=== PATIENT | female | born 1930 | race Caucasian/White ===

== ENCOUNTER 2018-10-20 10:30 | Inpatient (IN) | payer MEDICARE, BC ==
[~2018-10-20] VITALS: Ht 157.5 cm; Wt 57.5 kg
[2018-10-20 10:30] VITALS: BP 177/71
--- NOTE | 2018-10-20 10:30 | NUR ---
CHRISTIANO FOSS admitted to room 225-1, with an admitting diagnosis of POST CVA , on 10/20/18 from [facility] via EMS TRANSPORT, accompanied by STAFF.CHRISTIANO FOSS introduced to surroundings, call light, bed controls, phone, TV, temperature control, lights, meal times, smoking policy, visitor policy, side rail policy, bathrooms and showers. Patient Rights given to patient in the handbook.CHRISTIANO FOSS verbalizes understanding that [facility] is not responsible for the loss or damage to any personal effects or valuables that are kept in the patients posession during their hospitalization. The following Patient Care Plans were discussed with the PATIENT: Discharge Planning, CVA, RISK FOR INJURY, TELEMETRY. CHRISTIANO FOSS verbalizes understanding of Interdisciplinary Patient Education. Patient received Patient Rights Booklet, which includes Privacy Act Statement and Data Collection Information Summary.
--- NOTE | 2018-10-20 11:08 | History & Physical ---
History of Present Illness History of Present Illness Reason for visit/HPI CC: Seth stroke HPI: This is an 87-year-old white female clinic patient of Dr. 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 Apparently she had originally presented to the ER the day before admission for weakness and daughter was concerned about her speech. CT scan showed an area of old infarct with cerebral atrophy but no acute process. She was complaining of cough so she was placed on antibiotics and discharged back to the assisted living facility. Patient continued to have speech problems and then began to have difficulty with ambulating with a walker and brought her back to the emergency room. MRI was obtained revealing a Seth infarct subacute as likely cause of her issues. She had previously stopped her Plavix for unknown reason so she has been placed back on Plavix and started on Zocor. Her carotid ultrasound was done in July 2018 and that study was normal. Hyperlipidemia noted it total cholesterol 262 so she was placed empirically on Zocor. Patient was found to meet criteria for aggressive inpatient rehabilitation prior to returning back to assisted living. She does have a history of an old stroke and history of left hip fracture with left leg nerve injury since that time. These issues will place additional stressors in order to participate in therapies to fully benefit from aggressive inpatient rehabilitation. Date of Admission Oct 20, 2018 at 10:30 Date Seen by a Provider: Oct 20, 2018 Time Seen by a Provider: 11:30 I consulted on this patient on 10/20/18 11:08 Attending Physician Mera Joseph DO Admitting Physician Consult Allergies and Home Medications Allergies Coded Allergies: morphine (Unverified Allergy, Unknown, 10/20/18) sulfamethoxazole (Unverified Allergy, Unknown, 10/20/18) trimethoprim (Unverified Allergy, Unknown, 10/20/18) Home Medications Acetaminophen 325 Mg Tablet, 650 MG PO QID PRN for PAIN-MILD OR TEMPATURE, ( Reported) Ascorbic Acid 500 Mg Tablet, 500 MG PO DAILY, (Reported) Aspirin 81 Mg Tablet.dr, 81 MG PO HS, (Reported) Cholecalciferol (Vitamin D3) 1,000 Unit Capsule, 1,000 UNIT PO HS, (Reported) Citalopram Hydrobromide 20 Mg Tablet, 20 MG PO DAILY, (Reported) Lamotrigine 25 Mg Tablet, 25 MG PO HS, (Reported) Levothyroxine Sodium 25 Mcg Tablet, 25 MCG PO HS, (Reported) Melatonin 3 Mg Tablet, 3 MG PO HS, (Reported) Menthol 118 Ml Gel..ml., TP DAILY PRN for MUSCLE PAIN, (Reported) Multivits,Ca,Minerals/Iron/FA 1 Each Tablet, 1 TAB PO DAILY, (Reported) Oxybutynin Chloride 5 Mg Tablet, 5 MG PO DAILY, (Reported) Pantoprazole Sodium 40 Mg Tablet.dr, 40 MG PO DAILY, (Reported) Polyethylene Glycol 3350 17 Gm Powd.pack, 17 GM PO Q48H, (Reported) Pramoxine HCl/Menthol 28 Gm Cream..g., TP DAILY PRN for ITCHING, (Reported) Sodium Chloride 126 Ml Mist, 2 SPRAYS NS TID, (Reported) Patient Home Medication List Home Medication List Reviewed: Yes Past [id number] Hx Past Med/Social Hx: Reviewed Nursing Past Med/Soc Hx, Reviewed and Corrections made Patient Social History Marrital Status: single 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[employer]) Alcohol Use: Denies Use Smoking Status: Never a Smoker Seasonal Allergies Seasonal Allergies: No Past Medical History Surgeries: Abdominal (partial bowel resection), Bladder Surgery, Cardiac, Orthopedic (left hip fracture) Cardiac: Atrial Fibrillation, Coronary Artery Disease, High Cholesterol, Hypertension Neurological: Dementia, Neuropathy, Seizure Disorder, Stroke Genitourinary: Bladder Infection Gastrointestinal: Gastroesophageal Reflux, Chronic Constipation Musculoskeletal: Arthritis, Spasms Endocrine: Hypothyroidsim Hearing Impairment: Hard of Hearing Review of Systems Constitutional: see HPI, dizziness, malaise, weakness EENTM: no symptoms reported Respiratory: no symptoms reported Cardiovascular: no symptoms reported Gastrointestinal: no symptoms reported Genitourinary: no symptoms reported Musculoskeletal: back pain, joint pain Skin: no symptoms reported Psychiatric/Neurological: Anxiety, Depressed, Paresthesia, Pre-Existing Deficit , Weakness All Other Systems Reviewed Negative Unless Noted: Yes Physical Exam Vital Signs Capillary Refill : Height, Weight, BMI Height: '" Weight: lbs. oz. kg; BMI Method: General Appearance: No Apparent Distress, WD/WN, Chronically ill, Thin Eyes: Bilateral Eye Normal Inspection, Bilateral Eye PERRL, Bilateral Eye EOMI HEENT: PERRL/EOMI, Normal ENT Inspection, Pharynx Normal Neck: Full Range of Motion, Normal Inspection, Non Tender, Supple, Carotid Bruit Respiratory: Chest Non Tender, Lungs Clear, Normal Breath Sounds, No Accessory Muscle Use, No Respiratory Distress Cardiovascular: Regular Rate, Rhythm, No Edema, No Gallop, No JVD, No Murmur, Normal Peripheral Pulses Gastrointestinal: Normal Bowel Sounds, No Organomegaly, No Pulsatile Mass, Non Tender, Soft Back: Normal Inspection, No CVA Tenderness, No Vertebral Tenderness Extremity: Normal Capillary Refill, Normal Inspection, Normal Range of Motion, Non Tender, No Calf Tenderness, No Pedal Edema Neurologic/Psychiatric: Alert, Oriented x3, No Motor/Sensory Deficits, Normal Mood/Affect, Abnormal Gait (left leg weakness), Aphasia, Disoriented (subtle poor recall), Facial Droop (right), Motor Weakness (generalized) Skin: Normal Color, Warm/Dry Lymphatic: No Adenopathy Assessment/Plan Assessment and Plan Assessment: Seth infarct History of CVA with subsequent seizure disorder CAD previous stent placement Hypothyroidism Hypertension 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 Also will monitor for urinary and bowel function due to history of both organ systems ' dysfunction. Monitor blood pressure closely due to history of stroke subacute along with 2 prior strokes Close monitoring for recurrent seizure since history of seizure after her last stroke Cardiology consultation to decide if additional anticoagulation is needed to prevent subsequent strokes Admission Diagnosis Admission Status: Inpatient Order (span 2 midnights) Reason for Inpatient Admission: CVA inpt rehab will require 10 days of therapy Diagnosis/Problems Diagnosis/Problems (1) CVA (cerebral vascular accident) Status: Acute (2) History of CVA (cerebrovascular accident) Status: Chronic (3) Seizure disorder Status: Chronic (4) CAD (coronary artery disease) Status: Chronic (5) Hypothyroidism Status: Chronic (6) Paroxysmal atrial fibrillation Status: Chronic (7) History of coronary artery stent placement Status: Chronic (8) Hypertension Status: Chronic (9) Hyperlipidemia Status: Chronic (10) Urge incontinence Status: Chronic (11) History of hip fracture Status: Chronic (12) Depression Status: Chronic Problem Qualifiers (1) CVA (cerebral vascular accident): CVA mechanism: unspecified Qualified Codes: I63.9 - Cerebral infarction, unspecified (2) CAD (coronary artery disease): Coronary Disease-Associated Artery/Lesion type: [place] artery [place] vs. transplanted heart: [place] heart Associated angina: without angina Qualified Codes: I25.10 - Atherosclerotic heart disease of [place] coronary artery without angina pectoris (3) Hypothyroidism: Hypothyroidism type: acquired Qualified Codes: E03.9 - Hypothyroidism, unspecified (4) Hypertension: Hypertension type: essential hypertension Qualified Codes: I10 - Essential ( primary) hypertension (5) Hyperlipidemia: Hyperlipidemia type: mixed hyperlipidemia Qualified Codes: E78.2 - Mixed hyperlipidemia (6) Depression: Depression Type: unspecified Qualified Codes: F32.9 - Major depressive disorder, single episode, unspecified MERA JOSEPH DO Oct 20, 2018 11:08
[2018-10-20] MEDS ORDERED: LIDOCAINE 4% (SALONPAS) PATCH TOP PRN (11:30)
[2018-10-20] MEDS ORDERED: NON-FORMULARY MEDICATION 1 EA EA TOP PRN ×2 (11:30)
--- NOTE | 2018-10-20 12:44 | Occupational Therapy Eval ---
OT Evaluation-General/PLF Medical Diagnosis Admission Date Oct 20, 2018 at 10:30 Medical Diagnosis: CVA Onset Date: Oct 20, 2018 Therapy Diagnosis Therapy Diagnosis: decreased self care skills Medical History Pertinent Medical History: CVA, HTN, Hypothroidism Current History Pt admitted with CVA. Social History Home: Assisted Living ADL-Prior Level of Function Therapy Code Descriptions/Definitions Functional [place] Measure: 0=Not Assessed/NA 4=Minimal Assistance 1=Total Assistance 5=Supervision or Setup 2=Maximal Assistance 6=Modified [place] 3=Moderate Assistance 7=Complete [place] Therapy Quality Codes: 6 Independent with activity with or without an assistive device 5 Patient requires set up or clean up by helper. Patient completes activity by themselves 4 Supervision or touching assist (CGA). [place] provide cues , steadying assist 3 The helper provides less than half the effort to complete the activity 2 The helper provides more than half the effort to complete the activity 1 Dependent. The helper does all the effort to complete an activity 7 Patient refused to complete or attempt activity 9 The patient did not perform the activity before the current illness or injury 88 Not attempted due to Medical conditions or safety concerns Functional Abilities and Goals: Independent: Patient completed the activities by him/herself, with or without an assistive device, with no assistance from a helper. Needed Some Help: Patient needed partial assistance from another person to complete activities. Dependent: A helper completed the activities for the patient. Unknown: Not Applicable: ADL PLOF Comments Pt states she is normally independent with basic self care tasks. She lives at an Assisted Living Facility. They provide all meals. Pt uses FWW or w/c for mobility. DME/Equipment: Bath Chair, Shower Drive Self: No OT Current Status Subjective Pt in bed, agrees to treatment. Pt has no c/o pain. Mental Status/Objective Patient Orientation: Person, Place Current Glasses/Contacts: Yes Hearing Aids: No Dentures/Partials: Yes (pt states she has a partial, but does not have it here) Upper Extremity ROM Grossly WFL Upper Extremity Coordination Intact Upper Extremity Sensation Intact per pt report ADL-Treatment ADL-Current Pt admitted from outside hospital via ambulance transfer this date. Pt would like a shower this morning. Supine to sit with SBA and increased time. Sit to stand with min assist. Gait to restroom with FWW, very slow pace. Transfer to toilet with minimal assistance and cues for safety. Pt able to pull pants down with CGA for balance. Did not void at this time. Pt doffed clothing while seated on toilet. Able to doff shirt, but required assist with bra hook. Pt able to doff Depends and pants, but requires min assist for socks. Transfer to walk in shower with minimal assistance for safety. Uses grab bars for balance. Seated bathing completed using hand held shower. Upper body bathing completed with SBA. Pt able to wash bilateral upper legs and jerome area. Requires assist for feet and to stand and wash buttocks. Pt moves very slowly and requires increased time for bathing and dressing tasks. Pt required minimal assistance to don bra. Able to don pullover shirt with SBA. Pt required minimal assistance to start Depends and pants over feet, then able to pull up to knees. Stood with CGA for balance, required assist to pull pants up in back. Pt able to don socks with increased time. Able to don shoes, but requires assist to tie them. Pt slowly transferred to EOB. Sitting with needs met and speech therapist present after session. Bathing (FIM): 3 Shower/Bathe Self (QC): 3 Upper Body Dressing (FIM): 4 Upper Body Dressing (QC): 3 Lower Body Dressing (FIM): 3 Lower Body Dressing (QC): 3 On/Off Footwear (QC): 3 Toilet/Commode Transfer (FIM): 4 Toilet Transfer (QC): 3 Shower Transfer (FIM): 4 Education OT Patient Education: Rehab process Teaching Recipient: Patient Teaching Methods: Discussion Response to Teaching: Verbalize Understanding OT Short Term Goals Short Term Goals Time Frame: Oct 27, 2018 Bathing(FIM): 4 Upper Body Dressing(FIM): 5 Lower Body Dressing(FIM): 5 Toileting(FIM): 5 Toilet/Commode Transfer(FIM): 5 1=Demonstrate adherence to instructed precautions during ADL tasks. 2=Patient will verbalize/demonstrate understanding of assistive devices/ modifications for ADL. 3=Patient will improve strength/tolerance for activity to enable patient to perform ADL's. OT Assisted Goals Assisted Goals Time Frame: Nov 10, 2018 Eating (FIM): 6 Eating (QC): 6 Groomin Oral Hygiene (QC): 6 Bathing(FIM): 5 Shower/Bathe Self (QC): 5 Upper Body Dressing(FIM): 6 Upper Body Dressing (QC): 6 Lower Body Dressing(FIM): 6 Lower Body Dressing (QC): 6 On/Off Footwear (QC): 6 Toileting(FIM): 6 Toileting Hygiene (QC): 6 Toilet/Commode Transfer(FIM): 6 Toilet/Commode Transfer (QC): 6 Shower Transfer(FIM): 5 Additional Goals: 1-Demonstrate ADL Tasks, 2-Verbalize Understanding, 3- ImproveStrength/Ramila 1=Demonstrate adherence to instructed precautions during ADL tasks. 2=Patient will verbalize/demonstrate understanding of assistive devices/ modifications for ADL. 3=Patient will improve strength/tolerance for activity to enable patient to perform ADL's. OT Education/Plan Problem List/Assessment Assessment: Decreased Activ Tolerance, Decreased UE Strength, Dependent Transfers, Impaired Funct Balance, Impaired Self-Care Skills Pt demonstrates decreased ADL functioning, strength, transfers, and activity tolerance. Pt to benefit from skilled OT intervention for ADL training, transfers, strengthening, and safety education to increase functional independence and allow safe discharge plan. Discharge Recommendations Plan/Recommendations: Continue POC Treatment Plan/Plan of Care Treatment,Training & Education: Yes Patient would benefit from OT for education, treatment and training to promote independence in ADL's, mobility, safety and/or upper extremity function for ADL' s. Plan of Care: ADL Retraining, Functional Mobility, Group Exercise/Act as Ind, UE Funct Exercise/Act Treatment Duration: Nov 10, 2018 Frequency: At least 5 of 7 days/Wk (IRF) Estimated Hrs Per Day: 1.5 hours per day Agreement: Yes Rehab Potential: Fair Time/GCodes Start Time: 10:45 Stop Time: 11:50 Total Time Billed (hr/min): 65 Billed Treatment Time 1 visit, EVL(15minutes), ADLx3(50minutes) EDGARD DAVILA OT Oct 20, 2018 12:44
[2018-10-20] MEDS: SALINE NASAL SPRAY (OCEAN) 45 ML BTL SCH ×2 (13:00→21:11)
--- NOTE | 2018-10-20 14:06 | Occupational Ther Daily Note ---
OT Current Status-Daily Note Subjective Pt alert, sitting on EOB. No c/o pain. Agrees to therapy. Mental Status/Objective Patient Orientation: Person, Place, Time, Situation Therapy Code Descriptions/Definitions Functional [place] Measure: 0=Not Assessed/NA 4=Minimal Assistance 1=Total Assistance 5=Supervision or Setup 2=Maximal Assistance 6=Modified [place] 3=Moderate Assistance 7=Complete [place] ADL-Treatment Therapy Code Descriptions/Definitions Functional [place] Measure: 0=Not Assessed/NA 4=Minimal Assistance 1=Total Assistance 5=Supervision or Setup 2=Maximal Assistance 6=Modified [place] 3=Moderate Assistance 7=Complete [place] Therapy Quality Codes: 6 Independent with activity with or without an assistive device 5 Patient requires set up or clean up by helper. Patient completes activity by themselves 4 Supervision or touching assist (CGA). [place] provide cues , steadying assist 3 The helper provides less than half the effort to complete the activity 2 The helper provides more than half the effort to complete the activity 1 Dependent. The helper does all the effort to complete an activity 7 Patient refused to complete or attempt activity 9 The patient did not perform the activity before the current illness or injury 88 Not attempted due to Medical conditions or safety concerns Eating (FIM): 5 (Opens most containers and packages assist with tight lids and milk carton then uses regular utensils to eat.) Eating (QC): 5 Grooming (FIM): 6 (Sitting at sink, pt able to complete by self.) Oral Hygiene (QC): 6 Toileting (FIM): 3 (Min A for stability in standing to hike pants over hips. Assist to hike over buttocks. Pt able to cleanse after urination.) Toileting Hygiene (QC): 3 Toilet/Commode Transfer (FIM): 4 (Min A for sit<-->stand. Verbal cues for FWW and foot placement for transfer when close to toilet.) Pt ambulated to bed and required verbal cues for FWW and foot placement when close to bed. Pt able to go from EOB to supine by self using bed rail. Assist to scoot up in bed. After therapy, pt lying in bed with call light/phone in reach. All needs met in room. OT Short Term Goals Short Term Goals Time Frame: Oct 27, 2018 Bathing(FIM): 4 Upper Body Dressing(FIM): 5 Lower Body Dressing(FIM): 5 Toileting(FIM): 5 Toilet/Commode Transfer(FIM): 5 1=Demonstrate adherence to instructed precautions during ADL tasks. 2=Patient will verbalize/demonstrate understanding of assistive devices/ modifications for ADL. 3=Patient will improve strength/tolerance for activity to enable patient to perform ADL's. OT Color Consultant Goals Group Home Goals Time Frame: Nov 10, 2018 Eating (FIM): 6 Eating (QC): 6 Groomin Oral Hygiene (QC): 6 Bathing(FIM): 5 Shower/Bathe Self (QC): 5 Upper Body Dressing(FIM): 6 Upper Body Dressing (QC): 6 Lower Body Dressing(FIM): 6 Lower Body Dressing (QC): 6 On/Off Footwear (QC): 6 Toileting(FIM): 6 Toileting Hygiene (QC): 6 Toilet/Commode Transfer(FIM): 6 Toilet/Commode Transfer (QC): 6 Shower Transfer(FIM): 5 Additional Goals: 1-Demonstrate ADL Tasks, 2-Verbalize Understanding, 3- ImproveStrength/Ramila 1=Demonstrate adherence to instructed precautions during ADL tasks. 2=Patient will verbalize/demonstrate understanding of assistive devices/ modifications for ADL. 3=Patient will improve strength/tolerance for activity to enable patient to perform ADL's. OT Education/Plan Problem List/Assessment Pt demonstrates decreased ADL functioning, strength, transfers, and activity tolerance. Pt to benefit from skilled OT intervention for ADL training, transfers, strengthening, and safety education to increase functional independence and allow safe discharge plan. Discharge Recommendations Plan/Recommendations: Continue POC Treatment Plan/Plan of Care Patient would benefit from OT for education, treatment and training to promote independence in ADL's, mobility, safety and/or upper extremity function for ADL' s. Plan of Care: ADL Retraining, Functional Mobility, Group Exercise/Act as Ind, UE Funct Exercise/Act Treatment Duration: Nov 10, 2018 Frequency: At least 5 of 7 days/Wk (IRF) Estimated Hrs Per Day: 1.5 hours per day Agreement: Yes Rehab Potential: Fair Time/GCodes Start Time: 13:10 Stop Time: 13:56 Total Time Billed (hr/min): 46 Billed Treatment Time 1 visit-ADL 3 (46 min) MATILDA ABRAHAM Oct 20, 2018 14:06
[2018-10-20] MEDS ORDERED: MELA3TAB PO (14:27)
[2018-10-20] MEDS ORDERED: LAMO25TA PO (14:27)
[2018-10-20] MEDS ORDERED: ACET325T38 PO (14:27)
[2018-10-20] MEDS ORDERED: [UNRECOGNIZED DRUG - CODE] TP (14:27)
[2018-10-20] MEDS ORDERED: LEVO25TA5 PO (14:27)
[2018-10-20] MEDS ORDERED: OXYB5TAB9 PO (14:27)
[2018-10-20] MEDS ORDERED: POLY17PO6 PO (14:27)
[2018-10-20] MEDS ORDERED: MENT118G TP (14:27)
[2018-10-20] MEDS ORDERED: SODI126M NS (14:27)
[2018-10-20] MEDS ORDERED: ASPI-983 PO (14:27)
[2018-10-20] MEDS ORDERED: MULT-1009 PO (14:27)
[2018-10-20] MEDS ORDERED: PANT40TA2 PO (14:27)
[2018-10-20] MEDS ORDERED: ASCO500T6 PO (14:27)
[2018-10-20] MEDS ORDERED: CITA20TA9 PO (14:27)
[2018-10-20] MEDS ORDERED: CHOL10007 PO (14:27)
--- NOTE | 2018-10-20 14:49 | Physical Therapy Evaluation ---
PT Evaluation-General Medical Diagnosis Admission Date Oct 20, 2018 at 10:30 Medical Diagnosis: CVA Onset Date: Oct 20, 2018 Therapy Diagnosis Therapy Diagnosis: impaired mobility, strength, endurnace Weight Bear Status Right Lower Extremity: Right Full Weight Bearing Left Lower Extremity: Left Full Weight Bearing Referral Physician: Mera Joseph DO Reason for Referral: Evaluation/Treatment Medical History Pertinent Medical History: CVA, HTN, Hypothroidism Reviewed History: Yes Social History Home: Assisted Living Patient lives in assisted living but she states she has 3-4 steps to enter her home and has a railing. Prior/Core FIM Prior Level of Function Therapy Code Descriptions/Definitions Functional Weber Measure: 0=Not Assessed/NA 4=Minimal Assistance 1=Total Assistance 5=Supervision or Setup 2=Maximal Assistance 6=Modified Weber 3=Moderate Assistance 7=Complete Weber Therapy Quality Codes: 6 Independent with activity with or without an assistive device 5 Patient requires set up or clean up by helper. Patient completes activity by themselves 4 Supervision or touching assist (CGA). Crocheron provide cues , steadying assist 3 The helper provides less than half the effort to complete the activity 2 The helper provides more than half the effort to complete the activity 1 Dependent. The helper does all the effort to complete an activity 7 Patient refused to complete or attempt activity 9 The patient did not perform the activity before the current illness or injury 88 Not attempted due to Medical conditions or safety concerns Functional Abilities and Goals: Independent: Patient completed the activities by him/herself, with or without an assistive device, with no assistance from a helper. Needed Some Help: Patient needed partial assistance from another person to complete activities. Dependent: A helper completed the activities for the patient. Unknown: Not Applicable: Bed Mobility: 6 Transfers (B,C,W/C) (FIM): 6 Gait: 6 Stairs: 6 Indoor Mobility (Ambulation): Independent Stairs: Independent Patient was using a rolling walker previously. PT Evaluation-Current Subjective Patient in bed pre tx, agrees to PT, has no complaints of pain. Patient states her left leg is a little shorter than her right, she has a gel insert in her left shoe. Patient came by ambulance to this facility today. Pt/Family Goals to be independent at home Objective Patient Orientation: Person, Place, Situation ROM/Strength ROM Lower Extremities WNL Strenght Lower Extremities right lower extremity (hip flexion 3-/5, knee extension 4+/5, knee flexion 4+/5 , dorsiflexion 5/5), left lower extremity (hip flexion 3/5, knee extension 4/5, knee flexion 4/5, dorsiflexion 1/5) Patient states she has foot drop on the left side from a previous injury. Neuromuscular (Tone, Coordination, Reflexes) Patient seems to have intact peripheral vision that may be a little diminished on the left side. Patient had unreliable testing of track because she would look away and back again. No complaints of changes in hearing. Sensory Hearing: Functional Sensation Right Lower Extremit: Intact Sensation Left Lower Extremity: Impaired Sensation Lower Extremities Patient states she has some numbness in the toes left side. Transfers Therapy Code Descriptions/Definitions Functional Weber Measure: 0=Not Assessed/NA 4=Minimal Assistance 1=Total Assistance 5=Supervision or Setup 2=Maximal Assistance 6=Modified Weber 3=Moderate Assistance 7=Complete Weber Therapy Quality Codes: 6 Independent with activity with or without an assistive device 5 Patient requires set up or clean up by helper. Patient completes activity by themselves 4 Supervision or touching assist (CGA). Crocheron provide cues , steadying assist 3 The helper provides less than half the effort to complete the activity 2 The helper provides more than half the effort to complete the activity 1 Dependent. The helper does all the effort to complete an activity 7 Patient refused to complete or attempt activity 9 The patient did not perform the activity before the current illness or injury 88 Not attempted due to Medical conditions or safety concerns Transfers (B, C, W/C) (FIM): 4 Scootin Rollin Roll Left to Right (QC): 4 Supine to/from Sit: 4 Sit to/from Stand: 4 Sit to Lying (QC): 3 Lying to Sitting/Side of Bed(Q: 4 Sit to Stand (QC): 3 Chair/Vuv-xi-Oxuvf Xfer(QC): 3 Car Transfer (QC): 3 Patient performs bed mobility with SBA, supine to sit with SBA, sit to supine with min assist, sit to stand with min assist, transfers with min assist (needs help guiding walker), car transfer min assist. Patient needs cues for hand placement and safety. Moves very slowly. Gait Does the Patient Walk?: Yes Mode of Locomotion: Walk Anticipated Mode of Locomotion: Walk Gait (FIM): 2 Walk 10 feet (QC): 3 Walk 50 ft with 2 Turns(QC): 3 Walking 10ft/uneven surface-QC: 3 Distance: 100'x2 Gait Level of Assist: 3 Gait Persons Needed: 1 Gait Assistive Device: FWW Comments/Gait Description Patient can ambulate 100' with a rolling walker with min assist (including 50' with at least 2 turns of 90 degrees and 10' over an uneven surface). Patient ambulates extremely slowly and needs occasional assist to help guide walker. Patient has uneven and uncoordinated steps and often walks on her toes on the left side. Wheelchair Training Does the Pt Use a Wheelchair?: No Stairs Stairs (FIM): 1 #of Steps: 1 Level of Assist: 4 1 Step (curb) (QC): 3 Assistive Device: Walker Patient can go up and down 1 step using a rolling walker with min assist. Needs cues for foot placement and assist with balance. Balance Sitting Static: Normal Sitting Dynamic: Good Standing Static: Fair Assessment/Needs Patient has impairments in mobility, strength, endurance, balance. She has foot drop on the left side and says she already has her own AFO. Rehab Potential: Fair PT Short Term Goals Short Term Goals Time Frame: Oct 27, 2018 Transfers (B,C,W/C) (FIM): 4 Gait (FIM): 2 Gait Distance Comment: 120' Gait Level of Assist: 4 Gait Assistive Device: FWW PT Jail Goals Exhaust Emissions Automotive Technician Goals PT Exhaust Emissions Automotive Technician Goals Time Frame: Nov 10, 2018 Transfers (B,C,W/C) (FIM): 5 Sit to Lying (QC): 4 Lying-Sitting on Side/Bed(QC): 4 Sit to Stand (QC): 4 Rollin Roll Left to Right (QC): 4 Chair/Ekk-ka-Qpdba Xfer(QC): 4 Car Transfer (QC): 4 Gait (FIM): 5 Distance: 150' Walk 10 feet (QC): 4 Walk 10ft-Uneven Surface(QC): 4 Walk 50ft with 2 Turns (QC): 4 Walk 150 ft (QC): 4 Gait Level of Assist: 5 Gait Assistive Device: FWW Stairs (FIM): 2 # of Steps: 4 1 Step (curb) (QC): 4 4 Steps (QC): 4 Stairs Level Of Assist: 4 PT Plan Problem List Problem List: Activity Tolerance, Functional Strength, Safety, Balance, Gait, Transfer, Bed Mobility, ROM Treatment/Plan Treatment Plan: Continue Plan of Care Treatment Plan: Bed Mobility, Education, Functional Activity Ramila, Functional Strength, Group Therapy, Gait, Safety, Therapeutic Exercise, Transfers Treatment Duration: Nov 10, 2018 Frequency: At least 5 of 7 days/Wk (IRF) Estimated Hrs Per Day: 1.5 hours per day Patient and/or Family Agrees t: Yes Safety Risks/Education Patient Education: Gait Training, Transfer Techniques, Steps, Correct Positioning, Safety Issues Teaching Recipient: Patient Teaching Methods: Demonstration, Discussion Response to Teaching: Reinforcement Needed Discharge Recommendations Plan Patient will perform bed mobility and transfer training, balance and endurance training, functional strengthening, stair training, gait training, and education , to improve functional mobility and independence at home. Therapy D/C Recommendations: Assisted Living, Home w/ Family Support, Longterm (TCU/NH) Time/GCodes Time In: 1400 Time Out: 1435 Total Billed Treatment Time: 35 Total Billed Treatment 1 visit [place] 20' GT 15' NITO CAMACHO PT Oct 20, 2018 14:49
--- NOTE | 2018-10-20 15:22 | ST Cognitive Linguistic Eval ---
Speech Evaluation-General Medical Diagnosis CVA Onset Date: Oct 20, 2018 Therapy Diagnosis Therapy Diagnosis: Cognitive-communication Medical History Pertinent Medical History: CVA, HTN, Hypothroidism Reviewed History: Yes Speech PLF-Current Status Prior Level of Function Patient lived in assisted living where she was independent for most of her daily needs. Subjective Patient was very pleasant and attentive during the evaluation process. Language Eval: Auditory Comprehends Simple Yes/No Ques: Functional Indent/Objects Multiple Manley: Functional Ident/Pics in Multiple Manley: Functional Follows 1-Step Commands: Functional Follows Complex Directions: Functional Follows General Conversations: Functional Language Eval: Verbal Language Completes Spontaneous Greeting: Functional Produces Auto, Serial Info: Functional Imitates Simple Words/Phrases: Functional Word Finding: Functional Requests Basic Needs: Functional States Basic Personal Info: Functional Expresses Complex Ideas: Functional Objective Cognitive Domain Attention: WNL Memory: Mild Problem Solving: Functional Executive Functions: WNL Objective Formal/Standardized Tests [facility] Cognitive/Communication Results Memory:Immediate 3/3, Delayed 3/3 with cue x1, Orientation: 5/5, Problem Solving : Simple 5/5, Complex 4/5, Auditory Processin/5 Oral Motor/Speech Production Within Functional Limits Impression Patient is a pleasant 87 year old woman who was admitted to the ARU from [place] secondary to a CVA. Patient is a good historian and was able to give accurate details of her medical history. Patient completed the cognitive/communication evaluation with very minimal difficulty. Patient is not considered an appropriate candidate for skilled ST at this time. Communication/Social Cognition Comprehension: 7 Expression: 7 Social Interaction: 7 Problem Solvin Memory: 6 Speech Patient Assess Expression of Ideas/Wants: Expression (4) Understanding Verbal Content: Understands (4) Brief Interview-Mental Status: Yes Repetition of Three Words: Three (3) Temporal Orientation: Year: Correct (3) Temporal Orientation: Month: Accurate within 5 days(2) Temporal Orientation: Day: Correct (1) Recall : Color: Yes, after cueing (1) Recall : Bed: Yes, no cue required (2) Memory/Recall Ability: Current season, That he or she is in a hsp/hsp unit Speech Short Term Goals Short Term Goals Short Term Goals Patient will follow through with directions at 90% or greater. Patient will be able to express her wants/needs with 90% or greater. Speech Account Manager Relief Goals Senior Care Goals Patient will be able to communicate effectively while a patient on the ARU. Speech-Plan Patient/Family Goals Patient/Family Goals: Patient plans to return to the assisted living facility post rehab. Treatment Plan Speech Therapy Treatment Plan: Discontinue ST, Goals Met Patient is not recommended for skilled ST at this time. Treatment Duration: Oct 20, 2018 Frequency: 1 time per week Estimated Hrs Per Day: .25 hour per day Rehab Potential: Fair Barriers to Learning: Patient has had CVA's before which may have resulted in some residual affects. Safety Risks/Education Teaching Recipient: Patient Teaching Methods: Discussion Response to Teaching: Verbalize Understanding Education Topics Provided: Safety within her room Time Speech Therapy Time In: 11:50 Speech Therapy Time Out: 12:05 Total Billed Time: 15 Billed Treatment Time 1, ÁLVARO Quezada Oct 20, 2018 15:22
--- NOTE | 2018-10-20 15:25 | Consultation-Cardiology ---
HPI-Cardiology Cardiology Consultation: Date of Consultation 10/20/18 Time Seen by a Provider: 15:15 Date of Admission 10-20-18 Attending Physician Mera Joseph DO Admitting Physician Brenton Marroquin MD Consulting Physician Yogi Phipps MD HPI: Chief Complaint: CVA H/O PAF Primary Ward Assistant: Dr. Cresencio Mendes at [place], [place] Ms. Oliver is an 87 year old female admitted to IRF [facility] from [facility] for rehb tx following recent CVA. She is not a good historian and her daughter is not here at this time. She reports prior to her most recent stroke she had generally not been feeling well. She states her daughter brought her to see her PCP. She reports she was then admitted to [facility] from the ED with a stroke. Review of records from [facility] document she was initially brought to the [facility] ED by the [facility] facility at which she resides d/t her daughter being concerned that the patients speech had become "abnormal". CT is reported to have been carried out at that time which showed no evidence of acute CVA. (Report not available to us ) She was then released and brought to her PCP for f/u the next day by her daughter concern that the pts speech was still not at usual baseline and a somewhat right sided facial droop along with the inability to ambulate with her walker which she had previously been able to do. She was admitted and further work up was carried out. We do not have the MRI which was reported to have been done at the time of admission. She currently is not reporting any c/o CP, dyspnea, palpitations, syncope or near syncope. She is not reporting any LE edema. Review of Systems-Cardiology Review of Systems Constitutional: No chills, No fever; malaise; No weight loss, No weight gain Eyes: vision change Ears/Nose/Throat: No epistaxis, No recent hearing loss Respiratory: As described under HPI Cardiovascular: As described under HPI Gastrointestinal: No constipation, No diarrhea, No nausea, No vomiting Genitourinary: No dysuria, No hematuria Musculoskeletal: no symptoms reported Skin: No rash Psychiatric/Neurological: As described under HPI Hematologic: No bleeding abnormalities All Other Systems Reviewed Negative Unless Noted: Yes DKX-Aibaem-Ktodsl Hx Patient Social History Marrital Status: single 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 Family Medical History Family Medical History: She reports she has 2 sisters who have had CVA's and atrial fibrillation. She reports her father passed from an [place] at age 65. She reports her mother passed from an [place] at age 69 Allergies and Home Medications Allergies Coded Allergies: morphine (Unverified Allergy, Unknown, 10/20/18) sulfamethoxazole (Unverified Allergy, Unknown, 10/20/18) trimethoprim (Unverified Allergy, Unknown, 10/20/18) Home Medications Acetaminophen 325 Mg Tablet, 650 MG PO QID PRN for PAIN-MILD OR TEMPATURE, ( Reported) Ascorbic Acid 500 Mg Tablet, 500 MG PO DAILY, (Reported) Aspirin 81 Mg Tablet.dr, 81 MG PO HS, (Reported) Cefuroxime Axetil 250 Mg Tablet, 250 MG PO BID, (Reported) FILLED #14 TABLETS 10-17-18 Cholecalciferol (Vitamin D3) 1,000 Unit Capsule, 1,000 UNIT PO HS, (Reported) Citalopram Hydrobromide 20 Mg Tablet, 20 MG PO DAILY, (Reported) Lamotrigine 25 Mg Tablet, 25 MG PO HS, (Reported) Levothyroxine Sodium 25 Mcg Tablet, 25 MCG PO HS, (Reported) Melatonin 5 Mg Capsule, 10 MG PO HS, (Reported) Menthol 118 Ml Gel..ml., TP DAILY PRN for MUSCLE PAIN, (Reported) Multivits,Ca,Minerals/Iron/FA 1 Each Tablet, 1 TAB PO DAILY, (Reported) Oxybutynin Chloride 5 Mg Tablet, 5 MG PO DAILY, (Reported) Pantoprazole Sodium 40 Mg Tablet.dr, 40 MG PO DAILY, (Reported) Polyethylene Glycol 3350 17 Gm Powd.pack, 17 GM PO Q48H, (Reported) Pramoxine HCl/Menthol 28 Gm Cream..g., TP DAILY PRN for ITCHING, (Reported) Sodium Chloride 126 Ml Mist, 2 SPRAYS NS TID, (Reported) Patient Home Medication List Home Medication List Reviewed: Yes Physical Exam-Cardiology Physical Exam Vital Signs/I&O 10/23/18 10/23/18 10/23/18 01:00 06:25 07:00 Temp 97.0 Pulse 57 57 53 Resp 16 B/P (MAP) 163/78 (106) Pulse Ox 94 O2 Delivery Room Air 10/23/18 00:00 Intake Total 800 ml Balance 800 ml Capillary Refill : Constitutional: AAO x 3, well-developed, well-nourished HEENT: hard of hearing, oral hygience is good Neck: carotid bruit (right, faint) Respiratory: No accessory muscle use, No respiratory distress; chest expansion is symmetric, chest is bilaterally symmetric, lungs clear to auscultation Cardiovascular: regular rate-rhythm; No JVD; S1 and S2 Gastrointestinal: No tender; soft, round Rectal: deferred Extremities: no lower extremity edema bilateral Neurologic/Psychiatric: grossly intact Skin: No rash, No ulcerations A/P-Cardiology Assessment/Admission Diagnosis Recent CVA ( 10-17-18) with h/o previous CVA x 2 (2013 and 2016) - CT from [facility] 10-17-18 is reported to have shown an area o an old infarct and severe cerebral atrophy, but no acute process per dictated note by Dr. Montemayor on 10-18-18 Echocardiogram of 10-19-18 shows mod concentric LVH; LVEF approx 60%; trivial to mild MR and TR. PASP approx 25 mmHg; mod enlargement of the LA Seizure disorder following a previous CVA Pt reports h/o brain bleed following a fall in 2012 - exact details unknown Documented and pt reported h/o PAF - details unknown Reported h/o CAD with stent placement in the past at [facility] in [place], [place] - details unknown HLD - statin tx Hypothyroidism - replacement tx H/O colon resection H/O skin cancer Family h/o CAD - mother [place] age 69, father [place] age 66 Discussion and Recomendations Her primary lathe operator contact lens is Dr. Mendes with [facility] in [place], [place] - we will request records H/O CVA with recent CVA - advise carotid u/s Documented h/o PAF - place on tele Currently she is on ASA and Plavix - she reports a h/o "brain bleed" - details unknown Management of CVA as per medical services Request records from [facility] Continue current medication regimen including Plavix and ASA Further recs will be based on her hospital course We would like to thank medical services for this consult SATHISH ROCHE Oct 20, 2018 15:25
[2018-10-20] MEDS ORDERED: CEFU250T80 PO (15:26)
[2018-10-20] MEDS ORDERED: MELA5CAP PO (15:31)
--- NOTE | 2018-10-20 15:51 | NUR ---
UPDATED MED REC WITH THE LIST OF HOME MEDS REPORTED BY [facility]. I ALSO HAD A LIST FAXED OVER FROM [facility] TO VERIFY THE PRESCRIPTION MEDICATION. NOTE THE FOLLOWING CHANGES WERE MADE WHEN THE PATIENT DISCHARGED TO [facility] THAT ARE NOT CURRENTLY REFLECTED ON THE HOME MED RED: START TAKING SIMVASTATIN 10MG DAILY PLAVIX 75MG HS [facility] FILLED: 07-12-18 LEVOTHYROXINE 25MCG DAILY #90 09-11-18 SALINE NASAL SPRAY 1 SPRAY IN NOSTRILS NEEDED 09-27-18 OXYBUTYNIN 5MG DAILY #30 09-27-18 LAMOTRIGINE 25MG HS #30 10-02-18 VITAMIN C 500MG DAILY #30 10-12-18 PROTONIX 40MG DAILY #42 10-17-18 CEFUROXIME 250MG BID #14 10-18-18 CITALOPRAM 20MG DAILY #30
[2018-10-20 16:24] VITALS: BP 162/66
--- NOTE | 2018-10-20 17:51 | Consultation-Cardiology ---
HPI-Cardiology Cardiology Consultation: Date of Consultation 10/20/18 Time Seen by a Provider: 16:50 Date of Admission Attending Physician Mera Joseph DO Admitting Physician Brenton Marroquin MD Consulting Physician FITZ WINTER MD, MA, FACP, FAC, [facility], [facility] Physician requesting consult: Dr Joseph HPI: Chief Complaint: CVA H/O PAF Primary General Merchandise Salesperson: Dr. Cresencio Mendes at [facility] Ms. Oliver is an 87 year old female admitted to IRF 225 from [facility] for rehb tx following recent CVA. She is not a good historian and her daughter is not here at this time. She reports prior to her most recent stroke she had generally not been feeling well. She states her daughter brought her to see her PCP. She reports she was then admitted to [facility] from the ED with a stroke. Review of records from [facility] document she was initially brought to the [facility] ED by the [facility] facility at which she resides d/t her daughter being concerned that the patients speech had become "abnormal". CT is reported to have been carried out at that time which showed no evidence of acute CVA. (Report not available to us ) She was then released and brought to her PCP for f/u the next day by her daughter concern that the pts speech was still not at usual baseline and a somewhat right sided facial droop along with the inability to ambulate with her walker which she had previously been able to do. She was admitted and further work up was carried out. We do not have the MRI which was reported to have been done at the time of admission. She currently is not reporting any c/o CP, dyspnea, palpitations, syncope or near syncope. She is not reporting any LE edema. Review of Systems-Cardiology Review of Systems Constitutional: No chills, No fever; malaise; No weight loss, No weight gain Eyes: vision change Ears/Nose/Throat: No epistaxis, No recent hearing loss Respiratory: As described under HPI Cardiovascular: As described under HPI Gastrointestinal: No constipation, No diarrhea, No nausea, No vomiting Genitourinary: No dysuria, No hematuria Musculoskeletal: no symptoms reported Skin: No rash Psychiatric/Neurological: As described under HPI Hematologic: No bleeding abnormalities All Other Systems Reviewed Negative Unless Noted: Yes [id number]-[id number]-[id number] Hx Patient Social History Marrital Status: single Employed/Student: retired ([employer]) Alcohol Use: Denies Use Recreational Drug Use: No Smoking Status: Never a Smoker Hospitalization with Isolation: Denies Physical Abuse Screen: No Sexual Abuse: No Past Medical History PMH As described under Assessment. Family Medical History Family Medical History: She reports she has 2 sisters who have had CVA's and atrial fibrillation. She reports her father passed from an [place] at age 65. She reports her mother passed from an [place] at age 69 Family History: FH: CVA (cerebrovascular accident) G8 SISTER FH: pancreatic cancer G8 SISTER Myocardial infarction 19 FATHER 19 MOTHER G8 BROTHER G8 SISTER Allergies and Home Medications Allergies Coded Allergies: morphine (Unverified Allergy, Unknown, 10/20/18) sulfamethoxazole (Unverified Allergy, Unknown, 10/20/18) trimethoprim (Unverified Allergy, Unknown, 10/20/18) Home Medications Acetaminophen 325 Mg Tablet, 650 MG PO QID PRN for PAIN-MILD OR TEMPATURE, ( Reported) Ascorbic Acid 500 Mg Tablet, 500 MG PO DAILY, (Reported) Aspirin 81 Mg Tablet.dr, 81 MG PO HS, (Reported) Cefuroxime Axetil 250 Mg Tablet, 250 MG PO BID, (Reported) FILLED #14 TABLETS 10-17-18 Cholecalciferol (Vitamin D3) 1,000 Unit Capsule, 1,000 UNIT PO HS, (Reported) Citalopram Hydrobromide 20 Mg Tablet, 20 MG PO DAILY, (Reported) Lamotrigine 25 Mg Tablet, 25 MG PO HS, (Reported) Levothyroxine Sodium 25 Mcg Tablet, 25 MCG PO HS, (Reported) Melatonin 5 Mg Capsule, 10 MG PO HS, (Reported) Menthol 118 Ml Gel..ml., TP DAILY PRN for MUSCLE PAIN, (Reported) Multivits,Ca,Minerals/Iron/FA 1 Each Tablet, 1 TAB PO DAILY, (Reported) Oxybutynin Chloride 5 Mg Tablet, 5 MG PO DAILY, (Reported) Pantoprazole Sodium 40 Mg Tablet.dr, 40 MG PO DAILY, (Reported) Polyethylene Glycol 3350 17 Gm Powd.pack, 17 GM PO Q48H, (Reported) Pramoxine HCl/Menthol 28 Gm Cream..g., TP DAILY PRN for ITCHING, (Reported) Sodium Chloride 126 Ml Mist, 2 SPRAYS NS TID, (Reported) Patient Home Medication List Home Medication List Reviewed: Yes Physical Exam-Cardiology Physical Exam Vital Signs/I&O 10/20/18 10/20/18 10/20/18 10/20/18 10:30 10:45 16:24 17:20 Temp 98.6 98.7 Pulse 55 55 58 Resp 16 14 B/P (MAP) 177/71 (106) 162/66 (98) Pulse Ox 96 96 94 O2 Delivery Room Air Room Air Room Air Capillary Refill : Constitutional: AAO x 3, well-developed, well-nourished HEENT: hard of hearing, oral hygience is good Neck: carotid bruit (right, faint) Respiratory: No accessory muscle use, No respiratory distress; chest expansion is symmetric, chest is bilaterally symmetric, lungs clear to auscultation Cardiovascular: regular rate-rhythm; No JVD; S1 and S2 Gastrointestinal: No tender; soft, round Rectal: deferred Extremities: no lower extremity edema bilateral Neurologic/Psychiatric: grossly intact Skin: No rash, No ulcerations A/P-Cardiology Assessment/Admission Diagnosis Recent CVA ( 10-17-18) with h/o previous CVA x 2 (2013 and 2016) - CT from [facility] 10-17-18 is reported to have shown an area of an old infarct and severe cerebral atrophy, but no acute process per dictated note by Dr. Montemayor on 10-18-18 Echocardiogram of 10-19-18 shows mod concentric LVH; LVEF approx 60%; trivial to mild MR and TR. PASP approx 25 mmHg; mod enlargement of the LA Seizure disorder following a previous CVA Pt reports h/o intracranial bleed bleed following a fall in 2012 - exact details unknown Pt reports h/o PAF, but was not deemed suitable for OAC, due to a h/o ic bleed - details unknown Reported h/o CAD with stent placement in the past at [facility] in [place], [place] - details unknown HLD - statin tx Hypothyroidism - replacement tx H/O colon resection H/O skin cancer Family h/o CAD - mother [place] age 69, father [place] age 66 Discussion and Recomendations Her primary data entry supervisor is Dr. Mendes with [facility] in [place], [place] - we will request records H/O CVA with recent CVA - advise carotid u/s Documented h/o PAF - place on tele Currently she is on ASA and Plavix - she reports a h/o "brain bleed" and reports that she has been considered intolerant to OAC Management of CVA as per medical services Request records from [facility] Continue current medication regimen including Plavix and ASA Further recs will be based on her hospital course We would like to thank the [facility] for this consult I spoke with Ms Oliver and answered her questions FITZ WINTER MD FACP FACC CCDS Oct 20, 2018 17:51
[2018-10-20] MEDS: lamoTRIgine 25 MG (LaMICtal) TAB PO SCH (21:09)
[2018-10-20] MEDS: LEVOTHYROXINE 25 MCG (LEVOTHROID) TAB PO SCH (21:09)
[2018-10-20] MEDS: CLOPIDOGREL 75 MG (PLAVIX) TABLET PO SCH (21:09)
[2018-10-20] MEDS: ASPIRIN E.C. 81 MG (ECOTRIN) TAB PO SCH (21:09)
[2018-10-20] MEDS: VITAMIN D3 1,000 UNITS (CHOLECALCIFEROL) TABLET PO SCH (21:09)
[2018-10-20] MEDS: SIMvastatin 10 MG (ZOCOR) TAB PO SCH (21:09)
[2018-10-20] MEDS: MELATONIN 3 MG TABLET PO SCH (21:09)
[2018-10-21 05:03] LABS: ALANINE AMINOTRANSFERASE 9 U/L (0-55); ALBUMIN 3.9 GM/DL (3.2-4.5); ALKALINE PHOSPHATASE 60 U/L (40-136); BILIRUBIN,TOTAL 0.3 MG/DL (0.1-1.0); BUN/CREATININE RATIO 18; CARBON DIOXIDE 23 MMOL/L (21-32); CHLORIDE 106 MMOL/L (98-107); CHOLESTEROL 282 MG/DL (< 200); CREATININE SERUM 0.83 MG/DL (0.60-1.30); GFR ESTIMATED > 60; GLUCOSE 85 MG/DL (70-105); HDL CHOLESTEROL 47 MG/DL (40-60); MAGNESIUM 1.9 MG/DL (1.8-2.4); POTASSIUM 3.7 MMOL/L (3.6-5.0); SODIUM 141 MMOL/L (135-145); TOTAL PROTEIN 7.1 GM/DL (6.4-8.2); TRIGLYCERIDES 256 MG/DL (<150); VLDL CHOLESTEROL 51 MG/DL (5-40)
[2018-10-21 05:15] VITALS: BP 176/76
[2018-10-21] MEDS: MULTIVIT W/MINERALS TAB (THERAGRAN M) PO SCH (06:03)
[2018-10-21] MEDS: POLYETHYLENE GLYCOL 17 GM (MIRALAX) PACK PO SCH (08:43)
[2018-10-21] MEDS: ASCORBIC ACID (VIT C) 500 MG TABLET PO SCH (08:44)
[2018-10-21] MEDS: PANTOPRAZOLE 40 MG (PROTONIX) TAB PO SCH (08:44)
[2018-10-21] MEDS: SALINE NASAL SPRAY (OCEAN) 45 ML BTL SCH ×3 (08:45→20:59)
[2018-10-21] MEDS: OXYBUTYNIN (DITROPAN) 5 MG TAB PO SCH (08:45)
--- NOTE | 2018-10-21 10:43 | Physical Therapy Daily Note ---
PT Daily Note-Current Subjective Pt is up and alert. She is agreeable to therapy. Mental Status Patient Orientation: Person, Place, Time, Situation Transfers Therapy Code Descriptions/Definitions Functional [place] Measure: 0=Not Assessed/NA 4=Minimal Assistance 1=Total Assistance 5=Supervision or Setup 2=Maximal Assistance 6=Modified [place] 3=Moderate Assistance 7=Complete [place] Therapy Quality Codes: 6 Independent with activity with or without an assistive device 5 Patient requires set up or clean up by helper. Patient completes activity by themselves 4 Supervision or touching assist (CGA). Tower provide cues , steadying assist 3 The helper provides less than half the effort to complete the activity 2 The helper provides more than half the effort to complete the activity 1 Dependent. The helper does all the effort to complete an activity 7 Patient refused to complete or attempt activity 9 The patient did not perform the activity before the current illness or injury 88 Not attempted due to Medical conditions or safety concerns Transfers (B, C, W/C) (FIM): 4 Supine to/from Sit: 4 Sit to/from Stand: 5 Sit to Lying (QC): 4 Sit to Stand (QC): 5 Weight Bearing Right Lower Extremity: Right Full Weight Bearing Left Lower Extremity: Left Full Weight Bearing Gait Training Does the Patient Walk?: Yes Gait (FIM): 2 Distance (FIM): 1=127-04 ft Distance: 100ft Gait Level of Assist: 2 Gait Persons Needed: 1 Gait Assistive Device: FWW Could not get (L) foot in shoe with AFO due to gastroc tone. Pt able to ambulate the first 80ft with good posture, but the last 20ft he posture and strength began to fade. Exercises Supine Ex: LE Protocol Supine Reps: 20 Assessment Current Status: Fair Progress Pt initially showed good stability and posture, but after 80ft of ambulation, began to slump and struggle. Able to get back to bed safely. Pt ambulates with (L) heel elevated. PT Short Term Goals Short Term Goals Time Frame: Oct 27, 2018 Transfers (B,C,W/C) (FIM): 4 Gait (FIM): 2 Gait Distance Comment: 120' Gait Level of Assist: 4 Gait Assistive Device: FWW PT Long-Term Goals Filenet Admin Goals PT Filenet Admin Goals Time Frame: Nov 10, 2018 Transfers (B,C,W/C) (FIM): 5 Sit to Lying (QC): 4 Lying-Sitting on Side/Bed(QC): 4 Sit to Stand (QC): 4 Rollin Roll Left to Right (QC): 4 Chair/Qmv-wu-Uahfz Xfer(QC): 4 Car Transfer (QC): 4 Gait (FIM): 5 Distance: 150' Walk 10 feet (QC): 4 Walk 10ft-Uneven Surface(QC): 4 Walk 50ft with 2 Turns (QC): 4 Walk 150 ft (QC): 4 Gait Level of Assist: 5 Gait Assistive Device: FWW Stairs (FIM): 2 # of Steps: 4 1 Step (curb) (QC): 4 4 Steps (QC): 4 Stairs Level Of Assist: 4 PT Plan Treatment/Plan Treatment Plan: Continue Plan of Care Treatment Plan: Bed Mobility, Education, Functional Activity Ramila, Functional Strength, Group Therapy, Gait, Safety, Therapeutic Exercise, Transfers Treatment Duration: Nov 10, 2018 Frequency: At least 5 of 7 days/Wk (IRF) Estimated Hrs Per Day: 1.5 hours per day Patient and/or Family Agrees t: Yes Time/GCodes Time In: 1002 Time Out: 1020 Total Billed Treatment Time: 18 Total Billed Treatment 1, gt 18 ESA TEE PT Oct 21, 2018 10:43
--- NOTE | 2018-10-21 11:43 | NUR ---
back from EGD/COLONOSCOPY awake & alert, at bedside
--- NOTE | 2018-10-21 11:55 | NUR ---
bedside report received from CHIN MILNER, assume care of pt Addendum: 10/21/18 at 1559 by MARCIN ANGELES RN wrong pt
--- NOTE | 2018-10-21 12:15 | NUR ---
V/S 96.4-51-18-94%-133/73 pt has active gag reflux, able to follow simple commands, fsbs 117 Addendum: 10/21/18 at 1559 by MARCIN ANGELES RN wrong pt
--- NOTE | 2018-10-21 12:15 | NUR ---
bedside report received from CHIN MILNER, assume care of pt
--- NOTE | 2018-10-21 12:22 | PM&R Post Admission Assessment ---
Post Admission Physician Asses Admisison Dx: (1) CVA (cerebral vascular accident) Status: Acute (2) History of CVA (cerebrovascular accident) Status: Chronic (3) Seizure disorder Status: Chronic (4) CAD (coronary artery disease) Status: Chronic (5) Hypothyroidism Status: Chronic (6) Paroxysmal atrial fibrillation Status: Chronic (7) History of coronary artery stent placement Status: Chronic (8) Hypertension Status: Chronic (9) Hyperlipidemia Status: Chronic (10) Urge incontinence Status: Chronic (11) History of hip fracture Status: Chronic (12) Depression Status: Chronic The preadmission screen agrees with the post admission assessment that the patient is a good candidate for inpatient rehabilitation. The patient will have a comprehensive program of inpatient rehabilitation with a goal of maximizing level of functional independence prior to discharge home with [family]. The patient will have PT/OT ninety minutes per day, each discipline, five days a week for gait, strengthening, conditioning, balance, ADLs, any patient/family/caregiver training as necessary. Speech therapy to do cognitive assessment and treat as indicated. Rehabilitation nursing to assist with bowel, bladder, skin, wound care, medication administration, pain management. [employer] to assist with discharge planning, community reentry. SCD's for DVT prophylaxis. She appears to be well motivated to participate in three hours of therapy a day. She should be able to tolerate three hours of therapy a day from a medical standpoint. She should benefit from the three hours of therapy a day. She has a reasonable discharge plan, reasonable discharge rehabilitation goals and a supportive family. She has various comorbidities that need to be closely monitored with medications and treatments adjusted on a daily basis as needed. These include: see list above Barriers to discharge for this patient who had been independent prior to this are for her to be modified independent to supervision for ADLs and mobility skills prior to discharge home to [place], so as to lessen the burden of the caregivers. Risks for this patient include: 1. Fall 2. Fracture 3. DVT 4. Pulmonary embolism 5. Wound infection 6. Skin breakdown 7. Contractures 8. Poorly controlled pain 9. Urinary retention 10. UTI 11. Respiratory infection 12. Aspiration [] Estimated Length of Stay: [10]days Prognosis: Rehab prognosis appears good for goal of discharge home at [place] modified independent to supervision for ADLs and mobility skills. General: Alert, Oriented X3, Cooperative, Other (subtle poor recall) HEENT: Atraumatic, PERRLA, EOMI Neck: Supple, No JVD, No Thyromegaly, +2 Carotid Pulse No Bruit Lungs: Clear to Auscultation, Normal Air Movement Heart: Regular Rate, Normal S1, Normal S2 Abdomen: Normal Bowel Sounds, Soft Extremities: No Clubbing, No Cyanosis Skin: No Rashes, No Breakdown Neuro: Normal Tone, Sensation Intact, Cranial Nerves 3-12 NL, Reflexes 2+, Other (global weakness, gait disturbance noted) Psych/Mental Status: Mental Status NL, Mood NL, Other (subtle confusion at times) ERIC PORTILLO DO Oct 21, 2018 12:22
--- NOTE | 2018-10-21 12:22 | NUR ---
called to check if pt was free to order & eat lunch, orders received for previous diet 60 cho heart healthy diet
--- NOTE | 2018-10-21 12:28 | Diagnostic Imaging Report ---
PROCEDURE: US carotid duplex, bilateral. TECHNIQUE: Multiple real-time grayscale images were obtained over the carotid arteries in various projections, bilaterally. Additional spectral analysis and color Doppler duplex images were also obtained. INDICATION: Parameters based on the consensus panel Arana-Scale and Doppler ultrasound criteria published August 2003, Radiology, Volume 229. DOPPLER (peak systolic velocity M/S Right Left CCA .84 .71 ICA Proximal .56 .59 ICA Mid .65 .64 ICA Distal .72 .73 RATIO .85 1.04 ECA .79 .65 VERT .34 .47 INDICATION CVA, carotid bruit EXAMINATION: Carotid sonogram bilateral 10/21/2018 FINDINGS: Antegrade flow seen in bilateral vertebral arteries. No significantly elevated velocities seen on either side. There is no significant atherosclerotic disease. IMPRESSION: 1. No hemodynamically significant stenosis. Dictated by: Dictated on workstation # [id number]
--- NOTE | 2018-10-21 12:38 | NUR ---
called regarding meds aspirin & Xarelto was to be given ORDERS received to hold aspirin & Xarelto x 24hrs
--- NOTE | 2018-10-21 12:48 | NUR ---
to bathroom with 2 people & walker, very unsteady on feet
--- NOTE | 2018-10-21 12:55 | PM&R Progress Note ---
Subjective HPI/CC On Admission Date Seen by Provider: Oct 21, 2018 Time Seen by Provider: 10:30 Subjective/Events-last exam Patient doing well No concerns per nursing MiraLAX given today since she usually has a bowel movement every third day NIH score has had no change Overall ambulating slow with walker and assistance Still a fall risk Cognition appears to be baseline deficient but able to follow therapy requirements Denies any pain Overall feels good she reports Review of Systems General: Fatigue Neurological: Change in speech, Confusion Objective Exam Vital Signs Vital Signs Date Time Temp Pulse Resp B/P (MAP) Pulse Ox O2 Delivery O2 Flow Rate FiO2 10/21/18 13:06 64 10/21/18 09:22 Room Air 10/21/18 05:15 99.0 16 176/76 (109) 97 Capillary Refill : General Appearance: No Apparent Distress, WD/WN, Chronically ill Respiratory: Chest Non Tender, Lungs Clear, Normal Breath Sounds, No Accessory Muscle Use, No Respiratory Distress Cardiovascular: Regular Rate, Rhythm, No Edema, No Gallop, No JVD, No Murmur, Normal Peripheral Pulses Neurologic/Psychiatric: Alert, No Motor/Sensory Deficits, Normal Mood/Affect, Disoriented, Other (aphasia noted) Results/Procedures Lab Laboratory Tests 10/21/18 04:00 Patient resulted labs reviewed. 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 Also will monitor for urinary and bowel function due to history of both organ systems ' dysfunction. Monitor blood pressure closely due to history of stroke subacute along with 2 prior strokes Close monitoring for recurrent seizure since history of seizure after her last stroke Cardiology consultation to decide if additional anticoagulation is needed to prevent subsequent strokes Diagnosis/Problems Diagnosis/Problems (1) CVA (cerebral vascular accident) Status: Acute Qualifiers: CVA mechanism: unspecified Qualified Codes: I63.9 - Cerebral infarction, unspecified (2) History of CVA (cerebrovascular accident) Status: Chronic (3) Seizure disorder Status: Chronic (4) CAD (coronary artery disease) Status: Chronic Qualifiers: Coronary Disease-Associated Artery/Lesion type: [place] artery [place] vs. transplanted heart: [place] heart Associated angina: without angina Qualified Codes: I25.10 - Atherosclerotic heart disease of [place] coronary artery without angina pectoris (5) Hypothyroidism Status: Chronic Qualifiers: Hypothyroidism type: acquired Qualified Codes: E03.9 - Hypothyroidism, unspecified (6) Paroxysmal atrial fibrillation Status: Chronic (7) History of coronary artery stent placement Status: Chronic (8) Hypertension Status: Chronic Qualifiers: Hypertension type: essential hypertension Qualified Codes: I10 - Essential (primary) hypertension (9) Hyperlipidemia Status: Chronic Qualifiers: Hyperlipidemia type: mixed hyperlipidemia Qualified Codes: E78.2 - Mixed hyperlipidemia (10) Urge incontinence Status: Chronic (11) History of hip fracture Status: Chronic (12) Depression Status: Chronic Qualifiers: Depression Type: unspecified Qualified Codes: F32.9 - Major depressive disorder, single episode, unspecified (13) Vascular dementia Status: Chronic Qualifiers: Dementia behavioral disturbance: without behavioral disturbance Qualified Codes: F01.50 - Vascular dementia without behavioral disturbance Clinical Quality Measures Admission Status Admission Dx Assessment: Seth infarct History of CVA with subsequent seizure disorder CAD previous stent placement Hypothyroidism Hypertension 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 Also will monitor for urinary and bowel function due to history of both organ systems ' dysfunction. Monitor blood pressure closely due to history of stroke subacute along with 2 prior strokes Close monitoring for recurrent seizure since history of seizure after her last stroke Cardiology consultation to decide if additional anticoagulation is needed to prevent subsequent strokes DVT/VTE Risk/Contraindication: Risk Factor Score Per Nursin RFS Level Per Nursing on Admit: 2=Moderate ERIC PORTILLO DO Oct 21, 2018 12:55
--- NOTE | 2018-10-21 13:00 | NUR ---
ate 50% of lunch tray
[2018-10-21 16:00] VITALS: BP 177/78
--- NOTE | 2018-10-21 16:38 | NUR ---
called expressed family wish for speech eval for swallowing eval, pt takes meds & eats & drinks without difficulty, orders received for speech therapy swallow eval for Tuesday
[2018-10-21 17:48] VITALS: BP 177/78
--- NOTE | 2018-10-21 19:19 | NUR ---
bedside report given to THANG MILNER
--- NOTE | 2018-10-21 20:11 | Progress Note-Cardiology ---
Cardiology SOAP Progress Note Subjective: No cp or palp or syncope or shortness of breath Objective: I&O/Vital Signs 10/21/18 10/21/18 10/21/18 10/21/18 09:22 13:06 17:48 19:00 Temp 97.6 Pulse 64 60 66 Resp 20 B/P (MAP) 177/78 (111) Pulse Ox 96 O2 Delivery Room Air Room Air Weight (Pounds): 125 Weight (Ounces): 4.0 Weight (Calculated Kilograms): 56.493543 Constitutional: AAO x 3, well-developed, well-nourished Respiratory: No accessory muscle use, No respiratory distress; chest expansion is symmetric, chest is bilaterally symmetric, lungs clear to auscultation Cardiovascular: regular rate-rhythm; No JVD; S1 and S2 Gastrointestional: No tender; soft, round Extremities: no lower extremity edema bilateral Neurologic/Psychiatric: grossly intact Skin: No rash, No ulcerations Results/Procedures: Labs Laboratory Tests 10/21/18 04:00: Sodium Level 141, Potassium Level 3.7, Chloride Level 106, Carbon Dioxide Level 23, Anion Gap 12, Blood Urea Nitrogen 15, Creatinine 0.83, Estimat Glomerular Filtration Rate > 60, BUN/Creatinine Ratio 18, Glucose Level 85, Calcium Level 9.0, Corrected Calcium 9.1, Magnesium Level 1.9, Total Bilirubin 0.3, Aspartate Amino Transf (AST/SGOT) 20, Alanine Aminotransferase (ALT/SGPT) 9, Alkaline Phosphatase 60, Total Protein 7.1, Albumin 3.9, Triglycerides Level 256H, Cholesterol Level 282H, LDL Cholesterol Direct 176H, VLDL Cholesterol 51H, HDL Cholesterol 47, Thyroid Stimulating Hormone (TSH) 3.00 Laboratory Tests 10/21/18 04:00 A/P: Assessment: Recent CVA ( 10-17-18) with h/o previous CVA x 2 (2013 and 2016) - CT from [facility] 10-17-18 is reported to have shown an area of an old infarct and severe cerebral atrophy, but no acute process per dictated note by Dr. Montemayor on 10-18-18 Echocardiogram of 10-19-18 shows mod concentric LVH; LVEF approx 60%; trivial to mild MR and TR. PASP approx 25 mmHg; mod enlargement of the LA Seizure disorder following a previous CVA Pt reports h/o intracranial bleed bleed following a fall in 2012 - exact details unknown Pt reports h/o PAF, but was not deemed suitable for OAC, due to a h/o ic bleed - details unknown Reported h/o CAD with stent placement in the past at [facility] in [place], [place] - details unknown HLD - statin tx Hypothyroidism - replacement tx H/O colon resection H/O skin cancer Family h/o CAD - mother [place] age 69, father [place] age 66 Plan: Continue current regimen Given h/o ic bleed, we have not put her on OAC, but antiplatelet therapy is being continued She is on tele. If PAF found on tele, then consider taking off to antiplatelet therapy and placing on OAC (if OK from the standpoint of her other medical issues, as determined by the Med Svce) FITZ WINTER MD FACP FACC CCDS Oct 21, 2018 20:10
[2018-10-21] MEDS: CLOPIDOGREL 75 MG (PLAVIX) TABLET PO SCH (20:58)
[2018-10-21] MEDS: ASPIRIN E.C. 81 MG (ECOTRIN) TAB PO SCH (20:58)
[2018-10-21] MEDS: SIMvastatin 10 MG (ZOCOR) TAB PO SCH (20:58)
[2018-10-21] MEDS: lamoTRIgine 25 MG (LaMICtal) TAB PO SCH (20:58)
[2018-10-21] MEDS: LEVOTHYROXINE 25 MCG (LEVOTHROID) TAB PO SCH (20:59)
[2018-10-21] MEDS: VITAMIN D3 1,000 UNITS (CHOLECALCIFEROL) TABLET PO SCH (20:59)
[2018-10-21] MEDS: MELATONIN 3 MG TABLET PO SCH (20:59)
[2018-10-22 05:11] VITALS: BP 170/69
[2018-10-22] MEDS: MULTIVIT W/MINERALS TAB (THERAGRAN M) PO SCH (06:11)
--- NOTE | 2018-10-22 06:12 | PM&R Progress Note ---
Subjective HPI/CC On Admission Date Seen by Provider: Oct 22, 2018 Time Seen by Provider: 06:00 Subjective/Events-last exam Speech therapy will be consulted because daughter who is a nurse wants to optimize that deficit Slow recovery with slow ambulation with walker and assistance Still a fall risk Bowels are moving Denies any pain No shortness of breath Review of Systems General: Fatigue Musculoskeletal: leg pain Objective Exam Vital Signs Vital Signs Date Time Temp Pulse Resp B/P (MAP) Pulse Ox O2 Delivery O2 Flow Rate FiO2 10/22/18 13:08 73 10/22/18 09:00 Room Air 10/22/18 05:11 97.4 16 170/69 (102) 97 Capillary Refill : General Appearance: No Apparent Distress, WD/WN, Chronically ill Respiratory: Chest Non Tender, Lungs Clear, Normal Breath Sounds, No Accessory Muscle Use, No Respiratory Distress Cardiovascular: No Edema, No Gallop, No JVD, No Murmur, Normal Peripheral Pulses, Irregularly Irregular Neurologic/Psychiatric: Alert, Oriented x3, No Motor/Sensory Deficits, Normal Mood/Affect, Disoriented Results/Procedures Lab Patient resulted labs reviewed. 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 Also will monitor for urinary and bowel function due to history of both organ systems ' dysfunction. Monitor blood pressure closely due to history of stroke subacute along with 2 prior strokes Close monitoring for recurrent seizure since history of seizure after her last stroke Cardiology consultation to decide if additional anticoagulation is needed to prevent subsequent strokes Diagnosis/Problems Diagnosis/Problems (1) CVA (cerebral vascular accident) Status: Acute Qualifiers: CVA mechanism: unspecified Qualified Codes: I63.9 - Cerebral infarction, unspecified (2) History of CVA (cerebrovascular accident) Status: Chronic (3) Seizure disorder Status: Chronic (4) CAD (coronary artery disease) Status: Chronic Qualifiers: Coronary Disease-Associated Artery/Lesion type: [place] artery [place] vs. transplanted heart: [place] heart Associated angina: without angina Qualified Codes: I25.10 - Atherosclerotic heart disease of [place] coronary artery without angina pectoris (5) Hypothyroidism Status: Chronic Qualifiers: Hypothyroidism type: acquired Qualified Codes: E03.9 - Hypothyroidism, unspecified (6) Paroxysmal atrial fibrillation Status: Chronic (7) History of coronary artery stent placement Status: Chronic (8) Hypertension Status: Chronic Qualifiers: Hypertension type: essential hypertension Qualified Codes: I10 - Essential (primary) hypertension (9) Hyperlipidemia Status: Chronic Qualifiers: Hyperlipidemia type: mixed hyperlipidemia Qualified Codes: E78.2 - Mixed hyperlipidemia (10) Urge incontinence Status: Chronic (11) History of hip fracture Status: Chronic (12) Depression Status: Chronic Qualifiers: Depression Type: unspecified Qualified Codes: F32.9 - Major depressive disorder, single episode, unspecified (13) Vascular dementia Status: Chronic Qualifiers: Dementia behavioral disturbance: without behavioral disturbance Qualified Codes: F01.50 - Vascular dementia without behavioral disturbance Clinical Quality Measures Admission Status Admission Dx Assessment: Seth infarct History of CVA with subsequent seizure disorder CAD previous stent placement Hypothyroidism Hypertension 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 Also will monitor for urinary and bowel function due to history of both organ systems ' dysfunction. Monitor blood pressure closely due to history of stroke subacute along with 2 prior strokes Close monitoring for recurrent seizure since history of seizure after her last stroke Cardiology consultation to decide if additional anticoagulation is needed to prevent subsequent strokes DVT/VTE Risk/Contraindication: Risk Factor Score Per Nursin RFS Level Per Nursing on Admit: 2=Moderate ERIC PORTILLO DO Oct 22, 2018 06:12
[2018-10-22] MEDS: OXYBUTYNIN (DITROPAN) 5 MG TAB PO SCH (08:04)
[2018-10-22] MEDS: PANTOPRAZOLE 40 MG (PROTONIX) TAB PO SCH (08:04)
[2018-10-22] MEDS: ASCORBIC ACID (VIT C) 500 MG TABLET PO SCH (08:04)
[2018-10-22] MEDS: SALINE NASAL SPRAY (OCEAN) 45 ML BTL SCH ×3 (08:18→20:21)
--- NOTE | 2018-10-22 14:00 | NUR ---
DR. WINTER HERE TO SEE PATIENT. INFORMED OF PATIENT'S CONCERN THAT SHE IS NOT ON HER BP MED. APPARENTLY BYSTOLIC HAD BEEN PUT ON HOLD PRIOR TO ADMISSION HERE, BUT IS HYPERTENSIVE. STARTING ON NORVASC AND TOPROL. DR. WINTER STATES DOES NOT NEED RECORDS FROM [facility] AND ORDER DC'D.
[2018-10-22] MEDS ORDERED: meTOproloL SUCCINATE 50 MG (TOPROL XL) TAB PO SCH (14:30)
[2018-10-22] MEDS ORDERED: amLODIPine 5 MG (NORVASC) TAB PO ONE (14:30)
--- NOTE | 2018-10-22 14:32 | Progress Note-Cardiology ---
Cardiology SOAP Progress Note Subjective: No cp or palp or syncope or shortness of breath Is concerned about bp being elevated Objective: I&O/Vital Signs 10/22/18 10/22/18 10/22/18 10/22/18 05:11 07:08 09:00 13:08 Temp 97.4 Pulse 60 51 73 Resp 16 B/P (MAP) 170/69 (102) Pulse Ox 97 O2 Delivery Room Air Room Air 10/22/18 00:00 Intake Total 450 ml Balance 450 ml Weight (Pounds): 125 Weight (Ounces): 4.0 Weight (Calculated Kilograms): 56.994769 Constitutional: AAO x 3, well-developed, well-nourished Respiratory: No accessory muscle use, No respiratory distress; chest expansion is symmetric, chest is bilaterally symmetric, lungs clear to auscultation Cardiovascular: regular rate-rhythm; No JVD; S1 and S2 Gastrointestional: No tender; soft, round Extremities: no lower extremity edema bilateral Neurologic/Psychiatric: grossly intact Skin: No rash, No ulcerations Results/Procedures: Labs Laboratory Tests 10/21/18 04:00 A/P: Assessment: Recent CVA ( 10-17-18) with h/o previous CVA x 2 (2013 and 2016) - CT from [facility] [place] 10-17-18 is reported to have shown an area of an old infarct and severe cerebral atrophy, but no acute process per dictated note by Dr. Montemayor on 10-18-18 Hypertension Echocardiogram of 10-19-18 shows mod concentric LVH; LVEF approx 60%; trivial to mild MR and TR. PASP approx 25 mmHg; mod enlargement of the LA Seizure disorder following a previous CVA Pt reports h/o intracranial bleed bleed following a fall in 2012 - exact details unknown Pt reports h/o PAF, but was not deemed suitable for OAC, due to a h/o ic bleed - details unknown Reported h/o CAD with stent placement in the past at [facility] in [place], [place] - details unknown HLD - statin tx Hypothyroidism - replacement tx H/O colon resection Family h/o CAD - mother [place] age 69, father [place] age 66 Plan: Add Toprol XL and Norvasc for bp control Given h/o ic bleed, we have not put her on OAC, but antiplatelet therapy is being continued She is on tele. If PAF found on tele, then consider taking off to antiplatelet therapy and placing on OAC (if OK from the standpoint of her other medical issues, as determined by the Med Svce) FITZ WINTER MD FACP FACC CCDS Oct 22, 2018 14:32
--- NOTE | 2018-10-22 16:02 | Individualized Plan of Care ---
Individualized Plan of Care Rehab Nursing IPOC Order Admission Date Oct 20, 2018 at 10:30 Current Orders Orders Pt Evaluate/Treat Request (10/20/18 10:44) Request Ot Evaluate & Treat (10/20/18 10:44) Request For Cognitive Services (10/20/18 10:44) Admission Order(Inpt,Obs,Sdc) (10/20/18 10:50) Admission Arrival Bed Request (10/20/18 10:51) Heart Healthy (10/20/18 Lunch) Acetaminophen Tablet/Caplet (Tylenol T (10/20/18 11:00) Ascorbic Acid Tablet (Vitamin C Tablet) (10/21/18 09:00) Aspirin Enteric Coated Tablet (Ecotrin T (10/20/18 21:00) Citalopram Tablet (Celexa Tablet) (10/21/18 09:00) Lamotrigine Tablet (Lamictal Tablet) (10/20/18 21:00) Levothyroxine Tablet (Synthroid Tablet) (10/20/18 21:00) Melatonin Tablet (Melatonin Tablet) (10/20/18 21:00) Therapeutic Multivitamin Tab (Vitamins, (10/21/18 07:00) Oxybutynin Tablet (Ditropan Tablet) (10/21/18 09:00) Pantoprazole Tablet (Protonix Tablet) (10/21/18 09:00) Polyethylene Glycol Powder Pkt (Miralax (10/21/18 09:00) Saline Nasal [place] ([place] Nasal [place]) (10/20/18 13:00) Cholecalciferol Capsule/Tablet (Vitamin (10/20/18 21:00) Simvastatin Tablet (Zocor Tablet) (10/20/18 21:00) Clopidogrel Tablet (Plavix Tablet) (10/20/18 21:00) Code/Resuscitation (10/20/18 11:17) Weekly Weight (Lbs) WEEK (10/27/18 06:00) Weight Bearing Status (10/20/18 11:17) Non-Formulary Medication (Non-Formulary (10/20/18 11:30) Non-Formulary Medication (Non-Formulary (10/20/18 11:30) Lidocaine 4% Patch (Salonpas 4% Patch) (10/20/18 11:30) Patient Visit (10/20/18 ) Speech Sound Lang Comp (10/20/18 ) Consult Physician (10/20/18 14:23) Patient Visit (10/20/18 ) Pt Eval Moderate Complexity (10/20/18 ) Gait Training, Ea 15 Min (10/20/18 ) Telemetry (10/20/18 15:52) Telemetry Nursing Assessment ( (10/20/18 15:52) Telemetry (10/20/18 16:15) Us Carotid Mook Complete [id number] (10/21/18 08:00) Comprehensive Metabolic Panel (10/21/18 05:00) Lipid Panel (10/21/18 05:00) Magnesium (10/21/18 05:00) Thyroid Stimulating Hormone (10/21/18 05:00) Patient Visit (10/21/18 ) Gait Training, Ea 15 Min (10/21/18 ) Request For Dysphagia Services (10/23/18 09:00) Metoprolol Succinate (Xl) Tab (Toprol Xl (10/22/18 14:30) Metoprolol Succinate (Xl) Tab (Toprol Xl (10/23/18 09:00) Amlodipine Tablet (Norvasc Tablet) (10/22/18 14:30) Amlodipine Tablet (Norvasc Tablet) (10/23/18 09:00) Rehab Nursing Orders: Ongoing Assess. of Cognitive Status, Ongoing Assess. of Function Status, Disease Management & Educaiton, Fall Prevention, Fluid/ Electrolyte/Nutrition Mgmt, Nutrition Management, Patient/Family Support Intensity of Therapy to be met Patient to be seen: Min.3h per day/5 of 7d PT IPOC Problem List: Activity Tolerance, Functional Strength, Safety, Balance, Gait, Transfer, Bed Mobility, ROM Treatment Plan: Continue Plan of Care Bed Mobility, Education, Functional Activity Ramila, Functional Strength, Group Therapy, Gait, Safety, Therapeutic Exercise, Transfers Treatment Duration: Nov 10, 2018 Frequency: At least 5 of 7 days/Wk (IRF) Estimated Hrs Per Day: 1.5 hours per day OT IPOC Problems: Decreased Activ Tolerance, Decreased UE Strength, Dependent Transfers , Impaired Funct Balance, Impaired Self-Care Skills OT Treatment, Training and Edu: Yes OT Problems Pt demonstrates decreased ADL functioning, strength, transfers, and activity tolerance. Pt to benefit from skilled OT intervention for ADL training, transfers, strengthening, and safety education to increase functional independence and allow safe discharge plan. Plan of Care: ADL Retraining, Functional Mobility, Group Exercise/Act as Ind, UE Funct Exercise/Act Treatment Duration: Nov 10, 2018 Frequency: At least 5 of 7 days/Wk (IRF) Estimated Hrs Per Day: 1.5 hours per day [facility] Speech Therapy Treatment Plan: Modify Plan, See Comments (Cognition deficit and speech in need of imrpovement per RN daughter) Treatment Duration: Oct 20, 2018 Frequency: 1 time per week Estimated Hrs Per Day: .25 hour per day Dietitian/Wood Heel Fitter Machine Dietitian/Wood Heel Fitter Machine to monitor nutritional status and make changes and/or recommendations as needed and work with speech pathology on dietary upgrades as the occur. Physician [facility] Medical Issues being managed closely and that require the 24 hour availability of a physician: Monitor of AF and toleration of statin therapy Restarted Plavix and monitor for bleeding complications Medical Issues: Falls Precautions, Fluid/Electrolyte/Nutrition Balance, Voice Protection Brief Synthesis of Preadmission Screen, Post-Admission Evaluation, and Therapy Evaluations: PT working with left leg with AFO to improve mobility since pre-existing deficit OT improving ADL performance Speech therapy will be asked to improve deficits prior to return to [place] [facility] Prognosis: good Anticipated Length of Stay: 7 days ERIC PORTILLO DO Oct 22, 2018 16:02
[2018-10-22 17:46] VITALS: BP 150/75
[2018-10-22] MEDS: CLOPIDOGREL 75 MG (PLAVIX) TABLET PO SCH (20:21)
[2018-10-22] MEDS: MELATONIN 3 MG TABLET PO SCH (20:21)
[2018-10-22] MEDS: ASPIRIN E.C. 81 MG (ECOTRIN) TAB PO SCH (20:21)
[2018-10-22] MEDS: LEVOTHYROXINE 25 MCG (LEVOTHROID) TAB PO SCH (20:21)
[2018-10-22] MEDS: VITAMIN D3 1,000 UNITS (CHOLECALCIFEROL) TABLET PO SCH (20:22)
[2018-10-22] MEDS: lamoTRIgine 25 MG (LaMICtal) TAB PO SCH (20:22)
[2018-10-22] MEDS: SIMvastatin 10 MG (ZOCOR) TAB PO SCH (20:22)
[2018-10-23 06:25] VITALS: BP 163/78
[2018-10-23] MEDS: MULTIVIT W/MINERALS TAB (THERAGRAN M) PO SCH (06:26)
--- NOTE | 2018-10-23 08:31 | PM&R Progress Note ---
Subjective This was a face to face visit with the patient. Date Seen by Provider: Oct 23, 2018 Time Seen by Provider: 08:00 Subjective/Events-last exam Patient was seen in her room when she was in bed She reports stiffness since stroke Patient slow recovery Toprol 50mg change by Dr Phipps is appreciated Incontinence / Monitoring HR and BP closely given recent CVA Review of Systems General: Fatigue Musculoskeletal: other (muscle stiffness) Objective Physician Exam Last Set of Vital Signs Vital Signs Date Time Temp Pulse Resp B/P (MAP) Pulse Ox O2 Delivery O2 Flow Rate FiO2 10/23/18 06:25 97.0 57 16 163/78 (106) 94 Room Air Capillary Refill : I&O Intake and Output 10/22/18 23:59 Intake Total 1280 ml Balance 1280 ml Intake Oral 1280 ml # Voids 6 # Bowel Movements 1 General: Alert, Oriented X3, Cooperative, Other (subtle poor recall) HEENT: Atraumatic, PERRLA, EOMI Neck: Supple, No JVD, No Thyromegaly, +2 Carotid Pulse No Bruit Lungs: Clear to Auscultation, Normal Air Movement Heart: Regular Rate, Normal S1, Normal S2 Abdomen: Normal Bowel Sounds, Soft Extremities: No Clubbing, No Cyanosis Skin: No Rashes, No Breakdown Neuro: Normal Tone, Sensation Intact, Cranial Nerves 3-12 NL, Reflexes 2+, Other (global weakness, gait disturbance noted) Psych/Mental Status: Mental Status NL, Mood NL, Other (subtle confusion at times) Results Lab Data Laboratory Tests 10/21/18 04:00: Sodium Level 141, Potassium Level 3.7, Chloride Level 106, Carbon Dioxide Level 23, Anion Gap 12, Blood Urea Nitrogen 15, Creatinine 0.83, Estimat Glomerular Filtration Rate > 60, BUN/Creatinine Ratio 18, Glucose Level 85, Calcium Level 9.0, Corrected Calcium 9.1, Magnesium Level 1.9, Total Bilirubin 0.3, Aspartate Amino Transf (AST/SGOT) 20, Alanine Aminotransferase (ALT/SGPT) 9, Alkaline Phosphatase 60, Total Protein 7.1, Albumin 3.9, Triglycerides Level 256H, Cholesterol Level 282H, LDL Cholesterol Direct 176H, VLDL Cholesterol 51H, HDL Cholesterol 47, Thyroid Stimulating Hormone (TSH) 3.00 Current Funtional Status Monitor muscle stiffness which has been present since CVA Toprol per Dr Phipps Monitor for pain Fall risk. Checked meds and labs Assessment/Plan Assessment and Plan (1) CVA (cerebral vascular accident) Qualifiers: Qualified Codes: I63.9 - Cerebral infarction, unspecified Status: Acute (2) History of CVA (cerebrovascular accident) Status: Chronic (3) Seizure disorder Status: Chronic (4) CAD (coronary artery disease) Qualifiers: Qualified Codes: I25.10 - Atherosclerotic heart disease of [place] coronary artery without angina pectoris Status: Chronic (5) Hypothyroidism Qualifiers: Qualified Codes: E03.9 - Hypothyroidism, unspecified Status: Chronic (6) Paroxysmal atrial fibrillation Status: Chronic (7) History of coronary artery stent placement Status: Chronic (8) Hypertension Qualifiers: Qualified Codes: I10 - Essential (primary) hypertension Status: Chronic (9) Hyperlipidemia Qualifiers: Qualified Codes: E78.2 - Mixed hyperlipidemia Status: Chronic (10) Urge incontinence Status: Chronic (11) History of hip fracture Status: Chronic (12) Depression Qualifiers: Qualified Codes: F32.9 - Major depressive disorder, single episode, unspecified Status: Chronic (13) Vascular dementia Qualifiers: Qualified Codes: F01.50 - Vascular dementia without behavioral disturbance Status: Chronic (14) Incontinence Qualifiers: Qualified Codes: R32 - Unspecified urinary incontinence Status: Chronic Co-Morbidities that are continuing to impact the rehab process: (include details ) ERIC PORTILLO DO Oct 23, 2018 08:31
[2018-10-23] MEDS: PANTOPRAZOLE 40 MG (PROTONIX) TAB PO SCH (08:53)
[2018-10-23] MEDS: OXYBUTYNIN (DITROPAN) 5 MG TAB PO SCH (08:53)
[2018-10-23] MEDS: ASCORBIC ACID (VIT C) 500 MG TABLET PO SCH (08:53)
[2018-10-23] MEDS: amLODIPine 5 MG (NORVASC) TAB PO SCH (08:54)
[2018-10-23] MEDS: SALINE NASAL SPRAY (OCEAN) 45 ML BTL SCH ×3 (08:54→21:34)
[2018-10-23] MEDS: POLYETHYLENE GLYCOL 17 GM (MIRALAX) PACK PO SCH (08:59)
[2018-10-23 09:00] VITALS: BP 143/75
[2018-10-23] MEDS ORDERED: meTOproloL SUCCINATE 50 MG (TOPROL XL) TAB PO SCH (09:00)
--- NOTE | 2018-10-23 09:30 | Physical Therapy Daily Note ---
PT Daily Note-Current Subjective Pt. states she has never had the AFO on before. "my foot is too swollen I think " Discussed left leg being shorter than right and asks that this REGISTERED CLIENT ASSOCIATE look for her heel lift Pain Numeric Pain Scale: 0-No Pain Mental Status Patient Orientation: Normal For Age Attachments: Other-See Comments (attempted to use AFO left shoe, will not fit, heel lift utilized in shoe) Transfers Therapy Code Descriptions/Definitions Functional [place] Measure: 0=Not Assessed/NA 4=Minimal Assistance 1=Total Assistance 5=Supervision or Setup 2=Maximal Assistance 6=Modified [place] 3=Moderate Assistance 7=Complete [place] Therapy Quality Codes: 6 Independent with activity with or without an assistive device 5 Patient requires set up or clean up by helper. Patient completes activity by themselves 4 Supervision or touching assist (CGA). [place] provide cues , steadying assist 3 The helper provides less than half the effort to complete the activity 2 The helper provides more than half the effort to complete the activity 1 Dependent. The helper does all the effort to complete an activity 7 Patient refused to complete or attempt activity 9 The patient did not perform the activity before the current illness or injury 88 Not attempted due to Medical conditions or safety concerns Transfers (B, C, W/C) (FIM): 4 Scootin Rollin Sit to/from Stand: 4 Bed to/from Chair: 4 much work on sit to stand with weight shift forward etc Weight Bearing Right Lower Extremity: Right Full Weight Bearing Left Lower Extremity: Left Full Weight Bearing Gait Training Does the Patient Walk?: Yes Gait (FIM): 2 Distance (FIM): 6=396-59 ft (70x4) Gait Level of Assist: 3 Gait Persons Needed: 1 Gait Assistive Device: FWW pt. very slow with head down posture, positioned too far back from FWW, needs instruction for sequence as well as proximity to walker and alignment Exercises Seated Therapy Exercises: Ankle pumps, Sit to stand, Long arc quads, Hip flexion, Hip abd/add Seated Reps: 15 Standing: Weight shifts Standing Reps: 10 Assessment Current Status: Good Progress awkward, coordination issues, gives full effort PT Short Term Goals Short Term Goals Time Frame: Oct 27, 2018 Transfers (B,C,W/C) (FIM): 4 Gait (FIM): 2 Gait Distance Comment: 120' Gait Level of Assist: 4 Gait Assistive Device: FWW PT Wind Field Service Manager Goals Wind Field Service Manager Goals PT Detention Goals Time Frame: Nov 10, 2018 Transfers (B,C,W/C) (FIM): 5 Sit to Lying (QC): 4 Lying-Sitting on Side/Bed(QC): 4 Sit to Stand (QC): 4 Rollin Roll Left to Right (QC): 4 Chair/Qet-pd-Ifjuk Xfer(QC): 4 Car Transfer (QC): 4 Gait (FIM): 5 Distance: 150' Walk 10 feet (QC): 4 Walk 10ft-Uneven Surface(QC): 4 Walk 50ft with 2 Turns (QC): 4 Walk 150 ft (QC): 4 Gait Level of Assist: 5 Gait Assistive Device: FWW Stairs (FIM): 2 # of Steps: 4 1 Step (curb) (QC): 4 4 Steps (QC): 4 Stairs Level Of Assist: 4 PT Plan Treatment/Plan Treatment Plan: Continue Plan of Care Treatment Plan: Bed Mobility, Education, Functional Activity Ramila, Functional Strength, Group Therapy, Gait, Safety, Therapeutic Exercise, Transfers Treatment Duration: Nov 10, 2018 Frequency: At least 5 of 7 days/Wk (IRF) Estimated Hrs Per Day: 1.5 hours per day Patient and/or Family Agrees t: Yes Safety Risks/Education Patient Education: Gait Training, Transfer Techniques, Correct Positioning, Disease Process, Safety Issues Teaching Recipient: Patient Teaching Methods: Demonstration, Discussion Response to Teaching: Verbalize Understanding, Return Demonstration, Reinforcement Needed Time/GCodes Time In: 845 Time Out: 930 Total Billed Treatment Time: 45 Total Billed Treatment 1,FA15m,EX10m,GT20m G Codes Necessary: JODIE Givens REGISTERED CLIENT ASSOCIATE Oct 23, 2018 09:30
--- NOTE | 2018-10-23 10:00 | NUR ---
Zhang ROCHE INFORMED OF BRADYCARDIA WITH TOPROL. DOSAGE CHANGES MADE.
--- NOTE | 2018-10-23 10:45 | Progress Note-Cardiology ---
Cardiology SOAP Progress Note Subjective: In bed. Denies any c/o CP, dyspnea, palpitations, syncope or near syncope. Objective: I&O/Vital Signs 10/23/18 10/23/18 10/23/18 10/23/18 06:25 07:00 09:00 09:00 Temp 97.0 Pulse 57 53 54 Resp 16 B/P (MAP) 163/78 (106) 143/75 (97) Pulse Ox 94 O2 Delivery Room Air Room Air 10/23/18 10/23/18 13:14 16:58 Temp 97.9 Pulse 56 56 Resp 16 B/P (MAP) 138/63 (88) Pulse Ox 94 O2 Delivery Room Air 10/23/18 00:00 Intake Total 800 ml Balance 800 ml Weight (Pounds): 125 Weight (Ounces): 4.0 Weight (Calculated Kilograms): 56.791677 Constitutional: AAO x 3, well-developed, well-nourished Respiratory: No accessory muscle use, No respiratory distress; chest expansion is symmetric, chest is bilaterally symmetric, lungs clear to auscultation Cardiovascular: regular rate-rhythm; No JVD; S1 and S2 Gastrointestional: No tender; soft, round Extremities: no lower extremity edema bilateral Neurologic/Psychiatric: grossly intact Skin: No rash, No ulcerations A/P: Assessment: Recent CVA ( 10-17-18) with h/o previous CVA x 2 (2013 and 2016) - CT from [facility] 10-17-18 is reported to have shown an area of an old infarct and severe cerebral atrophy, but no acute process per dictated note by Dr. Montemayor on 10-18-18 Hypertension - improved Echocardiogram of 10-19-18 shows mod concentric LVH; LVEF approx 60%; trivial to mild MR and TR. PASP approx 25 mmHg; mod enlargement of the LA Seizure disorder following a previous CVA Pt reports h/o intracranial bleed bleed following a fall in 2012 - exact details unknown Pt reports h/o PAF, but was not deemed suitable for OAC, due to a h/o ic bleed - details unknown Reported h/o CAD with stent placement in the past at [facility] in [place], [place] - details unknown No evidence of carotid stenosis per u/s of 10-21-18 HLD - statin tx Hypothyroidism - replacement tx H/O colon resection Family h/o CAD - mother [place] age 69, father [place] age 66 H/O intolerance of Bystolic in the past d/t bradycardia Plan: BP improved following addition of Norvasc and BB Mild sinus bradycardia with addition of BB - albeit asymptomatic - will reduce dose Given h/o ic bleed, we have not put her on OAC, but antiplatelet therapy is being continued She is on tele. If PAF found on tele, then consider taking off to antiplatelet therapy and placing on OAC (if OK from the standpoint of her other medical issues, as determined by the Med Svce) Physician Assessment Physician Assessment Cough somewhat better. No cp or palp or syncope. No shortness of breath at rest Lungs: fair air entry, diminished at the bases Cor: reg Ext: no c/c/e A&R * As documented in our note above that I updated (italics) and as noted below * Decrease bb because of bradycardia (albeit asymptomatic) * Continue current regimen * Monitor labs from time to time SATHISH ROCHE Oct 23, 2018 10:45 FITZ WINTER MD FACP FAC CCDS Oct 23, 2018 17:34
--- NOTE | 2018-10-23 11:00 | NUR ---
Zhang ROCHE HERE TO SEE PATIENT AND INFORMED OF HR 54. TOPROL CHANGED TO 25 MG DAILY.
--- NOTE | 2018-10-23 11:12 | Occupational Ther Daily Note ---
OT Current Status-Daily Note Subjective Pt alert, sitting in recliner. Pt agrees to therapy. No c/o pain a this time. Mental Status/Objective Patient Orientation: Person, Place, Time Therapy Code Descriptions/Definitions Functional Dixie Measure: 0=Not Assessed/NA 4=Minimal Assistance 1=Total Assistance 5=Supervision or Setup 2=Maximal Assistance 6=Modified [place] 3=Moderate Assistance 7=Complete [place]ie ADL-Treatment Pt ambulated to bathroom, required verbal and physical cues to keep FWW close. Pt takes increased time to complete all tasks due to decreased mobility. After therapy, pt sitting in front of sink with call light to alert when finished, nrsg notified. All needs met in room. Therapy Code Descriptions/Definitions Functional Dixie Measure: 0=Not Assessed/NA 4=Minimal Assistance 1=Total Assistance 5=Supervision or Setup 2=Maximal Assistance 6=Modified [place] 3=Moderate Assistance 7=Complete Dixie Therapy Quality Codes: 6 Independent with activity with or without an assistive device 5 Patient requires set up or clean up by helper. Patient completes activity by themselves 4 Supervision or touching assist (CGA). [place] provide cues , steadying assist 3 The helper provides less than half the effort to complete the activity 2 The helper provides more than half the effort to complete the activity 1 Dependent. The helper does all the effort to complete an activity 7 Patient refused to complete or attempt activity 9 The patient did not perform the activity before the current illness or injury 88 Not attempted due to Medical conditions or safety concerns Grooming (FIM): 5 (Sitting at sink, pt able to complete with some assist to set up.) Oral Hygiene (QC): 5 Bathing (FIM): 4 (Using shower bench, hand held shower and grabbar pt able to complete with min A in standing to cleanse buttocks.) Bathing Location: L Arm, R Arm, L Upper Leg, R Upper Leg, L Lower Leg ( including foot), R Lower Leg (including foot), Chest, Abdomen, Perineal Area Shower/Bathe Self (QC): 3 Upper Body (FIM): 3 (After set up, pt able to thread arms and head then assist to pull shirt down. Pt required assist to doff by pulling over head and down arms.) Upper Body Dressing (QC): 3 Lower Body Dressing (FIM): 2 (Pt able to pull up/down legs, assist to don/doff over feet and hike over hips.) Lower Body Dressing (QC): 2 On/Off Footwear (QC): 2 Shower Transfer(FIM): 3 (Verbal/physical cues and assist to position FWW correctly for transfer using FWW, grabbars and shower bench.) OT Short Term Goals Short Term Goals Time Frame: Oct 27, 2018 Bathing(FIM): 4 Upper Body Dressing(FIM): 5 Lower Body Dressing(FIM): 5 Toileting(FIM): 5 Transfers (B,C,W/C) (FIM): 4 Toilet/Commode Transfer(FIM): 5 1=Demonstrate adherence to instructed precautions during ADL tasks. 2=Patient will verbalize/demonstrate understanding of assistive devices/ modifications for ADL. 3=Patient will improve strength/tolerance for activity to enable patient to perform ADL's. OT Humanities Coordinator Goals Chcf Goals Time Frame: Nov 10, 2018 Eating (FIM): 6 Eating (QC): 6 Groomin Oral Hygiene (QC): 6 Bathing(FIM): 5 Shower/Bathe Self (QC): 5 Upper Body Dressing(FIM): 6 Upper Body Dressing (QC): 6 Lower Body Dressing(FIM): 6 Lower Body Dressing (QC): 6 On/Off Footwear (QC): 6 Toileting(FIM): 6 Toileting Hygiene (QC): 6 Toilet/Commode Transfer(FIM): 6 Toilet/Commode Transfer (QC): 6 Shower Transfer(FIM): 5 Additional Goals: 1-Demonstrate ADL Tasks, 2-Verbalize Understanding, 3- ImproveStrength/Ramila 1=Demonstrate adherence to instructed precautions during ADL tasks. 2=Patient will verbalize/demonstrate understanding of assistive devices/ modifications for ADL. 3=Patient will improve strength/tolerance for activity to enable patient to perform ADL's. OT Education/Plan Problem List/Assessment Pt demonstrates decreased ADL functioning, strength, transfers, and activity tolerance. Pt to benefit from skilled OT intervention for ADL training, transfers, strengthening, and safety education to increase functional independence and allow safe discharge plan. Discharge Recommendations Plan/Recommendations: Continue POC Treatment Plan/Plan of Care Patient would benefit from OT for education, treatment and training to promote independence in ADL's, mobility, safety and/or upper extremity function for ADL' s. Plan of Care: ADL Retraining, Functional Mobility, Group Exercise/Act as Ind, UE Funct Exercise/Act Treatment Duration: Nov 10, 2018 Frequency: At least 5 of 7 days/Wk (IRF) Estimated Hrs Per Day: 1.5 hours per day Agreement: Yes Rehab Potential: Fair Time/GCodes Start Time: 10:00 Stop Time: 11:00 Total Time Billed (hr/min): 60 Billed Treatment Time 1 visit-ADL 4 (60 min) MATILDA ABRAHAM Oct 23, 2018 11:12
--- NOTE | 2018-10-23 14:07 | ST Dysphagia Evaluation ---
Speech Evaluation-General Medical Diagnosis CVA Onset Date: Oct 20, 2018 Therapy Diagnosis Therapy Diagnosis: Oropharyngeal Dysphagia Precautions Precautions: Aspiration Precautions/Isolations: Fall Prevention, Standard Precautions Referral Reason for Referral: Evaluation/Treatment Patient has reported that she sometimes chokes on liquids. Medical History Pertinent Medical History: CVA, HTN, Hypothroidism Reviewed History: Yes Speech PLF/Current-Dysphagia Prior Level of Function Patient states she drank anything she wants, however she reports she occasionally chokes on liquids. Subjective Patient was pleasant and compliant with bedside dysphagia evaluation. Oral Motor Skills Dentition: Natural Current Food Consistancy: Regular, Thin Liquids Ability to Follow Directions: Excellent Patient was evaluated during the noontime meal. She did not exhibit any difficulty or s/s of aspiration this date. Oral Expression Ability: No Impairment Voice Voice Phonatory-Based Quality: Normal Voice Pitch: Normal Voice Loudness: Normal Face Facial Symmetry: Symmetrical Oral-Facial Assessment Oral-Facial Dentition: Normal Labial Seal Description: Normal Smile: Normal Lingual Protrusion: Normal Lingual ROM: Normal Lingual Strength: Normal Pharynx Velopharyngeal Move.: Normal Volitional Dry Swallow: Yes Can Clear Throat Volitionally: Yes Productive Cough: No Dysphagia Evaluation Consistencies Presented: Regular, Thin Liquid, Mechanical Soft No difficulty noted with any presented consistencies. Funct. Velo/Pharyngeal Symptom: Clears Throat Dietary Recommendations: Regular Liquid Recommendations: Thin Swallowing Precautions: Alternate Liquids/Solids, Chin Tuck, Liquids from Straw , Small Bites and Sips, Sitting Upright 90 Degrees, Sitting 90 Degrees 30 Post Intake Dysphagia Evaluation Summary Patient is a pleasant 87 year old female who was referred for a Bedside Dysphagia Evaluation. Patient has stated she sometimes chokes on liquids. Patient was evaluated during the noon meal. No difficulty was noted with any consistency. Patient was educated in utilization of compensatory strategies for safe oral intake. Patient voiced understanding. Barriers to Learning Patient is a recent CVA and has some residual weakness. Speech Short Term Goals Short Term Goals Short Term Goals 1) Patient will utilize compensatory strategies as trained. 2) Patient will tolerate least restrictive diet level with 90% or greater. Speech [place] Goals Usp Goals Patient will be able to maintain adequate nutrition/hydration via safe effective swallow function. Speech-Plan Patient/Family Goals Patient/Family Goals: Patient plans to return to her assisted living facility post rehab. Treatment Plan Speech Therapy Treatment Plan: Discontinue ST, Goals Met Patient is not recommended for skilled ST at this time. Treatment Duration: Oct 23, 2018 Frequency: 1 time per week Estimated Hrs Per Day: .25 hour per day Rehab Potential: Fair Barriers to Learning: Patient is a recent CVA onset with residual effects. Pt/Family Agrees to Plan: Yes Safety Risks/Education Teaching Recipient: Patient Teaching Methods: Discussion Response to Teaching: Verbalize Understanding Education Topics Provided: Compensatory strategies for safe oral intake. Time Speech Therapy Time In: 12:30 Speech Therapy Time Out: 12:45 Total Billed Time: 15 Billed Treatment Time LucilleAV BETHANIA ST Oct 23, 2018 14:07
--- NOTE | 2018-10-23 14:15 | NUR ---
FAST FOOD DELIVERY DRIVER met with patient to complete initial assessment. Patient appeared alert and oriented and agreeable to assessment;however exhibited occasional memory deficits. Patient admitted to ARU with debility following CVA. Prior to hospitalization patient resided at [facility] living in [place]. Patient admitted to [facility] in May 2018 following a second stroke. Following first stroke approximately 4 years ago patient stayed with daughter, Carline for a year and a half. Prior to current hospitalization patient reports independence with ambulation with front-wheeled walker and wheelchair for long distances;however has had multiple falls recently. Patient identifies daughter, Carline of [place], [place] as primary contact at [phone]. Carline is retired and visits often. Patient recently switched to local [place] PCP; however unable to recall her name at this time. Patient also recently began utilizing Dr. Jj for neurology services.Insurance verified as Medicare and [employer] [facility] with prescription coverage. FAST FOOD DELIVERY DRIVER reviewed weekly team conference process as well as ARU typical length of stay. and expresses no concern with this. FAST FOOD DELIVERY DRIVER will discuss patient's progress in team conference on Tuesday to determine recommendations.
--- NOTE | 2018-10-23 15:16 | Therapy Group Daily Note ---
Therapy Daily Group Note Patient Education Topic Exercises, Other List Below (understanding ARU description/expectations and understanding the benefits of sleep) Exercises LE Seated Exercise, UE Exercise Other/Notes Pt participated in group therapy with 4:1 ratio. Goals of therapy are understanding ARU description/expectations and understanding the benefits of sleep. Pt amb to group with FWW and CGA. Group consisted of introductions (name , place living, why are you here), socialization, UE/LE seated exercises, education for ARU description/expectations and understanding the benefits of sleep. Pt was able to introduce self appropriately and accurately state reason for being at ARU. Pt actively listened to peers throughout session. Pt was able to acknowledge understanding of goals by giving verbal example and raise hand for acknowledgement. Pt tolerated UE/LE seated exercises and completed without difficulty. Pt will benefit from topics discussed by increasing time slept and being able to fully engage in therapies. Pt amb back to room with FWW and CGA. Pt assisted back to bed. Call light/phone in reach. Safety measures in place. Start Time: 13:00 Stop Time: 14:30 Total Billed Treatment Time: 90 Total Billed Treatment 1-GRP JOSE G ESPINOZA PTA Oct 23, 2018 15:16
[2018-10-23 16:58] VITALS: BP 138/63
--- NOTE | 2018-10-23 19:00 | NUR ---
A BETTER DAY. WALKING BETTER. ONLY INCONTINENT IN BRIEF ONE TIME TODAY. NO COMPLAINTS.
--- NOTE | 2018-10-23 19:22 | NUR ---
bedside report received from MAGED MILNER, assume care of pt
--- NOTE | 2018-10-23 21:00 | NUR ---
assessments & intervention completed, see assessments & interventions, scored 2 on NIH STROKE SCALE
[2018-10-23] MEDS: SIMvastatin 10 MG (ZOCOR) TAB PO SCH (21:33)
[2018-10-23] MEDS: VITAMIN D3 1,000 UNITS (CHOLECALCIFEROL) TABLET PO SCH (21:33)
[2018-10-23] MEDS: CLOPIDOGREL 75 MG (PLAVIX) TABLET PO SCH (21:33)
[2018-10-23] MEDS: LEVOTHYROXINE 25 MCG (LEVOTHROID) TAB PO SCH (21:33)
[2018-10-23] MEDS: MELATONIN 3 MG TABLET PO SCH (21:33)
[2018-10-23] MEDS: lamoTRIgine 25 MG (LaMICtal) TAB PO SCH (21:34)
[2018-10-23] MEDS: ASPIRIN E.C. 81 MG (ECOTRIN) TAB PO SCH (21:34)
[2018-10-24] MEDS: ACETAMINOPHEN 325 MG TABLET PO PRN ×2 (04:49→13:56)
--- NOTE | 2018-10-24 04:49 | NUR ---
c/o generalized pain level 6/10 on numeric scale, tylenol 650mg po given
--- NOTE | 2018-10-24 05:25 | NUR ---
resting quietly in bed, pain level 0/10 on flacc scale
[2018-10-24 06:14] VITALS: BP 167/80
[2018-10-24] MEDS: MULTIVIT W/MINERALS TAB (THERAGRAN M) PO SCH (06:44)
--- NOTE | 2018-10-24 07:25 | NUR ---
bedside report given to KENDRA MILNER
[2018-10-24 08:44] VITALS: BP 164/79
[2018-10-24] MEDS: SALINE NASAL SPRAY (OCEAN) 45 ML BTL SCH ×3 (08:46→21:26)
[2018-10-24] MEDS: amLODIPine 5 MG (NORVASC) TAB PO SCH (08:46)
[2018-10-24] MEDS: ASCORBIC ACID (VIT C) 500 MG TABLET PO SCH (08:47)
[2018-10-24] MEDS: OXYBUTYNIN (DITROPAN) 5 MG TAB PO SCH (08:47)
[2018-10-24] MEDS: PANTOPRAZOLE 40 MG (PROTONIX) TAB PO SCH (08:54)
--- NOTE | 2018-10-24 09:01 | PM&R Progress Note ---
Subjective HPI/CC On Admission Date Seen by Provider: Oct 24, 2018 Time Seen by Provider: 08:15 Subjective/Events-last exam Patient doing well today Still complains of muscle stiffness and unsure if a statin is causing rhabdomyolysis with myositis so we will check CPK and hold statin for now Patient participating in therapies with slow recovery Evaluate in team meeting tomorrow regarding discharge planning Review of Systems General: Fatigue Neurological: Change in speech Objective Exam Vital Signs Vital Signs Date Time Temp Pulse Resp B/P (MAP) Pulse Ox O2 Delivery O2 Flow Rate FiO2 10/24/18 19:00 60 10/24/18 16:03 97.0 14 156/69 (98) 95 Room Air Capillary Refill : General Appearance: No Apparent Distress, WD/WN, Chronically ill Respiratory: Chest Non Tender, Lungs Clear, Normal Breath Sounds, No Accessory Muscle Use, No Respiratory Distress Cardiovascular: Regular Rate, Rhythm, No Edema, No Gallop, No JVD, No Murmur, Normal Peripheral Pulses Neurologic/Psychiatric: Alert, Oriented x3, Normal Mood/Affect, Disoriented, Motor Weakness Results/Procedures Lab Laboratory Tests 10/24/18 14:10 Patient resulted labs reviewed. 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 Paroxysmal atrial fibrillation Dementia Depression History of small bowel resection partial History of left hip fracture repair with subsequent nerve damage making ambulation difficult GERD Urge incontinence Muscle pain reported will check CPK and hold statin Plan: Continue current meds Start statin therapy Maintain on Plavix Appreciate cardiology due to history of paroxysmal atrial fibrillation but possible bleeding side effect from anticoagulation Continue therapies per protocol Hold statin for muscle pain Patient requires close monitoring in inpatient rehab setting due to cognitive deficits from the stroke with difficulty communicating and a fall risk. Also will monitor for urinary and bowel function due to history of both organ systems ' dysfunction. Monitor blood pressure closely due to history of stroke subacute along with 2 prior strokes Close monitoring for recurrent seizure since history of seizure after her last stroke Cardiology consultation to decide if additional anticoagulation is needed to prevent subsequent strokes Diagnosis/Problems Diagnosis/Problems (1) CVA (cerebral vascular accident) Status: Acute Qualifiers: CVA mechanism: unspecified Qualified Codes: I63.9 - Cerebral infarction, unspecified (2) History of CVA (cerebrovascular accident) Status: Chronic (3) Seizure disorder Status: Chronic (4) CAD (coronary artery disease) Status: Chronic Qualifiers: Coronary Disease-Associated Artery/Lesion type: [place] artery [place] vs. transplanted heart: [place] heart Associated angina: without angina Qualified Codes: I25.10 - Atherosclerotic heart disease of [place] coronary artery without angina pectoris (5) Hypothyroidism Status: Chronic Qualifiers: Hypothyroidism type: acquired Qualified Codes: E03.9 - Hypothyroidism, unspecified (6) Paroxysmal atrial fibrillation Status: Chronic (7) History of coronary artery stent placement Status: Chronic (8) Hypertension Status: Chronic Qualifiers: Hypertension type: essential hypertension Qualified Codes: I10 - Essential (primary) hypertension (9) Hyperlipidemia Status: Chronic Qualifiers: Hyperlipidemia type: mixed hyperlipidemia Qualified Codes: E78.2 - Mixed hyperlipidemia (10) Urge incontinence Status: Chronic (11) History of hip fracture Status: Chronic (12) Depression Status: Chronic Qualifiers: Depression Type: unspecified Qualified Codes: F32.9 - Major depressive disorder, single episode, unspecified (13) Vascular dementia Status: Chronic Qualifiers: Dementia behavioral disturbance: without behavioral disturbance Qualified Codes: F01.50 - Vascular dementia without behavioral disturbance (14) Incontinence Status: Chronic Qualifiers: Incontinence type: urinary Urinary Incontinence type: unspecified incontinence Qualified Codes: R32 - Unspecified urinary incontinence (15) Myositis Status: Acute Qualifiers: Myositis type: unspecified type Myositis location: unspecified site Qualified Codes: M60.9 - Myositis, unspecified Clinical Quality Measures Admission Status Admission Dx Assessment: Seth infarct History of CVA with subsequent seizure disorder CAD previous stent placement Hypothyroidism Hypertension 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 Also will monitor for urinary and bowel function due to history of both organ systems ' dysfunction. Monitor blood pressure closely due to history of stroke subacute along with 2 prior strokes Close monitoring for recurrent seizure since history of seizure after her last stroke Cardiology consultation to decide if additional anticoagulation is needed to prevent subsequent strokes DVT/VTE Risk/Contraindication: Risk Factor Score Per Nursin RFS Level Per Nursing on Admit: 2=Moderate ERIC PORTILLO DO Oct 24, 2018 09:01
--- NOTE | 2018-10-24 09:20 | Occupational Ther Daily Note ---
OT Current Status-Daily Note Subjective Pt alert, sitting up in bed. Just received breakfast. Pt agrees to therapy. No c/o pain. C/o being tired, not being able to wake up. Mental Status/Objective Patient Orientation: Person Therapy Code Descriptions/Definitions Functional [place] Measure: 0=Not Assessed/NA 4=Minimal Assistance 1=Total Assistance 5=Supervision or Setup 2=Maximal Assistance 6=Modified [place] 3=Moderate Assistance 7=Complete [place] ADL-Treatment Pt just received breakfast, declined getting out of bed into chair to eat. Pt unable to open first package of syrup then was able to open 2nd by self. Pt takes increased time to complete all tasks due to decreased mobility and slow movement. Unable to doff shirt without cues. Pt given shirt, unable to manipulate to initiate donning, verbal cues needed. Assist to don/doff lower body clothing. Verbal cues for hand placement and sequence of standing for sit to stand, mod A. After therapy, PT took over care. All needs met in room. Therapy Code Descriptions/Definitions Functional [place] Measure: 0=Not Assessed/NA 4=Minimal Assistance 1=Total Assistance 5=Supervision or Setup 2=Maximal Assistance 6=Modified [place] 3=Moderate Assistance 7=Complete [place] Therapy Quality Codes: 6 Independent with activity with or without an assistive device 5 Patient requires set up or clean up by helper. Patient completes activity by themselves 4 Supervision or touching assist (CGA). [place] provide cues , steadying assist 3 The helper provides less than half the effort to complete the activity 2 The helper provides more than half the effort to complete the activity 1 Dependent. The helper does all the effort to complete an activity 7 Patient refused to complete or attempt activity 9 The patient did not perform the activity before the current illness or injury 88 Not attempted due to Medical conditions or safety concerns Eating (FIM): 5 (Assist to open packages. Using regular utensils to eat.) Eating (QC): 5 Upper Body (FIM): 2 Upper Body Dressing (QC): 2 Lower Body Dressing (FIM): 2 Lower Body Dressing (QC): 2 On/Off Footwear (QC): 2 Transfers (B, C, W/C) (FIM): 3 OT Short Term Goals Short Term Goals Time Frame: Oct 27, 2018 Bathing(FIM): 4 Upper Body Dressing(FIM): 5 Lower Body Dressing(FIM): 5 Toileting(FIM): 5 Transfers (B,C,W/C) (FIM): 4 Toilet/Commode Transfer(FIM): 5 1=Demonstrate adherence to instructed precautions during ADL tasks. 2=Patient will verbalize/demonstrate understanding of assistive devices/ modifications for ADL. 3=Patient will improve strength/tolerance for activity to enable patient to perform ADL's. OT Group Home Goals Kennel Keeper Goals Time Frame: Nov 10, 2018 Eating (FIM): 6 Eating (QC): 6 Groomin Oral Hygiene (QC): 6 Bathing(FIM): 5 Shower/Bathe Self (QC): 5 Upper Body Dressing(FIM): 6 Upper Body Dressing (QC): 6 Lower Body Dressing(FIM): 6 Lower Body Dressing (QC): 6 On/Off Footwear (QC): 6 Toileting(FIM): 6 Toileting Hygiene (QC): 6 Toilet/Commode Transfer(FIM): 6 Toilet/Commode Transfer (QC): 6 Shower Transfer(FIM): 5 Additional Goals: 1-Demonstrate ADL Tasks, 2-Verbalize Understanding, 3- ImproveStrength/Ramila 1=Demonstrate adherence to instructed precautions during ADL tasks. 2=Patient will verbalize/demonstrate understanding of assistive devices/ modifications for ADL. 3=Patient will improve strength/tolerance for activity to enable patient to perform ADL's. OT Education/Plan Problem List/Assessment Pt demonstrates decreased ADL functioning, strength, transfers, and activity tolerance. Pt to benefit from skilled OT intervention for ADL training, transfers, strengthening, and safety education to increase functional independence and allow safe discharge plan. Discharge Recommendations Plan/Recommendations: Continue POC Treatment Plan/Plan of Care Patient would benefit from OT for education, treatment and training to promote independence in ADL's, mobility, safety and/or upper extremity function for ADL' s. Plan of Care: ADL Retraining, Functional Mobility, Group Exercise/Act as Ind, UE Funct Exercise/Act Treatment Duration: Nov 10, 2018 Frequency: At least 5 of 7 days/Wk (IRF) Estimated Hrs Per Day: 1.5 hours per day Agreement: Yes Rehab Potential: Fair Time/GCodes Start Time: 09:00 Stop Time: 10:00 Total Time Billed (hr/min): 60 Billed Treatment Time 1 visit-ADL 4 (60 min) MATILDA ABRAHMA Oct 24, 2018 09:20
--- NOTE | 2018-10-24 09:41 | NUR ---
Pt is Shinto and open to sacraments and spiritual support. Currently eating breakfast but hollow handle knife assembler will provide Communion.
--- NOTE | 2018-10-24 11:02 | Physical Therapy Daily Note ---
PT Daily Note-Current Subjective Pt. still with OT upon entering the room. OT monitoring BP as pt. is having more problems with mobility and speech. This MAPPING SPECIALIST relieves DAVID. Pt. states she realizes that she is having more difficulty (speech slurred more than 1-14. Pain Location: No Pain Reported Mental Status Patient Orientation: Person, Place, Situation, Mumbles Attachments: Other-See Comments (AFO does not fit foot with shoe, left foot edema possible) Transfers Therapy Code Descriptions/Definitions Functional [place] Measure: 0=Not Assessed/NA 4=Minimal Assistance 1=Total Assistance 5=Supervision or Setup 2=Maximal Assistance 6=Modified [place] 3=Moderate Assistance 7=Complete [place] Therapy Quality Codes: 6 Independent with activity with or without an assistive device 5 Patient requires set up or clean up by helper. Patient completes activity by themselves 4 Supervision or touching assist (CGA). [place] provide cues , steadying assist 3 The helper provides less than half the effort to complete the activity 2 The helper provides more than half the effort to complete the activity 1 Dependent. The helper does all the effort to complete an activity 7 Patient refused to complete or attempt activity 9 The patient did not perform the activity before the current illness or injury 88 Not attempted due to Medical conditions or safety concerns Transfers (B, C, W/C) (FIM): 3 Scootin Rollin Supine to/from Sit: 4 Sit to/from Stand: 3 Bed to/from Chair: 3 pt. rigid, difficulty with all movement, holds extraordinarily tight to all objects, flexed at trunk, very difficult TRFs mod to max assist SPTs Weight Bearing Right Lower Extremity: Right Full Weight Bearing Left Lower Extremity: Left Full Weight Bearing Gait Training Does the Patient Walk?: Yes Gait (FIM): 1 Distance (FIM): 1=up to 49 ft (20ftx4) Gait Level of Assist: 3 Gait Persons Needed: 1 Gait Assistive Device: FWW much difficulty coordinating gait , very slow, rigid, flexed at trunk, festinates at times, great difficulty lifting feet to coordinate steps Exercises Seated Therapy Exercises: Ankle pumps, Sit to stand, Long arc quads, Hip flexion, Hip abd/add Seated Reps: 15 NuStep Minutes: 10 NuStep Workload: 2 Treatments toileted with mod to max assist to turn to maneuver at toilet, max assist to manage clothing and clean, rigid and difficult to guide and cue pt. Assessment Current Status: Poor Progress pts movement and function as well as speech declined from yesterday. PT Short Term Goals Short Term Goals Time Frame: Oct 27, 2018 Transfers (B,C,W/C) (FIM): 4 Gait (FIM): 2 Gait Distance Comment: 120' Gait Level of Assist: 4 Gait Assistive Device: FWW PT Director Of Catering Sales Goals Nursing Home Goals PT Director Of Catering Sales Goals Time Frame: Nov 10, 2018 Transfers (B,C,W/C) (FIM): 5 Sit to Lying (QC): 4 Lying-Sitting on Side/Bed(QC): 4 Sit to Stand (QC): 4 Rollin Roll Left to Right (QC): 4 Chair/Njy-mn-Bgssw Xfer(QC): 4 Car Transfer (QC): 4 Gait (FIM): 5 Distance: 150' Walk 10 feet (QC): 4 Walk 10ft-Uneven Surface(QC): 4 Walk 50ft with 2 Turns (QC): 4 Walk 150 ft (QC): 4 Gait Level of Assist: 5 Gait Assistive Device: FWW Stairs (FIM): 2 # of Steps: 4 1 Step (curb) (QC): 4 4 Steps (QC): 4 Stairs Level Of Assist: 4 PT Plan Treatment/Plan Treatment Plan: Continue Plan of Care Treatment Plan: Bed Mobility, Education, Functional Activity Ramila, Functional Strength, Group Therapy, Gait, Safety, Therapeutic Exercise, Transfers Treatment Duration: Nov 10, 2018 Frequency: At least 5 of 7 days/Wk (IRF) Estimated Hrs Per Day: 1.5 hours per day Patient and/or Family Agrees t: Yes Safety Risks/Education Patient Education: Gait Training, Transfer Techniques, Correct Positioning, Disease Process, Safety Issues Teaching Recipient: Patient Teaching Methods: Demonstration, Discussion Response to Teaching: Verbalize Understanding, Return Demonstration, Reinforcement Needed Time/GCodes Time In: 1000 Time Out: 1100 Total Billed Treatment Time: 60 Total Billed Treatment 1,EX15m,FA25m,GT20m G Codes Necessary: JODIE Givens MAPPING SPECIALIST Oct 24, 2018 11:02
--- NOTE | 2018-10-24 11:31 | Occupational Ther Daily Note ---
OT Current Status-Daily Note Subjective Pt sleeping in recliner. Woke to name. Pt stated that she just feels groggy today. Mental Status/Objective Patient Orientation: Person, Place, Time Therapy Code Descriptions/Definitions Functional [place] Measure: 0=Not Assessed/NA 4=Minimal Assistance 1=Total Assistance 5=Supervision or Setup 2=Maximal Assistance 6=Modified [place] 3=Moderate Assistance 7=Complete [place] ADL-Treatment Therapy Code Descriptions/Definitions Functional [place] Measure: 0=Not Assessed/NA 4=Minimal Assistance 1=Total Assistance 5=Supervision or Setup 2=Maximal Assistance 6=Modified [place] 3=Moderate Assistance 7=Complete [place] Therapy Quality Codes: 6 Independent with activity with or without an assistive device 5 Patient requires set up or clean up by helper. Patient completes activity by themselves 4 Supervision or touching assist (CGA). [place] provide cues , steadying assist 3 The helper provides less than half the effort to complete the activity 2 The helper provides more than half the effort to complete the activity 1 Dependent. The helper does all the effort to complete an activity 7 Patient refused to complete or attempt activity 9 The patient did not perform the activity before the current illness or injury 88 Not attempted due to Medical conditions or safety concerns Grooming (FIM): 6 (Pt propelled w/c using LE's to sit in front of sink. Completes grooming by self.) Transfers (B, C, W/C) (FIM): 3 (Assist and verbal cues for safe transfers.) OT Short Term Goals Short Term Goals Time Frame: Oct 27, 2018 Bathing(FIM): 4 Upper Body Dressing(FIM): 5 Lower Body Dressing(FIM): 5 Toileting(FIM): 5 Transfers (B,C,W/C) (FIM): 4 Toilet/Commode Transfer(FIM): 5 1=Demonstrate adherence to instructed precautions during ADL tasks. 2=Patient will verbalize/demonstrate understanding of assistive devices/ modifications for ADL. 3=Patient will improve strength/tolerance for activity to enable patient to perform ADL's. OT Alf Goals Alf Goals Time Frame: Nov 10, 2018 Eating (FIM): 6 Eating (QC): 6 Groomin Oral Hygiene (QC): 6 Bathing(FIM): 5 Shower/Bathe Self (QC): 5 Upper Body Dressing(FIM): 6 Upper Body Dressing (QC): 6 Lower Body Dressing(FIM): 6 Lower Body Dressing (QC): 6 On/Off Footwear (QC): 6 Toileting(FIM): 6 Toileting Hygiene (QC): 6 Toilet/Commode Transfer(FIM): 6 Toilet/Commode Transfer (QC): 6 Shower Transfer(FIM): 5 Additional Goals: 1-Demonstrate ADL Tasks, 2-Verbalize Understanding, 3- ImproveStrength/Ramila 1=Demonstrate adherence to instructed precautions during ADL tasks. 2=Patient will verbalize/demonstrate understanding of assistive devices/ modifications for ADL. 3=Patient will improve strength/tolerance for activity to enable patient to perform ADL's. OT Education/Plan Problem List/Assessment Pt demonstrates decreased ADL functioning, strength, transfers, and activity tolerance. Pt to benefit from skilled OT intervention for ADL training, transfers, strengthening, and safety education to increase functional independence and allow safe discharge plan. Discharge Recommendations Plan/Recommendations: Continue POC Treatment Plan/Plan of Care Patient would benefit from OT for education, treatment and training to promote independence in ADL's, mobility, safety and/or upper extremity function for ADL' s. Plan of Care: ADL Retraining, Functional Mobility, Group Exercise/Act as Ind, UE Funct Exercise/Act Treatment Duration: Nov 10, 2018 Frequency: At least 5 of 7 days/Wk (IRF) Estimated Hrs Per Day: 1.5 hours per day Agreement: Yes Rehab Potential: Fair Time/GCodes Start Time: 11:20 Stop Time: 11:50 Total Time Billed (hr/min): 30 Billed Treatment Time 1 visit-ADL 2 (30 min) MATILDA ABRAHAM Oct 24, 2018 11:31
--- NOTE | 2018-10-24 12:21 | Progress Note-Cardiology ---
Cardiology SOAP Progress Note Subjective: Up in w/c with therapy. No c/o CP, palpitations, syncope or near syncope. No c /o LE swelling. Objective: I&O/Vital Signs 10/24/18 10/24/18 10/24/18 10/24/18 06:14 07:16 08:44 09:00 Temp 98.7 Pulse 57 57 53 Resp 16 B/P (MAP) 167/80 (109) 164/79 (107) Pulse Ox 96 O2 Delivery Room Air Room Air 10/24/18 10/24/18 13:25 16:03 Temp 97.0 Pulse 64 55 Resp 14 B/P (MAP) 156/69 (98) Pulse Ox 95 O2 Delivery Room Air 10/23/18 23:59 Intake Total 800 ml Balance 800 ml Weight (Pounds): 125 Weight (Ounces): 4.0 Weight (Calculated Kilograms): [id number] Constitutional: AAO x 3, well-developed, well-nourished Respiratory: No accessory muscle use, No respiratory distress; chest expansion is symmetric, chest is bilaterally symmetric, lungs clear to auscultation Cardiovascular: regular rate-rhythm; No JVD; S1 and S2 Gastrointestional: No tender; soft, round Extremities: no lower extremity edema bilateral Neurologic/Psychiatric: grossly intact Skin: No rash, No ulcerations Results/Procedures: Labs Laboratory Tests 10/24/18 14:10: White Blood Count 6.3, Red Blood Count 4.10L, Hemoglobin 12.2, Hematocrit 38, Mean Corpuscular Volume 92, Mean Corpuscular Hemoglobin 30, Mean Corpuscular Hemoglobin Concent 32, Red Cell Distribution Width 13.0, Platelet Count 207, Mean Platelet Volume 11.0H, Neutrophils (%) (Auto) 43, Lymphocytes (%) (Auto) 43 , Monocytes (%) (Auto) 13H, Eosinophils (%) (Auto) 0, Basophils (%) (Auto) 1, Neutrophils # (Auto) 2.7, Lymphocytes # (Auto) 2.7, Monocytes # (Auto) 0.8, Eosinophils # (Auto) 0.0, Basophils # (Auto) 0.0, Sodium Level 137, Potassium Level 4.4, Chloride Level 103, Carbon Dioxide Level 23, Anion Gap 11, Blood Urea Nitrogen 25H, Creatinine 1.25, Estimat Glomerular Filtration Rate 41, BUN/ Creatinine Ratio 20, Glucose Level 146H, Calcium Level 9.3, Corrected Calcium 9.2, Total Bilirubin 0.4, Aspartate Amino Transf (AST/SGOT) 20, Alanine Aminotransferase (ALT/SGPT) 10, Alkaline Phosphatase 63, Total Creatine Kinase 63, Total Protein 7.7, Albumin 4.1 A/P: Assessment: Recent CVA ( 10-17-18) with h/o previous CVA x 2 (2013 and 2016) - CT from [facility] [place] [facility] 10-17-18 is reported to have shown an area of an old infarct and severe cerebral atrophy, but no acute process per dictated note by Dr. Montemayor on 10-18-18 Hypertension - improved Echocardiogram of 10-19-18 shows mod concentric LVH; LVEF approx 60%; trivial to mild MR and TR. PASP approx 25 mmHg; mod enlargement of the LA Seizure disorder following a previous CVA Pt reports h/o intracranial bleed bleed following a fall in 2012 - exact details unknown Pt reports h/o PAF, but was not deemed suitable for OAC, due to a h/o ic bleed - details unknown Reported h/o CAD with stent placement in the past at [facility] in [place], [place] - details unknown No evidence of carotid stenosis per u/s of 10-21-18 HLD - statin tx Hypothyroidism - replacement tx H/O colon resection Family h/o CAD - mother MS age 69, father MS age 66 H/O intolerance of Bystolic in the past d/t bradycardia Plan: Continue current regimen Monitor BP, adjust anti-hypertensives as indicated Given h/o ic bleed, we have not put her on OAC, but antiplatelet therapy is being continued She is on tele. If PAF found on tele, then consider taking off to antiplatelet therapy and placing on OAC (if OK from the standpoint of her other medical issues, as determined by the Med Svce) Physician Assessment Physician Assessment No cp or palp or syncope or shortness of breath Lungs: good bilat air entry Cor: reg Ext: no c/c/e A&R * As documented in our note above that I updated (italics) and as noted below * I discussed his CV issues with her and her fam and answered questions * Monitor labs from time to time SATHISH ROCHE Oct 24, 2018 12:21 FITZ WINTER MD FACP FAC CCDS Oct 24, 2018 18:09
[2018-10-24 14:19] LABS: BASOPHILS % (AUTO) 1 % (0-10); EOSINOPHILS % (AUTO) 0 % (0-10); HEMATOCRIT 38 % (35-52); HEMOGLOBIN 12.2 G/DL (11.5-16.0); LYMPHOCYTES # (AUTO) 2.7 X 10^3 (1.0-4.0); LYMPHOCYTES % (AUTO) 43 % (12-44); MEAN CORPUSCULAR HEMOGLOBIN 30 PG (25-34); MEAN CORPUSCULAR HGB CONC 32 G/DL (32-36); MEAN CORPUSCULAR VOLUME 92 FL (80-99); MONOCYTES # (AUTO) 0.8 X 10^3 (0.0-1.0); MONOCYTES % (AUTO) 13 % (0-12); NEUTROPHILS # (AUTO) 2.7 X 10^3 (1.8-7.8); NEUTROPHILS % (AUTO) 43 % (42-75); PLATELET COUNT 207 10^3/uL (130-400); WHITE BLOOD COUNT 6.3 10^3/uL (4.3-11.0)
--- NOTE | 2018-10-24 14:43 | Physical Therapy Daily Note ---
PT Daily Note-Current Subjective Pt reports she is tired and is requesting to lay down in bed for a nap after PT session. States she is feeling a little better this afternoon than she was this morning Pain Numeric Pain Scale: 6 Location: Right Location Body Site: Knee Comment: pain 4/10 at rest, increases to 6-7/10 with WB Appearance Pt sitting up in recliner finishing lunch pre PT. Awake and alert, noted speech easier to understand this afternoon. Post treatment, assisted pt to bathroom per pt request, then to bedx. pt supine in bed with HOB elevated, call light, phone and bedside table within reach. All needs met at this time Mental Status Patient Orientation: Person, Time, Eyes Open, Situation speech easier to understand this afternoon Transfers Therapy Code Descriptions/Definitions Functional [place] Measure: 0=Not Assessed/NA 4=Minimal Assistance 1=Total Assistance 5=Supervision or Setup 2=Maximal Assistance 6=Modified [place] 3=Moderate Assistance 7=Complete [place] Therapy Quality Codes: 6 Independent with activity with or without an assistive device 5 Patient requires set up or clean up by helper. Patient completes activity by themselves 4 Supervision or touching assist (CGA). [place] provide cues , steadying assist 3 The helper provides less than half the effort to complete the activity 2 The helper provides more than half the effort to complete the activity 1 Dependent. The helper does all the effort to complete an activity 7 Patient refused to complete or attempt activity 9 The patient did not perform the activity before the current illness or injury 88 Not attempted due to Medical conditions or safety concerns Transfers (B, C, W/C) (FIM): 4 Rollin Roll Left to Right (QC): 5 Supine to/from Sit: 5 Sit to/from Stand: 4 Sit to Lying (QC): 5 Sit to Stand (QC): 4 slow movements with transitions, became fatigued by end of session requiring min assist with sit to manager business intelligence bathroom and again at bedside. All other sit to stand transfers throughout tx session were with CGA although pt giving mod to max effort to perform Weight Bearing Right Lower Extremity: Right Full Weight Bearing Left Lower Extremity: Left Full Weight Bearing Gait Training Does the Patient Walk?: Yes Gait (FIM): 2 Distance (FIM): 0=561-66 ft Distance: 50 x2 Gait Level of Assist: 4 Gait Persons Needed: 1 Gait Assistive Device: FWW difficulty advancing LE's fwd, joshua RLE, slow ataxic antalgic shuffling gait, increased PEDRITO, mod to max effort lifting RLE and placing wt on RLE 2^ c/o knee pain, unsteady, difficulty maneuvering walker at times Wheelchair Training Pt extremely fatigued by end of walking distances but was able to maneuver w/c back to room using LE's slowly x100' Treatments safety gait and transfer training Assessment Current Status: Fair Progress PT Short Term Goals Short Term Goals Time Frame: Oct 27, 2018 Transfers (B,C,W/C) (FIM): 4 Gait (FIM): 2 Gait Distance Comment: 120' Gait Level of Assist: 4 Gait Assistive Device: FWW PT Cnc Machine Setter Goals Intermediate Goals PT Cnc Machine Setter Goals Time Frame: Nov 10, 2018 Transfers (B,C,W/C) (FIM): 5 Sit to Lying (QC): 4 Lying-Sitting on Side/Bed(QC): 4 Sit to Stand (QC): 4 Rollin Roll Left to Right (QC): 4 Chair/Uxl-kg-Lrdrg Xfer(QC): 4 Car Transfer (QC): 4 Gait (FIM): 5 Distance: 150' Walk 10 feet (QC): 4 Walk 10ft-Uneven Surface(QC): 4 Walk 50ft with 2 Turns (QC): 4 Walk 150 ft (QC): 4 Gait Level of Assist: 5 Gait Assistive Device: FWW Stairs (FIM): 2 # of Steps: 4 1 Step (curb) (QC): 4 4 Steps (QC): 4 Stairs Level Of Assist: 4 PT Plan Problem List Problem List: Activity Tolerance, Functional Strength, Safety, Balance, Gait, Transfer, Bed Mobility Treatment/Plan Treatment Plan: Continue Plan of Care Treatment Plan: Bed Mobility, Education, Functional Activity Ramila, Functional Strength, Group Therapy, Gait, Safety, Therapeutic Exercise, Transfers Treatment Duration: Nov 10, 2018 Frequency: At least 5 of 7 days/Wk (IRF) Estimated Hrs Per Day: 1.5 hours per day Patient and/or Family Agrees t: Yes Safety Risks/Education Patient Education: Gait Training, Transfer Techniques, Safety Issues Teaching Recipient: Patient Teaching Methods: Demonstration, Discussion Response to Teaching: Verbalize Understanding, Return Demonstration, Reinforcement Needed Time/GCodes Time In: 1340 Time Out: 1426 Total Billed Treatment Time: 46 Total Billed Treatment 1 visit GT x20 FA x26 JOSE G ESPINOZA COMMUNITY DIRECTOR Oct 24, 2018 14:43
[2018-10-24 14:50] LABS: ALBUMIN 4.1 GM/DL (3.2-4.5); BILIRUBIN,TOTAL 0.4 MG/DL (0.1-1.0); CALCIUM 9.3 MG/DL (8.5-10.1); CREATININE SERUM 1.25 MG/DL (0.60-1.30); POTASSIUM 4.4 MMOL/L (3.6-5.0); TOTAL PROTEIN 7.7 GM/DL (6.4-8.2)
[2018-10-24 16:03] VITALS: BP 156/69
--- NOTE | 2018-10-24 19:22 | NUR ---
bedside report received from KENDRA MILNER, assume care of pt
--- NOTE | 2018-10-24 21:00 | NUR ---
assessments & interventions completed, see assessments & interventions, up to bathroom with 1 person assist, gait belt & walker, requested 6mg melatonin this pm
[2018-10-24] MEDS: LEVOTHYROXINE 25 MCG (LEVOTHROID) TAB PO SCH (21:27)
[2018-10-24] MEDS: VITAMIN D3 1,000 UNITS (CHOLECALCIFEROL) TABLET PO SCH (21:27)
[2018-10-24] MEDS: lamoTRIgine 25 MG (LaMICtal) TAB PO SCH (21:27)
[2018-10-24] MEDS: ASPIRIN E.C. 81 MG (ECOTRIN) TAB PO SCH (21:27)
[2018-10-24] MEDS: CLOPIDOGREL 75 MG (PLAVIX) TABLET PO SCH (21:27)
[2018-10-24] MEDS: SIMvastatin 10 MG (ZOCOR) TAB PO SCH (21:27)
[2018-10-24] MEDS: MELATONIN 3 MG TABLET PO SCH (21:27)
[2018-10-25] MEDS: ACETAMINOPHEN 325 MG TABLET PO PRN (05:53)
--- NOTE | 2018-10-25 05:53 | NUR ---
c/o pain all over, level 9/10 on numeric scale, tylenol 650mg given
[2018-10-25 06:00] VITALS: BP 163/77
--- NOTE | 2018-10-25 06:30 | NUR ---
resting quietly in bed, pain level 0/10 on flacc scale
[2018-10-25] MEDS: MULTIVIT W/MINERALS TAB (THERAGRAN M) PO SCH (06:42)
--- NOTE | 2018-10-25 07:30 | NUR ---
bedside report given to KENDRA MILNER
--- NOTE | 2018-10-25 08:42 | PM&R Progress Note ---
Subjective This was a face to face visit with the patient. Date Seen by Provider: Oct 25, 2018 Time Seen by Provider: 08:30 Subjective/Events-last exam Patient was seen in her room in the shower Patient reports stiffness so stopped statin and CPK was normal so will try to evaluate the response of DC No other issues Has improved a lot since admit Review of Systems Musculoskeletal: leg pain Objective Physician Exam Last Set of Vital Signs Vital Signs Date Time Temp Pulse Resp B/P (MAP) Pulse Ox O2 Delivery O2 Flow Rate FiO2 10/25/18 06:00 96.9 57 18 163/77 (105) 94 Room Air Capillary Refill : I&O Intake and Output 10/25/18 00:00 Intake Total 1050 ml Balance 1050 ml Intake Oral 1050 ml # Voids 5 # Urine Diapers 1 General: Alert, Oriented X3, Cooperative, Other (subtle poor recall) HEENT: Atraumatic, PERRLA, EOMI Neck: Supple, No JVD, No Thyromegaly, +2 Carotid Pulse No Bruit Lungs: Clear to Auscultation, Normal Air Movement Heart: Regular Rate, Normal S1, Normal S2 Abdomen: Normal Bowel Sounds, Soft Extremities: No Clubbing, No Cyanosis Skin: No Rashes, No Breakdown Neuro: Normal Tone, Sensation Intact, Cranial Nerves 3-12 NL, Reflexes 2+, Other (global weakness, gait disturbance noted) Psych/Mental Status: Mental Status NL, Mood NL, Other (subtle confusion at times) Results Lab Data Laboratory Tests 10/24/18 14:10: White Blood Count 6.3, Red Blood Count 4.10L, Hemoglobin 12.2, Hematocrit 38, Mean Corpuscular Volume 92, Mean Corpuscular Hemoglobin 30, Mean Corpuscular Hemoglobin Concent 32, Red Cell Distribution Width 13.0, Platelet Count 207, Mean Platelet Volume 11.0H, Neutrophils (%) (Auto) 43, Lymphocytes (%) (Auto) 43 , Monocytes (%) (Auto) 13H, Eosinophils (%) (Auto) 0, Basophils (%) (Auto) 1, Neutrophils # (Auto) 2.7, Lymphocytes # (Auto) 2.7, Monocytes # (Auto) 0.8, Eosinophils # (Auto) 0.0, Basophils # (Auto) 0.0, Sodium Level 137, Potassium Level 4.4, Chloride Level 103, Carbon Dioxide Level 23, Anion Gap 11, Blood Urea Nitrogen 25H, Creatinine 1.25, Estimat Glomerular Filtration Rate 41, BUN/ Creatinine Ratio 20, Glucose Level 146H, Calcium Level 9.3, Corrected Calcium 9.2, Total Bilirubin 0.4, Aspartate Amino Transf (AST/SGOT) 20, Alanine Aminotransferase (ALT/SGPT) 10, Alkaline Phosphatase 63, Total Creatine Kinase 63, Total Protein 7.7, Albumin 4.1 Assessment/Plan Assessment and Plan (1) CVA (cerebral vascular accident) Qualifiers: Qualified Codes: I63.9 - Cerebral infarction, unspecified Status: Acute (2) History of CVA (cerebrovascular accident) Status: Chronic (3) Seizure disorder Status: Chronic (4) CAD (coronary artery disease) Qualifiers: Qualified Codes: I25.10 - Atherosclerotic heart disease of [place] coronary artery without angina pectoris Status: Chronic (5) Hypothyroidism Qualifiers: Qualified Codes: E03.9 - Hypothyroidism, unspecified Status: Chronic (6) Paroxysmal atrial fibrillation Status: Chronic (7) History of coronary artery stent placement Status: Chronic (8) Hypertension Qualifiers: Qualified Codes: I10 - Essential (primary) hypertension Status: Chronic (9) Hyperlipidemia Qualifiers: Qualified Codes: E78.2 - Mixed hyperlipidemia Status: Chronic (10) Urge incontinence Status: Chronic (11) History of hip fracture Status: Chronic (12) Depression Qualifiers: Qualified Codes: F32.9 - Major depressive disorder, single episode, unspecified Status: Chronic (13) Vascular dementia Qualifiers: Qualified Codes: F01.50 - Vascular dementia without behavioral disturbance Status: Chronic (14) Incontinence Qualifiers: Qualified Codes: R32 - Unspecified urinary incontinence Status: Chronic (15) Myositis Qualifiers: Qualified Codes: M60.9 - Myositis, unspecified Status: Acute Co-Morbidities that are continuing to impact the rehab process: (include details ) ERIC PORTILLO DO Oct 25, 2018 08:42
--- NOTE | 2018-10-25 08:57 | Occupational Ther Daily Note ---
OT Current Status-Daily Note Subjective Pt alert, lying in bed. Pt more awake than yesterday. Agrees to therapy. Pt stated that she had Tylenol this morning and it helped with the pain. Mental Status/Objective Patient Orientation: Person, Place, Time, Situation Therapy Code Descriptions/Definitions Functional [place] Measure: 0=Not Assessed/NA 4=Minimal Assistance 1=Total Assistance 5=Supervision or Setup 2=Maximal Assistance 6=Modified [place] 3=Moderate Assistance 7=Complete [place] Attachments: Telemetry ADL-Treatment Therapy Code Descriptions/Definitions Functional [place] Measure: 0=Not Assessed/NA 4=Minimal Assistance 1=Total Assistance 5=Supervision or Setup 2=Maximal Assistance 6=Modified [place] 3=Moderate Assistance 7=Complete [place] Therapy Quality Codes: 6 Independent with activity with or without an assistive device 5 Patient requires set up or clean up by helper. Patient completes activity by themselves 4 Supervision or touching assist (CGA). [place] provide cues , steadying assist 3 The helper provides less than half the effort to complete the activity 2 The helper provides more than half the effort to complete the activity 1 Dependent. The helper does all the effort to complete an activity 7 Patient refused to complete or attempt activity 9 The patient did not perform the activity before the current illness or injury 88 Not attempted due to Medical conditions or safety concerns Grooming (FIM): 6 (Propelling w/c with LE's, pt able to sit at sink and complete own grooming.) Oral Hygiene (QC): 6 Bathing (FIM): 4 (Using grabbar, hand held shower and shower bench pt able to complete bathing. Assist to turn on/off water, CGA in standing to cleanse buttocks.) Bathing Location: L Arm, R Arm, L Upper Leg, R Upper Leg, L Lower Leg ( including foot), R Lower Leg (including foot), Chest, Abdomen, Buttocks, Perineal Area Shower/Bathe Self (QC): 4 (CGA) Upper Body (FIM): 4 (Donned/doffed shirt with assist only to pull down in back. Assist with hooking bra in front and twisting back to front.) Upper Body Dressing (QC): 3 Lower Body Dressing (FIM): 3 (After set up, pt able to doff pants/socks by self. Pt thread pants/briefs on feet and up LE's. Pt hike briefs over hips with CGA for stability. Pt fatigued and assist to hike pants over hips. Due to fatigue assist to don socks/shoes.) Lower Body Dressing (QC): 3 On/Off Footwear (QC): 2 Transfers (B, C, W/C) (FIM): 4 (Using FWW, pt completes transfer. Pt able to problem solve and sequence transfer.) Shower Transfer(FIM): 4 (Using FWW, grabbars and shower bench pt able to complete with min A.) Pt does take increased time to complete tasks though has progressed and is able to complete with better times. Pt demonstrated increased progress today. After therapy, pt sitting in w/c with nrsg present in room. Call light/phone in reach. All needs met in room. OT Short Term Goals Short Term Goals Time Frame: Oct 27, 2018 Bathing(FIM): 4 Upper Body Dressing(FIM): 5 Lower Body Dressing(FIM): 5 Toileting(FIM): 5 Transfers (B,C,W/C) (FIM): 4 Toilet/Commode Transfer(FIM): 5 1=Demonstrate adherence to instructed precautions during ADL tasks. 2=Patient will verbalize/demonstrate understanding of assistive devices/ modifications for ADL. 3=Patient will improve strength/tolerance for activity to enable patient to perform ADL's. OT Outcomes Specialist Goals Outcomes Specialist Goals Time Frame: Nov 10, 2018 Eating (FIM): 6 Eating (QC): 6 Groomin Oral Hygiene (QC): 6 Bathing(FIM): 5 Shower/Bathe Self (QC): 5 Upper Body Dressing(FIM): 6 Upper Body Dressing (QC): 6 Lower Body Dressing(FIM): 6 Lower Body Dressing (QC): 6 On/Off Footwear (QC): 6 Toileting(FIM): 6 Toileting Hygiene (QC): 6 Toilet/Commode Transfer(FIM): 6 Toilet/Commode Transfer (QC): 6 Shower Transfer(FIM): 5 Additional Goals: 1-Demonstrate ADL Tasks, 2-Verbalize Understanding, 3- ImproveStrength/Ramila 1=Demonstrate adherence to instructed precautions during ADL tasks. 2=Patient will verbalize/demonstrate understanding of assistive devices/ modifications for ADL. 3=Patient will improve strength/tolerance for activity to enable patient to perform ADL's. OT Education/Plan Problem List/Assessment Pt demonstrates decreased ADL functioning, strength, transfers, and activity tolerance. Pt to benefit from skilled OT intervention for ADL training, transfers, strengthening, and safety education to increase functional independence and allow safe discharge plan. Discharge Recommendations Plan/Recommendations: Continue POC Treatment Plan/Plan of Care Patient would benefit from OT for education, treatment and training to promote independence in ADL's, mobility, safety and/or upper extremity function for ADL' s. Plan of Care: ADL Retraining, Functional Mobility, Group Exercise/Act as Ind, UE Funct Exercise/Act Treatment Duration: Nov 10, 2018 Frequency: At least 5 of 7 days/Wk (IRF) Estimated Hrs Per Day: 1.5 hours per day Agreement: Yes Rehab Potential: Fair Time/GCodes Start Time: 08:00 Stop Time: 09:00 Total Time Billed (hr/min): 60 Billed Treatment Time 1 visit-ADL 4 (60 min) MATILDA ABRAHAM Oct 25, 2018 08:57
[2018-10-25 09:03] VITALS: BP 125/57
[2018-10-25] MEDS: ASCORBIC ACID (VIT C) 500 MG TABLET PO SCH (09:04)
[2018-10-25] MEDS: POLYETHYLENE GLYCOL 17 GM (MIRALAX) PACK PO SCH (09:04)
[2018-10-25] MEDS: OXYBUTYNIN (DITROPAN) 5 MG TAB PO SCH (09:04)
[2018-10-25] MEDS: amLODIPine 5 MG (NORVASC) TAB PO SCH (09:05)
[2018-10-25] MEDS: PANTOPRAZOLE 40 MG (PROTONIX) TAB PO SCH (09:05)
[2018-10-25] MEDS: SALINE NASAL SPRAY (OCEAN) 45 ML BTL SCH ×3 (09:05→21:24)
--- NOTE | 2018-10-25 10:07 | Physical Therapy Daily Note ---
PT Daily Note-Current Subjective Pt. in bathroom at mirror in w/c donning face cream. States she feels a little better. Pain Location: No Pain Reported Mental Status Patient Orientation: Person, Place, Time, Situation Transfers Therapy Code Descriptions/Definitions Functional [place] Measure: 0=Not Assessed/NA 4=Minimal Assistance 1=Total Assistance 5=Supervision or Setup 2=Maximal Assistance 6=Modified [place] 3=Moderate Assistance 7=Complete [place] Therapy Quality Codes: 6 Independent with activity with or without an assistive device 5 Patient requires set up or clean up by helper. Patient completes activity by themselves 4 Supervision or touching assist (CGA). [place] provide cues , steadying assist 3 The helper provides less than half the effort to complete the activity 2 The helper provides more than half the effort to complete the activity 1 Dependent. The helper does all the effort to complete an activity 7 Patient refused to complete or attempt activity 9 The patient did not perform the activity before the current illness or injury 88 Not attempted due to Medical conditions or safety concerns Transfers (B, C, W/C) (FIM): 4 Scootin Rollin Supine to/from Sit: 5 Sit to/from Stand: 4 Bed to/from Chair: 4 Weight Bearing Right Lower Extremity: Right Full Weight Bearing Left Lower Extremity: Left Full Weight Bearing Gait Training Does the Patient Walk?: Yes Gait (FIM): 2 Distance (FIM): 0=192-14 ft (75x2,25) Gait Level of Assist: 4 Gait Persons Needed: 1 Gait Assistive Device: FWW needs many cues for foot clearance on floor and for broader PEDRITO as well as alignment and focus Wheelchair Training Does the Pt Use a Wheelchair?: Yes Wheelchair (FIM): 5 Wheelchair Distance: 3=150 ft Wheelchair Level of Assist: 5 Type of Wheelchair: Manual needs directed and cued for destination Exercises Supine Ex: Bridging, Ankle pumps, Quad Set, Rolling, Glut sets, Heel Slides, Scooting, Straight leg raise, Hip abd/add Supine Reps: 12 NuStep Minutes: 10 NuStep Workload: 3 Assessment Current Status: Good Progress greater ease of mobility, clearer speech, following commands better today PT Short Term Goals Short Term Goals Time Frame: Oct 27, 2018 Transfers (B,C,W/C) (FIM): 4 Gait (FIM): 2 Gait Distance Comment: 120' Gait Level of Assist: 4 Gait Assistive Device: FWW PT Jail Goals Advance Agent Goals PT Jail Goals Time Frame: Nov 10, 2018 Transfers (B,C,W/C) (FIM): 5 Sit to Lying (QC): 4 Lying-Sitting on Side/Bed(QC): 4 Sit to Stand (QC): 4 Rollin Roll Left to Right (QC): 4 Chair/Stp-nx-Vtuua Xfer(QC): 4 Car Transfer (QC): 4 Gait (FIM): 5 Distance: 150' Walk 10 feet (QC): 4 Walk 10ft-Uneven Surface(QC): 4 Walk 50ft with 2 Turns (QC): 4 Walk 150 ft (QC): 4 Gait Level of Assist: 5 Gait Assistive Device: FWW Stairs (FIM): 2 # of Steps: 4 1 Step (curb) (QC): 4 4 Steps (QC): 4 Stairs Level Of Assist: 4 PT Plan Treatment/Plan Treatment Plan: Continue Plan of Care Treatment Plan: Bed Mobility, Education, Functional Activity Ramila, Functional Strength, Group Therapy, Gait, Safety, Therapeutic Exercise, Transfers Treatment Duration: Nov 10, 2018 Frequency: At least 5 of 7 days/Wk (IRF) Estimated Hrs Per Day: 1.5 hours per day Patient and/or Family Agrees t: Yes Safety Risks/Education Patient Education: Gait Training, Transfer Techniques, Correct Positioning, W/ C Management, Disease Process, Safety Issues Teaching Recipient: Patient Teaching Methods: Demonstration, Discussion Response to Teaching: Verbalize Understanding, Return Demonstration, Reinforcement Needed Time/GCodes Time In: 900 Time Out: 1000 Total Billed Treatment Time: 60 Total Billed Treatment 1,FA20m,EX15m,GT25m G Codes Necessary: JODIE Givens POLITICAL SCIENCE PROFESSOR Oct 25, 2018 10:07
--- NOTE | 2018-10-25 11:40 | Progress Note-Cardiology ---
Cardiology SOAP Progress Note Subjective: Sitting up in a chair at the bedside. States she feels better and has more energy today. No c/o CP, palpitations, syncope, near syncope or dyspnea. Objective: I&O/Vital Signs 10/25/18 10/25/18 10/25/18 10/25/18 01:00 06:00 07:00 09:03 Temp 96.9 Pulse 59 57 55 59 Resp 18 B/P (MAP) 163/77 (105) 125/57 (79) Pulse Ox 94 O2 Delivery Room Air 10/25/18 00:00 Intake Total 730 ml Balance 730 ml Weight (Pounds): 125 Weight (Ounces): 4.0 Weight (Calculated Kilograms): 56.395893 Constitutional: AAO x 3, well-developed, well-nourished Respiratory: No accessory muscle use, No respiratory distress; chest expansion is symmetric, chest is bilaterally symmetric, lungs clear to auscultation Cardiovascular: regular rate-rhythm; No JVD; S1 and S2 Gastrointestional: No tender; soft, round Extremities: no lower extremity edema bilateral Neurologic/Psychiatric: grossly intact Skin: No rash, No ulcerations Results/Procedures: Labs Laboratory Tests 10/24/18 14:10: White Blood Count 6.3, Red Blood Count 4.10L, Hemoglobin 12.2, Hematocrit 38, Mean Corpuscular Volume 92, Mean Corpuscular Hemoglobin 30, Mean Corpuscular Hemoglobin Concent 32, Red Cell Distribution Width 13.0, Platelet Count 207, Mean Platelet Volume 11.0H, Neutrophils (%) (Auto) 43, Lymphocytes (%) (Auto) 43 , Monocytes (%) (Auto) 13H, Eosinophils (%) (Auto) 0, Basophils (%) (Auto) 1, Neutrophils # (Auto) 2.7, Lymphocytes # (Auto) 2.7, Monocytes # (Auto) 0.8, Eosinophils # (Auto) 0.0, Basophils # (Auto) 0.0, Sodium Level 137, Potassium Level 4.4, Chloride Level 103, Carbon Dioxide Level 23, Anion Gap 11, Blood Urea Nitrogen 25H, Creatinine 1.25, Estimat Glomerular Filtration Rate 41, BUN/ Creatinine Ratio 20, Glucose Level 146H, Calcium Level 9.3, Corrected Calcium 9.2, Total Bilirubin 0.4, Aspartate Amino Transf (AST/SGOT) 20, Alanine Aminotransferase (ALT/SGPT) 10, Alkaline Phosphatase 63, Total Creatine Kinase 63, Total Protein 7.7, Albumin 4.1 A/P: Assessment: Recent CVA ( 10-17-18) with h/o previous CVA x 2 (2013 and 2016) - CT from [facility] 10-17-18 is reported to have shown an area of an old infarct and severe cerebral atrophy, but no acute process per dictated note by Dr. Montemayor on 10-18-18 Hypertension - improved Echocardiogram of 10-19-18 shows mod concentric LVH; LVEF approx 60%; trivial to mild MR and TR. PASP approx 25 mmHg; mod enlargement of the LA Seizure disorder following a previous CVA Pt reports h/o intracranial bleed bleed following a fall in 2012 - exact details unknown Pt reports h/o PAF, but was not deemed suitable for OAC, due to a h/o ic bleed - details unknown Reported h/o CAD with stent placement in the past at [facility] in [place], [place] - details unknown No evidence of carotid stenosis per u/s of 10-21-18 HLD - statin tx Hypothyroidism - replacement tx H/O colon resection Family h/o CAD - mother MT age 69, father [place] age 66 H/O intolerance of Bystolic in the past d/t bradycardia Plan: Continue current regimen Monitor BP, adjust anti-hypertensives as indicated Given h/o ic bleed, we have not put her on OAC, but antiplatelet therapy is being continued She is on tele. If PAF found on tele, then consider taking off to antiplatelet therapy and placing on OAC (if OK from the standpoint of her other medical issues, as determined by the Med Svce) SATHISH ROCHE Oct 25, 2018 11:40
--- NOTE | 2018-10-25 14:33 | NUR ---
provided prayer and Communion.
--- NOTE | 2018-10-25 15:45 | Therapy Group Daily Note ---
Therapy Daily Group Note Patient Education Topic Home Safety Exercises LE Seated Exercise, UE Exercise Other/Notes Pt participated in group therapy with 3 to 1 ratio. Goals of session are understanding home safety and leading UE/LE seated exercises. Pt ambulated from room to commons area with FWW. Group consisted of introductions (name, place born, favorite food). Pt introduced self appropriately and actively listened to peers. Pt was able to read and lead exercise written on card. Pt tolerated and was able to complete. Dice were rolled for UE AROM/strengthening for amount of reps to complete for exercises. Pt then attended to handout given for home safety education. Verbalized understanding of education. Memory activity initiated for next group-armando, umesh, sade, jasbir, haven. Pt met goals of session by participation and acknowledgement of topics. Pt is able to benefit from group by using exercises throughout therapy stay and at discharge and by using education to make effective decisions for home safety when discharged. After therapy, pt in bed with needs met. Start Time: 13:00 Stop Time: 14:15 Total Billed Treatment Time: 75 Total Billed Treatment 1 visit, GRP(75minutes) EDGARD DAVILA OT Oct 25, 2018 15:45
--- NOTE | 2018-10-25 16:25 | NUR ---
Weekly team conference Discussed weekly team conference with patient. Patient is agreeable for re-check next week to discuss progress. Continue current plan of care.
[2018-10-25 19:00] VITALS: BP 152/66
[2018-10-25] MEDS: lamoTRIgine 25 MG (LaMICtal) TAB PO SCH (20:03)
[2018-10-25] MEDS: CLOPIDOGREL 75 MG (PLAVIX) TABLET PO SCH (20:03)
[2018-10-25] MEDS: LEVOTHYROXINE 25 MCG (LEVOTHROID) TAB PO SCH (20:03)
[2018-10-25] MEDS: VITAMIN D3 1,000 UNITS (CHOLECALCIFEROL) TABLET PO SCH (20:03)
[2018-10-25] MEDS: ASPIRIN E.C. 81 MG (ECOTRIN) TAB PO SCH (20:03)
[2018-10-25] MEDS: MELATONIN 3 MG TABLET PO SCH (20:12)
[2018-10-26 05:34] VITALS: BP 162/77
[2018-10-26] MEDS: ACETAMINOPHEN 325 MG TABLET PO PRN (06:10)
[2018-10-26] MEDS: MULTIVIT W/MINERALS TAB (THERAGRAN M) PO SCH (06:10)
--- NOTE | 2018-10-26 07:03 | Occupational Ther Daily Note ---
OT Current Status-Daily Note Subjective Pt sleeping in bed, opened eyes to name, slow to wake up. Pt agrees to therapy. C/o body being stiff and sore. Mental Status/Objective Patient Orientation: Person, Situation Therapy Code Descriptions/Definitions Functional [place] Measure: 0=Not Assessed/NA 4=Minimal Assistance 1=Total Assistance 5=Supervision or Setup 2=Maximal Assistance 6=Modified [place] 3=Moderate Assistance 7=Complete [place] ADL-Treatment Min A using slightly elevated HOB, grabbars and CGA for supine to sitting. Pt propelled w/c with LE's to retrieve clothes from closet and drawers. Propelled w/c to bathroom to complete grooming, mod I. Pt declined shower today, wanted sponge bath at sink. Pt was able to complete bathing. Assist in standing due to decreased standing balance, leaning toward R side and R LE fatigues quickly. After therapy, pt sitting in w/c with breakfast on bedside table. Call light/ phone in reach. All needs met in room. Therapy Code Descriptions/Definitions Functional [place] Measure: 0=Not Assessed/NA 4=Minimal Assistance 1=Total Assistance 5=Supervision or Setup 2=Maximal Assistance 6=Modified [place] 3=Moderate Assistance 7=Complete [place] Therapy Quality Codes: 6 Independent with activity with or without an assistive device 5 Patient requires set up or clean up by helper. Patient completes activity by themselves 4 Supervision or touching assist (CGA). [place] provide cues , steadying assist 3 The helper provides less than half the effort to complete the activity 2 The helper provides more than half the effort to complete the activity 1 Dependent. The helper does all the effort to complete an activity 7 Patient refused to complete or attempt activity 9 The patient did not perform the activity before the current illness or injury 88 Not attempted due to Medical conditions or safety concerns Eating (FIM): 6 (Pt able to open packages/containers then use regular utensils. Pt does have trouble pouring contents of package in designated area.) Eating (QC): 6 Grooming (FIM): 6 (Propelled w/c to sink, pt able to complete by self.) Oral Hygiene (QC): 6 Bathing (FIM): 4 Bathing Location: L Arm, R Arm, L Upper Leg, R Upper Leg, L Lower Leg ( including foot), R Lower Leg (including foot), Chest, Abdomen, Buttocks, Perineal Area Shower/Bathe Self (QC): 4 Upper Body (FIM): 4 (Assist to hook bra and pull shirt down in back. Pt able to complete all other parts of upper body dressing.) Upper Body Dressing (QC): 3 Lower Body Dressing (FIM): 4 (Pt able to don/doff clothing over feet and pull up legs. Assist in standing, as pt fatigued assist needed to hike pants over hips.) Lower Body Dressing (QC): 3 On/Off Footwear (QC): 4 (Superivison.) OT Short Term Goals Short Term Goals Time Frame: Oct 27, 2018 Bathing(FIM): 4 Upper Body Dressing(FIM): 5 Lower Body Dressing(FIM): 5 Toileting(FIM): 5 Transfers (B,C,W/C) (FIM): 4 Toilet/Commode Transfer(FIM): 5 1=Demonstrate adherence to instructed precautions during ADL tasks. 2=Patient will verbalize/demonstrate understanding of assistive devices/ modifications for ADL. 3=Patient will improve strength/tolerance for activity to enable patient to perform ADL's. OT Contracts Representative Goals Contracts Representative Goals Time Frame: Nov 10, 2018 Eating (FIM): 6 Eating (QC): 6 Groomin Oral Hygiene (QC): 6 Bathing(FIM): 5 Shower/Bathe Self (QC): 5 Upper Body Dressing(FIM): 6 Upper Body Dressing (QC): 6 Lower Body Dressing(FIM): 6 Lower Body Dressing (QC): 6 On/Off Footwear (QC): 6 Toileting(FIM): 6 Toileting Hygiene (QC): 6 Toilet/Commode Transfer(FIM): 6 Toilet/Commode Transfer (QC): 6 Shower Transfer(FIM): 5 Additional Goals: 1-Demonstrate ADL Tasks, 2-Verbalize Understanding, 3- ImproveStrength/Ramila 1=Demonstrate adherence to instructed precautions during ADL tasks. 2=Patient will verbalize/demonstrate understanding of assistive devices/ modifications for ADL. 3=Patient will improve strength/tolerance for activity to enable patient to perform ADL's. OT Education/Plan Problem List/Assessment Pt demonstrates decreased ADL functioning, strength, transfers, and activity tolerance. Pt to benefit from skilled OT intervention for ADL training, transfers, strengthening, and safety education to increase functional independence and allow safe discharge plan. Discharge Recommendations Plan/Recommendations: Continue POC Treatment Plan/Plan of Care Patient would benefit from OT for education, treatment and training to promote independence in ADL's, mobility, safety and/or upper extremity function for ADL' s. Plan of Care: ADL Retraining, Functional Mobility, Group Exercise/Act as Ind, UE Funct Exercise/Act Treatment Duration: Nov 10, 2018 Frequency: At least 5 of 7 days/Wk (IRF) Estimated Hrs Per Day: 1.5 hours per day Agreement: Yes Rehab Potential: Fair Time/GCodes Start Time: 07:00 Stop Time: 08:30 Total Time Billed (hr/min): 90 Billed Treatment Time 1 visit-ADL 6 (90 min) MATILDA ABRAHAM Oct 26, 2018 07:03
--- NOTE | 2018-10-26 09:02 | PM&R Progress Note ---
Subjective HPI/CC On Admission Date Seen by Provider: Oct 26, 2018 Time Seen by Provider: 08:00 Subjective/Events-last exam Patient doing well Stiffness improved since holding statin DC Telemetry No incontinence Cardiology is managing BP Checked meds and labs Review of Systems General: Fatigue Neurological: Change in speech Objective Exam Vital Signs Vital Signs Date Time Temp Pulse Resp B/P (MAP) Pulse Ox O2 Delivery O2 Flow Rate FiO2 10/26/18 07:00 57 10/26/18 05:34 97.8 18 162/77 (105) 93 Room Air Capillary Refill : General Appearance: No Apparent Distress, WD/WN, Chronically ill, Other ( improved) Respiratory: Chest Non Tender, Lungs Clear, Normal Breath Sounds, No Accessory Muscle Use, No Respiratory Distress Cardiovascular: Regular Rate, Rhythm, No Edema, No Gallop, No JVD, No Murmur, Normal Peripheral Pulses Neurologic/Psychiatric: Alert, Oriented x3, No Motor/Sensory Deficits, Normal Mood/Affect Results/Procedures Lab Patient resulted labs reviewed. 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 Paroxysmal atrial fibrillation Dementia Depression History of small bowel resection partial History of left hip fracture repair with subsequent nerve damage making ambulation difficult GERD Urge incontinence Muscle pain reported will check CPK and hold statin Plan: Continue current meds Start statin therapy Maintain on Plavix Appreciate cardiology due to history of paroxysmal atrial fibrillation but possible bleeding side effect from anticoagulation Continue therapies per protocol Hold statin for muscle pain DC Tely Patient requires close monitoring in inpatient rehab setting due to cognitive deficits from the stroke with difficulty communicating and a fall risk. Also will monitor for urinary and bowel function due to history of both organ systems ' dysfunction. Monitor blood pressure closely due to history of stroke subacute along with 2 prior strokes Close monitoring for recurrent seizure since history of seizure after her last stroke Cardiology consultation to decide if additional anticoagulation is needed to prevent subsequent strokes Diagnosis/Problems Diagnosis/Problems (1) CVA (cerebral vascular accident) Status: Acute Qualifiers: CVA mechanism: unspecified Qualified Codes: I63.9 - Cerebral infarction, unspecified (2) History of CVA (cerebrovascular accident) Status: Chronic (3) Seizure disorder Status: Chronic (4) CAD (coronary artery disease) Status: Chronic Qualifiers: Coronary Disease-Associated Artery/Lesion type: [place] artery [place] vs. transplanted heart: [place] heart Associated angina: without angina Qualified Codes: I25.10 - Atherosclerotic heart disease of [place] coronary artery without angina pectoris (5) Hypothyroidism Status: Chronic Qualifiers: Hypothyroidism type: acquired Qualified Codes: E03.9 - Hypothyroidism, unspecified (6) Paroxysmal atrial fibrillation Status: Chronic (7) History of coronary artery stent placement Status: Chronic (8) Hypertension Status: Chronic Qualifiers: Hypertension type: essential hypertension Qualified Codes: I10 - Essential (primary) hypertension (9) Hyperlipidemia Status: Chronic Qualifiers: Hyperlipidemia type: mixed hyperlipidemia Qualified Codes: E78.2 - Mixed hyperlipidemia (10) Urge incontinence Status: Chronic (11) History of hip fracture Status: Chronic (12) Depression Status: Chronic Qualifiers: Depression Type: unspecified Qualified Codes: F32.9 - Major depressive disorder, single episode, unspecified (13) Vascular dementia Status: Chronic Qualifiers: Dementia behavioral disturbance: without behavioral disturbance Qualified Codes: F01.50 - Vascular dementia without behavioral disturbance (14) Incontinence Status: Chronic Qualifiers: Incontinence type: urinary Urinary Incontinence type: unspecified incontinence Qualified Codes: R32 - Unspecified urinary incontinence (15) Myositis Status: Acute Qualifiers: Myositis type: unspecified type Myositis location: unspecified site Qualified Codes: M60.9 - Myositis, unspecified Clinical Quality Measures Admission Status Admission Dx Assessment: Seth infarct History of CVA with subsequent seizure disorder CAD previous stent placement Hypothyroidism Hypertension 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 Also will monitor for urinary and bowel function due to history of both organ systems ' dysfunction. Monitor blood pressure closely due to history of stroke subacute along with 2 prior strokes Close monitoring for recurrent seizure since history of seizure after her last stroke Cardiology consultation to decide if additional anticoagulation is needed to prevent subsequent strokes DVT/VTE Risk/Contraindication: Risk Factor Score Per Nursin RFS Level Per Nursing on Admit: 2=Moderate ERIC PORTILLO DO Oct 26, 2018 09:02
[2018-10-26] MEDS: OXYBUTYNIN (DITROPAN) 5 MG TAB PO SCH (09:08)
[2018-10-26] MEDS: PANTOPRAZOLE 40 MG (PROTONIX) TAB PO SCH (09:08)
[2018-10-26] MEDS: ASCORBIC ACID (VIT C) 500 MG TABLET PO SCH (09:08)
[2018-10-26] MEDS: SALINE NASAL SPRAY (OCEAN) 45 ML BTL SCH ×3 (09:10→21:07)
--- NOTE | 2018-10-26 09:58 | Physical Therapy Daily Note ---
PT Daily Note-Current Subjective Patient in bathroom with nursing pre tx, ambulates with PT back to her chair to take her medicine. Patient agrees to PT, has unrated pain in her left leg. Appearance Patient in recliner post tx with nurse call,phone, tray, all needs met. Mental Status Patient Orientation: Person, Place, Situation Transfers Therapy Code Descriptions/Definitions Functional [place] Measure: 0=Not Assessed/NA 4=Minimal Assistance 1=Total Assistance 5=Supervision or Setup 2=Maximal Assistance 6=Modified [place] 3=Moderate Assistance 7=Complete [place] Therapy Quality Codes: 6 Independent with activity with or without an assistive device 5 Patient requires set up or clean up by helper. Patient completes activity by themselves 4 Supervision or touching assist (CGA). [place] provide cues , steadying assist 3 The helper provides less than half the effort to complete the activity 2 The helper provides more than half the effort to complete the activity 1 Dependent. The helper does all the effort to complete an activity 7 Patient refused to complete or attempt activity 9 The patient did not perform the activity before the current illness or injury 88 Not attempted due to Medical conditions or safety concerns Transfers (B, C, W/C) (FIM): 4 Sit to/from Stand: 4 Bed to/from Chair: 4 Min assist for sit to stand and transfers, sometimes needs help guiding the walker during transfers, cues for safety and hand placement. Weight Bearing Right Lower Extremity: Right Full Weight Bearing Left Lower Extremity: Left Full Weight Bearing Gait Training Gait (FIM): 4 Distance: 150'x2 Gait Level of Assist: 4 Gait Persons Needed: 1 Gait Assistive Device: FWW CGA, very slow ambulation, cues for continuous steps, patient tends to lean heavily on walker, poor foot clearance on left side Exercises NuStep Minutes: 15 NuStep Workload: 4 Treatments transfers, ambulation, functional strengthening Assessment Current Status: Fair Progress Improving gait distance. Patient performs all mobility very slowly, needs frequent rest breaks and extra time for all activities. PT Short Term Goals Short Term Goals Time Frame: Oct 27, 2018 Transfers (B,C,W/C) (FIM): 4 Gait (FIM): 2 Gait Distance Comment: 120' Gait Level of Assist: 4 Gait Assistive Device: FWW PT Snf Goals Ruby On Rails Consultant Goals PT Snf Goals Time Frame: Nov 10, 2018 Transfers (B,C,W/C) (FIM): 5 Sit to Lying (QC): 4 Lying-Sitting on Side/Bed(QC): 4 Sit to Stand (QC): 4 Rollin Roll Left to Right (QC): 4 Chair/Rbm-ye-Smqjb Xfer(QC): 4 Car Transfer (QC): 4 Gait (FIM): 5 Distance: 150' Walk 10 feet (QC): 4 Walk 10ft-Uneven Surface(QC): 4 Walk 50ft with 2 Turns (QC): 4 Walk 150 ft (QC): 4 Gait Level of Assist: 5 Gait Assistive Device: FWW Stairs (FIM): 2 # of Steps: 4 1 Step (curb) (QC): 4 4 Steps (QC): 4 Stairs Level Of Assist: 4 PT Plan Problem List Problem List: Activity Tolerance, Functional Strength, Safety, Balance, Gait, Transfer, Bed Mobility, ROM Treatment/Plan Treatment Plan: Continue Plan of Care Treatment Plan: Bed Mobility, Education, Functional Activity Ramila, Functional Strength, Group Therapy, Gait, Safety, Therapeutic Exercise, Transfers Treatment Duration: Nov 10, 2018 Frequency: At least 5 of 7 days/Wk (IRF) Estimated Hrs Per Day: 1.5 hours per day Patient and/or Family Agrees t: Yes Safety Risks/Education Patient Education: Gait Training, Transfer Techniques, Correct Positioning, Safety Issues Teaching Recipient: Patient Teaching Methods: Demonstration, Discussion Response to Teaching: Reinforcement Needed Time/GCodes Time In: 0900 Time Out: 1000 Total Billed Treatment Time: 60 Total Billed Treatment 1 visit EX 15' FA 15' GT 30' NITO CAMACHO PT Oct 26, 2018 09:58
--- NOTE | 2018-10-26 10:00 | NUR ---
STILL HYPERTENSIVE. NORVASC INCREASED TO 10 MG.
--- NOTE | 2018-10-26 10:00 | NUR ---
Zhang RODRIGEZ. TELEMETRY ROSA.
--- NOTE | 2018-10-26 10:16 | Progress Note-Cardiology ---
Cardiology SOAP Progress Note Subjective: Sitting up in a chair at the bedside. States she feels well today. No c/o CP, palpitations, syncope, dyspnea or near syncope. No c/o LE swelling. Objective: I&O/Vital Signs 10/26/18 10/26/18 10/26/18 10/26/18 05:34 07:00 09:00 15:44 Temp 97.8 97.3 Pulse 60 57 62 Resp 18 16 B/P (MAP) 162/77 (105) 132/65 (87) Pulse Ox 93 95 O2 Delivery Room Air Room Air Room Air 10/26/18 00:00 Intake Total 700 ml Output Total 1 ml Balance 699 ml Weight (Pounds): 125 Weight (Ounces): 4.0 Weight (Calculated Kilograms): 56.733352 Constitutional: AAO x 3, well-developed, well-nourished Respiratory: No accessory muscle use, No respiratory distress; chest expansion is symmetric, chest is bilaterally symmetric, lungs clear to auscultation Cardiovascular: regular rate-rhythm; No JVD; S1 and S2 Gastrointestional: No tender; soft, round Extremities: no lower extremity edema bilateral Neurologic/Psychiatric: grossly intact Skin: No rash, No ulcerations A/P: Assessment: Recent CVA ( 10-17-18) with h/o previous CVA x 2 (2013 and 2016) - CT from [facility] [place] 10[place]17-18 is reported to have shown an area of an old infarct and severe cerebral atrophy, but no acute process per dictated note by Dr. Montemayor on 10-18-18 Hypertension - improved Echocardiogram of 10-19-18 shows mod concentric LVH; LVEF approx 60%; trivial to mild MR and TR. PASP approx 25 mmHg; mod enlargement of the LA Seizure disorder following a previous CVA Pt reports h/o intracranial bleed bleed following a fall in 2012 - exact details unknown Pt reports h/o PAF, but was not deemed suitable for OAC, due to a h/o ic bleed - details unknown Reported h/o CAD with stent placement in the past at [facility] in [place], [place] - details unknown No evidence of carotid stenosis per u/s of 10-21-18 HLD - statin tx Hypothyroidism - replacement tx H/O colon resection Family h/o CAD - mother [place] age 69, father [place] age 66 H/O intolerance of Bystolic in the past d/t bradycardia Plan: Continue current regimen BP not well controlled following reduction in BB (d/t asymptomatic bradycardia) - increase Norvasc to 10mg daily Given h/o ic bleed, we have not put her on OAC, but antiplatelet therapy is being continued Physician Assessment Physician Assessment No cp or palp or syncope or shortness of breath Lungs: good bilat air entry Cor: reg Ext: no c/c/e A&R * As documented in our note above that I updated (italics) and as noted below * Continue current regimen * Monitor labs from time to time SATHISH ROCHE Oct 26, 2018 10:16 FITZ WINTER MD FACP FACC CCDS Oct 26, 2018 17:09
[2018-10-26] MEDS: amLODIPine 10 MG (NORVASC) TAB PO SCH (10:55)
--- NOTE | 2018-10-26 12:03 | Physical Therapy Daily Note ---
PT Daily Note-Current Subjective Patient in recliner pre tx, agrees to PT, no complaints of pain at rest. Appearance Patient in recliner post tx with nurse call, phone, tray, daughter in room. Mental Status Patient Orientation: Person, Place, Situation Transfers Therapy Code Descriptions/Definitions Functional [place] Measure: 0=Not Assessed/NA 4=Minimal Assistance 1=Total Assistance 5=Supervision or Setup 2=Maximal Assistance 6=Modified [place] 3=Moderate Assistance 7=Complete [place] Therapy Quality Codes: 6 Independent with activity with or without an assistive device 5 Patient requires set up or clean up by helper. Patient completes activity by themselves 4 Supervision or touching assist (CGA). [place] provide cues , steadying assist 3 The helper provides less than half the effort to complete the activity 2 The helper provides more than half the effort to complete the activity 1 Dependent. The helper does all the effort to complete an activity 7 Patient refused to complete or attempt activity 9 The patient did not perform the activity before the current illness or injury 88 Not attempted due to Medical conditions or safety concerns Transfers (B, C, W/C) (FIM): 4 Supine to/from Sit: 4 Bed to/from Chair: 4 CGA for sit to stand but needs min assist for transfers because she needs assist guiding the walker Weight Bearing Right Lower Extremity: Right Full Weight Bearing Left Lower Extremity: Left Full Weight Bearing Gait Training Gait (FIM): 4 Distance: 150'x2 Gait Level of Assist: 4 Gait Persons Needed: 1 Gait Assistive Device: FWW Patient ambulates extremely slowly, leans heavily on the walker. Patient ambulates a little more smoothly if therapist gently assists her in pushing the walker forward. Treatments transfers, ambulation Assessment Current Status: Fair Progress improving ambulation and endurance PT Short Term Goals Short Term Goals Time Frame: Oct 27, 2018 Transfers (B,C,W/C) (FIM): 4 Gait (FIM): 2 Gait Distance Comment: 120' Gait Level of Assist: 4 Gait Assistive Device: FWW PT Senior Living Goals Senior Living Goals PT Factory Laborer Goals Time Frame: Nov 10, 2018 Transfers (B,C,W/C) (FIM): 5 Sit to Lying (QC): 4 Lying-Sitting on Side/Bed(QC): 4 Sit to Stand (QC): 4 Rollin Roll Left to Right (QC): 4 Chair/Zoi-sx-Fbwli Xfer(QC): 4 Car Transfer (QC): 4 Gait (FIM): 5 Distance: 150' Walk 10 feet (QC): 4 Walk 10ft-Uneven Surface(QC): 4 Walk 50ft with 2 Turns (QC): 4 Walk 150 ft (QC): 4 Gait Level of Assist: 5 Gait Assistive Device: FWW Stairs (FIM): 2 # of Steps: 4 1 Step (curb) (QC): 4 4 Steps (QC): 4 Stairs Level Of Assist: 4 PT Plan Problem List Problem List: Activity Tolerance, Functional Strength, Safety, Balance, Gait, Transfer, Bed Mobility, ROM Treatment/Plan Treatment Plan: Continue Plan of Care Treatment Plan: Bed Mobility, Education, Functional Activity Ramila, Functional Strength, Group Therapy, Gait, Safety, Therapeutic Exercise, Transfers Treatment Duration: Nov 10, 2018 Frequency: At least 5 of 7 days/Wk (IRF) Estimated Hrs Per Day: 1.5 hours per day Patient and/or Family Agrees t: Yes Safety Risks/Education Patient Education: Gait Training, Transfer Techniques, Correct Positioning, Safety Issues Teaching Recipient: Patient Teaching Methods: Demonstration, Discussion Response to Teaching: Reinforcement Needed Time/GCodes Time In: 1130 Time Out: 1200 Total Billed Treatment Time: 30 Total Billed Treatment 1 visit GT 30' NITO CAMACHO PT Oct 26, 2018 12:03
[2018-10-26 15:44] VITALS: BP 132/65
[2018-10-26] MEDS: LEVOTHYROXINE 25 MCG (LEVOTHROID) TAB PO SCH (21:06)
[2018-10-26] MEDS: lamoTRIgine 25 MG (LaMICtal) TAB PO SCH (21:06)
[2018-10-26] MEDS: MELATONIN 3 MG TABLET PO SCH (21:06)
[2018-10-26] MEDS: CLOPIDOGREL 75 MG (PLAVIX) TABLET PO SCH (21:06)
[2018-10-26] MEDS: ASPIRIN E.C. 81 MG (ECOTRIN) TAB PO SCH (21:07)
[2018-10-26] MEDS: VITAMIN D3 1,000 UNITS (CHOLECALCIFEROL) TABLET PO SCH (21:07)
[2018-10-27] MEDS: MULTIVIT W/MINERALS TAB (THERAGRAN M) PO SCH (06:05)
[2018-10-27 06:36] VITALS: BP 150/72
[2018-10-27] MEDS: ASCORBIC ACID (VIT C) 500 MG TABLET PO SCH (09:41)
[2018-10-27] MEDS: PANTOPRAZOLE 40 MG (PROTONIX) TAB PO SCH (09:41)
[2018-10-27] MEDS: amLODIPine 10 MG (NORVASC) TAB PO SCH (09:42)
[2018-10-27] MEDS: OXYBUTYNIN (DITROPAN) 5 MG TAB PO SCH (09:42)
[2018-10-27] MEDS: SALINE NASAL SPRAY (OCEAN) 45 ML BTL SCH ×3 (09:42→20:08)
--- NOTE | 2018-10-27 09:43 | Physical Therapy Daily Note ---
PT Daily Note-Current Subjective Patient in wheelchair at bedside pre tx, agrees to PT, has no complaints of pain. Appearance Patient in recliner post tx with nurse call, phone, tray, all needs met. Mental Status Patient Orientation: Person, Place, Situation Transfers Therapy Code Descriptions/Definitions Functional [place] Measure: 0=Not Assessed/NA 4=Minimal Assistance 1=Total Assistance 5=Supervision or Setup 2=Maximal Assistance 6=Modified [place] 3=Moderate Assistance 7=Complete [place] Therapy Quality Codes: 6 Independent with activity with or without an assistive device 5 Patient requires set up or clean up by helper. Patient completes activity by themselves 4 Supervision or touching assist (CGA). [place] provide cues , steadying assist 3 The helper provides less than half the effort to complete the activity 2 The helper provides more than half the effort to complete the activity 1 Dependent. The helper does all the effort to complete an activity 7 Patient refused to complete or attempt activity 9 The patient did not perform the activity before the current illness or injury 88 Not attempted due to Medical conditions or safety concerns Transfers (B, C, W/C) (FIM): 4 Sit to/from Stand: 4 Bed to/from Chair: 4 cues for hand placement and positioning Weight Bearing Right Lower Extremity: Right Full Weight Bearing Left Lower Extremity: Left Full Weight Bearing Gait Training Gait (FIM): 4 Distance: 150'x2 Gait Level of Assist: 4 Gait Persons Needed: 1 Gait Assistive Device: FWW CGA, left AFO, better toe clearance with using AFO, very slow ambulation Exercises NuStep Minutes: 15 NuStep Workload: 5 Treatments transfers, ambulation, functional strengthening Assessment Current Status: Fair Progress improved ambulation PT Short Term Goals Short Term Goals Time Frame: Oct 27, 2018 Transfers (B,C,W/C) (FIM): 4 Gait (FIM): 2 Gait Distance Comment: 120' Gait Level of Assist: 4 Gait Assistive Device: FWW PT Custodial Goals Roller Coaster Operator Goals PT Roller Coaster Operator Goals Time Frame: Nov 10, 2018 Transfers (B,C,W/C) (FIM): 5 Sit to Lying (QC): 4 Lying-Sitting on Side/Bed(QC): 4 Sit to Stand (QC): 4 Rollin Roll Left to Right (QC): 4 Chair/Hlb-gj-Wmpuy Xfer(QC): 4 Car Transfer (QC): 4 Gait (FIM): 5 Distance: 150' Walk 10 feet (QC): 4 Walk 10ft-Uneven Surface(QC): 4 Walk 50ft with 2 Turns (QC): 4 Walk 150 ft (QC): 4 Gait Level of Assist: 5 Gait Assistive Device: FWW Stairs (FIM): 2 # of Steps: 4 1 Step (curb) (QC): 4 4 Steps (QC): 4 Stairs Level Of Assist: 4 PT Plan Problem List Problem List: Activity Tolerance, Functional Strength, Safety, Balance, Gait, Transfer, Bed Mobility, ROM Treatment/Plan Treatment Plan: Continue Plan of Care Treatment Plan: Bed Mobility, Education, Functional Activity Ramila, Functional Strength, Group Therapy, Gait, Safety, Therapeutic Exercise, Transfers Treatment Duration: Nov 10, 2018 Frequency: At least 5 of 7 days/Wk (IRF) Estimated Hrs Per Day: 1.5 hours per day Patient and/or Family Agrees t: Yes Safety Risks/Education Patient Education: Gait Training, Transfer Techniques, Correct Positioning, Safety Issues Teaching Recipient: Patient Teaching Methods: Demonstration, Discussion Response to Teaching: Reinforcement Needed Time/GCodes Time In: 0900 Time Out: 944 Total Billed Treatment Time: 45 Total Billed Treatment 1 visit GT 30' EX 15' NITO CAMACHO PT Oct 27, 2018 09:43
--- NOTE | 2018-10-27 11:00 | PM&R Progress Note ---
Subjective This was a face to face visit with the patient. Date Seen by Provider: Oct 27, 2018 Time Seen by Provider: 09:00 Subjective/Events-last exam Patient was seen in her room while she was sitting in chair Overall she is doing well Less muscle stiffness since off statin and I updated PCP on this when I spoke to her at [facility] [place] this morning Overall feels good and has had dramatic improvement in her stroke deficits Review of Systems Neurological: Weakness, Incoordination, Confusion Objective Physician Exam Last Set of Vital Signs Vital Signs Date Time Temp Pulse Resp B/P (MAP) Pulse Ox O2 Delivery O2 Flow Rate FiO2 10/27/18 06:36 97.5 69 18 150/72 (98) 96 Room Air Capillary Refill : I&O Intake and Output 10/27/18 00:00 Intake Total 1100 ml Output Total 1 ml Balance 1099 ml Intake Oral 1100 ml Output Stool Total 1 ml # Voids 6 General: Alert, Oriented X3, Cooperative, Other (subtle poor recall) HEENT: Atraumatic, PERRLA, EOMI Neck: Supple, No JVD, No Thyromegaly, +2 Carotid Pulse No Bruit Lungs: Clear to Auscultation, Normal Air Movement Heart: Regular Rate, Normal S1, Normal S2 Abdomen: Normal Bowel Sounds, Soft Extremities: No Clubbing, No Cyanosis Skin: No Rashes, No Breakdown Neuro: Normal Tone, Sensation Intact, Cranial Nerves 3-12 NL, Reflexes 2+, Other (global weakness, gait disturbance noted) Psych/Mental Status: Mental Status NL, Mood NL, Other (subtle confusion at times) Results Lab Data Laboratory Tests 10/24/18 14:10: White Blood Count 6.3, Red Blood Count 4.10L, Hemoglobin 12.2, Hematocrit 38, Mean Corpuscular Volume 92, Mean Corpuscular Hemoglobin 30, Mean Corpuscular Hemoglobin Concent 32, Red Cell Distribution Width 13.0, Platelet Count 207, Mean Platelet Volume 11.0H, Neutrophils (%) (Auto) 43, Lymphocytes (%) (Auto) 43 , Monocytes (%) (Auto) 13H, Eosinophils (%) (Auto) 0, Basophils (%) (Auto) 1, Neutrophils # (Auto) 2.7, Lymphocytes # (Auto) 2.7, Monocytes # (Auto) 0.8, Eosinophils # (Auto) 0.0, Basophils # (Auto) 0.0, Sodium Level 137, Potassium Level 4.4, Chloride Level 103, Carbon Dioxide Level 23, Anion Gap 11, Blood Urea Nitrogen 25H, Creatinine 1.25, Estimat Glomerular Filtration Rate 41, BUN/ Creatinine Ratio 20, Glucose Level 146H, Calcium Level 9.3, Corrected Calcium 9.2, Total Bilirubin 0.4, Aspartate Amino Transf (AST/SGOT) 20, Alanine Aminotransferase (ALT/SGPT) 10, Alkaline Phosphatase 63, Total Creatine Kinase 63, Total Protein 7.7, Albumin 4.1 Current Funtional Status Hold statin for myositis from statin Therapies Dramatic improvement overall AL at DC Decreasing melatonin per patient home dose Biofreeze is requested so will have family bring that from home Assessment/Plan Assessment and Plan (1) CVA (cerebral vascular accident) Qualifiers: Qualified Codes: I63.9 - Cerebral infarction, unspecified Status: Acute (2) History of CVA (cerebrovascular accident) Status: Chronic (3) Seizure disorder Status: Chronic (4) CAD (coronary artery disease) Qualifiers: Qualified Codes: I25.10 - Atherosclerotic heart disease of [place] coronary artery without angina pectoris Status: Chronic (5) Hypothyroidism Qualifiers: Qualified Codes: E03.9 - Hypothyroidism, unspecified Status: Chronic (6) Paroxysmal atrial fibrillation Status: Chronic (7) History of coronary artery stent placement Status: Chronic (8) Hypertension Qualifiers: Qualified Codes: I10 - Essential (primary) hypertension Status: Chronic (9) Hyperlipidemia Qualifiers: Qualified Codes: E78.2 - Mixed hyperlipidemia Status: Chronic (10) Urge incontinence Status: Chronic (11) History of hip fracture Status: Chronic (12) Depression Qualifiers: Qualified Codes: F32.9 - Major depressive disorder, single episode, unspecified Status: Chronic (13) Vascular dementia Qualifiers: Qualified Codes: F01.50 - Vascular dementia without behavioral disturbance Status: Chronic (14) Incontinence Qualifiers: Qualified Codes: R32 - Unspecified urinary incontinence Status: Chronic (15) Myositis Qualifiers: Qualified Codes: M60.9 - Myositis, unspecified Status: Acute (16) Left knee pain Qualifiers: Qualified Codes: M25.562 - Pain in left knee Co-Morbidities that are continuing to impact the rehab process: (include details ) ERIC PORTILLO DO Oct 27, 2018 11:00
--- NOTE | 2018-10-27 12:43 | Occupational Ther Daily Note ---
OT Current Status-Daily Note Subjective Pt sleeping in bed, woke to name though difficult time to wake thoroughly. Pt agrees to therapy. C/o of R knee pain, reported to physician. Mental Status/Objective Patient Orientation: Person, Place, Time, Situation Therapy Code Descriptions/Definitions Functional [place] Measure: 0=Not Assessed/NA 4=Minimal Assistance 1=Total Assistance 5=Supervision or Setup 2=Maximal Assistance 6=Modified [place] 3=Moderate Assistance 7=Complete [place] ADL-Treatment Pt ambulated into bathroom using FWW. Transferred into shower using FWW, shower bench and grabbars, min A. Completed bathing in sitting by self, CGA in standing for cleansing buttocks/jerome area. Pt dried self. Assist to hook bra, pt able to complete donning/doffing shirt by self. Pt taking increased time to wake and complete tasks, assist to don lower body clothing required. Sitting at sink, pt able to complete own grooming in w/c. After therapy, pt sitting in w/c, left in care of PT. All needs met in room. Therapy Code Descriptions/Definitions Functional [place] Measure: 0=Not Assessed/NA 4=Minimal Assistance 1=Total Assistance 5=Supervision or Setup 2=Maximal Assistance 6=Modified [place] 3=Moderate Assistance 7=Complete [place] Therapy Quality Codes: 6 Independent with activity with or without an assistive device 5 Patient requires set up or clean up by helper. Patient completes activity by themselves 4 Supervision or touching assist (CGA). Asher provide cues , steadying assist 3 The helper provides less than half the effort to complete the activity 2 The helper provides more than half the effort to complete the activity 1 Dependent. The helper does all the effort to complete an activity 7 Patient refused to complete or attempt activity 9 The patient did not perform the activity before the current illness or injury 88 Not attempted due to Medical conditions or safety concerns Grooming (FIM): 6 Oral Hygiene (QC): 6 Bathing (FIM): 4 Bathing Location: L Arm, R Arm, L Upper Leg, R Upper Leg, L Lower Leg ( including foot), R Lower Leg (including foot), Chest, Abdomen, Buttocks, Perineal Area Shower/Bathe Self (QC): 4 Upper Body (FIM): 4 Upper Body Dressing (QC): 3 Shower Transfer(FIM): 4 OT Short Term Goals Short Term Goals Time Frame: Oct 27, 2018 Bathing(FIM): 4 Upper Body Dressing(FIM): 5 Lower Body Dressing(FIM): 5 Toileting(FIM): 5 Transfers (B,C,W/C) (FIM): 4 Toilet/Commode Transfer(FIM): 5 1=Demonstrate adherence to instructed precautions during ADL tasks. 2=Patient will verbalize/demonstrate understanding of assistive devices/ modifications for ADL. 3=Patient will improve strength/tolerance for activity to enable patient to perform ADL's. OT Fowl Blood Tester Goals Fowl Blood Tester Goals Time Frame: Nov 10, 2018 Eating (FIM): 6 Eating (QC): 6 Groomin Oral Hygiene (QC): 6 Bathing(FIM): 5 Shower/Bathe Self (QC): 5 Upper Body Dressing(FIM): 6 Upper Body Dressing (QC): 6 Lower Body Dressing(FIM): 6 Lower Body Dressing (QC): 6 On/Off Footwear (QC): 6 Toileting(FIM): 6 Toileting Hygiene (QC): 6 Toilet/Commode Transfer(FIM): 6 Toilet/Commode Transfer (QC): 6 Shower Transfer(FIM): 5 Additional Goals: 1-Demonstrate ADL Tasks, 2-Verbalize Understanding, 3- ImproveStrength/Ramila 1=Demonstrate adherence to instructed precautions during ADL tasks. 2=Patient will verbalize/demonstrate understanding of assistive devices/ modifications for ADL. 3=Patient will improve strength/tolerance for activity to enable patient to perform ADL's. OT Education/Plan Problem List/Assessment Pt demonstrates decreased ADL functioning, strength, transfers, and activity tolerance. Pt to benefit from skilled OT intervention for ADL training, transfers, strengthening, and safety education to increase functional independence and allow safe discharge plan. Discharge Recommendations Plan/Recommendations: Continue POC Treatment Plan/Plan of Care Patient would benefit from OT for education, treatment and training to promote independence in ADL's, mobility, safety and/or upper extremity function for ADL' s. Plan of Care: ADL Retraining, Functional Mobility, Group Exercise/Act as Ind, UE Funct Exercise/Act Treatment Duration: Nov 10, 2018 Frequency: At least 5 of 7 days/Wk (IRF) Estimated Hrs Per Day: 1.5 hours per day Agreement: Yes Rehab Potential: Fair Time/GCodes Start Time: 07:55 Stop Time: 09:00 Total Time Billed (hr/min): 65 Billed Treatment Time 1 visit-ADL 4 (65 min) MATILDA ABRAHAM Oct 27, 2018 12:43
[2018-10-27] MEDS: ACETAMINOPHEN 325 MG TABLET PO PRN (13:13)
--- NOTE | 2018-10-27 13:15 | Cardiology Progress Note ---
Cardiology SOAP Progress Note Subjective: No Cardiac symptoms. Objective: I&O/Vital Signs 10/28/18 10/28/18 10/28/18 06:12 09:00 09:29 Temp 98.0 Pulse 61 61 Resp 18 B/P (MAP) 143/54 (83) 132/70 (90) Pulse Ox 96 O2 Delivery Room Air Room Air 10/28/18 00:00 Intake Total 600 ml Balance 600 ml Weight (Pounds): 126 Weight (Ounces): 11.2 Weight (Calculated Kilograms): 57.795664 Constitutional: AAO x 3, well-developed, well-nourished Respiratory: No accessory muscle use, No respiratory distress, No chest tender ; chest expansion is symmetric, chest is bilaterally symmetric; No lungs clear to percussion; lungs clear to auscultation; No crackles, No rhonchi, No rales, No stridor, No wheezing, No pleural rub, No other Cardiovascular: regular rate-rhythm; No JVD; S1 and S2 Gastrointestional: No tender; soft, round; No distended, No pulsatile mass, No organomegaly, No guarding, No rebound, No tenderness, No hernia, No mass, No audible bowel sounds, No abnormal bowel sounds, No abdominal bruits, No spleenomegaly, No other Extremities: No normal range of motion, No non-tender, No normal inspection, No pedal edema, No calf tenderness, No normal capillary refill, No pelvis stable , No calf tenderness, No inflammation, No pedal edema, No slow capillary refill , No swelling, No other, No abrasion, No clubbing, No cyanosis, No ecchymosis, No laceration; no lower extremity edema bilateral; No significant edema, No tenderness, No wound Neurologic/Psychiatric: no motor/sensory deficits, alert, normal mood/affect, oriented x 3, grossly intact Skin: No normal color, No warm/dry, No cyanosis, No cool, No diaphoresis, No damp, No ecchymosis, No jaundice, No mottled, No pallor, No rash, No tattoos/ piercings, No ulcerations, No rash on exposed areas, No ulcerations on exposed areas, No other A/P: Assessment/Dx: Assessment: Recent CVA ( 10-17-18) with h/o previous CVA x 2 (2013 and 2016) - CT from [facility] [place] 10-17-18 is reported to have shown an area of an old infarct and severe cerebral atrophy, but no acute process per dictated note by Dr. Montemayor on 10-18-18 Hypertension - improved Echocardiogram of 10-19-18 shows mod concentric LVH; LVEF approx 60%; trivial to mild MR and TR. PASP approx 25 mmHg; mod enlargement of the LA Seizure disorder following a previous CVA Pt reports h/o intracranial bleed bleed following a fall in 2012 - exact details unknown Pt reports h/o PAF, but was not deemed suitable for OAC, due to a h/o ic bleed - details unknown Reported h/o CAD with stent placement in the past at [facility] in [place], [place] - details unknown No evidence of carotid stenosis per u/s of 10-21-18 HLD - statin tx Hypothyroidism - replacement tx H/O colon resection Family h/o CAD - mother [place] age 69, father [place] age 66 H/O intolerance of Bystolic in the past d/t bradycardia Plan: Plan: Continue current regimen BP not well controlled following reduction in BB (d/t asymptomatic bradycardia) - Norvasc to 10mg daily Given h/o ic bleed, we have not put her on OAC, but antiplatelet therapy is being continued Thank you for your consultation. Please call me if you have any questions. Magdalene De Souza MD, FACP, FACC, FSCAI, FHRS, CCDS Interventional Cardiology Cardiac Electrophysiology Vascular Medicine and Endovascular Interventions Yusuf DE SOUZA MD Oct 27, 2018 1:15 pm
--- NOTE | 2018-10-27 14:52 | Therapy Group Daily Note ---
Therapy Daily Group Note Patient Education Topic Other List Below (memory) Exercises LE Seated Exercise, UE Exercise Other/Notes Pt participated in group therapy with 4 to 1 ratio. Goals of session: Pt will verbalize understanding of memory strategies (met). Lead one UE or LE seated exercise during group therapy (met). Pt transported via w/c to [facility] for OT/PT group. Group consisted on introductions (name, place living, what would you name a cheetah), socialization , pt led UE/LE seated exercises, memory education/strategies and memory activity. Pt introduced self appropriately and actively listened to peers. Pt acknowledged understanding of memory strategies/education by verbalizing personal strategies. Pt was able to lead one exercise without difficulty then complete rest of exercises. During memory activity pt was able to match pictures on turn. Pt will benefit from group by increasing short term memory and use strategies during daily functional tasks. Pt will be able to complete UE/LE seated exercises after discharge. After group, pt transported via w/c to room and laid in bed. Call light/phone in reach. All needs met in room. Start Time: 13:00 Stop Time: 14:15 Total Billed Treatment Time: 75 Total Billed Treatment 1-GRP MATILDA ABRAHAM Oct 27, 2018 14:52
[2018-10-27 18:33] VITALS: BP 144/66
[2018-10-27] MEDS: MELATONIN 3 MG TABLET PO SCH (20:08)
[2018-10-27] MEDS: VITAMIN D3 1,000 UNITS (CHOLECALCIFEROL) TABLET PO SCH (20:08)
[2018-10-27] MEDS: ASPIRIN E.C. 81 MG (ECOTRIN) TAB PO SCH (20:08)
[2018-10-27] MEDS: lamoTRIgine 25 MG (LaMICtal) TAB PO SCH (20:08)
[2018-10-27] MEDS: LEVOTHYROXINE 25 MCG (LEVOTHROID) TAB PO SCH (20:08)
[2018-10-27] MEDS: CLOPIDOGREL 75 MG (PLAVIX) TABLET PO SCH (20:08)
[2018-10-28] MEDS: MULTIVIT W/MINERALS TAB (THERAGRAN M) PO SCH (06:07)
[2018-10-28 06:12] VITALS: BP 143/54
[2018-10-28] MEDS: ASCORBIC ACID (VIT C) 500 MG TABLET PO SCH (09:00)
[2018-10-28] MEDS: amLODIPine 10 MG (NORVASC) TAB PO SCH (09:00)
[2018-10-28] MEDS: OXYBUTYNIN (DITROPAN) 5 MG TAB PO SCH (09:00)
[2018-10-28] MEDS: PANTOPRAZOLE 40 MG (PROTONIX) TAB PO SCH (09:00)
[2018-10-28 09:29] VITALS: BP 132/70
[2018-10-28] MEDS: SALINE NASAL SPRAY (OCEAN) 45 ML BTL SCH ×3 (09:42→20:29)
--- NOTE | 2018-10-28 10:20 | Physical Therapy Daily Note ---
PT Daily Note-Current Subjective Pt states she was able to begin wearing her AFO again yesterday and feels that it helps with her mobility Pain Numeric Pain Scale: 0-No Pain Appearance Pt in bed upon arrival, easily aroused and agreeable to PT Pt requesting to and was assisted to restroom during therapy visit At end of session, pt sitting up in recliner with call light, phone and bedside table within reach. Mental Status Patient Orientation: Person, Place, Time, Eyes Open, Situation Left foot AFO Transfers Therapy Code Descriptions/Definitions Functional [place] Measure: 0=Not Assessed/NA 4=Minimal Assistance 1=Total Assistance 5=Supervision or Setup 2=Maximal Assistance 6=Modified [place] 3=Moderate Assistance 7=Complete [place] Therapy Quality Codes: 6 Independent with activity with or without an assistive device 5 Patient requires set up or clean up by helper. Patient completes activity by themselves 4 Supervision or touching assist (CGA). [place] provide cues , steadying assist 3 The helper provides less than half the effort to complete the activity 2 The helper provides more than half the effort to complete the activity 1 Dependent. The helper does all the effort to complete an activity 7 Patient refused to complete or attempt activity 9 The patient did not perform the activity before the current illness or injury 88 Not attempted due to Medical conditions or safety concerns Transfers (B, C, W/C) (FIM): 4 Rollin Supine to/from Sit: 5 (supine to sit slightly taxing and requiring effort but pt able to perform without physical assist with bedrail and HOB elevated) Sit to/from Stand: 4 (CGA for safety as pt demo some unsteadiness but without LOB) Pt requiring verb inst for safety and hand placement during transitions Weight Bearing Right Lower Extremity: Right Full Weight Bearing Left Lower Extremity: Left Full Weight Bearing Gait Training Does the Patient Walk?: Yes Gait (FIM): 4 Distance (FIM): 3=150 ft Distance: 200 Gait Level of Assist: 4 (CGA, unsteadiness noted at times when correcting gait with instruction but without LOB) Gait Persons Needed: 1 Gait Assistive Device: FWW Pt able to correct gait at times with verb inst to increase step length and height and to improve posture but demonstrating some unsteadiness when 1st attempting then becoming more steady but does not always continue follow through and requires re instruction Treatments bed mobility, bed chair toilet transfers, safety and gait training PT Short Term Goals Short Term Goals Time Frame: Oct 27, 2018 Transfers (B,C,W/C) (FIM): 4 Gait (FIM): 2 Gait Distance Comment: 120' Gait Level of Assist: 4 Gait Assistive Device: FWW PT Finisher Denture Goals Long-Term Goals PT Finisher Denture Goals Time Frame: Nov 10, 2018 Transfers (B,C,W/C) (FIM): 5 Sit to Lying (QC): 4 Lying-Sitting on Side/Bed(QC): 4 Sit to Stand (QC): 4 Rollin Roll Left to Right (QC): 4 Chair/Doc-oj-Lyick Xfer(QC): 4 Car Transfer (QC): 4 Gait (FIM): 5 Distance: 150' Walk 10 feet (QC): 4 Walk 10ft-Uneven Surface(QC): 4 Walk 50ft with 2 Turns (QC): 4 Walk 150 ft (QC): 4 Gait Level of Assist: 5 Gait Assistive Device: FWW Stairs (FIM): 2 # of Steps: 4 1 Step (curb) (QC): 4 4 Steps (QC): 4 Stairs Level Of Assist: 4 PT Plan Problem List Problem List: Activity Tolerance, Functional Strength, Safety, Balance, Gait, Transfer, Bed Mobility Treatment/Plan Treatment Plan: Continue Plan of Care Treatment Plan: Bed Mobility, Education, Functional Activity Ramila, Functional Strength, Group Therapy, Gait, Safety, Therapeutic Exercise, Transfers Treatment Duration: Nov 10, 2018 Frequency: At least 5 of 7 days/Wk (IRF) Estimated Hrs Per Day: 1.5 hours per day Patient and/or Family Agrees t: Yes Safety Risks/Education Patient Education: Gait Training, Transfer Techniques, Safety Issues Teaching Recipient: Patient Teaching Methods: Demonstration, Discussion Response to Teaching: Verbalize Understanding, Return Demonstration, Reinforcement Needed Time/GCodes Time In: 845 Time Out: 910 Total Billed Treatment Time: 25 Total Billed Treatment 1 visit GT x15 FA x10 JOSE G ESPINOZA PTA Oct 28, 2018 10:20
--- NOTE | 2018-10-28 13:58 | Cardiology Progress Note ---
Cardiology SOAP Progress Note Subjective: No cardiac symptoms. Objective: I&O/Vital Signs 10/28/18 10/28/18 10/28/18 06:12 09:00 09:29 Temp 98.0 Pulse 61 61 Resp 18 B/P (MAP) 143/54 (83) 132/70 (90) Pulse Ox 96 O2 Delivery Room Air Room Air 10/28/18 00:00 Intake Total 600 ml Balance 600 ml Weight (Pounds): 126 Weight (Ounces): 11.2 Weight (Calculated Kilograms): 57.470272 Constitutional: AAO x 3, well-developed, well-nourished Respiratory: No accessory muscle use, No respiratory distress, No chest tender ; chest expansion is symmetric, chest is bilaterally symmetric; No lungs clear to percussion; lungs clear to auscultation; No crackles, No rhonchi, No rales, No stridor, No wheezing, No pleural rub, No other Cardiovascular: regular rate-rhythm; No JVD; S1 and S2 Gastrointestional: No tender; soft, round; No distended, No pulsatile mass, No organomegaly, No guarding, No rebound, No tenderness, No hernia, No mass, No audible bowel sounds, No abnormal bowel sounds, No abdominal bruits, No spleenomegaly, No other Extremities: No normal range of motion, No non-tender, No normal inspection, No pedal edema, No calf tenderness, No normal capillary refill, No pelvis stable , No calf tenderness, No inflammation, No pedal edema, No slow capillary refill , No swelling, No other, No abrasion, No clubbing, No cyanosis, No ecchymosis, No laceration; no lower extremity edema bilateral; No significant edema, No tenderness, No wound Neurologic/Psychiatric: no motor/sensory deficits, alert, normal mood/affect, oriented x 3, grossly intact Skin: No normal color, No warm/dry, No cyanosis, No cool, No diaphoresis, No damp, No ecchymosis, No jaundice, No mottled, No pallor, No rash, No tattoos/ piercings, No ulcerations, No rash on exposed areas, No ulcerations on exposed areas, No other A/P: Assessment/Dx: Assessment: Recent CVA ( 10-17-18) with h/o previous CVA x 2 (2013 and 2016) - [place] from [facility] 10[place]18 is reported to have shown an area of an old infarct and severe cerebral atrophy, but no acute process per dictated note by Dr. Montemayor on 10-18-18 Hypertension - improved Echocardiogram of 10-19-18 shows mod concentric LVH; LVEF approx 60%; trivial to mild MR and TR. PASP approx 25 mmHg; mod enlargement of the LA Seizure disorder following a previous CVA Pt reports h/o intracranial bleed bleed following a fall in 2012 - exact details unknown Pt reports h/o PAF, but was not deemed suitable for OAC, due to a h/o ic bleed - details unknown Reported h/o CAD with stent placement in the past at [facility] in [place], [place] - details unknown No evidence of carotid stenosis per u/s of 10-21-18 HLD - statin tx Hypothyroidism - replacement tx H/O colon resection Family h/o CAD - mother CT age 69, father CT age 66 H/O intolerance of Bystolic in the past d/t bradycardia Plan: Plan: Continue current regimen BP not well controlled following reduction in BB (d/t asymptomatic bradycardia) - Norvasc to 10mg daily Given h/o ic bleed, we have not put her on OAC, but antiplatelet therapy is being continued Thank you for your consultation. Please call me if you have any questions. Magdalene De Souza MD, FACP, FACC, FSCAI, FHRS, CCDS Interventional Cardiology Cardiac Electrophysiology Vascular Medicine and Endovascular Interventions Yusuf DE SOUZA MD Oct 28, 2018 1:58 pm
--- NOTE | 2018-10-28 14:00 | PM&R Progress Note ---
Subjective HPI/CC On Admission Date Seen by Provider: Oct 28, 2018 Time Seen by Provider: 12:10 Subjective/Events-last exam Patient doing well Nurse reports balance issues more than yesterday Patient feels fatigued Has noted a cough and I did note crackles in the left lower lobe so will initiate incentive spirometer and albuterol neb treatment twice a day No pain is reported Stiffness much improved since stopped statin since I'm suspecting myositis from the statin treatment Review of Systems General: Fatigue Pulmonary: Cough Neurological: Incoordination Objective Exam Vital Signs Vital Signs Date Time Temp Pulse Resp B/P (MAP) Pulse Ox O2 Delivery O2 Flow Rate FiO2 10/28/18 09:29 61 132/70 (90) 10/28/18 09:00 Room Air 10/28/18 06:12 98.0 18 96 Capillary Refill : General Appearance: No Apparent Distress, WD/WN Respiratory: Chest Non Tender, No Accessory Muscle Use, No Respiratory Distress , Crackles (LLL) Cardiovascular: Regular Rate, Rhythm, No Edema, No Gallop, No JVD, No Murmur, Normal Peripheral Pulses Neurologic/Psychiatric: Alert, Oriented x3, No Motor/Sensory Deficits, Normal Mood/Affect Results/Procedures Lab Patient resulted labs reviewed. 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 Paroxysmal atrial fibrillation Dementia Depression History of small bowel resection partial History of left hip fracture repair with subsequent nerve damage making ambulation difficult GERD Urge incontinence Muscle pain reported will check CPK and hold statin now improved since stopping Crackles in left lower lobe with subtle cough will initiate albuterol neb treatment twice a day and incentive spirometer Plan: Continue current meds Start statin therapy Maintain on Plavix Appreciate cardiology due to history of paroxysmal atrial fibrillation but possible bleeding side effect from anticoagulation Continue therapies per protocol Hold statin for muscle pain Albuterol neb treatment twice a day Incentive spirometer for crackles in the left lower lobe today Patient requires close monitoring in inpatient rehab setting due to cognitive deficits from the stroke with difficulty communicating and a fall risk. Also will monitor for urinary and bowel function due to history of both organ systems ' dysfunction. Monitor blood pressure closely due to history of stroke subacute along with 2 prior strokes Close monitoring for recurrent seizure since history of seizure after her last stroke Cardiology consultation to decide if additional anticoagulation is needed to prevent subsequent strokes Diagnosis/Problems Diagnosis/Problems (1) CVA (cerebral vascular accident) Status: Acute Qualifiers: CVA mechanism: unspecified Qualified Codes: I63.9 - Cerebral infarction, unspecified (2) History of CVA (cerebrovascular accident) Status: Chronic (3) Seizure disorder Status: Chronic (4) CAD (coronary artery disease) Status: Chronic Qualifiers: Coronary Disease-Associated Artery/Lesion type: redding artery [place] vs. transplanted heart: redding heart Associated angina: without angina Qualified Codes: I25.10 - Atherosclerotic heart disease of redding coronary artery without angina pectoris (5) Hypothyroidism Status: Chronic Qualifiers: Hypothyroidism type: acquired Qualified Codes: E03.9 - Hypothyroidism, unspecified (6) Paroxysmal atrial fibrillation Status: Chronic (7) History of coronary artery stent placement Status: Chronic (8) Hypertension Status: Chronic Qualifiers: Hypertension type: essential hypertension Qualified Codes: I10 - Essential (primary) hypertension (9) Hyperlipidemia Status: Chronic Qualifiers: Hyperlipidemia type: mixed hyperlipidemia Qualified Codes: E78.2 - Mixed hyperlipidemia (10) Urge incontinence Status: Chronic (11) History of hip fracture Status: Chronic (12) Depression Status: Chronic Qualifiers: Depression Type: unspecified Qualified Codes: F32.9 - Major depressive disorder, single episode, unspecified (13) Vascular dementia Status: Chronic Qualifiers: Dementia behavioral disturbance: without behavioral disturbance Qualified Codes: F01.50 - Vascular dementia without behavioral disturbance (14) Incontinence Status: Chronic Qualifiers: Incontinence type: urinary Urinary Incontinence type: unspecified incontinence Qualified Codes: R32 - Unspecified urinary incontinence (15) Myositis Status: Acute Qualifiers: Myositis type: unspecified type Myositis location: unspecified site Qualified Codes: M60.9 - Myositis, unspecified (16) Left knee pain Qualifiers: Chronicity: acute Qualified Codes: M25.562 - Pain in left knee (17) Cough Status: Acute (18) Lung crackles Status: Acute Assessment & Plan: LLL Clinical Quality Measures Admission Status Admission Dx Assessment: Seth infarct History of CVA with subsequent seizure disorder CAD previous stent placement Hypothyroidism Hypertension 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 Also will monitor for urinary and bowel function due to history of both organ systems ' dysfunction. Monitor blood pressure closely due to history of stroke subacute along with 2 prior strokes Close monitoring for recurrent seizure since history of seizure after her last stroke Cardiology consultation to decide if additional anticoagulation is needed to prevent subsequent strokes DVT/VTE Risk/Contraindication: Risk Factor Score Per Nursin RFS Level Per Nursing on Admit: 2=Moderate ERIC PORTILLO DO Oct 28, 2018 14:00
[2018-10-28 16:04] VITALS: BP 138/56
[2018-10-28] MEDS: RT-ALBUTEROL SULF 2.5 MG/3 ML PRE-MIX VIAL INH SCH (19:57)
[2018-10-28] MEDS: MELATONIN 3 MG TABLET PO SCH (20:29)
[2018-10-28] MEDS: POLYETHYLENE GLYCOL 17 GM (MIRALAX) PACK PO PRN (20:29)
[2018-10-28] MEDS: lamoTRIgine 25 MG (LaMICtal) TAB PO SCH (20:29)
[2018-10-28] MEDS: LEVOTHYROXINE 25 MCG (LEVOTHROID) TAB PO SCH (20:29)
[2018-10-28] MEDS: VITAMIN D3 1,000 UNITS (CHOLECALCIFEROL) TABLET PO SCH (20:29)
[2018-10-28] MEDS: CLOPIDOGREL 75 MG (PLAVIX) TABLET PO SCH (20:29)
[2018-10-28] MEDS: ASPIRIN E.C. 81 MG (ECOTRIN) TAB PO SCH (20:29)
[2018-10-29] MEDS: ACETAMINOPHEN 325 MG TABLET PO PRN ×2 (00:49→23:18)
[2018-10-29] MEDS: MULTIVIT W/MINERALS TAB (THERAGRAN M) PO SCH (06:09)
[2018-10-29 06:17] VITALS: BP 153/76
[2018-10-29] MEDS: RT-ALBUTEROL SULF 2.5 MG/3 ML PRE-MIX VIAL INH SCH ×2 (08:34→20:24)
[2018-10-29] MEDS: ASCORBIC ACID (VIT C) 500 MG TABLET PO SCH (09:14)
[2018-10-29] MEDS: PANTOPRAZOLE 40 MG (PROTONIX) TAB PO SCH (09:14)
[2018-10-29] MEDS: OXYBUTYNIN (DITROPAN) 5 MG TAB PO SCH (09:14)
[2018-10-29] MEDS: amLODIPine 10 MG (NORVASC) TAB PO SCH (09:14)
[2018-10-29] MEDS: SALINE NASAL SPRAY (OCEAN) 45 ML BTL SCH ×3 (09:15→20:44)
--- NOTE | 2018-10-29 12:55 | PM&R Progress Note ---
Subjective HPI/CC On Admission Date Seen by Provider: Oct 29, 2018 Time Seen by Provider: 11:05 Subjective/Events-last exam Patient doing better Still very weak Neb treatments tolerated Left lower lobe crackles are now gone Using incentive spirometer Review of Systems Pulmonary: Cough Neurological: Incoordination, Change in speech, Confusion Objective Exam Vital Signs Vital Signs Date Time Temp Pulse Resp B/P (MAP) Pulse Ox O2 Delivery O2 Flow Rate FiO2 10/29/18 09:00 Room Air 10/29/18 08:35 96 10/29/18 06:17 98.4 70 18 153/76 (101) Capillary Refill : General Appearance: No Apparent Distress, WD/WN Respiratory: Chest Non Tender, Lungs Clear, Normal Breath Sounds, No Accessory Muscle Use, No Respiratory Distress Cardiovascular: Regular Rate, Rhythm, No Edema, No Gallop, No JVD, No Murmur, Normal Peripheral Pulses Neurologic/Psychiatric: Alert, Oriented x3, Normal Mood/Affect, Other ( generalized weakness) Results/Procedures Lab Patient resulted labs reviewed. 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 Paroxysmal atrial fibrillation Dementia Depression History of small bowel resection partial History of left hip fracture repair with subsequent nerve damage making ambulation difficult GERD Urge incontinence Muscle pain reported will check CPK and hold statin now improved since stopping Crackles in left lower lobe with subtle cough will initiate albuterol neb treatment twice a day and incentive spirometer now resolved Plan: Continue current meds Start statin therapy Maintain on Plavix Appreciate cardiology due to history of paroxysmal atrial fibrillation but possible bleeding side effect from anticoagulation Continue therapies per protocol Hold statin for muscle pain Albuterol neb treatment twice a day Incentive spirometer for crackles in the left lower lobe yesterday but resolved today Patient requires close monitoring in inpatient rehab setting due to cognitive deficits from the stroke with difficulty communicating and a fall risk. Also will monitor for urinary and bowel function due to history of both organ systems ' dysfunction. Monitor blood pressure closely due to history of stroke subacute along with 2 prior strokes Close monitoring for recurrent seizure since history of seizure after her last stroke Cardiology consultation to decide if additional anticoagulation is needed to prevent subsequent strokes Diagnosis/Problems Diagnosis/Problems (1) CVA (cerebral vascular accident) Status: Acute Qualifiers: CVA mechanism: unspecified Qualified Codes: I63.9 - Cerebral infarction, unspecified (2) History of CVA (cerebrovascular accident) Status: Chronic (3) Seizure disorder Status: Chronic (4) CAD (coronary artery disease) Status: Chronic Qualifiers: Coronary Disease-Associated Artery/Lesion type: [place] artery [place] vs. transplanted heart: [place] heart Associated angina: without angina Qualified Codes: I25.10 - Atherosclerotic heart disease of [place] coronary artery without angina pectoris (5) Hypothyroidism Status: Chronic Qualifiers: Hypothyroidism type: acquired Qualified Codes: E03.9 - Hypothyroidism, unspecified (6) Paroxysmal atrial fibrillation Status: Chronic (7) History of coronary artery stent placement Status: Chronic (8) Hypertension Status: Chronic Qualifiers: Hypertension type: essential hypertension Qualified Codes: I10 - Essential (primary) hypertension (9) Hyperlipidemia Status: Chronic Qualifiers: Hyperlipidemia type: mixed hyperlipidemia Qualified Codes: E78.2 - Mixed hyperlipidemia (10) Urge incontinence Status: Chronic (11) History of hip fracture Status: Chronic (12) Depression Status: Chronic Qualifiers: Depression Type: unspecified Qualified Codes: F32.9 - Major depressive disorder, single episode, unspecified (13) Vascular dementia Status: Chronic Qualifiers: Dementia behavioral disturbance: without behavioral disturbance Qualified Codes: F01.50 - Vascular dementia without behavioral disturbance (14) Incontinence Status: Chronic Qualifiers: Incontinence type: urinary Urinary Incontinence type: unspecified incontinence Qualified Codes: R32 - Unspecified urinary incontinence (15) Myositis Status: Acute Qualifiers: Myositis type: unspecified type Myositis location: unspecified site Qualified Codes: M60.9 - Myositis, unspecified (16) Left knee pain Qualifiers: Chronicity: acute Qualified Codes: M25.562 - Pain in left knee (17) Cough Status: Acute (18) Lung crackles Status: Acute Assessment & Plan: LLL Clinical Quality Measures Admission Status Admission Dx Assessment: Seth infarct History of CVA with subsequent seizure disorder CAD previous stent placement Hypothyroidism Hypertension 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 Also will monitor for urinary and bowel function due to history of both organ systems ' dysfunction. Monitor blood pressure closely due to history of stroke subacute along with 2 prior strokes Close monitoring for recurrent seizure since history of seizure after her last stroke Cardiology consultation to decide if additional anticoagulation is needed to prevent subsequent strokes DVT/VTE Risk/Contraindication: Risk Factor Score Per Nursin RFS Level Per Nursing on Admit: 2=Moderate ERIC PORTILLO DO Oct 29, 2018 12:55
--- NOTE | 2018-10-29 15:06 | Cardiology Progress Note ---
Cardiology SOAP Progress Note Subjective: No cardiac complaints. Objective: I&O/Vital Signs 10/29/18 10/29/18 10/29/18 06:17 08:35 09:00 Temp 98.4 Pulse 70 Resp 18 B/P (MAP) 153/76 (101) Pulse Ox 98 96 O2 Delivery Room Air Room Air Room Air 10/29/18 00:00 Intake Total 490 ml Balance 490 ml Weight (Pounds): 126 Weight (Ounces): 11.2 Weight (Calculated Kilograms): 57.430247 Constitutional: AAO x 3, well-developed, well-nourished Respiratory: No accessory muscle use, No respiratory distress, No chest tender ; chest expansion is symmetric, chest is bilaterally symmetric; No lungs clear to percussion; lungs clear to auscultation; No crackles, No rhonchi, No rales, No stridor, No wheezing, No pleural rub, No other Cardiovascular: regular rate-rhythm; No JVD; S1 and S2 Gastrointestional: No tender; soft, round; No distended, No pulsatile mass, No organomegaly, No guarding, No rebound, No tenderness, No hernia, No mass, No audible bowel sounds, No abnormal bowel sounds, No abdominal bruits, No spleenomegaly, No other Extremities: No normal range of motion, No non-tender, No normal inspection, No pedal edema, No calf tenderness, No normal capillary refill, No pelvis stable , No calf tenderness, No inflammation, No pedal edema, No slow capillary refill , No swelling, No other, No abrasion, No clubbing, No cyanosis, No ecchymosis, No laceration; no lower extremity edema bilateral; No significant edema, No tenderness, No wound Neurologic/Psychiatric: no motor/sensory deficits, alert, normal mood/affect, oriented x 3, grossly intact Skin: No normal color, No warm/dry, No cyanosis, No cool, No diaphoresis, No damp, No ecchymosis, No jaundice, No mottled, No pallor, No rash, No tattoos/ piercings, No ulcerations, No rash on exposed areas, No ulcerations on exposed areas, No other A/P: Assessment/Dx: Assessment: Recent CVA ( 10-17-18) with h/o previous CVA x 2 (2013 and 2016) - CT from [facility] [place] 10-17-18 is reported to have shown an area of an old infarct and severe cerebral atrophy, but no acute process per dictated note by Dr. Montemayor on 10-18-18 Hypertension - improved Echocardiogram of 10-19-18 shows mod concentric LVH; LVEF approx 60%; trivial to mild MR and TR. PASP approx 25 mmHg; mod enlargement of the LA Seizure disorder following a previous CVA Pt reports h/o intracranial bleed bleed following a fall in 2012 - exact details unknown Pt reports h/o PAF, but was not deemed suitable for OAC, due to a h/o ic bleed - details unknown Reported h/o CAD with stent placement in the past at [facility] in [place], [place] - details unknown No evidence of carotid stenosis per u/s of 10-21-18 HLD - statin tx Hypothyroidism - replacement tx H/O colon resection Family h/o CAD - mother [place] age 69, father [place] age 66 H/O intolerance of Bystolic in the past d/t bradycardia Plan: Plan: Continue current regimen BP not well controlled following reduction in BB (d/t asymptomatic bradycardia) - Norvasc 10mg daily Given h/o ic bleed, we have not put her on OAC, but antiplatelet therapy is being continued Thank you for your consultation. Please call me if you have any questions. Magdalene De Souza MD, FACP, FACC, FSCAI, FHRS, CCDS Interventional Cardiology Cardiac Electrophysiology Vascular Medicine and Endovascular Interventions Yusuf DE SOUZA MD Oct 29, 2018 3:06 pm
[2018-10-29 18:29] VITALS: BP 145/68
[2018-10-29] MEDS: lamoTRIgine 25 MG (LaMICtal) TAB PO SCH (20:45)
[2018-10-29] MEDS: VITAMIN D3 1,000 UNITS (CHOLECALCIFEROL) TABLET PO SCH (20:45)
[2018-10-29] MEDS: ASPIRIN E.C. 81 MG (ECOTRIN) TAB PO SCH (20:46)
[2018-10-29] MEDS: MELATONIN 3 MG TABLET PO SCH (20:46)
[2018-10-29] MEDS: LEVOTHYROXINE 25 MCG (LEVOTHROID) TAB PO SCH (20:46)
[2018-10-29] MEDS: CLOPIDOGREL 75 MG (PLAVIX) TABLET PO SCH (20:46)
[2018-10-30] MEDS: MULTIVIT W/MINERALS TAB (THERAGRAN M) PO SCH (05:58)
[2018-10-30 06:04] VITALS: BP 138/55
[2018-10-30] MEDS: OXYBUTYNIN (DITROPAN) 5 MG TAB PO SCH (08:42)
[2018-10-30] MEDS: PANTOPRAZOLE 40 MG (PROTONIX) TAB PO SCH (08:42)
[2018-10-30] MEDS: ASCORBIC ACID (VIT C) 500 MG TABLET PO SCH (08:43)
[2018-10-30] MEDS: ACETAMINOPHEN 325 MG TABLET PO PRN ×2 (08:44→22:43)
[2018-10-30] MEDS: amLODIPine 10 MG (NORVASC) TAB PO SCH (08:44)
[2018-10-30] MEDS: SALINE NASAL SPRAY (OCEAN) 45 ML BTL SCH ×3 (08:45→21:11)
--- NOTE | 2018-10-30 08:48 | PM&R Progress Note ---
Subjective This was a face to face visit with the patient. Date Seen by Provider: Oct 30, 2018 Time Seen by Provider: 08:15 Subjective/Events-last exam Patient was seen in her room while she was seated in chair Biofreeze will be brought by family Crackles in the left lower lobe have appeared again that she just woke up Using incentive spirometer No cough or fever Has a headache and requesting Tylenol Date Identified: Oct 30, 2018 Time Identified: 08:00 Medication Intervention: Headache requesting Tylenol Review of Systems Musculoskeletal: neck pain Objective Physician Exam Last Set of Vital Signs Vital Signs Date Time Temp Pulse Resp B/P (MAP) Pulse Ox O2 Delivery O2 Flow Rate FiO2 10/30/18 06:04 96.8 65 18 138/55 (82) 96 Room Air Capillary Refill : I&O Intake and Output 10/30/18 00:00 Intake Total 800 ml Balance 800 ml Intake Oral 800 ml # Voids 5 General: Alert, Oriented X3, Cooperative, Other (subtle poor recall) HEENT: Atraumatic, PERRLA, EOMI Neck: Supple, No JVD, No Thyromegaly, +2 Carotid Pulse No Bruit Lungs: Clear to Auscultation, Normal Air Movement Heart: Regular Rate, Normal S1, Normal S2 Abdomen: Normal Bowel Sounds, Soft Extremities: No Clubbing, No Cyanosis Skin: No Rashes, No Breakdown Neuro: Normal Tone, Sensation Intact, Cranial Nerves 3-12 NL, Reflexes 2+, Other (global weakness, gait disturbance noted) Psych/Mental Status: Mental Status NL, Mood NL, Other (subtle confusion at times) Current Funtional Status Continue aggressive therapies Tylenol for headache Biofreeze for arthritis pain Monitor closely Assessment/Plan Assessment and Plan (1) CVA (cerebral vascular accident) Qualifiers: Qualified Codes: I63.9 - Cerebral infarction, unspecified Status: Acute (2) History of CVA (cerebrovascular accident) Status: Chronic (3) Seizure disorder Status: Chronic (4) CAD (coronary artery disease) Qualifiers: Qualified Codes: I25.10 - Atherosclerotic heart disease of [place] coronary artery without angina pectoris Status: Chronic (5) Hypothyroidism Qualifiers: Qualified Codes: E03.9 - Hypothyroidism, unspecified Status: Chronic (6) Paroxysmal atrial fibrillation Status: Chronic (7) History of coronary artery stent placement Status: Chronic (8) Hypertension Qualifiers: Qualified Codes: I10 - Essential (primary) hypertension Status: Chronic (9) Hyperlipidemia Qualifiers: Qualified Codes: E78.2 - Mixed hyperlipidemia Status: Chronic (10) Urge incontinence Status: Chronic (11) History of hip fracture Status: Chronic (12) Depression Qualifiers: Qualified Codes: F32.9 - Major depressive disorder, single episode, unspecified Status: Chronic (13) Vascular dementia Qualifiers: Qualified Codes: F01.50 - Vascular dementia without behavioral disturbance Status: Chronic (14) Incontinence Qualifiers: Qualified Codes: R32 - Unspecified urinary incontinence Status: Chronic (15) Myositis Qualifiers: Qualified Codes: M60.9 - Myositis, unspecified Status: Acute (16) Left knee pain Qualifiers: Qualified Codes: M25.562 - Pain in left knee (17) Cough Status: Acute (18) Lung crackles Status: Acute Co-Morbidities that are continuing to impact the rehab process: (include details ) ERIC PORTILLO DO Oct 30, 2018 08:47
--- NOTE | 2018-10-30 09:30 | Physical Therapy Daily Note ---
PT Daily Note-Current Subjective Pt. agrees to Rx. States she feels like she is making some progress. Has a headache at 4/10. Requested Tylenol of nurse Pain Numeric Pain Scale: 4 Location: Medial Location Body Site: Head Pain Description: Throbbing Mental Status Patient Orientation: Normal For Age Transfers Therapy Code Descriptions/Definitions Functional [place] Measure: 0=Not Assessed/NA 4=Minimal Assistance 1=Total Assistance 5=Supervision or Setup 2=Maximal Assistance 6=Modified [place] 3=Moderate Assistance 7=Complete [place] Therapy Quality Codes: 6 Independent with activity with or without an assistive device 5 Patient requires set up or clean up by helper. Patient completes activity by themselves 4 Supervision or touching assist (CGA). [place] provide cues , steadying assist 3 The helper provides less than half the effort to complete the activity 2 The helper provides more than half the effort to complete the activity 1 Dependent. The helper does all the effort to complete an activity 7 Patient refused to complete or attempt activity 9 The patient did not perform the activity before the current illness or injury 88 Not attempted due to Medical conditions or safety concerns Transfers (B, C, W/C) (FIM): 5 Scootin Rollin Supine to/from Sit: 5 Sit to/from Stand: 5 Bed to/from Chair: 5 Car Transfer (QC): 4 Weight Bearing Right Lower Extremity: Right Full Weight Bearing Left Lower Extremity: Left Full Weight Bearing Gait Training Does the Patient Walk?: Yes Gait (FIM): 4 Distance (FIM): 3=150 ft (170x2) Gait Level of Assist: 4 Gait Persons Needed: 1 Gait Assistive Device: FWW needs much instruction regarding step clearance and step length as well as broader PEDRITO Stair Training Stair Training: Handrails/: uses walker Stairs (FIM): 2 #of Steps: 4 Stairs: Pattern: Step to Level of Assist: 4 step by step instruction regarding sequence and weight shift Exercises Seated Therapy Exercises: Ankle pumps, Sit to stand, Long arc quads, Hip flexion Seated Reps: 12 NuStep Minutes: 10 NuStep Workload: 3 Treatments leg presses on Nustep x 10 Assessment Current Status: Good Progress dependent for safety for gait and mobility PT Short Term Goals Short Term Goals Time Frame: Oct 27, 2018 Transfers (B,C,W/C) (FIM): 4 Gait (FIM): 2 Gait Distance Comment: 120' Gait Level of Assist: 4 Gait Assistive Device: FWW PT Detention Goals Detention Goals PT Detention Goals Time Frame: Nov 10, 2018 Transfers (B,C,W/C) (FIM): 5 Sit to Lying (QC): 4 Lying-Sitting on Side/Bed(QC): 4 Sit to Stand (QC): 4 Rollin Roll Left to Right (QC): 4 Chair/Ubl-ft-Ravew Xfer(QC): 4 Car Transfer (QC): 4 Gait (FIM): 5 Distance: 150' Walk 10 feet (QC): 4 Walk 10ft-Uneven Surface(QC): 4 Walk 50ft with 2 Turns (QC): 4 Walk 150 ft (QC): 4 Gait Level of Assist: 5 Gait Assistive Device: FWW Stairs (FIM): 2 # of Steps: 4 1 Step (curb) (QC): 4 4 Steps (QC): 4 Stairs Level Of Assist: 4 PT Plan Treatment/Plan Treatment Plan: Continue Plan of Care Treatment Plan: Bed Mobility, Education, Functional Activity Ramila, Functional Strength, Group Therapy, Gait, Safety, Therapeutic Exercise, Transfers Treatment Duration: Nov 10, 2018 Frequency: At least 5 of 7 days/Wk (IRF) Estimated Hrs Per Day: 1.5 hours per day Patient and/or Family Agrees t: Yes Safety Risks/Education Patient Education: Gait Training, Transfer Techniques, Steps, Correct Positioning, Disease Process, Safety Issues Teaching Recipient: Patient Teaching Methods: Demonstration, Discussion Response to Teaching: Verbalize Understanding, Return Demonstration, Reinforcement Needed Time/GCodes Time In: 845 Time Out: 930 Total Billed Treatment Time: 45 Total Billed Treatment 1,GT20m,EX15m,FA10m G Codes Necessary: JODIE Givens RENTAL REPRESENTATIVE Oct 30, 2018 09:30
[2018-10-30] MEDS: POLYETHYLENE GLYCOL 17 GM (MIRALAX) PACK PO PRN (09:35)
[2018-10-30] MEDS: RT-ALBUTEROL SULF 2.5 MG/3 ML PRE-MIX VIAL INH SCH ×2 (10:38→19:39)
--- NOTE | 2018-10-30 10:54 | Occupational Ther Daily Note ---
OT Current Status-Daily Note Subjective Pt alert, sitting in recliner. Pt agrees to therapy. Pt states that she has had a headache today but it is better. Mental Status/Objective Patient Orientation: Person, Place, Time, Situation Therapy Code Descriptions/Definitions Functional [place] Measure: 0=Not Assessed/NA 4=Minimal Assistance 1=Total Assistance 5=Supervision or Setup 2=Maximal Assistance 6=Modified [place] 3=Moderate Assistance 7=Complete [place] ADL-Treatment Pt leaning toward R side has increased today and assist to keep balance has increased. Pt is requiring more time to initiate safe sequencing for sit to stands, transfers and ADLs. Pt maneuvered w/c with LE's to retrieve clothing and to go into bathroom. Toilet transfer with min A using w/c, BSC and grabbars. Pt doffed lower body clothing with min A. Ambulated with min A using FWW from toilet to shower transfer, min A for shower transfer using FWW, grabbars and shower bench. CGA in standing for bathing when cleansing buttocks/ jerome area, sitting to complete all other areas by self. Retrieved clothing using w/c. Min A for upper body dressing to hook bra, completed rest by self. Verbal cues to initiate lower body dressing using R foot, mod A. Pt unable to hike pants over hips due to decreased balance. Mod I for grooming sitting in sink. Pt took increased time to complete ADLs. After therapy, pt lying in bed with call light/phone in reach. All needs met in room. Therapy Code Descriptions/Definitions Functional [place] Measure: 0=Not Assessed/NA 4=Minimal Assistance 1=Total Assistance 5=Supervision or Setup 2=Maximal Assistance 6=Modified [place] 3=Moderate Assistance 7=Complete [place] Therapy Quality Codes: 6 Independent with activity with or without an assistive device 5 Patient requires set up or clean up by helper. Patient completes activity by themselves 4 Supervision or touching assist (CGA). [place] provide cues , steadying assist 3 The helper provides less than half the effort to complete the activity 2 The helper provides more than half the effort to complete the activity 1 Dependent. The helper does all the effort to complete an activity 7 Patient refused to complete or attempt activity 9 The patient did not perform the activity before the current illness or injury 88 Not attempted due to Medical conditions or safety concerns Eating (FIM): 6 Eating (QC): 6 Grooming (FIM): 6 Oral Hygiene (QC): 6 Bathing (FIM): 4 Bathing Location: L Arm, R Arm, L Upper Leg, R Upper Leg, L Lower Leg ( including foot), R Lower Leg (including foot), Chest, Abdomen, Buttocks, Perineal Area Shower/Bathe Self (QC): 3 Upper Body (FIM): 4 Upper Body Dressing (QC): 3 Lower Body Dressing (FIM): 3 Lower Body Dressing (QC): 2 On/Off Footwear (QC): 2 Toileting (FIM): 4 Toileting Hygiene (QC): 3 Transfers (B, C, W/C) (FIM): 4 Toilet/Commode Transfer (FIM): 4 Toilet Transfer (QC): 3 Shower Transfer(FIM): 4 OT Short Term Goals Short Term Goals Time Frame: Oct 27, 2018 Bathing(FIM): 4 Upper Body Dressing(FIM): 5 Lower Body Dressing(FIM): 5 Toileting(FIM): 5 Transfers (B,C,W/C) (FIM): 4 Toilet/Commode Transfer(FIM): 5 1=Demonstrate adherence to instructed precautions during ADL tasks. 2=Patient will verbalize/demonstrate understanding of assistive devices/ modifications for ADL. 3=Patient will improve strength/tolerance for activity to enable patient to perform ADL's. OT Custodial Goals Scrap Charger Goals Time Frame: Nov 10, 2018 Eating (FIM): 6 Eating (QC): 6 Groomin Oral Hygiene (QC): 6 Bathing(FIM): 5 Shower/Bathe Self (QC): 5 Upper Body Dressing(FIM): 6 Upper Body Dressing (QC): 6 Lower Body Dressing(FIM): 6 Lower Body Dressing (QC): 6 On/Off Footwear (QC): 6 Toileting(FIM): 6 Toileting Hygiene (QC): 6 Toilet/Commode Transfer(FIM): 6 Toilet/Commode Transfer (QC): 6 Shower Transfer(FIM): 5 Additional Goals: 1-Demonstrate ADL Tasks, 2-Verbalize Understanding, 3- ImproveStrength/Ramila 1=Demonstrate adherence to instructed precautions during ADL tasks. 2=Patient will verbalize/demonstrate understanding of assistive devices/ modifications for ADL. 3=Patient will improve strength/tolerance for activity to enable patient to perform ADL's. OT Education/Plan Problem List/Assessment Pt demonstrates decreased ADL functioning, strength, transfers, and activity tolerance. Pt to benefit from skilled OT intervention for ADL training, transfers, strengthening, and safety education to increase functional independence and allow safe discharge plan. Discharge Recommendations Plan/Recommendations: Continue POC Treatment Plan/Plan of Care Patient would benefit from OT for education, treatment and training to promote independence in ADL's, mobility, safety and/or upper extremity function for ADL' s. Plan of Care: ADL Retraining, Functional Mobility, Group Exercise/Act as Ind, UE Funct Exercise/Act Treatment Duration: Nov 10, 2018 Frequency: At least 5 of 7 days/Wk (IRF) Estimated Hrs Per Day: 1.5 hours per day Agreement: Yes Rehab Potential: Fair Time/GCodes Start Time: 10:00 Stop Time: 11:10 Total Time Billed (hr/min): 70 Billed Treatment Time 1 visit-ADL 5 (70 min) MATILDA ABRAHAM Oct 30, 2018 10:53
--- NOTE | 2018-10-30 11:00 | NUR ---
DAUGHTER WILL BRING IN PATIENT'S BIOFREEZE TOMORROW.
--- NOTE | 2018-10-30 15:53 | Therapy Group Daily Note ---
Therapy Daily Group Note Patient Education Topic Home Safety, Fall Prevention, Home Safety, ADL, Other List Below Exercises LE Seated Exercise, UE Exercise Other/Notes Pt participated in group therapy with 3 to 1 ratio. Goals of session: Understanding of safe transfers (car, bed, chair, tub/shower) .(met) Remember one seated exercise UE or LE to lead group.(met) Complete UE/ LE seated exercises.(met) Pt transported via w/c to [facility] for OT/PT group. Group consisted of introductions (name, place, favorite place to visit*fishing*), socialization, seated UE/LE exercises, education on safe transfers and 5 memory words (eduardo, VW , 1, dog, cinnamon candy). Pt introduced self appropriately and actively listened to peers. Pt able to complete UE/LE seated exercise without difficulty. Pt lead one UE ex x10 reps. Pt acknowledged understanding of transfers by nodding head in acknowledgement and verbalizing own story about transfers and home. After group, pt lying in bed with call light/phone in reach. All needs met in room. Start Time: 13:00 Stop Time: 14:15 Total Billed Treatment Time: 75 Total Billed Treatment 1 visit 1-JOSE G AVILA DINING SERVICE SUPERVISOR Oct 30, 2018 15:53
--- NOTE | 2018-10-30 16:54 | NUR ---
PT EATING WELL, 95% MEALS, AND WEIGHT IS SLIGHTLY UP. INTAKE MEETING NEEDS AT THIS TIME. CONT SAME.
[2018-10-30 17:22] VITALS: BP 132/52
--- NOTE | 2018-10-30 19:14 | NUR ---
bedside report received from MAGED MILNER, assume care of pt
--- NOTE | 2018-10-30 21:00 | NUR ---
assessments & interventions completed, see assessments & interventions, scored 2 on NIH STROKE SCALE
[2018-10-30] MEDS: MELATONIN 3 MG TABLET PO SCH (21:11)
[2018-10-30] MEDS: VITAMIN D3 1,000 UNITS (CHOLECALCIFEROL) TABLET PO SCH (21:11)
[2018-10-30] MEDS: lamoTRIgine 25 MG (LaMICtal) TAB PO SCH (21:11)
[2018-10-30] MEDS: CLOPIDOGREL 75 MG (PLAVIX) TABLET PO SCH (21:11)
[2018-10-30] MEDS: LEVOTHYROXINE 25 MCG (LEVOTHROID) TAB PO SCH (21:11)
[2018-10-30] MEDS: ASPIRIN E.C. 81 MG (ECOTRIN) TAB PO SCH (21:12)
--- NOTE | 2018-10-30 22:43 | NUR ---
c/o headache level 4/10 on numeric scale, Tylenol 650mg po given
--- NOTE | 2018-10-30 23:15 | NUR ---
resting quietly in bed pain level 0/10 on flacc scale
[2018-10-31 05:41] VITALS: BP 136/64
[2018-10-31] MEDS: MULTIVIT W/MINERALS TAB (THERAGRAN M) PO SCH (06:35)
[2018-10-31] MEDS: RT-ALBUTEROL SULF 2.5 MG/3 ML PRE-MIX VIAL INH SCH ×2 (07:18→19:22)
--- NOTE | 2018-10-31 07:18 | NUR ---
bedside report given to ESTHER MILNER
[2018-10-31 08:00] VITALS: BP 143/62
[2018-10-31] MEDS: ASCORBIC ACID (VIT C) 500 MG TABLET PO SCH (08:01)
[2018-10-31] MEDS: OXYBUTYNIN (DITROPAN) 5 MG TAB PO SCH (08:01)
[2018-10-31] MEDS: amLODIPine 10 MG (NORVASC) TAB PO SCH (08:01)
[2018-10-31] MEDS: PANTOPRAZOLE 40 MG (PROTONIX) TAB PO SCH (08:01)
[2018-10-31] MEDS: SALINE NASAL SPRAY (OCEAN) 45 ML BTL SCH ×3 (08:05→20:31)
--- NOTE | 2018-10-31 08:41 | PM&R Progress Note ---
Subjective HPI/CC On Admission Date Seen by Provider: Oct 31, 2018 Time Seen by Provider: 08:15 Subjective/Events-last exam Patient doing well today No significant concerns from the nurse Stiff muscles every morning Has periodic headache at night but blood pressure is stable Patient was in shower and we talked she had no significant issues Review of Systems Musculoskeletal: other (Muscle pain) Neurological: Change in speech, Confusion Objective Exam Vital Signs Vital Signs Date Time Temp Pulse Resp B/P (MAP) Pulse Ox O2 Delivery O2 Flow Rate FiO2 10/31/18 09:59 Room Air 10/31/18 08:00 76 143/62 (89) 10/31/18 07:19 95 10/31/18 05:41 97.8 18 Capillary Refill : General Appearance: No Apparent Distress, WD/WN, Chronically ill, Thin Respiratory: Chest Non Tender, Lungs Clear, Normal Breath Sounds, No Accessory Muscle Use, No Respiratory Distress Cardiovascular: Regular Rate, Rhythm, No Edema, No Gallop, No JVD, No Murmur, Normal Peripheral Pulses Neurologic/Psychiatric: Alert, Oriented x3, No Motor/Sensory Deficits, Normal Mood/Affect, Disoriented (Subtle) Results/Procedures Lab Patient resulted labs reviewed. 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 Paroxysmal atrial fibrillation Dementia Depression History of small bowel resection partial History of left hip fracture repair with subsequent nerve damage making ambulation difficult GERD Urge incontinence Muscle pain reported will check CPK and hold statin now improved since stopping Crackles in left lower lobe with subtle cough will initiate albuterol neb treatment twice a day and incentive spirometer now resolved Plan: Continue current meds Start statin therapy Maintain on Plavix Appreciate cardiology due to history of paroxysmal atrial fibrillation but possible bleeding side effect from anticoagulation Continue therapies per protocol Hold statin for muscle pain Albuterol neb treatment twice a day Incentive spirometer for crackles in the left lower lobe but resolved Patient requires close monitoring in inpatient rehab setting due to cognitive deficits from the stroke with difficulty communicating and a fall risk. Also will monitor for urinary and bowel function due to history of both organ systems ' dysfunction. Monitor blood pressure closely due to history of stroke subacute along with 2 prior strokes Close monitoring for recurrent seizure since history of seizure after her last stroke Cardiology consultation to decide if additional anticoagulation is needed to prevent subsequent strokes Diagnosis/Problems Diagnosis/Problems (1) CVA (cerebral vascular accident) Status: Acute Qualifiers: CVA mechanism: unspecified Qualified Codes: I63.9 - Cerebral infarction, unspecified (2) History of CVA (cerebrovascular accident) Status: Chronic (3) Seizure disorder Status: Chronic (4) CAD (coronary artery disease) Status: Chronic Qualifiers: Coronary Disease-Associated Artery/Lesion type: false pass artery [place] vs. transplanted heart: false pass heart Associated angina: without angina Qualified Codes: I25.10 - Atherosclerotic heart disease of false pass coronary artery without angina pectoris (5) Hypothyroidism Status: Chronic Qualifiers: Hypothyroidism type: acquired Qualified Codes: E03.9 - Hypothyroidism, unspecified (6) Paroxysmal atrial fibrillation Status: Chronic (7) History of coronary artery stent placement Status: Chronic (8) Hypertension Status: Chronic Qualifiers: Hypertension type: essential hypertension Qualified Codes: I10 - Essential (primary) hypertension (9) Hyperlipidemia Status: Chronic Qualifiers: Hyperlipidemia type: mixed hyperlipidemia Qualified Codes: E78.2 - Mixed hyperlipidemia (10) Urge incontinence Status: Chronic (11) History of hip fracture Status: Chronic (12) Depression Status: Chronic Qualifiers: Depression Type: unspecified Qualified Codes: F32.9 - Major depressive disorder, single episode, unspecified (13) Vascular dementia Status: Chronic Qualifiers: Dementia behavioral disturbance: without behavioral disturbance Qualified Codes: F01.50 - Vascular dementia without behavioral disturbance (14) Incontinence Status: Chronic Qualifiers: Incontinence type: urinary Urinary Incontinence type: unspecified incontinence Qualified Codes: R32 - Unspecified urinary incontinence (15) Myositis Status: Acute Qualifiers: Myositis type: unspecified type Myositis location: unspecified site Qualified Codes: M60.9 - Myositis, unspecified (16) Left knee pain Qualifiers: Chronicity: acute Qualified Codes: M25.562 - Pain in left knee (17) Cough Status: Acute (18) Lung crackles Status: Acute Assessment & Plan: [facility] Clinical Quality Measures Admission Status Admission Dx Assessment: Seth infarct History of CVA with subsequent seizure disorder CAD previous stent placement Hypothyroidism Hypertension 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 Also will monitor for urinary and bowel function due to history of both organ systems ' dysfunction. Monitor blood pressure closely due to history of stroke subacute along with 2 prior strokes Close monitoring for recurrent seizure since history of seizure after her last stroke Cardiology consultation to decide if additional anticoagulation is needed to prevent subsequent strokes DVT/VTE Risk/Contraindication: Risk Factor Score Per Nursin RFS Level Per Nursing on Admit: 2=Moderate ERIC PORTILLO DO Oct 31, 2018 08:41
--- NOTE | 2018-10-31 09:56 | Occupational Ther Daily Note ---
OT Current Status-Daily Note Subjective Pt agreeable to treatment this am. No reports of pain, states she is just tired. Mental Status/Objective Therapy Code Descriptions/Definitions Functional [place] Measure: 0=Not Assessed/NA 4=Minimal Assistance 1=Total Assistance 5=Supervision or Setup 2=Maximal Assistance 6=Modified [place] 3=Moderate Assistance 7=Complete [place] ADL-Treatment Pt sitting EOB with RN present when therapist arrives. Sit to stand from EOB with minimal assistance. Gait to restroom with FWW, slow pace. Transfer to [facility] over toilet with minimal assistance. Pt able to pull pants down and complete hygiene. Transfer to walk in shower with min assist and cues for safety using grab bars for balance. Seated bathing completed using hand held shower. Upper body bathing completed with SBA. Pt able to wash LE with SBA and increased time. Minimal assistance to stand and wash buttocks. Pt dried with minimal assistance for lower body. Pt donned bra with assist to hook in the back. Don pullover shirt with set up. Pt able to thread left LE into Depends and pants, but requires assist with right LE. Pt stood and required minimal assistance to pull pants up in back. Pt required min assist to don socks. Assist to don left shoe secondary to AFO. Pt combed hair with set up. Transfer to chair with min assist. Pt requires increased time for all ADL tasks. Pt's meal tray arrived. Required assist to open milk carton. Pt sitting in chair eating breakfast with needs met after session. Therapy Code Descriptions/Definitions Functional [place] Measure: 0=Not Assessed/NA 4=Minimal Assistance 1=Total Assistance 5=Supervision or Setup 2=Maximal Assistance 6=Modified [place] 3=Moderate Assistance 7=Complete [place] Therapy Quality Codes: 6 Independent with activity with or without an assistive device 5 Patient requires set up or clean up by helper. Patient completes activity by themselves 4 Supervision or touching assist (CGA). [place] provide cues , steadying assist 3 The helper provides less than half the effort to complete the activity 2 The helper provides more than half the effort to complete the activity 1 Dependent. The helper does all the effort to complete an activity 7 Patient refused to complete or attempt activity 9 The patient did not perform the activity before the current illness or injury 88 Not attempted due to Medical conditions or safety concerns Eating (FIM): 5 Eating (QC): 5 Grooming (FIM): 5 Bathing (FIM): 4 Shower/Bathe Self (QC): 3 Upper Body (FIM): 4 Upper Body Dressing (QC): 3 Lower Body Dressing (FIM): 3 Lower Body Dressing (QC): 3 Toilet/Commode Transfer (FIM): 4 Toilet Transfer (QC): 3 Shower Transfer(FIM): 4 OT Short Term Goals Short Term Goals Time Frame: Oct 27, 2018 Bathing(FIM): 4 Upper Body Dressing(FIM): 5 Lower Body Dressing(FIM): 5 Toileting(FIM): 5 Transfers (B,C,W/C) (FIM): 4 Toilet/Commode Transfer(FIM): 5 1=Demonstrate adherence to instructed precautions during ADL tasks. 2=Patient will verbalize/demonstrate understanding of assistive devices/ modifications for ADL. 3=Patient will improve strength/tolerance for activity to enable patient to perform ADL's. OT Correction Goals [place] Grinder Goals Time Frame: Nov 10, 2018 Eating (FIM): 6 Eating (QC): 6 Groomin Oral Hygiene (QC): 6 Bathing(FIM): 5 Shower/Bathe Self (QC): 5 Upper Body Dressing(FIM): 6 Upper Body Dressing (QC): 6 Lower Body Dressing(FIM): 6 Lower Body Dressing (QC): 6 On/Off Footwear (QC): 6 Toileting(FIM): 6 Toileting Hygiene (QC): 6 Toilet/Commode Transfer(FIM): 6 Toilet/Commode Transfer (QC): 6 Shower Transfer(FIM): 5 Additional Goals: 1-Demonstrate ADL Tasks, 2-Verbalize Understanding, 3- ImproveStrength/Ramila 1=Demonstrate adherence to instructed precautions during ADL tasks. 2=Patient will verbalize/demonstrate understanding of assistive devices/ modifications for ADL. 3=Patient will improve strength/tolerance for activity to enable patient to perform ADL's. OT Education/Plan Problem List/Assessment Pt demonstrates decreased ADL functioning, strength, transfers, and activity tolerance. Pt to benefit from skilled OT intervention for ADL training, transfers, strengthening, and safety education to increase functional independence and allow safe discharge plan. Discharge Recommendations Plan/Recommendations: Continue POC Treatment Plan/Plan of Care Patient would benefit from OT for education, treatment and training to promote independence in ADL's, mobility, safety and/or upper extremity function for ADL' s. Plan of Care: ADL Retraining, Functional Mobility, Group Exercise/Act as Ind, UE Funct Exercise/Act Treatment Duration: Nov 10, 2018 Frequency: At least 5 of 7 days/Wk (IRF) Estimated Hrs Per Day: 1.5 hours per day Agreement: Yes Rehab Potential: Fair Time/GCodes Start Time: 08:00 Stop Time: 09:00 Total Time Billed (hr/min): 60 Billed Treatment Time 1 visit, ADLx4(60minutes) EDGARD DAVILA OT Oct 31, 2018 09:56
--- NOTE | 2018-10-31 10:55 | Physical Therapy Daily Note ---
PT Daily Note-Current Subjective Pt sitting in recliner upon arrival. Pt agrees to PT. Pain Numeric Pain Scale: 3 Location: Left Location Body Site: Hip Pain Description: Ache Mental Status Patient Orientation: Person, Place, Situation Attachments: Other-See Comments (AFO for L foot) Transfers Therapy Code Descriptions/Definitions Functional [place] Measure: 0=Not Assessed/NA 4=Minimal Assistance 1=Total Assistance 5=Supervision or Setup 2=Maximal Assistance 6=Modified [place] 3=Moderate Assistance 7=Complete [place] Therapy Quality Codes: 6 Independent with activity with or without an assistive device 5 Patient requires set up or clean up by helper. Patient completes activity by themselves 4 Supervision or touching assist ([facility]). [place] provide cues , steadying assist 3 The helper provides less than half the effort to complete the activity 2 The helper provides more than half the effort to complete the activity 1 Dependent. The helper does all the effort to complete an activity 7 Patient refused to complete or attempt activity 9 The patient did not perform the activity before the current illness or injury 88 Not attempted due to Medical conditions or safety concerns Scootin Sit to/from Stand: 4 Sit to Stand (QC): 4 Weight Bearing Right Lower Extremity: Right Full Weight Bearing Left Lower Extremity: Left Full Weight Bearing Gait Training Does the Patient Walk?: Yes Distance (FIM): 3=150 ft Distance: 150' Walk 10 feet (QC): 4 Walk 50 ft with 2 Turns(QC): 4 Walk 150 ft (QC): 4 Gait Level of Assist: 4 Gait Persons Needed: 1 Gait Assistive Device: FWW Pt walks with Trendelenburg gait, dragging L foot through at times. Pt fatigues and needs rest break. Exercises Seated Therapy Exercises: Ankle pumps, Long arc quads, Hip flexion, Kicking activity Seated Reps: 20 Treatments Pt reports not feeling although headache is gone. Pt advising CHILD CARE AIDE how pt feels PT is going. Pt ask about plan for discharge or any information needed to take to Weekly ARU meeting. Pt transfers from recliner to standing using FWW at [facility]. Pt ambulates in hallway and Therapy Commons using FWW at [facility]. Pt completes Seated Ex in chair. Pt returns to room at end of tx with all needs met. Pt resting in recliner. Assessment Current Status: Good Progress Pt fatigues easy and needs VC during ambualtion for stride length and picking up feet to avoid dragging. PT Short Term Goals Short Term Goals Time Frame: Oct 27, 2018 Transfers (B,C,W/C) (FIM): 4 Gait (FIM): 2 Gait Distance Comment: 120' Gait Level of Assist: 4 Gait Assistive Device: FWW PT Usp Goals Medicaid Plan Compliance Director Goals PT Usp Goals Time Frame: Nov 10, 2018 Transfers (B,C,W/C) (FIM): 5 Sit to Lying (QC): 4 Lying-Sitting on Side/Bed(QC): 4 Sit to Stand (QC): 4 Rollin Roll Left to Right (QC): 4 Chair/[id number] Xfer(QC): 4 Car Transfer (QC): 4 Gait (FIM): 5 Distance: 150' Walk 10 feet (QC): 4 Walk 10ft-Uneven Surface(QC): 4 Walk 50ft with 2 Turns (QC): 4 Walk 150 ft (QC): 4 Gait Level of Assist: 5 Gait Assistive Device: FWW Stairs (FIM): 2 # of Steps: 4 1 Step (curb) (QC): 4 4 Steps (QC): 4 Stairs Level Of Assist: 4 PT Plan Problem List Problem List: Activity Tolerance, Functional Strength, Safety, Gait Treatment/Plan Treatment Plan: Continue Plan of Care Treatment Plan: Bed Mobility, Education, Functional Activity Ramila, Functional Strength, Group Therapy, Gait, Safety, Therapeutic Exercise, Transfers Treatment Duration: Nov 10, 2018 Frequency: At least 5 of 7 days/Wk (IRF) Estimated Hrs Per Day: 1.5 hours per day Patient and/or Family Agrees t: Yes Safety Risks/Education Patient Education: Gait Training, Transfer Techniques, Correct Positioning, Safety Issues Teaching Recipient: Patient Teaching Methods: Discussion Response to Teaching: Reinforcement Needed Time/GCodes Time In: 900 Time Out: 945 Total Billed Treatment Time: 45 Total Billed Treatment 1, GT (20m), FA (10m) & EX (15m) G Codes Necessary: YARELIS Colvin CHILD CARE AIDE Oct 31, 2018 10:55
--- NOTE | 2018-10-31 15:04 | Occupational Ther Daily Note ---
OT Current Status-Daily Note Subjective Pt agrees to treatment this pm. Mental Status/Objective Therapy Code Descriptions/Definitions Functional [place] Measure: 0=Not Assessed/NA 4=Minimal Assistance 1=Total Assistance 5=Supervision or Setup 2=Maximal Assistance 6=Modified [place] 3=Moderate Assistance 7=Complete [place] ADL-Treatment Therapy Code Descriptions/Definitions Functional [place] Measure: 0=Not Assessed/NA 4=Minimal Assistance 1=Total Assistance 5=Supervision or Setup 2=Maximal Assistance 6=Modified [place] 3=Moderate Assistance 7=Complete [place] Therapy Quality Codes: 6 Independent with activity with or without an assistive device 5 Patient requires set up or clean up by helper. Patient completes activity by themselves 4 Supervision or touching assist (CGA). [place] provide cues , steadying assist 3 The helper provides less than half the effort to complete the activity 2 The helper provides more than half the effort to complete the activity 1 Dependent. The helper does all the effort to complete an activity 7 Patient refused to complete or attempt activity 9 The patient did not perform the activity before the current illness or injury 88 Not attempted due to Medical conditions or safety concerns Other Treatment Sit to stand with minimal assistance. Gait to therapy gym with FWW, slow pace. Pt requires CGA for balance and cues for safety using walker. Pt completed resistance pegs activity with bilateral hands to increase coordination/ manipulation skills. Pt able to complete task with increased time. Pt completed fine motor activity with nuts and bolts using bilateral hands. Pt does not require assist with task, but requires increased time. Pt returned to room with FWW, increased time. Pt sitting in chair with needs met after session. OT Short Term Goals Short Term Goals Time Frame: Oct 27, 2018 Bathing(FIM): 4 Upper Body Dressing(FIM): 5 Lower Body Dressing(FIM): 5 Toileting(FIM): 5 Transfers (B,C,W/C) (FIM): 4 Toilet/Commode Transfer(FIM): 5 1=Demonstrate adherence to instructed precautions during ADL tasks. 2=Patient will verbalize/demonstrate understanding of assistive devices/ modifications for ADL. 3=Patient will improve strength/tolerance for activity to enable patient to perform ADL's. OT Training Professional Goals Training Professional Goals Time Frame: Nov 10, 2018 Eating (FIM): 6 Eating (QC): 6 Groomin Oral Hygiene (QC): 6 Bathing(FIM): 5 Shower/Bathe Self (QC): 5 Upper Body Dressing(FIM): 6 Upper Body Dressing (QC): 6 Lower Body Dressing(FIM): 6 Lower Body Dressing (QC): 6 On/Off Footwear (QC): 6 Toileting(FIM): 6 Toileting Hygiene (QC): 6 Toilet/Commode Transfer(FIM): 6 Toilet/Commode Transfer (QC): 6 Shower Transfer(FIM): 5 Additional Goals: 1-Demonstrate ADL Tasks, 2-Verbalize Understanding, 3- ImproveStrength/Ramila 1=Demonstrate adherence to instructed precautions during ADL tasks. 2=Patient will verbalize/demonstrate understanding of assistive devices/ modifications for ADL. 3=Patient will improve strength/tolerance for activity to enable patient to perform ADL's. OT Education/Plan Problem List/Assessment Pt demonstrates decreased ADL functioning, strength, transfers, and activity tolerance. Pt to benefit from skilled OT intervention for ADL training, transfers, strengthening, and safety education to increase functional independence and allow safe discharge plan. Discharge Recommendations Plan/Recommendations: Continue POC Treatment Plan/Plan of Care Patient would benefit from OT for education, treatment and training to promote independence in ADL's, mobility, safety and/or upper extremity function for ADL' s. Plan of Care: ADL Retraining, Functional Mobility, Group Exercise/Act as Ind, UE Funct Exercise/Act Treatment Duration: Nov 10, 2018 Frequency: At least 5 of 7 days/Wk (IRF) Estimated Hrs Per Day: 1.5 hours per day Agreement: Yes Rehab Potential: Fair Time/GCodes Start Time: 13:00 Stop Time: 13:30 Total Time Billed (hr/min): 30 Billed Treatment Time 1 visit, FAx2(30minutes) EDGARD DAVILA OT Oct 31, 2018 15:04
--- NOTE | 2018-10-31 15:47 | Physical Therapy Daily Note ---
PT Daily Note-Current Subjective Pt sitting in recliner upon arrival. Pt agrees to PT. Pain Numeric Pain Scale: 3 Location: Left Location Body Site: Hip Pain Description: Ache Mental Status Patient Orientation: Person, Place, Situation Attachments: Other-See Comments (AFO for L foot) Transfers Therapy Code Descriptions/Definitions Functional [place] Measure: 0=Not Assessed/NA 4=Minimal Assistance 1=Total Assistance 5=Supervision or Setup 2=Maximal Assistance 6=Modified [place] 3=Moderate Assistance 7=Complete [place] Therapy Quality Codes: 6 Independent with activity with or without an assistive device 5 Patient requires set up or clean up by helper. Patient completes activity by themselves 4 Supervision or touching assist (CGA). [place] provide cues , steadying assist 3 The helper provides less than half the effort to complete the activity 2 The helper provides more than half the effort to complete the activity 1 Dependent. The helper does all the effort to complete an activity 7 Patient refused to complete or attempt activity 9 The patient did not perform the activity before the current illness or injury 88 Not attempted due to Medical conditions or safety concerns Scootin Sit to/from Stand: 5 Sit to Stand (QC): 5 Weight Bearing Right Lower Extremity: Right Full Weight Bearing Left Lower Extremity: Left Full Weight Bearing Gait Training Does the Patient Walk?: Yes Distance (FIM): 3=150 ft Distance: 150' Walk 10 feet (QC): 4 Walk 50 ft with 2 Turns(QC): 4 Walk 150 ft (QC): 4 Gait Level of Assist: 4 Gait Persons Needed: 1 Gait Assistive Device: FWW Pt walks with Trendelenburg gait pattern on R side. Pt fatigues and needs rest break. Pt needs VC to aid with step length and lifting L foot to avoid dragging through. Exercises NuStep Minutes: 15 NuStep Workload: 4 Treatments Pt transfers from recliner to standing using FWW at [facility]. Pt ambulates in hallway and Therapy Commons using FWW at [facility], rest break along way. Pt uses NuStep for 15m at [facility]. Pt returns to room after walk to rest Supine in bed. Pt transfers to bed at SBA. Pt has all needs met at end of tx. Assessment Current Status: Good Progress Pt is gaining strength and activity tolerance especially with ambulation. PT Short Term Goals Short Term Goals Time Frame: Oct 27, 2018 Transfers (B,C,W/C) (FIM): 4 Gait (FIM): 2 Gait Distance Comment: 120' Gait Level of Assist: 4 Gait Assistive Device: FWW PT Financial Counselor Goals Financial Counselor Goals PT Financial Counselor Goals Time Frame: Nov 10, 2018 Transfers (B,C,W/C) (FIM): 5 Sit to Lying (QC): 4 Lying-Sitting on Side/Bed(QC): 4 Sit to Stand (QC): 4 Rollin Roll Left to Right (QC): 4 Chair/[id number]-[id number] Xfer(QC): 4 Car Transfer (QC): 4 Gait (FIM): 5 Distance: 150' Walk 10 feet (QC): 4 Walk 10ft-Uneven Surface(QC): 4 Walk 50ft with 2 Turns (QC): 4 Walk 150 ft (QC): 4 Gait Level of Assist: 5 Gait Assistive Device: FWW Stairs (FIM): 2 # of Steps: 4 1 Step (curb) (QC): 4 4 Steps (QC): 4 Stairs Level Of Assist: 4 PT Plan Problem List Problem List: Activity Tolerance, Functional Strength, Safety, Gait Treatment/Plan Treatment Plan: Continue Plan of Care Treatment Plan: Bed Mobility, Education, Functional Activity Ramila, Functional Strength, Group Therapy, Gait, Safety, Therapeutic Exercise, Transfers Treatment Duration: Nov 10, 2018 Frequency: At least 5 of 7 days/Wk (IRF) Estimated Hrs Per Day: 1.5 hours per day Patient and/or Family Agrees t: Yes Safety Risks/Education Patient Education: Gait Training, Transfer Techniques, Correct Positioning, Safety Issues Teaching Recipient: Patient Teaching Methods: Discussion Response to Teaching: Reinforcement Needed Time/GCodes Time In: 1330 Time Out: 1415 Total Billed Treatment Time: 45 Total Billed Treatment 1, GT x2 (30m) & EX (15m) G Codes Necessary: YARELIS Colvin SAMPLE BODY BUILDER Oct 31, 2018 15:46
[2018-10-31 17:04] VITALS: BP 121/65
[2018-10-31] MEDS: LEVOTHYROXINE 25 MCG (LEVOTHROID) TAB PO SCH (20:31)
[2018-10-31] MEDS: ASPIRIN E.C. 81 MG (ECOTRIN) TAB PO SCH (20:31)
[2018-10-31] MEDS: lamoTRIgine 25 MG (LaMICtal) TAB PO SCH (20:31)
[2018-10-31] MEDS: CLOPIDOGREL 75 MG (PLAVIX) TABLET PO SCH (20:31)
[2018-10-31] MEDS: VITAMIN D3 1,000 UNITS (CHOLECALCIFEROL) TABLET PO SCH (20:31)
[2018-10-31] MEDS: MELATONIN 3 MG TABLET PO SCH (20:32)
[2018-10-31] MEDS: ACETAMINOPHEN 325 MG TABLET PO PRN (21:40)
[2018-11-01 04:54] LABS: BASOPHILS % (AUTO) 0 % (0-10); EOSINOPHILS # (AUTO) 0.2 10^3/uL (0.0-0.3); EOSINOPHILS % (AUTO) 3 % (0-10); HEMATOCRIT 35 % (35-52); HEMOGLOBIN 10.9 G/DL (11.5-16.0); LYMPHOCYTES # (AUTO) 2.5 X 10^3 (1.0-4.0); LYMPHOCYTES % (AUTO) 40 % (12-44); MEAN CORPUSCULAR HEMOGLOBIN 29 PG (25-34); MEAN CORPUSCULAR HGB CONC 32 G/DL (32-36); MEAN CORPUSCULAR VOLUME 93 FL (80-99); MEAN PLATELET VOLUME 11.1 FL (7.4-10.4); MONOCYTES # (AUTO) 0.9 X 10^3 (0.0-1.0); MONOCYTES % (AUTO) 14 % (0-12); NEUTROPHILS # (AUTO) 2.7 X 10^3 (1.8-7.8); NEUTROPHILS % (AUTO) 42 % (42-75); PLATELET COUNT 206 10^3/uL (130-400); WHITE BLOOD COUNT 6.3 10^3/uL (4.3-11.0)
[2018-11-01 05:49] LABS: ALBUMIN 3.7 GM/DL (3.2-4.5); BILIRUBIN,TOTAL 0.3 MG/DL (0.1-1.0); CREATININE SERUM 1.15 MG/DL (0.60-1.30); POTASSIUM 4.3 MMOL/L (3.6-5.0)
[2018-11-01 06:20] VITALS: BP 123/60
[2018-11-01] MEDS: MULTIVIT W/MINERALS TAB (THERAGRAN M) PO SCH (06:32)
[2018-11-01] MEDS: RT-ALBUTEROL SULF 2.5 MG/3 ML PRE-MIX VIAL INH SCH ×2 (06:43→18:49)
[2018-11-01] MEDS: OXYBUTYNIN (DITROPAN) 5 MG TAB PO SCH (08:37)
[2018-11-01] MEDS: ASCORBIC ACID (VIT C) 500 MG TABLET PO SCH (08:37)
[2018-11-01] MEDS: PANTOPRAZOLE 40 MG (PROTONIX) TAB PO SCH (08:37)
--- NOTE | 2018-11-01 09:00 | NUR ---
PATIENT FEELS INCREASED LOWER EXTREMITY SWELLING AND JUSTIN HOSE APPLIED. BIOFREEZE BROUGHT IN BY DAUGHTER FOR USE OF ARTHRITIC AND JOINT PAIN.
--- NOTE | 2018-11-01 09:00 | NUR ---
STATES HAS BEEN HAVING HEADACHES WHEN GOES TO BED AT HS, BUT DENIES PAIN THIS AM.
--- NOTE | 2018-11-01 09:01 | PM&R Progress Note ---
Subjective This was a face to face visit with the patient. Date Seen by Provider: Nov 01, 2018 Time Seen by Provider: 08:20 Subjective/Events-last exam Patient was seen in her bathroom Patient has no significant issues Reports that she had edema in her ankles but I do not see any today but will initiate compression stockings Team meeting revealed her stiffness is improved Biofreeze use that family brought in JUSTIN hose are tolerated she also has a headache every night but blood pressure stable and incontinence is much improved Physical therapy reports minimal assistance and 150 feet walking but she does drag her left foot at times and is very fatigued at the end of the session Occupational Therapy reports minimal to moderate assistance with ADLs and not safe to be up on her own due to fall risk Will proceed on with assisted living discharged on Tuesday but they will have to evaluate the patient's capabilities before accepting back to [facility] in [place] Date Identified: Nov 01, 2018 Time Identified: 08:20 Medication Intervention: Edema of lower legs reported by the patient so will initiate JUSTIN hose Review of Systems Cardiovascular: Edema Neurological: Incoordination Objective Physician Exam Last Set of Vital Signs Vital Signs Date Time Temp Pulse Resp B/P (MAP) Pulse Ox O2 Delivery O2 Flow Rate FiO2 11/01/18 06:44 95 Room Air 11/01/18 06:20 97.7 60 18 123/60 (81) Capillary Refill : I&O Intake and Output 11/01/18 00:00 Intake Total 1050 ml Balance 1050 ml Intake Oral 1050 ml # Voids 8 # Bowel Movements 1 General: Alert, Oriented X3, Cooperative, Other (subtle poor recall) HEENT: Atraumatic, PERRLA, EOMI Neck: Supple, No JVD, No Thyromegaly, +2 Carotid Pulse No Bruit Lungs: Clear to Auscultation, Normal Air Movement Heart: Regular Rate, Normal S1, Normal S2 Abdomen: Normal Bowel Sounds, Soft Extremities: No Clubbing, No Cyanosis Skin: No Rashes, No Breakdown Neuro: Normal Tone, Sensation Intact, Cranial Nerves 3-12 NL, Reflexes 2+, Other (global weakness, gait disturbance noted) Psych/Mental Status: Mental Status NL, Mood NL, Other (subtle confusion at times) Results Lab Data Laboratory Tests 11/01/18 04:30: White Blood Count 6.3, Red Blood Count 3.73L, Hemoglobin 10.9L, Hematocrit 35, Mean Corpuscular Volume 93, Mean Corpuscular Hemoglobin 29, Mean Corpuscular Hemoglobin Concent 32, Red Cell Distribution Width 13.0, Platelet Count 206, Mean Platelet Volume 11.1H, Neutrophils (%) (Auto) 42, Lymphocytes (%) (Auto) 40 , Monocytes (%) (Auto) 14H, Eosinophils (%) (Auto) 3, Basophils (%) (Auto) 0, Neutrophils # (Auto) 2.7, Lymphocytes # (Auto) 2.5, Monocytes # (Auto) 0.9, Eosinophils # (Auto) 0.2, Basophils # (Auto) 0.0, Sodium Level 137, Potassium Level 4.3, Chloride Level 104, Carbon Dioxide Level 23, Anion Gap 10, Blood Urea Nitrogen 24H, Creatinine 1.15, Estimat Glomerular Filtration Rate 45, BUN/ Creatinine Ratio 21, Glucose Level 89, Calcium Level 9.0, Corrected Calcium 9.2 , Total Bilirubin 0.3, Aspartate Amino Transf (AST/SGOT) 24, Alanine Aminotransferase (ALT/SGPT) 9, Alkaline Phosphatase 54, Total Protein 7.0, Albumin 3.7 Current Funtional Status Continue aggressive treatment Recheck for discharge back to assisted living on Tuesday Maintain motivation to improve Assessment/Plan Assessment and Plan Assessment: Seth infarct History of CVA with subsequent seizure disorder and h/o bleed after tPA CAD previous stent placement Hypothyroidism Hypertension 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 Paroxysmal atrial fibrillation Dementia Depression History of small bowel resection partial History of left hip fracture repair with subsequent nerve damage making ambulation difficult GERD Urge incontinence Muscle pain reported will check CPK and hold statin now improved since stopping Crackles in left lower lobe with subtle cough will initiate albuterol neb treatment twice a day and incentive spirometer now resolved Edema reported by the patient so will initiate JUSTIN hose Plan: Continue current meds Start statin therapy Maintain on Plavix Appreciate cardiology due to history of paroxysmal atrial fibrillation but possible bleeding side effect from anticoagulation Continue therapies per protocol Hold statin for muscle pain Albuterol neb treatment twice a day Incentive spirometer for crackles in the left lower lobe but resolved (1) CVA (cerebral vascular accident) Qualifiers: Qualified Codes: I63.9 - Cerebral infarction, unspecified Status: Acute (2) History of CVA (cerebrovascular accident) Status: Chronic (3) Seizure disorder Status: Chronic (4) CAD (coronary artery disease) Qualifiers: Qualified Codes: I25.10 - Atherosclerotic heart disease of [place] coronary artery without angina pectoris Status: Chronic (5) Hypothyroidism Qualifiers: Qualified Codes: E03.9 - Hypothyroidism, unspecified Status: Chronic (6) Paroxysmal atrial fibrillation Status: Chronic (7) History of coronary artery stent placement Status: Chronic (8) Hypertension Qualifiers: Qualified Codes: I10 - Essential (primary) hypertension Status: Chronic (9) Hyperlipidemia Qualifiers: Qualified Codes: E78.2 - Mixed hyperlipidemia Status: Chronic (10) Urge incontinence Status: Chronic (11) History of hip fracture Status: Chronic (12) Depression Qualifiers: Qualified Codes: F32.9 - Major depressive disorder, single episode, unspecified Status: Chronic (13) Vascular dementia Qualifiers: Qualified Codes: F01.50 - Vascular dementia without behavioral disturbance Status: Chronic (14) Incontinence Qualifiers: Qualified Codes: R32 - Unspecified urinary incontinence Status: Chronic (15) Myositis Qualifiers: Qualified Codes: M60.9 - Myositis, unspecified Status: Acute (16) Left knee pain Qualifiers: Qualified Codes: M25.562 - Pain in left knee (17) Cough Status: Acute (18) Lung crackles Status: Acute Co-Morbidities that are continuing to impact the rehab process: (include details ) ERIC PORTILLO DO Nov 01, 2018 09:01
--- NOTE | 2018-11-01 09:05 | Occupational Ther Daily Note ---
OT Current Status-Daily Note Subjective Pt alert, lying in bed. Pt stated that she just didn't feel well. Did agree to therapy. When pt got up and moving felt better. C/o swelling in feet. Pt reported to physician, ordered knee high JUSTIN hose. Mental Status/Objective Patient Orientation: Person, Place, Time, Situation Therapy Code Descriptions/Definitions Functional [place] Measure: 0=Not Assessed/NA 4=Minimal Assistance 1=Total Assistance 5=Supervision or Setup 2=Maximal Assistance 6=Modified [place] 3=Moderate Assistance 7=Complete [place] ADL-Treatment Declined shower today. Supine to EOB using slightly raised HOB and bedrails, mod I. CGA for stand pivot transfer from bed to w/c. Retrieves clothing at w/ c level. Pt maneuvered w/c to bathroom to complete grooming. Assist to position w/c for toilet transfer, min A. Pt completed sponge bath sitting on BSC. CGA in standing to hike pants down, min A to hike pants up. Pt used dressing stick to doff socks, assist to don socks and shoes. Assist to don JUSTIN hose. Pt ties shoes. Dressing stick used to doff/don briefs, min A for support to hike over hips in standing. Pt donned pants over R foot and assist needed with L then min A to stabilize standing while pt hike pants over hips. Mod I for grooming. Pt educated on alternative techniques to open packages and containers, demonstrated understanding. Pt takes increased time to complete ADLs. After therapy, pt sitting in recliner eating breakfast. Call light/ phone in reach. All needs met in room. Therapy Code Descriptions/Definitions Functional [place] Measure: 0=Not Assessed/NA 4=Minimal Assistance 1=Total Assistance 5=Supervision or Setup 2=Maximal Assistance 6=Modified [place] 3=Moderate Assistance 7=Complete [place] Therapy Quality Codes: 6 Independent with activity with or without an assistive device 5 Patient requires set up or clean up by helper. Patient completes activity by themselves 4 Supervision or touching assist (CGA). Luther provide cues , steadying assist 3 The helper provides less than half the effort to complete the activity 2 The helper provides more than half the effort to complete the activity 1 Dependent. The helper does all the effort to complete an activity 7 Patient refused to complete or attempt activity 9 The patient did not perform the activity before the current illness or injury 88 Not attempted due to Medical conditions or safety concerns Eating (FIM): 5 Eating (QC): 5 Grooming (FIM): 6 Oral Hygiene (QC): 6 Upper Body (FIM): 6 Upper Body Dressing (QC): 6 Lower Body Dressing (FIM): 4 Lower Body Dressing (QC): 3 On/Off Footwear (QC): 3 Toileting (FIM): 4 Toileting Hygiene (QC): 3 Toilet/Commode Transfer (FIM): 4 Toilet Transfer (QC): 3 Education OT Patient Education: Modified ADL techniques, Use of adapted equipment Teaching Recipient: Patient Teaching Methods: Demonstration, Discussion Response to Teaching: Verbalize Understanding, Return Demonstration OT Short Term Goals Short Term Goals Time Frame: Oct 27, 2018 Bathing(FIM): 4 Upper Body Dressing(FIM): 5 Lower Body Dressing(FIM): 5 Toileting(FIM): 5 Transfers (B,C,W/C) (FIM): 4 Toilet/Commode Transfer(FIM): 5 1=Demonstrate adherence to instructed precautions during ADL tasks. 2=Patient will verbalize/demonstrate understanding of assistive devices/ modifications for ADL. 3=Patient will improve strength/tolerance for activity to enable patient to perform ADL's. OT Glove Turner And Former Goals Glove Turner And Former Goals Time Frame: Nov 10, 2018 Eating (FIM): 6 Eating (QC): 6 Groomin Oral Hygiene (QC): 6 Bathing(FIM): 5 Shower/Bathe Self (QC): 5 Upper Body Dressing(FIM): 6 Upper Body Dressing (QC): 6 Lower Body Dressing(FIM): 6 Lower Body Dressing (QC): 6 On/Off Footwear (QC): 6 Toileting(FIM): 6 Toileting Hygiene (QC): 6 Toilet/Commode Transfer(FIM): 6 Toilet/Commode Transfer (QC): 6 Shower Transfer(FIM): 5 Additional Goals: 1-Demonstrate ADL Tasks, 2-Verbalize Understanding, 3- ImproveStrength/Ramila 1=Demonstrate adherence to instructed precautions during ADL tasks. 2=Patient will verbalize/demonstrate understanding of assistive devices/ modifications for ADL. 3=Patient will improve strength/tolerance for activity to enable patient to perform ADL's. OT Education/Plan Problem List/Assessment Pt demonstrates decreased ADL functioning, strength, transfers, and activity tolerance. Pt to benefit from skilled OT intervention for ADL training, transfers, strengthening, and safety education to increase functional independence and allow safe discharge plan. Discharge Recommendations Plan/Recommendations: Continue POC Treatment Plan/Plan of Care Patient would benefit from OT for education, treatment and training to promote independence in ADL's, mobility, safety and/or upper extremity function for ADL' s. Plan of Care: ADL Retraining, Functional Mobility, Group Exercise/Act as Ind, UE Funct Exercise/Act Treatment Duration: Nov 10, 2018 Frequency: At least 5 of 7 days/Wk (IRF) Estimated Hrs Per Day: 1.5 hours per day Agreement: Yes Rehab Potential: Fair Time/GCodes Start Time: 08:00 Stop Time: 09:15 Total Time Billed (hr/min): 75 Billed Treatment Time 1 visit-ADL 5 (75 min) MATILDA ABRAHAM Nov 01, 2018 09:05
[2018-11-01] MEDS: amLODIPine 10 MG (NORVASC) TAB PO SCH (10:07)
[2018-11-01] MEDS: SALINE NASAL SPRAY (OCEAN) 45 ML BTL SCH ×3 (10:07→20:13)
--- NOTE | 2018-11-01 11:25 | Physical Therapy Daily Note ---
PT Daily Note-Current Subjective Pt sitting in recliner upon arrival. Pt agrees to PT. Pt reports not wanting to use AFO b/c it is uncomfortable to wear with either pair of shoes. Pt advises when discharged, will have resized. Mental Status Patient Orientation: Person, Place, Situation Attachments: Other-See Comments (AFO for L foot (not used)) Transfers Therapy Code Descriptions/Definitions Functional [place] Measure: 0=Not Assessed/NA 4=Minimal Assistance 1=Total Assistance 5=Supervision or Setup 2=Maximal Assistance 6=Modified [place] 3=Moderate Assistance 7=Complete [place] Therapy Quality Codes: 6 Independent with activity with or without an assistive device 5 Patient requires set up or clean up by helper. Patient completes activity by themselves 4 Supervision or touching assist ([facility]). Wilder provide cues , steadying assist 3 The helper provides less than half the effort to complete the activity 2 The helper provides more than half the effort to complete the activity 1 Dependent. The helper does all the effort to complete an activity 7 Patient refused to complete or attempt activity 9 The patient did not perform the activity before the current illness or injury 88 Not attempted due to Medical conditions or safety concerns Scootin Supine to/from Sit: 4 Sit to/from Stand: 4 Sit to Lying (QC): 4 Sit to Stand (QC): 4 Weight Bearing Right Lower Extremity: Right Full Weight Bearing Left Lower Extremity: Left Full Weight Bearing Gait Training Does the Patient Walk?: Yes Distance (FIM): 3=150 ft Distance: 150' Walk 10 feet (QC): 4 Walk 50 ft with 2 Turns(QC): 4 Walk 150 ft (QC): 4 Gait Level of Assist: 4 Gait Persons Needed: 1 Gait Assistive Device: FWW Pt needs VC for stride length increase, staying w/in the FWW as well as advancement of L foot during ambulation. Wheelchair Training Does the Pt Use a Wheelchair?: No Exercises NuStep Minutes: 15 NuStep Workload: 4 Treatments Pt transfers from recliner to standing using FWW at [facility]. Pt ambulates in hallway using FWW at [facility] and needing VC safety and sequencing. Pt uses NuStep for 15m at [facility] 4 followed by short rest. Pt ambulates in hallway to return to room. Pt transfers to Supine in bed needing SMUDGER's assistance to lift BLE into bed. Pt repositions in bed and resting at end of tx with all needs met. Assessment Current Status: Good Progress Pt still needs improved strength and activity tolerance to complete tasks. Pt also needs VC for safety and sequencing. PT Short Term Goals Short Term Goals Time Frame: Oct 27, 2018 Transfers (B,C,W/C) (FIM): 4 Gait (FIM): 2 Gait Distance Comment: 120' Gait Level of Assist: 4 Gait Assistive Device: FWW PT Nursing Home Goals Nursing Home Goals PT Waste Hand Goals Time Frame: Nov 10, 2018 Transfers (B,C,W/C) (FIM): 5 Sit to Lying (QC): 4 Lying-Sitting on Side/Bed(QC): 4 Sit to Stand (QC): 4 Rollin Roll Left to Right (QC): 4 Chair/Sno-hw-Ttnle Xfer(QC): 4 Car Transfer (QC): 4 Gait (FIM): 5 Distance: 150' Walk 10 feet (QC): 4 Walk 10ft-Uneven Surface(QC): 4 Walk 50ft with 2 Turns (QC): 4 Walk 150 ft (QC): 4 Gait Level of Assist: 5 Gait Assistive Device: FWW Stairs (FIM): 2 # of Steps: 4 1 Step (curb) (QC): 4 4 Steps (QC): 4 Stairs Level Of Assist: 4 PT Plan Problem List Problem List: Activity Tolerance, Functional Strength, Safety, Balance, Gait, Transfer Treatment/Plan Treatment Plan: Continue Plan of Care Treatment Plan: Bed Mobility, Education, Functional Activity Ramila, Functional Strength, Group Therapy, Gait, Safety, Therapeutic Exercise, Transfers Treatment Duration: Nov 10, 2018 Frequency: At least 5 of 7 days/Wk (IRF) Estimated Hrs Per Day: 1.5 hours per day Patient and/or Family Agrees t: Yes Safety Risks/Education Patient Education: Gait Training, Transfer Techniques, Safety Issues Teaching Recipient: Patient Teaching Methods: Discussion Response to Teaching: Verbalize Understanding Time/GCodes Time In: 1015 Time Out: 1115 Total Billed Treatment Time: 60 Total Billed Treatment 1, GT x2 (30m), EX (20m) & FA (10m) G Codes Necessary: YARELIS Colvin SMUDGER Nov 01, 2018 11:25
[2018-11-01] MEDS ORDERED: PATIENT MAY USE OWN MED,SINGLE MED PO SCH (13:00)
--- NOTE | 2018-11-01 13:28 | NUR ---
provided prayer and Communion.
--- NOTE | 2018-11-01 15:54 | Therapy Group Daily Note ---
Therapy Daily Group Note Patient Education Topic Other List Below Exercises LE Seated Exercise, UE Exercise Other/Notes Pt participated in group therapy with 4 to 1 ratio. Goals of Session: Understanding of modifications to daily items and environment for ease of use (met). Demonstrate ability to complete UE/LE seated exercises (met). Pt ambulated using FWW to [facility] for OT/PT group. Group consists of introductions (name, place living, [id number]), socialization, UE/LE seated exercises and education on modifications for items used daily. Pt able to introduce self appropriately and actively listened to peers. Pt able to roll dice using B UE for question to answer. Pt did acknowledge by nodding head and verbalizing understanding saying yes. Pt completed UE/LE seated exercises using B UE. Pt benefited from group by being able to modify items at home to assist with easier packaging operator and opening techniques as well as assisting ADLs. 5 words were picked out by pt's to remember next session (2, asteroids, carhop, spring, hopscotch). After group, pt lying in bed with call light/phone in reach. All needs met in room. Start Time: 13:00 Stop Time: 14:20 Total Billed Treatment Time: 80 Total Billed Treatment 1, YARELIS JENSEN BUSINESS COMMUNICATIONS INSTRUCTOR Nov 01, 2018 15:54
[2018-11-01 19:09] VITALS: BP 142/75
[2018-11-01] MEDS: VITAMIN D3 1,000 UNITS (CHOLECALCIFEROL) TABLET PO SCH (20:14)
[2018-11-01] MEDS: MELATONIN 3 MG TABLET PO SCH (20:14)
[2018-11-01] MEDS: ASPIRIN E.C. 81 MG (ECOTRIN) TAB PO SCH (20:14)
[2018-11-01] MEDS: CLOPIDOGREL 75 MG (PLAVIX) TABLET PO SCH (20:14)
[2018-11-01] MEDS: LEVOTHYROXINE 25 MCG (LEVOTHROID) TAB PO SCH (20:14)
[2018-11-01] MEDS: lamoTRIgine 25 MG (LaMICtal) TAB PO SCH (20:14)
[2018-11-01] MEDS: ACETAMINOPHEN 325 MG TABLET PO PRN (21:14)
[2018-11-02] MEDS: ACETAMINOPHEN 325 MG TABLET PO PRN ×2 (01:25→23:27)
[2018-11-02 05:35] VITALS: BP 130/61
[2018-11-02] MEDS: RT-ALBUTEROL SULF 2.5 MG/3 ML PRE-MIX VIAL INH SCH ×2 (07:42→19:21)
[2018-11-02 08:41] VITALS: BP 151/83
[2018-11-02] MEDS: amLODIPine 10 MG (NORVASC) TAB PO SCH (08:42)
[2018-11-02] MEDS: ASCORBIC ACID (VIT C) 500 MG TABLET PO SCH (08:42)
[2018-11-02] MEDS: PANTOPRAZOLE 40 MG (PROTONIX) TAB PO SCH (08:42)
[2018-11-02] MEDS: OXYBUTYNIN (DITROPAN) 5 MG TAB PO SCH (08:42)
[2018-11-02] MEDS: MULTIVIT W/MINERALS TAB (THERAGRAN M) PO SCH (08:42)
[2018-11-02] MEDS: SALINE NASAL SPRAY (OCEAN) 45 ML BTL SCH ×3 (08:43→20:34)
--- NOTE | 2018-11-02 08:49 | PM&R Progress Note ---
Subjective HPI/CC On Admission Date Seen by Provider: Nov 02, 2018 Time Seen by Provider: 08:15 Subjective/Events-last exam Patient doing well and working through her stiffness with the therapist Denies any pain Bowels are moving well Eating and drinking well Still working on fall risk and mobility Participating in all therapies Review of Systems Neurological: Weakness, Incoordination Objective Exam Vital Signs Vital Signs Date Time Temp Pulse Resp B/P (MAP) Pulse Ox O2 Delivery O2 Flow Rate FiO2 11/02/18 21:39 Room Air 11/02/18 19:22 95 11/02/18 17:58 98.0 66 18 151/86 (107) Capillary Refill : General Appearance: No Apparent Distress, WD/WN, Chronically ill Respiratory: Chest Non Tender, Lungs Clear, Normal Breath Sounds, No Accessory Muscle Use, No Respiratory Distress Cardiovascular: Regular Rate, Rhythm, No Edema, No Gallop, No JVD, No Murmur, Normal Peripheral Pulses Neurologic/Psychiatric: Alert, Oriented x3, No Motor/Sensory Deficits, Normal Mood/Affect Results/Procedures Lab Patient resulted labs reviewed. 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 Paroxysmal atrial fibrillation Dementia Depression History of small bowel resection partial History of left hip fracture repair with subsequent nerve damage making ambulation difficult GERD Urge incontinence Muscle pain reported will check CPK and hold statin now improved since stopping Crackles in left lower lobe with subtle cough will initiate albuterol neb treatment twice a day and incentive spirometer now resolved Plan: Continue current meds Stop statin therapy due to muscle pain Maintain on Plavix Appreciate cardiology due to history of paroxysmal atrial fibrillation but possible bleeding side effect from anticoagulation Continue therapies per protocol Hold statin for muscle pain Albuterol neb treatment twice a day Incentive spirometer for crackles in the left lower lobe but resolved Patient requires close monitoring in inpatient rehab setting due to cognitive deficits from the stroke with difficulty communicating and a fall risk. Also will monitor for urinary and bowel function due to history of both organ systems ' dysfunction. Monitor blood pressure closely due to history of stroke subacute along with 2 prior strokes Close monitoring for recurrent seizure since history of seizure after her last stroke Cardiology consultation to decide if additional anticoagulation is needed to prevent subsequent strokes Diagnosis/Problems Diagnosis/Problems (1) CVA (cerebral vascular accident) Status: Acute Qualifiers: CVA mechanism: unspecified Qualified Codes: I63.9 - Cerebral infarction, unspecified (2) History of CVA (cerebrovascular accident) Status: Chronic (3) Seizure disorder Status: Chronic (4) CAD (coronary artery disease) Status: Chronic Qualifiers: Coronary Disease-Associated Artery/Lesion type: [place] artery [place] vs. transplanted heart: [place] heart Associated angina: without angina Qualified Codes: I25.10 - Atherosclerotic heart disease of [place] coronary artery without angina pectoris (5) Hypothyroidism Status: Chronic Qualifiers: Hypothyroidism type: acquired Qualified Codes: E03.9 - Hypothyroidism, unspecified (6) Paroxysmal atrial fibrillation Status: Chronic (7) History of coronary artery stent placement Status: Chronic (8) Hypertension Status: Chronic Qualifiers: Hypertension type: essential hypertension Qualified Codes: I10 - Essential (primary) hypertension (9) Hyperlipidemia Status: Chronic Qualifiers: Hyperlipidemia type: mixed hyperlipidemia Qualified Codes: E78.2 - Mixed hyperlipidemia (10) Urge incontinence Status: Chronic (11) History of hip fracture Status: Chronic (12) Depression Status: Chronic Qualifiers: Depression Type: unspecified Qualified Codes: F32.9 - Major depressive disorder, single episode, unspecified (13) Vascular dementia Status: Chronic Qualifiers: Dementia behavioral disturbance: without behavioral disturbance Qualified Codes: F01.50 - Vascular dementia without behavioral disturbance (14) Incontinence Status: Chronic Qualifiers: Incontinence type: urinary Urinary Incontinence type: unspecified incontinence Qualified Codes: R32 - Unspecified urinary incontinence (15) Myositis Status: Acute Qualifiers: Myositis type: unspecified type Myositis location: unspecified site Qualified Codes: M60.9 - Myositis, unspecified (16) Left knee pain Qualifiers: Chronicity: acute Qualified Codes: M25.562 - Pain in left knee (17) Cough Status: Acute (18) Lung crackles Status: Acute Assessment & Plan: [facility] Clinical Quality Measures Admission Status Admission Dx Assessment: Seth infarct History of CVA with subsequent seizure disorder CAD previous stent placement Hypothyroidism Hypertension 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 Also will monitor for urinary and bowel function due to history of both organ systems ' dysfunction. Monitor blood pressure closely due to history of stroke subacute along with 2 prior strokes Close monitoring for recurrent seizure since history of seizure after her last stroke Cardiology consultation to decide if additional anticoagulation is needed to prevent subsequent strokes DVT/VTE Risk/Contraindication: Risk Factor Score Per Nursin RFS Level Per Nursing on Admit: 2=Moderate ERIC PORTILLO DO Nov 02, 2018 08:49
--- NOTE | 2018-11-02 08:58 | Occupational Ther Daily Note ---
OT Current Status-Daily Note Subjective Pt alert, sitting on EOB initiating donning clothing. Pt agrees to therapy. No c/o pain. Mental Status/Objective Patient Orientation: Person, Place, Time, Situation Therapy Code Descriptions/Definitions Functional [place] Measure: 0=Not Assessed/NA 4=Minimal Assistance 1=Total Assistance 5=Supervision or Setup 2=Maximal Assistance 6=Modified [place] 3=Moderate Assistance 7=Complete [place] ADL-Treatment Pt declines shower today. Pt had already had clothing on bed and cleansing clothes so pt had initiated sponge bath and dressing. Pt takes increased time to complete daily tasks. After therapy, pt sitting in w/c with call light/ phone in reach. All needs met in room. Therapy Code Descriptions/Definitions Functional [place] Measure: 0=Not Assessed/NA 4=Minimal Assistance 1=Total Assistance 5=Supervision or Setup 2=Maximal Assistance 6=Modified [place] 3=Moderate Assistance 7=Complete [place] Therapy Quality Codes: 6 Independent with activity with or without an assistive device 5 Patient requires set up or clean up by helper. Patient completes activity by themselves 4 Supervision or touching assist (CGA). [place] provide cues , steadying assist 3 The helper provides less than half the effort to complete the activity 2 The helper provides more than half the effort to complete the activity 1 Dependent. The helper does all the effort to complete an activity 7 Patient refused to complete or attempt activity 9 The patient did not perform the activity before the current illness or injury 88 Not attempted due to Medical conditions or safety concerns Eating (FIM): 6 Eating (QC): 6 Grooming (FIM): 6 (Sitting in w/c, pt able to complete by self.) Oral Hygiene (QC): 6 Upper Body (FIM): 6 (Pt able to complete upper body dressing by self.) Upper Body Dressing (QC): 6 Lower Body Dressing (FIM): 3 (Pt able to complete donning/doffing pants and briefs with min A in standing for balance while pt hikes pants. Due to JUSTIN hose and AFO, pt requires increased assistance with footwear.) Lower Body Dressing (QC): 3 Other Treatment Pt required prolonged stretch of heel cords and massage to decreased tightness to allow pt's foot to tolerate using AFO. OT Short Term Goals Short Term Goals Time Frame: Oct 27, 2018 Bathing(FIM): 4 Upper Body Dressing(FIM): 5 Lower Body Dressing(FIM): 5 Toileting(FIM): 5 Transfers (B,C,W/C) (FIM): 4 Toilet/Commode Transfer(FIM): 5 1=Demonstrate adherence to instructed precautions during ADL tasks. 2=Patient will verbalize/demonstrate understanding of assistive devices/ modifications for ADL. 3=Patient will improve strength/tolerance for activity to enable patient to perform ADL's. OT Chcf Goals Rotary Engraver Goals Time Frame: Nov 10, 2018 Eating (FIM): 6 Eating (QC): 6 Groomin Oral Hygiene (QC): 6 Bathing(FIM): 5 Shower/Bathe Self (QC): 5 Upper Body Dressing(FIM): 6 Upper Body Dressing (QC): 6 Lower Body Dressing(FIM): 6 Lower Body Dressing (QC): 6 On/Off Footwear (QC): 6 Toileting(FIM): 6 Toileting Hygiene (QC): 6 Toilet/Commode Transfer(FIM): 6 Toilet/Commode Transfer (QC): 6 Shower Transfer(FIM): 5 Additional Goals: 1-Demonstrate ADL Tasks, 2-Verbalize Understanding, 3- ImproveStrength/Ramila 1=Demonstrate adherence to instructed precautions during ADL tasks. 2=Patient will verbalize/demonstrate understanding of assistive devices/ modifications for ADL. 3=Patient will improve strength/tolerance for activity to enable patient to perform ADL's. OT Education/Plan Problem List/Assessment Pt demonstrates decreased ADL functioning, strength, transfers, and activity tolerance. Pt to benefit from skilled OT intervention for ADL training, transfers, strengthening, and safety education to increase functional independence and allow safe discharge plan. Discharge Recommendations Plan/Recommendations: Continue POC Treatment Plan/Plan of Care Patient would benefit from OT for education, treatment and training to promote independence in ADL's, mobility, safety and/or upper extremity function for ADL' s. Plan of Care: ADL Retraining, Functional Mobility, Group Exercise/Act as Ind, UE Funct Exercise/Act Treatment Duration: Nov 10, 2018 Frequency: At least 5 of 7 days/Wk (IRF) Estimated Hrs Per Day: 1.5 hours per day Agreement: Yes Rehab Potential: Fair Time/GCodes Start Time: 08:00 Stop Time: 09:00 Total Time Billed (hr/min): 60 Billed Treatment Time 1 visit-ADL 3 (50 min) FA 1 (10 min) MATILDA ABRAHAM Nov 02, 2018 08:58
--- NOTE | 2018-11-02 10:12 | NUR ---
Weekly team conference Reviewed weekly team conference with patient. Plan is for [facility] to evaluate patient next 10/28/18, with tentative discharge planned for later that week. Patient is agreeable to plan. Left a message at [facility] notifying them of plan.
--- NOTE | 2018-11-02 11:03 | Physical Therapy Daily Note ---
PT Daily Note-Current Subjective Pt sitting in W/C in restroom upon arrival. Pt agrees to PT. Mental Status Patient Orientation: Person, Confused, Place Attachments: Other-See Comments (AFO for L foot ) Transfers Therapy Code Descriptions/Definitions Functional [place] Measure: 0=Not Assessed/NA 4=Minimal Assistance 1=Total Assistance 5=Supervision or Setup 2=Maximal Assistance 6=Modified [place] 3=Moderate Assistance 7=Complete [place] Therapy Quality Codes: 6 Independent with activity with or without an assistive device 5 Patient requires set up or clean up by helper. Patient completes activity by themselves 4 Supervision or touching assist ([facility]). [place] provide cues , steadying assist 3 The helper provides less than half the effort to complete the activity 2 The helper provides more than half the effort to complete the activity 1 Dependent. The helper does all the effort to complete an activity 7 Patient refused to complete or attempt activity 9 The patient did not perform the activity before the current illness or injury 88 Not attempted due to Medical conditions or safety concerns Scootin Rollin Supine to/from Sit: 5 Sit to/from Stand: 4 Sit to Lying (QC): 4 Sit to Stand (QC): 4 Weight Bearing Right Lower Extremity: Right Full Weight Bearing Left Lower Extremity: Left Full Weight Bearing Gait Training Does the Patient Walk?: Yes Distance (FIM): 3=150 ft Distance: 150' Walk 10 feet (QC): 4 Walk 50 ft with 2 Turns(QC): 4 Walk 150 ft (QC): 4 Gait Level of Assist: 4 Gait Persons Needed: 1 Gait Assistive Device: FWW Pt needs VC for increasing stride length & PEDRITO. Pt's amna is slow. Exercises NuStep Minutes: 15 NuStep Workload: 4 Treatments Pt transfers from [facility] to standing using FWW at [facility]. Pt ambulates in hallway using FWW at [facility] for safety and VC for ambulation. Pt uses NuStep for 15m at 4. After short rest break, pt ambulates back to room to rest in bed. PRINCIPAL LAW CLERK assists lifting BLE into bed. Pt is Supine in bed with all needs met. Assessment Current Status: Good Progress Pt is confused at times and needs VC for safety while ambulating. PT Short Term Goals Short Term Goals Time Frame: Oct 27, 2018 Transfers (B,C,W/C) (FIM): 4 Gait (FIM): 2 Gait Distance Comment: 120' Gait Level of Assist: 4 Gait Assistive Device: FWW PT Recruiter Specialist Goals Recruiter Specialist Goals PT Recruiter Specialist Goals Time Frame: Nov 10, 2018 Transfers (B,C,W/C) (FIM): 5 Sit to Lying (QC): 4 Lying-Sitting on Side/Bed(QC): 4 Sit to Stand (QC): 4 Rollin Roll Left to Right (QC): 4 Chair/Kjw-ur-Ycyfp Xfer(QC): 4 Car Transfer (QC): 4 Gait (FIM): 5 Distance: 150' Walk 10 feet (QC): 4 Walk 10ft-Uneven Surface(QC): 4 Walk 50ft with 2 Turns (QC): 4 Walk 150 ft (QC): 4 Gait Level of Assist: 5 Gait Assistive Device: FWW Stairs (FIM): 2 # of Steps: 4 1 Step (curb) (QC): 4 4 Steps (QC): 4 Stairs Level Of Assist: 4 PT Plan Problem List Problem List: Activity Tolerance, Functional Strength, Safety, Gait Treatment/Plan Treatment Plan: Continue Plan of Care Treatment Plan: Bed Mobility, Education, Functional Activity Ramila, Functional Strength, Group Therapy, Gait, Safety, Therapeutic Exercise, Transfers Treatment Duration: Nov 10, 2018 Frequency: At least 5 of 7 days/Wk (IRF) Estimated Hrs Per Day: 1.5 hours per day Patient and/or Family Agrees t: Yes Safety Risks/Education Patient Education: Gait Training, Transfer Techniques, Correct Positioning, Safety Issues Teaching Recipient: Patient Teaching Methods: Discussion Response to Teaching: Reinforcement Needed Time/GCodes Time In: 900 Time Out: 1000 Total Billed Treatment Time: 60 Total Billed Treatment 1, FA (15m), GT x2 (25m) & EX (20m) G Codes Necessary: YARELIS Colvin PRINCIPAL LAW CLERK Nov 02, 2018 11:03
--- NOTE | 2018-11-02 13:07 | NUR ---
provided prayer and Communion.
--- NOTE | 2018-11-02 13:59 | Occupational Ther Daily Note ---
OT Current Status-Daily Note Subjective Pt alert, just finished up with PT. Pt agrees to therapy. No c/o pain at this time. Mental Status/Objective Patient Orientation: Person, Place, Time, Situation Therapy Code Descriptions/Definitions Functional [place] Measure: 0=Not Assessed/NA 4=Minimal Assistance 1=Total Assistance 5=Supervision or Setup 2=Maximal Assistance 6=Modified [place] 3=Moderate Assistance 7=Complete [place] ADL-Treatment Therapy Code Descriptions/Definitions Functional [place] Measure: 0=Not Assessed/NA 4=Minimal Assistance 1=Total Assistance 5=Supervision or Setup 2=Maximal Assistance 6=Modified [place] 3=Moderate Assistance 7=Complete [place] Therapy Quality Codes: 6 Independent with activity with or without an assistive device 5 Patient requires set up or clean up by helper. Patient completes activity by themselves 4 Supervision or touching assist (CGA). [place] provide cues , steadying assist 3 The helper provides less than half the effort to complete the activity 2 The helper provides more than half the effort to complete the activity 1 Dependent. The helper does all the effort to complete an activity 7 Patient refused to complete or attempt activity 9 The patient did not perform the activity before the current illness or injury 88 Not attempted due to Medical conditions or safety concerns Eating (FIM): 5 (Assist to open mustard package. Pt able to complete all other set up and use regular utensils to eat.) Eating (QC): 5 Other Treatment Massage and MHP to increase AROM and decrease tone of L foot to allow increased mobility for ease of donning AFO and shoe. After therapy, pt lying in bed with call light/phone in reach. All needs met in room. OT Short Term Goals Short Term Goals Time Frame: Oct 27, 2018 Bathing(FIM): 4 Upper Body Dressing(FIM): 5 Lower Body Dressing(FIM): 5 Toileting(FIM): 5 Transfers (B,C,W/C) (FIM): 4 Toilet/Commode Transfer(FIM): 5 1=Demonstrate adherence to instructed precautions during ADL tasks. 2=Patient will verbalize/demonstrate understanding of assistive devices/ modifications for ADL. 3=Patient will improve strength/tolerance for activity to enable patient to perform ADL's. OT Piggery Worker Goals Chcf Goals Time Frame: Nov 10, 2018 Eating (FIM): 6 Eating (QC): 6 Groomin Oral Hygiene (QC): 6 Bathing(FIM): 5 Shower/Bathe Self (QC): 5 Upper Body Dressing(FIM): 6 Upper Body Dressing (QC): 6 Lower Body Dressing(FIM): 6 Lower Body Dressing (QC): 6 On/Off Footwear (QC): 6 Toileting(FIM): 6 Toileting Hygiene (QC): 6 Toilet/Commode Transfer(FIM): 6 Toilet/Commode Transfer (QC): 6 Shower Transfer(FIM): 5 Additional Goals: 1-Demonstrate ADL Tasks, 2-Verbalize Understanding, 3- ImproveStrength/Ramila 1=Demonstrate adherence to instructed precautions during ADL tasks. 2=Patient will verbalize/demonstrate understanding of assistive devices/ modifications for ADL. 3=Patient will improve strength/tolerance for activity to enable patient to perform ADL's. OT Education/Plan Problem List/Assessment Pt demonstrates decreased ADL functioning, strength, transfers, and activity tolerance. Pt to benefit from skilled OT intervention for ADL training, transfers, strengthening, and safety education to increase functional independence and allow safe discharge plan. Discharge Recommendations Plan/Recommendations: Continue POC Treatment Plan/Plan of Care Patient would benefit from OT for education, treatment and training to promote independence in ADL's, mobility, safety and/or upper extremity function for ADL' s. Plan of Care: ADL Retraining, Functional Mobility, Group Exercise/Act as Ind, UE Funct Exercise/Act Treatment Duration: Nov 10, 2018 Frequency: At least 5 of 7 days/Wk (IRF) Estimated Hrs Per Day: 1.5 hours per day Agreement: Yes Rehab Potential: Fair Time/GCodes Start Time: 13:30 Stop Time: 14:00 Total Time Billed (hr/min): 30 Billed Treatment Time 1 visit-ADL 1 (10 min) FA 1 (20 min) MATILDA ABRAHAM Nov 02, 2018 13:59
--- NOTE | 2018-11-02 14:05 | Physical Therapy Daily Note ---
PT Daily Note-Current Subjective Pt laying Supine in bed upon arrival. Pt agrees to PT for Supine Ex and LINEMARKER helps pt order lunch. Pain Location: No Pain Reported Mental Status Patient Orientation: Person, Confused, Place Attachments: Other-See Comments (AFO for L foot) Transfers Therapy Code Descriptions/Definitions Functional [place] Measure: 0=Not Assessed/NA 4=Minimal Assistance 1=Total Assistance 5=Supervision or Setup 2=Maximal Assistance 6=Modified [place] 3=Moderate Assistance 7=Complete [place] Therapy Quality Codes: 6 Independent with activity with or without an assistive device 5 Patient requires set up or clean up by helper. Patient completes activity by themselves 4 Supervision or touching assist (CGA). [place] provide cues , steadying assist 3 The helper provides less than half the effort to complete the activity 2 The helper provides more than half the effort to complete the activity 1 Dependent. The helper does all the effort to complete an activity 7 Patient refused to complete or attempt activity 9 The patient did not perform the activity before the current illness or injury 88 Not attempted due to Medical conditions or safety concerns Weight Bearing Right Lower Extremity: Right Full Weight Bearing Left Lower Extremity: Left Full Weight Bearing Exercises Supine Ex: Ankle pumps, Quad Set, Glut sets, Heel Slides, Straight leg raise, Hip abd/add Supine Reps: 15 (2 sets) Treatments Pt completes Supine Ex in bed with several short rest breaks. Pt resting in bed for upcoming OT tx. Pt has all needs met. Assessment Current Status: Good Progress Pt fatigues easily. Pt takes rest breaks as needed. PT Short Term Goals Short Term Goals Time Frame: Oct 27, 2018 Transfers (B,C,W/C) (FIM): 4 Gait (FIM): 2 Gait Distance Comment: 120' Gait Level of Assist: 4 Gait Assistive Device: FWW PT Care Home Goals Anodic Operator Goals PT Care Home Goals Time Frame: Nov 10, 2018 Transfers (B,C,W/C) (FIM): 5 Sit to Lying (QC): 4 Lying-Sitting on Side/Bed(QC): 4 Sit to Stand (QC): 4 Rollin Roll Left to Right (QC): 4 Chair/Fti-ke-Fdxjx Xfer(QC): 4 Car Transfer (QC): 4 Gait (FIM): 5 Distance: 150' Walk 10 feet (QC): 4 Walk 10ft-Uneven Surface(QC): 4 Walk 50ft with 2 Turns (QC): 4 Walk 150 ft (QC): 4 Gait Level of Assist: 5 Gait Assistive Device: FWW Stairs (FIM): 2 # of Steps: 4 1 Step (curb) (QC): 4 4 Steps (QC): 4 Stairs Level Of Assist: 4 PT Plan Problem List Problem List: Activity Tolerance, Functional Strength, Safety, Balance, Gait Treatment/Plan Treatment Plan: Continue Plan of Care Treatment Plan: Bed Mobility, Education, Functional Activity Ramila, Functional Strength, Group Therapy, Gait, Safety, Therapeutic Exercise, Transfers Treatment Duration: Nov 10, 2018 Frequency: At least 5 of 7 days/Wk (IRF) Estimated Hrs Per Day: 1.5 hours per day Patient and/or Family Agrees t: Yes Safety Risks/Education Patient Education: Transfer Techniques, Correct Positioning, Safety Issues Teaching Recipient: Patient Teaching Methods: Discussion Response to Teaching: Verbalize Understanding Time/GCodes Time In: 1300 Time Out: 1330 Total Billed Treatment Time: 30 Total Billed Treatment 1, EX x2 (30m) YARELIS MENDIETA LINEMARKER Nov 02, 2018 14:05
[2018-11-02 17:58] VITALS: BP 151/86
[2018-11-02] MEDS: lamoTRIgine 25 MG (LaMICtal) TAB PO SCH (20:32)
[2018-11-02] MEDS: LEVOTHYROXINE 25 MCG (LEVOTHROID) TAB PO SCH (20:32)
[2018-11-02] MEDS: CLOPIDOGREL 75 MG (PLAVIX) TABLET PO SCH (20:32)
[2018-11-02] MEDS: MELATONIN 3 MG TABLET PO SCH (20:33)
[2018-11-02] MEDS: VITAMIN D3 1,000 UNITS (CHOLECALCIFEROL) TABLET PO SCH (20:33)
[2018-11-02] MEDS: ASPIRIN E.C. 81 MG (ECOTRIN) TAB PO SCH (20:33)
[2018-11-02] MEDS: BIOFREEZE GEL TOP PRN (20:34)
[2018-11-03 05:32] VITALS: BP 142/70
[2018-11-03] MEDS: RT-ALBUTEROL SULF 2.5 MG/3 ML PRE-MIX VIAL INH SCH (06:20)
--- NOTE | 2018-11-03 08:49 | Physical Therapy Daily Note ---
PT Daily Note-Current Subjective Pt. in bed upon arrival and states she is having trouble waking up. States she takes melatonin and goes to sleep about 1030pm. Feels she is making progress. Walks about 170 ft to the dining area at the the [facility] where she lives Pain Location: No Pain Reported Mental Status Patient Orientation: Normal For Age Transfers Therapy Code Descriptions/Definitions Functional [place] Measure: 0=Not Assessed/NA 4=Minimal Assistance 1=Total Assistance 5=Supervision or Setup 2=Maximal Assistance 6=Modified [place] 3=Moderate Assistance 7=Complete [place] Therapy Quality Codes: 6 Independent with activity with or without an assistive device 5 Patient requires set up or clean up by helper. Patient completes activity by themselves 4 Supervision or touching assist (CGA). [place] provide cues , steadying assist 3 The helper provides less than half the effort to complete the activity 2 The helper provides more than half the effort to complete the activity 1 Dependent. The helper does all the effort to complete an activity 7 Patient refused to complete or attempt activity 9 The patient did not perform the activity before the current illness or injury 88 Not attempted due to Medical conditions or safety concerns Transfers (B, C, W/C) (FIM): 5 Scootin Rollin Supine to/from Sit: 5 Sit to/from Stand: 5 pt. needs much time to scoot and roll and move to EOB, but is overall improved with regards to gait Weight Bearing Right Lower Extremity: Right Full Weight Bearing Left Lower Extremity: Left Full Weight Bearing Gait Training Does the Patient Walk?: Yes Gait (FIM): 4 Distance (FIM): 3=150 ft (175x2, 30) Gait Level of Assist: 4 Gait Persons Needed: 1 Gait Assistive Device: FWW pt. needs instruction to increase PEDRITO and stay in safe position in FWW as well as increase step length and attempt to equalize steps. Pt. is improving on all these . Gait is overall improved and safer but still needs SBA to supervision Stair Training Stair Training: Handrails/: 2 handrails Stairs (FIM): 2 #of Steps: 4 Stairs: Pattern: Step to Level of Assist: 4 needed min assist and instruction in sequence on steps, has difficulty clearing the step, heel gets stuck on step as she descends Exercises Supine Ex: Bridging, Ankle pumps, Rolling, Heel Slides, Scooting, Straight leg raise, Hip abd/add Supine Reps: 15 Seated Therapy Exercises: Ankle pumps, Sit to stand, Long arc quads Seated Reps: 10 Assessment Current Status: Good Progress slow steady progress all phases of rx PT Short Term Goals Short Term Goals Time Frame: Oct 27, 2018 Transfers (B,C,W/C) (FIM): 4 Gait (FIM): 2 Gait Distance Comment: 120' Gait Level of Assist: 4 Gait Assistive Device: FWW PT [place] Ma[place] Goals [place] Goals PT Custodial Goals Time Frame: Nov 10, 2018 Transfers (B,C,W/C) (FIM): 5 Sit to Lying (QC): 4 Lying-Sitting on Side/Bed(QC): 4 Sit to Stand (QC): 4 Rollin Roll Left to Right (QC): 4 Chair/Kxo-xh-Ndpbz Xfer(QC): 4 Car Transfer (QC): 4 Gait (FIM): 5 Distance: 150' Walk 10 feet (QC): 4 Walk 10ft-Uneven Surface(QC): 4 Walk 50ft with 2 Turns (QC): 4 Walk 150 ft (QC): 4 Gait Level of Assist: 5 Gait Assistive Device: FWW Stairs (FIM): 2 # of Steps: 4 1 Step (curb) (QC): 4 4 Steps (QC): 4 Stairs Level Of Assist: 4 PT Plan Treatment/Plan Treatment Plan: Continue Plan of Care Treatment Plan: Bed Mobility, Education, Functional Activity Ramila, Functional Strength, Group Therapy, Gait, Safety, Therapeutic Exercise, Transfers Treatment Duration: Nov 10, 2018 Frequency: At least 5 of 7 days/Wk (IRF) Estimated Hrs Per Day: 1.5 hours per day Patient and/or Family Agrees t: Yes Safety Risks/Education Patient Education: Gait Training, Transfer Techniques, Steps, Correct Positioning, Disease Process, Safety Issues Teaching Recipient: Patient, Primary Caregiver Teaching Methods: Discussion Response to Teaching: Verbalize Understanding, Return Demonstration, Reinforcement Needed Time/GCodes Time In: 750 Time Out: 850 Total Billed Treatment Time: 60 Total Billed Treatment 1,FA25m,GT20m,EX15m G Codes Necessary: JODIE Givens AUTOMATED LOGISTICS SPECIALIST Nov 03, 2018 08:49
[2018-11-03 09:09] VITALS: BP 122/66
[2018-11-03] MEDS: PANTOPRAZOLE 40 MG (PROTONIX) TAB PO SCH (09:09)
[2018-11-03] MEDS: ASCORBIC ACID (VIT C) 500 MG TABLET PO SCH (09:09)
[2018-11-03] MEDS: amLODIPine 10 MG (NORVASC) TAB PO SCH (09:10)
[2018-11-03] MEDS: OXYBUTYNIN (DITROPAN) 5 MG TAB PO SCH (09:10)
[2018-11-03] MEDS: MULTIVIT W/MINERALS TAB (THERAGRAN M) PO SCH (09:10)
[2018-11-03] MEDS: SALINE NASAL SPRAY (OCEAN) 45 ML BTL SCH ×3 (09:18→20:21)
[2018-11-03] MEDS: POLYETHYLENE GLYCOL 17 GM (MIRALAX) PACK PO PRN (11:09)
--- NOTE | 2018-11-03 11:45 | PM&R Progress Note ---
Subjective This was a face to face visit with the patient. Date Seen by Provider: Nov 03, 2018 Time Seen by Provider: 09:00 Subjective/Events-last exam Patient was seen in her room in her chair Blood pressure monitor closely We will discontinue nebulizer treatment since crackles are gone No cough is reported Overall feels like she is improving day by day Denies any pain Compression stockings maintained Review of Systems General: Fatigue Neurological: Weakness Objective Physician Exam Last Set of Vital Signs Vital Signs Date Time Temp Pulse Resp B/P (MAP) Pulse Ox O2 Delivery O2 Flow Rate FiO2 11/03/18 09:09 64 122/66 (84) 11/03/18 09:00 Room Air 11/03/18 06:20 95 11/03/18 05:32 98.3 20 Capillary Refill : I&O Intake and Output 11/03/18 00:00 Intake Total 1420 ml Balance 1420 ml Intake Oral 1420 ml # Voids 5 # Bowel Movements 2 General: Alert, Oriented X3, Cooperative, Other (subtle poor recall) HEENT: Atraumatic, PERRLA, EOMI Neck: Supple, No JVD, No Thyromegaly, +2 Carotid Pulse No Bruit Lungs: Clear to Auscultation, Normal Air Movement Heart: Regular Rate, Normal S1, Normal S2 Abdomen: Normal Bowel Sounds, Soft Extremities: No Clubbing, No Cyanosis Skin: No Rashes, No Breakdown Neuro: Normal Tone, Sensation Intact, Cranial Nerves 3-12 NL, Reflexes 2+, Other (global weakness, gait disturbance noted) Psych/Mental Status: Mental Status NL, Mood NL, Other (subtle confusion at times) Results Lab Data Laboratory Tests 11/01/18 04:30: White Blood Count 6.3, Red Blood Count 3.73L, Hemoglobin 10.9L, Hematocrit 35, Mean Corpuscular Volume 93, Mean Corpuscular Hemoglobin 29, Mean Corpuscular Hemoglobin Concent 32, Red Cell Distribution Width 13.0, Platelet Count 206, Mean Platelet Volume 11.1H, Neutrophils (%) (Auto) 42, Lymphocytes (%) (Auto) 40 , Monocytes (%) (Auto) 14H, Eosinophils (%) (Auto) 3, Basophils (%) (Auto) 0, Neutrophils # (Auto) 2.7, Lymphocytes # (Auto) 2.5, Monocytes # (Auto) 0.9, Eosinophils # (Auto) 0.2, Basophils # (Auto) 0.0, Sodium Level 137, Potassium Level 4.3, Chloride Level 104, Carbon Dioxide Level 23, Anion Gap 10, Blood Urea Nitrogen 24H, Creatinine 1.15, Estimat Glomerular Filtration Rate 45, BUN/ Creatinine Ratio 21, Glucose Level 89, Calcium Level 9.0, Corrected Calcium 9.2 , Total Bilirubin 0.3, Aspartate Amino Transf (AST/SGOT) 24, Alanine Aminotransferase (ALT/SGPT) 9, Alkaline Phosphatase 54, Total Protein 7.0, Albumin 3.7 Current Funtional Status Maintain aggressive therapy Disposition back to assisted living in [place] next week Discontinue nebulizer treatments Continue incentive spirometer use Assessment/Plan Assessment and Plan (1) CVA (cerebral vascular accident) Qualifiers: Qualified Codes: I63.9 - Cerebral infarction, unspecified Status: Acute (2) History of CVA (cerebrovascular accident) Status: Chronic (3) Seizure disorder Status: Chronic (4) CAD (coronary artery disease) Qualifiers: Qualified Codes: I25.10 - Atherosclerotic heart disease of [place] coronary artery without angina pectoris Status: Chronic (5) Hypothyroidism Qualifiers: Qualified Codes: E03.9 - Hypothyroidism, unspecified Status: Chronic (6) Paroxysmal atrial fibrillation Status: Chronic (7) History of coronary artery stent placement Status: Chronic (8) Hypertension Qualifiers: Qualified Codes: I10 - Essential (primary) hypertension Status: Chronic (9) Hyperlipidemia Qualifiers: Qualified Codes: E78.2 - Mixed hyperlipidemia Status: Chronic (10) Urge incontinence Status: Chronic (11) History of hip fracture Status: Chronic (12) Depression Qualifiers: Qualified Codes: F32.9 - Major depressive disorder, single episode, unspecified Status: Chronic (13) Vascular dementia Qualifiers: Qualified Codes: F01.50 - Vascular dementia without behavioral disturbance Status: Chronic (14) Incontinence Qualifiers: Qualified Codes: R32 - Unspecified urinary incontinence Status: Chronic (15) Myositis Qualifiers: Qualified Codes: M60.9 - Myositis, unspecified Status: Acute (16) Left knee pain Qualifiers: Qualified Codes: M25.562 - Pain in left knee (17) Cough Status: Acute (18) Lung crackles Status: Acute Co-Morbidities that are continuing to impact the rehab process: (include details ) ERIC PORTILLO DO Nov 03, 2018 11:45
--- NOTE | 2018-11-03 12:25 | Occupational Ther Daily Note ---
OT Current Status-Daily Note Subjective Pt alert, sitting in recliner. Pt agrees to therapy. No c/o pain at this time. Mental Status/Objective Patient Orientation: Person, Place, Time, Situation Therapy Code Descriptions/Definitions Functional [place] Measure: 0=Not Assessed/NA 4=Minimal Assistance 1=Total Assistance 5=Supervision or Setup 2=Maximal Assistance 6=Modified [place] 3=Moderate Assistance 7=Complete [place] ADL-Treatment Pt ambulated to bathroom with CGA using FWW. Pt transferred into shower with CGA using FWW, grabbars, and shower bench. Pt then requested to use toilet. Transferred out of shower with mod A for sitting to standing, min A to transfer out. CGA transfer to toilet. CGA to manipulate clothing, cleansed self sitting on toilet. Pt then took shower using shower bench, grabbar, hand held shower, CGA in standing to cleanse self. Pt took increased time to complete tasks, assist was then needed to finish dressing. Sitting in w/c, pt able to complete grooming by self. Nrsg notified, call light within reach. All needs met. Therapy Code Descriptions/Definitions Functional [place] Measure: 0=Not Assessed/NA 4=Minimal Assistance 1=Total Assistance 5=Supervision or Setup 2=Maximal Assistance 6=Modified [place] 3=Moderate Assistance 7=Complete [place] Therapy Quality Codes: 6 Independent with activity with or without an assistive device 5 Patient requires set up or clean up by helper. Patient completes activity by themselves 4 Supervision or touching assist (CGA). [place] provide cues , steadying assist 3 The helper provides less than half the effort to complete the activity 2 The helper provides more than half the effort to complete the activity 1 Dependent. The helper does all the effort to complete an activity 7 Patient refused to complete or attempt activity 9 The patient did not perform the activity before the current illness or injury 88 Not attempted due to Medical conditions or safety concerns Grooming (FIM): 6 Oral Hygiene (QC): 6 Bathing (FIM): 4 Shower/Bathe Self (QC): 4 Toileting (FIM): 4 Toileting Hygiene (QC): 4 Toilet/Commode Transfer (FIM): 4 Toilet Transfer (QC): 4 Shower Transfer(FIM): 3 OT Short Term Goals Short Term Goals Time Frame: Oct 27, 2018 Bathing(FIM): 4 Upper Body Dressing(FIM): 5 Lower Body Dressing(FIM): 5 Toileting(FIM): 5 Transfers (B,C,W/C) (FIM): 4 Toilet/Commode Transfer(FIM): 5 1=Demonstrate adherence to instructed precautions during ADL tasks. 2=Patient will verbalize/demonstrate understanding of assistive devices/ modifications for ADL. 3=Patient will improve strength/tolerance for activity to enable patient to perform ADL's. OT Ear Muff Assembler Goals Ear Muff Assembler Goals Time Frame: Nov 10, 2018 Eating (FIM): 6 Eating (QC): 6 Groomin Oral Hygiene (QC): 6 Bathing(FIM): 5 Shower/Bathe Self (QC): 5 Upper Body Dressing(FIM): 6 Upper Body Dressing (QC): 6 Lower Body Dressing(FIM): 6 Lower Body Dressing (QC): 6 On/Off Footwear (QC): 6 Toileting(FIM): 6 Toileting Hygiene (QC): 6 Toilet/Commode Transfer(FIM): 6 Toilet/Commode Transfer (QC): 6 Shower Transfer(FIM): 5 Additional Goals: 1-Demonstrate ADL Tasks, 2-Verbalize Understanding, 3- ImproveStrength/Ramila 1=Demonstrate adherence to instructed precautions during ADL tasks. 2=Patient will verbalize/demonstrate understanding of assistive devices/ modifications for ADL. 3=Patient will improve strength/tolerance for activity to enable patient to perform ADL's. OT Education/Plan Problem List/Assessment Pt demonstrates decreased ADL functioning, strength, transfers, and activity tolerance. Pt to benefit from skilled OT intervention for ADL training, transfers, strengthening, and safety education to increase functional independence and allow safe discharge plan. Discharge Recommendations Plan/Recommendations: Continue POC Treatment Plan/Plan of Care Patient would benefit from OT for education, treatment and training to promote independence in ADL's, mobility, safety and/or upper extremity function for ADL' s. Plan of Care: ADL Retraining, Functional Mobility, Group Exercise/Act as Ind, UE Funct Exercise/Act Treatment Duration: Nov 10, 2018 Frequency: At least 5 of 7 days/Wk (IRF) Estimated Hrs Per Day: 1.5 hours per day Agreement: Yes Rehab Potential: Fair Time/GCodes Start Time: 09:00 Stop Time: 10:00 Total Time Billed (hr/min): 60 Billed Treatment Time 1 visit-ADL 4 (60 min) MATILDA ABRAHAM Nov 03, 2018 12:25
--- NOTE | 2018-11-03 14:28 | Therapy Group Daily Note ---
Therapy Daily Group Note Patient Education Topic Other List Below (importance of memory and strategies to improve memory) Other/Notes Pt. participated in PT OT group session. Ratio was 3:1. Objective: Demonstrates knowledge of memory strategies to promote safety at home. (met) Understands purpose and objectives of ARU (met) Pt. benefitted from group this date expressing herself well socially and stating that she enjoyed this session very much. Pt. participated in sharing her own strategies for remembering things at home. Pt. participated in matching images game with others in group again laughing and sharing and having some success at remembering where images are . Pt. walked to from session with FWW CGA . Pt. in room after with richard at hand and needs met Start Time: 13:00 Stop Time: 14:15 Total Billed Treatment Time: 75 Total Billed Treatment 1,GRP JODIE SMITH ASSEMBLY WORKER Nov 03, 2018 14:28
--- NOTE | 2018-11-03 14:28 | NUR ---
provided prayer and Communion.
[2018-11-03 17:08] VITALS: BP 146/70
[2018-11-03] MEDS: VITAMIN D3 1,000 UNITS (CHOLECALCIFEROL) TABLET PO SCH (20:16)
[2018-11-03] MEDS: CLOPIDOGREL 75 MG (PLAVIX) TABLET PO SCH (20:16)
[2018-11-03] MEDS: ASPIRIN E.C. 81 MG (ECOTRIN) TAB PO SCH (20:16)
[2018-11-03] MEDS: lamoTRIgine 25 MG (LaMICtal) TAB PO SCH (20:16)
[2018-11-03] MEDS: MELATONIN 3 MG TABLET PO SCH (20:16)
[2018-11-03] MEDS: LEVOTHYROXINE 25 MCG (LEVOTHROID) TAB PO SCH (20:16)
[2018-11-03] MEDS: ACETAMINOPHEN 325 MG TABLET PO PRN (20:20)
[2018-11-04 05:45] VITALS: BP 146/72
[2018-11-04 08:30] VITALS: BP 139/72
[2018-11-04] MEDS: MULTIVIT W/MINERALS TAB (THERAGRAN M) PO SCH (08:41)
[2018-11-04] MEDS: PANTOPRAZOLE 40 MG (PROTONIX) TAB PO SCH (08:41)
[2018-11-04] MEDS: amLODIPine 10 MG (NORVASC) TAB PO SCH (08:42)
[2018-11-04] MEDS: ASCORBIC ACID (VIT C) 500 MG TABLET PO SCH (08:43)
[2018-11-04] MEDS: OXYBUTYNIN (DITROPAN) 5 MG TAB PO SCH (08:43)
[2018-11-04] MEDS: SALINE NASAL SPRAY (OCEAN) 45 ML BTL SCH ×3 (08:44→20:26)
--- NOTE | 2018-11-04 10:57 | Physical Therapy Daily Note ---
PT Daily Note-Current Subjective Pt. agrees to Rx. States she feels at times like she is going to fall . Pain Location: No Pain Reported Mental Status Patient Orientation: Normal For Age Transfers Therapy Code Descriptions/Definitions Functional [place] Measure: 0=Not Assessed/NA 4=Minimal Assistance 1=Total Assistance 5=Supervision or Setup 2=Maximal Assistance 6=Modified [place] 3=Moderate Assistance 7=Complete [place] Therapy Quality Codes: 6 Independent with activity with or without an assistive device 5 Patient requires set up or clean up by helper. Patient completes activity by themselves 4 Supervision or touching assist (CGA). [place] provide cues , steadying assist 3 The helper provides less than half the effort to complete the activity 2 The helper provides more than half the effort to complete the activity 1 Dependent. The helper does all the effort to complete an activity 7 Patient refused to complete or attempt activity 9 The patient did not perform the activity before the current illness or injury 88 Not attempted due to Medical conditions or safety concerns Transfers (B, C, W/C) (FIM): 4 Scootin Rollin Supine to/from Sit: 5 Sit to/from Stand: 4 Weight Bearing Right Lower Extremity: Right Full Weight Bearing Left Lower Extremity: Left Full Weight Bearing Gait Training Does the Patient Walk?: Yes Gait (FIM): 4 Distance (FIM): 3=150 ft (175x2) Gait Level of Assist: 4 Gait Persons Needed: 1 Gait Assistive Device: FWW required more direction this date for heel strike and foot clearance during steps , larger step length etc, gait slow, cues for alignment and position in FWW Exercises Seated Therapy Exercises: Ankle pumps, Sit to stand, Long arc quads, Hip flexion, Hip abd/add Seated Reps: 12 Assessment Current Status: Good Progress dependent for safety PT Short Term Goals Short Term Goals Time Frame: Oct 27, 2018 Transfers (B,C,W/C) (FIM): 4 Gait (FIM): 2 Gait Distance Comment: 120' Gait Level of Assist: 4 Gait Assistive Device: FWW PT Long-Term Goals Community Arts Worker Goals PT Long-Term Goals Time Frame: Nov 10, 2018 Transfers (B,C,W/C) (FIM): 5 Sit to Lying (QC): 4 Lying-Sitting on Side/Bed(QC): 4 Sit to Stand (QC): 4 Rollin Roll Left to Right (QC): 4 Chair/Jab-ll-Yytcf Xfer(QC): 4 Car Transfer (QC): 4 Gait (FIM): 5 Distance: 150' Walk 10 feet (QC): 4 Walk 10ft-Uneven Surface(QC): 4 Walk 50ft with 2 Turns (QC): 4 Walk 150 ft (QC): 4 Gait Level of Assist: 5 Gait Assistive Device: FWW Stairs (FIM): 2 # of Steps: 4 1 Step (curb) (QC): 4 4 Steps (QC): 4 Stairs Level Of Assist: 4 PT Plan Treatment/Plan Treatment Plan: Continue Plan of Care Treatment Plan: Bed Mobility, Education, Functional Activity Ramila, Functional Strength, Group Therapy, Gait, Safety, Therapeutic Exercise, Transfers Treatment Duration: Nov 10, 2018 Frequency: At least 5 of 7 days/Wk (IRF) Estimated Hrs Per Day: 1.5 hours per day Patient and/or Family Agrees t: Yes Safety Risks/Education Patient Education: Gait Training, Transfer Techniques, Correct Positioning, Safety Issues Teaching Recipient: Patient Teaching Methods: Demonstration, Discussion Response to Teaching: Verbalize Understanding, Return Demonstration, Reinforcement Needed Time/GCodes Time In: 955 Time Out: 1015 Total Billed Treatment Time: 20 Total Billed Treatment 1,GT20m G Codes Necessary: JODIE Givens TIRE BLADDER MAKER Nov 04, 2018 10:57
--- NOTE | 2018-11-04 12:00 | NUR ---
COMPLAIN CONSTIPATION AND MEDICATED WITH MIRALAX.
[2018-11-04] MEDS: POLYETHYLENE GLYCOL 17 GM (MIRALAX) PACK PO PRN (12:05)
--- NOTE | 2018-11-04 12:34 | PM&R Progress Note ---
Subjective HPI/CC On Admission Date Seen by Provider: Nov 04, 2018 Time Seen by Provider: 10:30 Subjective/Events-last exam Patient doing very well No BM for 2 days so will initiate MiraLAX daily Talked about the possibility of a rectal prolapse but I told her that we would want to avoid any type of procedure and instead we will initiate MiraLAX for looser stools to be able to empty completely without straining Having a cough but crackles are not present on lung exam and she seems concerned since we discontinued the nebulizer treatments by do not feel like we need to restart those and she will be maintained on incentive spirometer Overall progressing well Review of Systems Pulmonary: Cough Gastrointestinal: Constipation Objective Exam Vital Signs Vital Signs Date Time Temp Pulse Resp B/P (MAP) Pulse Ox O2 Delivery O2 Flow Rate FiO2 11/04/18 09:00 Room Air 11/04/18 08:30 64 139/72 (94) 11/04/18 05:45 96.9 18 97 Capillary Refill : General Appearance: No Apparent Distress, WD/WN, Chronically ill Respiratory: Chest Non Tender, Lungs Clear, Normal Breath Sounds, No Accessory Muscle Use, No Respiratory Distress Cardiovascular: Regular Rate, Rhythm, No Edema, No Gallop, No JVD, No Murmur, Normal Peripheral Pulses Gastrointestinal: Non Tender, Soft Neurologic/Psychiatric: Alert, Oriented x3, No Motor/Sensory Deficits, Normal Mood/Affect Skin: Normal Color, Warm/Dry Results/Procedures Lab Patient resulted labs reviewed. 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 Paroxysmal atrial fibrillation Dementia Depression History of small bowel resection partial History of left hip fracture repair with subsequent nerve damage making ambulation difficult GERD Urge incontinence Muscle pain reported with normal CPK but hold statin now improved since stopping Crackles in left lower lobe with subtle cough will initiate albuterol neb treatment twice a day and incentive spirometer now resolved Constipation Plan: Continue current meds but add Miralax daily Stopped statin therapy due to muscle pain Maintained on Plavix Appreciate cardiology due to history of paroxysmal atrial fibrillation but possible bleeding side effect from anticoagulation Continue therapies per protocol Hold statin for muscle pain Albuterol neb treatment twice a day Incentive spirometer for crackles in the left lower lobe but resolved Patient requires close monitoring in inpatient rehab setting due to cognitive deficits from the stroke with difficulty communicating and a fall risk. Also will monitor for urinary and bowel function due to history of both organ systems ' dysfunction. Monitor blood pressure closely due to history of stroke subacute along with 2 prior strokes Close monitoring for recurrent seizure since history of seizure after her last stroke Cardiology consultation to decide if additional anticoagulation is needed to prevent subsequent strokes Diagnosis/Problems Diagnosis/Problems (1) CVA (cerebral vascular accident) Status: Acute Qualifiers: CVA mechanism: unspecified Qualified Codes: I63.9 - Cerebral infarction, unspecified (2) History of CVA (cerebrovascular accident) Status: Chronic (3) Seizure disorder Status: Chronic (4) CAD (coronary artery disease) Status: Chronic Qualifiers: Coronary Disease-Associated Artery/Lesion type: [place] artery [place] vs. transplanted heart: [place] heart Associated angina: without angina Qualified Codes: I25.10 - Atherosclerotic heart disease of [place] coronary artery without angina pectoris (5) Hypothyroidism Status: Chronic Qualifiers: Hypothyroidism type: acquired Qualified Codes: E03.9 - Hypothyroidism, unspecified (6) Paroxysmal atrial fibrillation Status: Chronic (7) History of coronary artery stent placement Status: Chronic (8) Hypertension Status: Chronic Qualifiers: Hypertension type: essential hypertension Qualified Codes: I10 - Essential (primary) hypertension (9) Hyperlipidemia Status: Chronic Qualifiers: Hyperlipidemia type: mixed hyperlipidemia Qualified Codes: E78.2 - Mixed hyperlipidemia (10) Urge incontinence Status: Chronic (11) History of hip fracture Status: Chronic (12) Depression Status: Chronic Qualifiers: Depression Type: unspecified Qualified Codes: F32.9 - Major depressive disorder, single episode, unspecified (13) Vascular dementia Status: Chronic Qualifiers: Dementia behavioral disturbance: without behavioral disturbance Qualified Codes: F01.50 - Vascular dementia without behavioral disturbance (14) Incontinence Status: Chronic Qualifiers: Incontinence type: urinary Urinary Incontinence type: unspecified incontinence Qualified Codes: R32 - Unspecified urinary incontinence (15) Myositis Status: Acute Qualifiers: Myositis type: unspecified type Myositis location: unspecified site Qualified Codes: M60.9 - Myositis, unspecified (16) Left knee pain Qualifiers: Chronicity: acute Qualified Codes: M25.562 - Pain in left knee (17) Cough Status: Acute (18) Lung crackles Status: Resolved Assessment & Plan: LLL Resolution Date/Time: 11/04/18 @ 14:49 (19) Constipation Status: Acute Qualifiers: Constipation type: slow transit constipation Qualified Codes: K59.01 - Slow transit constipation Clinical Quality Measures Admission Status Admission Dx Assessment: [place] infarct History of CVA with subsequent seizure disorder CAD previous stent placement Hypothyroidism Hypertension 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 Also will monitor for urinary and bowel function due to history of both organ systems ' dysfunction. Monitor blood pressure closely due to history of stroke subacute along with 2 prior strokes Close monitoring for recurrent seizure since history of seizure after her last stroke Cardiology consultation to decide if additional anticoagulation is needed to prevent subsequent strokes DVT/VTE Risk/Contraindication: Risk Factor Score Per Nursin RFS Level Per Nursing on Admit: 2=Moderate ERIC PORTILLO DO Nov 04, 2018 12:34
[2018-11-04] MEDS: BIOFREEZE GEL TOP PRN (12:58)
[2018-11-04] MEDS: ACETAMINOPHEN 325 MG TABLET PO PRN ×2 (12:58→20:29)
--- NOTE | 2018-11-04 13:43 | Cardiology Progress Note ---
Cardiology SOAP Progress Note Subjective: No cardiac complaints. Objective: I&O/Vital Signs 11/04/18 11/04/18 11/04/18 05:45 08:30 09:00 Temp 96.9 Pulse 69 64 Resp 18 B/P (MAP) 146/72 (96) 139/72 (94) Pulse Ox 97 O2 Delivery Room Air Room Air 11/04/18 00:00 Intake Total 750 ml Balance 750 ml Weight (Pounds): 128 Weight (Ounces): 11.2 Weight (Calculated Kilograms): 58.285361 Constitutional: AAO x 3, well-developed, well-nourished Respiratory: No accessory muscle use, No respiratory distress, No chest tender ; chest expansion is symmetric, chest is bilaterally symmetric; No lungs clear to percussion; lungs clear to auscultation; No crackles, No rhonchi, No rales, No stridor, No wheezing, No pleural rub, No other Cardiovascular: regular rate-rhythm; No JVD; S1 and S2 Gastrointestional: No tender; soft, round; No distended, No pulsatile mass, No organomegaly, No guarding, No rebound, No tenderness, No hernia, No mass, No audible bowel sounds, No abnormal bowel sounds, No abdominal bruits, No spleenomegaly, No other Extremities: No normal range of motion, No non-tender, No normal inspection, No pedal edema, No calf tenderness, No normal capillary refill, No pelvis stable , No calf tenderness, No inflammation, No pedal edema, No slow capillary refill , No swelling, No other, No abrasion, No clubbing, No cyanosis, No ecchymosis, No laceration; no lower extremity edema bilateral; No significant edema, No tenderness, No wound Neurologic/Psychiatric: no motor/sensory deficits, alert, normal mood/affect, oriented x 3, grossly intact Skin: No normal color, No warm/dry, No cyanosis, No cool, No diaphoresis, No damp, No ecchymosis, No jaundice, No mottled, No pallor, No rash, No tattoos/ piercings, No ulcerations, No rash on exposed areas, No ulcerations on exposed areas, No other A/P: Assessment/Dx: Assessment: Recent CVA ( 10-17-) with h/o previous CVA x 2 (2013 and 2016) - CT from [facility] [place] 10-17-18 is reported to have shown an area of an old infarct and severe cerebral atrophy, but no acute process per dictated note by Dr. Montemayor on 10-18-18 Hypertension - improved Echocardiogram of 10-19-18 shows mod concentric LVH; LVEF approx 60%; trivial to mild MR and TR. PASP approx 25 mmHg; mod enlargement of the [place] Seizure disorder following a previous CVA Pt reports h/o intracranial bleed bleed following a fall in 2012 - exact details unknown Pt reports h/o PAF, but was not deemed suitable for OAC, due to a h/o ic bleed - details unknown Reported h/o CAD with stent placement in the past at [facility] in [place], [place] - details unknown No evidence of carotid stenosis per u/s of 10-21-18 HLD - statin tx Hypothyroidism - replacement tx H/O colon resection Family h/o CAD - mother [place] age 69, father [place] age 66 H/O intolerance of Bystolic in the past d/t bradycardia Plan: Plan: Continue current regimen BP not well controlled following reduction in BB (d/t asymptomatic bradycardia) - Norvasc 10mg daily Given h/o ic bleed, we have not put her on OAC, but antiplatelet therapy is being continued Thank you for your consultation. Please call me if you have any questions. Magdalene De Souza MD, FACP, FACC, FSCAI, FHRS, CCDS Interventional Cardiology Cardiac Electrophysiology Vascular Medicine and Endovascular Interventions Yusuf DE SOUZA MD Nov 04, 2018 1:43 pm
[2018-11-04 18:00] VITALS: BP 133/62
[2018-11-04] MEDS: ASPIRIN E.C. 81 MG (ECOTRIN) TAB PO SCH (20:26)
[2018-11-04] MEDS: lamoTRIgine 25 MG (LaMICtal) TAB PO SCH (20:26)
[2018-11-04] MEDS: CLOPIDOGREL 75 MG (PLAVIX) TABLET PO SCH (20:26)
[2018-11-04] MEDS: MELATONIN 3 MG TABLET PO SCH (20:26)
[2018-11-04] MEDS: VITAMIN D3 1,000 UNITS (CHOLECALCIFEROL) TABLET PO SCH (20:26)
[2018-11-04] MEDS: LEVOTHYROXINE 25 MCG (LEVOTHROID) TAB PO SCH (20:37)
[2018-11-05 05:23] VITALS: BP 130/50
[2018-11-05 09:00] VITALS: BP 133/71
[2018-11-05] MEDS: amLODIPine 10 MG (NORVASC) TAB PO SCH (09:02)
[2018-11-05] MEDS: OXYBUTYNIN (DITROPAN) 5 MG TAB PO SCH (09:02)
[2018-11-05] MEDS: MULTIVIT W/MINERALS TAB (THERAGRAN M) PO SCH (09:02)
[2018-11-05] MEDS: PANTOPRAZOLE 40 MG (PROTONIX) TAB PO SCH (09:03)
[2018-11-05] MEDS: ASCORBIC ACID (VIT C) 500 MG TABLET PO SCH (09:03)
[2018-11-05] MEDS: POLYETHYLENE GLYCOL 17 GM (MIRALAX) PACK PO SCH (09:04)
[2018-11-05] MEDS: SALINE NASAL SPRAY (OCEAN) 45 ML BTL SCH ×3 (09:04→20:07)
[2018-11-05] MEDS: ACETAMINOPHEN 325 MG TABLET PO PRN ×2 (09:08→20:06)
--- NOTE | 2018-11-05 12:00 | NUR ---
PATIENT COMPLAIN CONTINUED COUGH TODAY. WILL START ON ROBITUSSIN COUGH SYRUP. STILL FEELS CONSTIPATED AND EXTRA SENNA GIVEN. DR. PORTILLO INFORMED OF PATIENT'S COMPLAINTS OF URINARY INCONTINENCY BEING WORSE.
[2018-11-05] MEDS ORDERED: SENNA W/DOCUSATE (SENOKOT S) TABLET PO PRN (13:00)
--- NOTE | 2018-11-05 13:18 | PM&R Progress Note ---
Subjective HPI/CC On Admission Date Seen by Provider: Nov 05, 2018 Time Seen by Provider: 12:15 Subjective/Events-last exam Multiple somatic complaints Obsessed about a cough that has no organic basis at this current time so will initiate Robitussin with DM Reports her leg hurts and she is having difficulty with constipation and multiple other things Will need to go back to assisted living once discharge from here Review of Systems Pulmonary: Cough Gastrointestinal: Constipation Musculoskeletal: leg pain Objective Exam Vital Signs Vital Signs Date Time Temp Pulse Resp B/P (MAP) Pulse Ox O2 Delivery O2 Flow Rate FiO2 11/05/18 09:00 99.0 61 133/71 (91) 11/05/18 09:00 Room Air 11/05/18 05:23 16 95 Capillary Refill : General Appearance: No Apparent Distress, WD/WN, Chronically ill Respiratory: Chest Non Tender, Lungs Clear, Normal Breath Sounds, No Accessory Muscle Use, No Respiratory Distress Cardiovascular: Regular Rate, Rhythm, No Edema, No Gallop, No JVD, No Murmur, Normal Peripheral Pulses Neurologic/Psychiatric: Alert, Oriented x3, No Motor/Sensory Deficits, Normal Mood/Affect Results/Procedures Lab Patient resulted labs reviewed. 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 Paroxysmal atrial fibrillation Dementia Depression History of small bowel resection partial History of left hip fracture repair with subsequent nerve damage making ambulation difficult GERD Urge incontinence Muscle pain reported with normal CPK but hold statin now improved since stopping s/p Crackles in left lower lobe with subtle cough will initiate albuterol neb treatment twice a day and incentive spirometer now resolved Constipation Somatic complaints Cough without crackles on exam Plan: Continue current meds but add Miralax daily in addition to Senna today Stopped statin therapy due to muscle pain Maintained on Plavix Appreciate cardiology due to history of paroxysmal atrial fibrillation but possible bleeding side effect from anticoagulation Continue therapies per protocol Hold statin for muscle pain Albuterol neb treatment twice a day Incentive spirometer for crackles in the left lower lobe but resolved Somatic complaints Patient requires close monitoring in inpatient rehab setting due to cognitive deficits from the stroke with difficulty communicating and a fall risk. Also will monitor for urinary and bowel function due to history of both organ systems ' dysfunction. Monitor blood pressure closely due to history of stroke subacute along with 2 prior strokes Close monitoring for recurrent seizure since history of seizure after her last stroke Cardiology consultation to decide if additional anticoagulation is needed to prevent subsequent strokes Diagnosis/Problems Diagnosis/Problems (1) CVA (cerebral vascular accident) Status: Acute Qualifiers: CVA mechanism: unspecified Qualified Codes: I63.9 - Cerebral infarction, unspecified (2) History of CVA (cerebrovascular accident) Status: Chronic (3) Seizure disorder Status: Chronic (4) CAD (coronary artery disease) Status: Chronic Qualifiers: Coronary Disease-Associated Artery/Lesion type: [place] artery [place] vs. transplanted heart: [place] heart Associated angina: without angina Qualified Codes: I25.10 - Atherosclerotic heart disease of [place] coronary artery without angina pectoris (5) Hypothyroidism Status: Chronic Qualifiers: Hypothyroidism type: acquired Qualified Codes: E03.9 - Hypothyroidism, unspecified (6) Paroxysmal atrial fibrillation Status: Chronic (7) History of coronary artery stent placement Status: Chronic (8) Hypertension Status: Chronic Qualifiers: Hypertension type: essential hypertension Qualified Codes: I10 - Essential (primary) hypertension (9) Hyperlipidemia Status: Chronic Qualifiers: Hyperlipidemia type: mixed hyperlipidemia Qualified Codes: E78.2 - Mixed hyperlipidemia (10) Urge incontinence Status: Chronic (11) History of hip fracture Status: Chronic (12) Depression Status: Chronic Qualifiers: Depression Type: unspecified Qualified Codes: F32.9 - Major depressive disorder, single episode, unspecified (13) Vascular dementia Status: Chronic Qualifiers: Dementia behavioral disturbance: without behavioral disturbance Qualified Codes: F01.50 - Vascular dementia without behavioral disturbance (14) Incontinence Status: Chronic Qualifiers: Incontinence type: urinary Urinary Incontinence type: unspecified incontinence Qualified Codes: R32 - Unspecified urinary incontinence (15) Myositis Status: Acute Qualifiers: Myositis type: unspecified type Myositis location: unspecified site Qualified Codes: M60.9 - Myositis, unspecified (16) Left knee pain Qualifiers: Chronicity: acute Qualified Codes: M25.562 - Pain in left knee (17) Cough Status: Acute (18) Lung crackles Status: Resolved Assessment & Plan: LLL Resolution Date/Time: 11/04/18 @ 14:49 (19) Constipation Status: Acute Qualifiers: Constipation type: slow transit constipation Qualified Codes: K59.01 - Slow transit constipation Clinical Quality Measures Admission Status Admission Dx Assessment: Seth infarct History of CVA with subsequent seizure disorder CAD previous stent placement Hypothyroidism Hypertension 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 Also will monitor for urinary and bowel function due to history of both organ systems ' dysfunction. Monitor blood pressure closely due to history of stroke subacute along with 2 prior strokes Close monitoring for recurrent seizure since history of seizure after her last stroke Cardiology consultation to decide if additional anticoagulation is needed to prevent subsequent strokes DVT/VTE Risk/Contraindication: Risk Factor Score Per Nursin RFS Level Per Nursing on Admit: 2=Moderate ERIC PORTILLO DO Nov 05, 2018 13:18
[2018-11-05] MEDS: guaiFENesin/DM (ROBITUSSIN DM) 10 ML UDC PO PRN ×2 (13:27→20:13)
--- NOTE | 2018-11-05 15:45 | Cardiology Progress Note ---
Cardiology SOAP Progress Note Subjective: No cardiac complaints. Objective: I&O/Vital Signs 11/05/18 11/05/18 11/05/18 05:23 09:00 09:00 Temp 97.3 99.0 Pulse 64 61 Resp 16 B/P (MAP) 130/50 (76) 133/71 (91) Pulse Ox 95 O2 Delivery Room Air Room Air 11/05/18 00:00 Intake Total 720 ml Balance 720 ml Weight (Pounds): 128 Weight (Ounces): 11.2 Weight (Calculated Kilograms): 58.496949 Constitutional: AAO x 3, well-developed, well-nourished Respiratory: No accessory muscle use, No respiratory distress, No chest tender ; chest expansion is symmetric, chest is bilaterally symmetric; No lungs clear to percussion; lungs clear to auscultation; No crackles, No rhonchi, No rales, No stridor, No wheezing, No pleural rub, No other Cardiovascular: regular rate-rhythm; No JVD; S1 and S2 Gastrointestional: No tender; soft, round; No distended, No pulsatile mass, No organomegaly, No guarding, No rebound, No tenderness, No hernia, No mass, No audible bowel sounds, No abnormal bowel sounds, No abdominal bruits, No spleenomegaly, No other Extremities: No normal range of motion, No non-tender, No normal inspection, No pedal edema, No calf tenderness, No normal capillary refill, No pelvis stable , No calf tenderness, No inflammation, No pedal edema, No slow capillary refill , No swelling, No other, No abrasion, No clubbing, No cyanosis, No ecchymosis, No laceration; no lower extremity edema bilateral; No significant edema, No tenderness, No wound Neurologic/Psychiatric: no motor/sensory deficits, alert, normal mood/affect, oriented x 3, grossly intact Skin: No normal color, No warm/dry, No cyanosis, No cool, No diaphoresis, No damp, No ecchymosis, No jaundice, No mottled, No pallor, No rash, No tattoos/ piercings, No ulcerations, No rash on exposed areas, No ulcerations on exposed areas, No other A/P: Assessment/Dx: Assessment: Recent CVA ( 10-17-18) with h/o previous CVA x 2 (2013 and 2016) - CT from [facility] [place] 10-17-18 is reported to have shown an area of an old infarct and severe cerebral atrophy, but no acute process per dictated note by Dr. Montemayor on 10-18-18 Hypertension - improved Echocardiogram of 10-19-18 shows mod concentric LVH; LVEF approx 60%; trivial to mild MR and TR. PASP approx 25 mmHg; mod enlargement of the LA Seizure disorder following a previous CVA Pt reports h/o intracranial bleed bleed following a fall in 2012 - exact details unknown Pt reports h/o PAF, but was not deemed suitable for OAC, due to a h/o ic bleed - details unknown Reported h/o CAD with stent placement in the past at [facility] in [place], [place] - details unknown No evidence of carotid stenosis per u/s of 10-21-18 HLD - statin tx Hypothyroidism - replacement tx H/O colon resection Family h/o CAD - mother [place] age 69, father [place] age 66 H/O intolerance of Bystolic in the past d/t bradycardia Plan: Plan: Continue current regimen BP not well controlled following reduction in BB (d/t asymptomatic bradycardia) - Norvasc 10mg daily Given h/o ic bleed, we have not put her on OAC, but antiplatelet therapy is being continued Thank you for your consultation. Please call me if you have any questions. Magdalene De Souza MD, FACP, FACC, FSCAI, FHRS, CCDS Interventional Cardiology Cardiac Electrophysiology Vascular Medicine and Endovascular Interventions Yusuf DE SOUZA MD Nov 05, 2018 3:44 pm
[2018-11-05 17:49] VITALS: BP 129/65
[2018-11-05] MEDS: lamoTRIgine 25 MG (LaMICtal) TAB PO SCH (20:05)
[2018-11-05] MEDS: VITAMIN D3 1,000 UNITS (CHOLECALCIFEROL) TABLET PO SCH (20:06)
[2018-11-05] MEDS: ASPIRIN E.C. 81 MG (ECOTRIN) TAB PO SCH (20:06)
[2018-11-05] MEDS: MELATONIN 3 MG TABLET PO SCH (20:06)
[2018-11-05] MEDS: LEVOTHYROXINE 25 MCG (LEVOTHROID) TAB PO SCH (20:06)
[2018-11-05] MEDS: CLOPIDOGREL 75 MG (PLAVIX) TABLET PO SCH (20:06)
[2018-11-06 05:45] VITALS: BP 147/62
--- NOTE | 2018-11-06 08:35 | PM&R Progress Note ---
Subjective HPI/CC On Admission Date Seen by Provider: Nov 06, 2018 Time Seen by Provider: 08:00 Subjective/Events-last exam Patient having many more somatic complaints Today she reports a sore throat so lozenges will be ordered Still reports a cough but lungs remain clear and no fever and she actually asked for an antibiotic of which I said there was no indication for such Patient needs discharge back to assisted living Participating in therapies Denies any other significant problems but vague somatic issues continue to arise Review of Systems General: Fatigue HEENT: Sore Throat Pulmonary: Cough Neurological: Weakness, Incoordination Objective Exam Vital Signs Vital Signs Date Time Temp Pulse Resp B/P (MAP) Pulse Ox O2 Delivery O2 Flow Rate FiO2 11/06/18 09:05 73 113/61 (78) 11/06/18 09:00 Room Air 11/06/18 05:45 99.5 18 96 Capillary Refill : General Appearance: No Apparent Distress, WD/WN, Chronically ill HEENT: PERRL/EOMI, TMs Normal, Normal ENT Inspection, Pharynx Normal, Moist Mucous Membranes, Other (no erythema of the OP) Respiratory: Chest Non Tender, Lungs Clear, Normal Breath Sounds, No Accessory Muscle Use, No Respiratory Distress Cardiovascular: Regular Rate, Rhythm, No Edema, No Gallop, No JVD, No Murmur, Normal Peripheral Pulses Neurologic/Psychiatric: Alert, Oriented x3, No Motor/Sensory Deficits, Normal Mood/Affect Results/Procedures Lab Patient resulted labs reviewed. 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 Paroxysmal atrial fibrillation Dementia Depression History of small bowel resection partial History of left hip fracture repair with subsequent nerve damage making ambulation difficult GERD Urge incontinence Muscle pain reported with normal CPK but hold statin now improved since stopping s/p Crackles in left lower lobe with subtle cough will initiate albuterol neb treatment twice a day and incentive spirometer now resolved Constipation Somatic complaints Cough without crackles on exam Sore throat reported today Plan: Continue current meds but add Miralax daily in addition to Senna today Stopped statin therapy due to muscle pain Maintained on Plavix Appreciate cardiology due to history of paroxysmal atrial fibrillation but possible bleeding side effect from anticoagulation Continue therapies per protocol Hold statin for muscle pain Albuterol neb treatment twice a day Incentive spirometer for crackles in the left lower lobe but resolved Somatic complaints Lozenges for sore throat Patient requires close monitoring in inpatient rehab setting due to cognitive deficits from the stroke with difficulty communicating and a fall risk. Also will monitor for urinary and bowel function due to history of both organ systems ' dysfunction. Monitor blood pressure closely due to history of stroke subacute along with 2 prior strokes Close monitoring for recurrent seizure since history of seizure after her last stroke Cardiology consultation to decide if additional anticoagulation is needed to prevent subsequent strokes Diagnosis/Problems Diagnosis/Problems (1) CVA (cerebral vascular accident) Status: Acute Qualifiers: CVA mechanism: unspecified Qualified Codes: I63.9 - Cerebral infarction, unspecified (2) History of CVA (cerebrovascular accident) Status: Chronic (3) Seizure disorder Status: Chronic (4) CAD (coronary artery disease) Status: Chronic Qualifiers: Coronary Disease-Associated Artery/Lesion type: [place] artery [place] vs. transplanted heart: [place] heart Associated angina: without angina Qualified Codes: I25.10 - Atherosclerotic heart disease of [place] coronary artery without angina pectoris (5) Hypothyroidism Status: Chronic Qualifiers: Hypothyroidism type: acquired Qualified Codes: E03.9 - Hypothyroidism, unspecified (6) Paroxysmal atrial fibrillation Status: Chronic (7) History of coronary artery stent placement Status: Chronic (8) Hypertension Status: Chronic Qualifiers: Hypertension type: essential hypertension Qualified Codes: I10 - Essential (primary) hypertension (9) Hyperlipidemia Status: Chronic Qualifiers: Hyperlipidemia type: mixed hyperlipidemia Qualified Codes: E78.2 - Mixed hyperlipidemia (10) Urge incontinence Status: Chronic (11) History of hip fracture Status: Chronic (12) Depression Status: Chronic Qualifiers: Depression Type: unspecified Qualified Codes: F32.9 - Major depressive disorder, single episode, unspecified (13) Vascular dementia Status: Chronic Qualifiers: Dementia behavioral disturbance: without behavioral disturbance Qualified Codes: F01.50 - Vascular dementia without behavioral disturbance (14) Incontinence Status: Chronic Qualifiers: Incontinence type: urinary Urinary Incontinence type: unspecified incontinence Qualified Codes: R32 - Unspecified urinary incontinence (15) Myositis Status: Acute Qualifiers: Myositis type: unspecified type Myositis location: unspecified site Qualified Codes: M60.9 - Myositis, unspecified (16) Left knee pain Qualifiers: Chronicity: acute Qualified Codes: M25.562 - Pain in left knee (17) Cough Status: Acute (18) Lung crackles Status: Resolved Assessment & Plan: LLL Resolution Date/Time: 11/04/18 @ 14:49 (19) Constipation Status: Acute Assessment & Plan: 11/06: add Lactulose today Qualifiers: Constipation type: slow transit constipation Qualified Codes: K59.01 - Slow transit constipation (20) Acute sore throat Status: Acute (21) Somatic complaints, multiple Status: Acute Clinical Quality Measures Admission Status Admission Dx Assessment: Seth infarct History of CVA with subsequent seizure disorder CAD previous stent placement Hypothyroidism Hypertension 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 Also will monitor for urinary and bowel function due to history of both organ systems ' dysfunction. Monitor blood pressure closely due to history of stroke subacute along with 2 prior strokes Close monitoring for recurrent seizure since history of seizure after her last stroke Cardiology consultation to decide if additional anticoagulation is needed to prevent subsequent strokes DVT/VTE Risk/Contraindication: Risk Factor Score Per Nursin RFS Level Per Nursing on Admit: 2=Moderate ERIC PORTILLO DO Nov 06, 2018 08:35
[2018-11-06] MEDS ORDERED: CHLORASEPTIC LOZENGE MM ONE (08:45)
[2018-11-06 09:05] VITALS: BP 113/61
[2018-11-06] MEDS: PANTOPRAZOLE 40 MG (PROTONIX) TAB PO SCH (09:11)
[2018-11-06] MEDS: ASCORBIC ACID (VIT C) 500 MG TABLET PO SCH (09:11)
[2018-11-06] MEDS: amLODIPine 10 MG (NORVASC) TAB PO SCH (09:11)
[2018-11-06] MEDS: OXYBUTYNIN (DITROPAN) 5 MG TAB PO SCH (09:11)
[2018-11-06] MEDS: POLYETHYLENE GLYCOL 17 GM (MIRALAX) PACK PO SCH (09:11)
[2018-11-06] MEDS: MULTIVIT W/MINERALS TAB (THERAGRAN M) PO SCH (09:14)
[2018-11-06] MEDS: SALINE NASAL SPRAY (OCEAN) 45 ML BTL SCH ×3 (09:17→20:29)
--- NOTE | 2018-11-06 11:00 | NUR ---
PT CONTINUES TO EAT WELL, 100% MEALS. NO NEW WEIGHT. PO INTAKE LIKELY MEETING NEEDS AT THIS TIME. CONT TO FOLLOW.
--- NOTE | 2018-11-06 11:09 | Physical Therapy Daily Note ---
PT Daily Note-Current Subjective Patient in recliner pre tx, agrees to PT, has unrated pain in right knee, states she doesn't need pain meds. Appearance Patient in bed post tx with nurse call, phone, tray, all needs met. Mental Status Patient Orientation: Person, Place, Situation Transfers Therapy Code Descriptions/Definitions Functional [place] Measure: 0=Not Assessed/NA 4=Minimal Assistance 1=Total Assistance 5=Supervision or Setup 2=Maximal Assistance 6=Modified [place] 3=Moderate Assistance 7=Complete [place] Therapy Quality Codes: 6 Independent with activity with or without an assistive device 5 Patient requires set up or clean up by helper. Patient completes activity by themselves 4 Supervision or touching assist (CGA). [place] provide cues , steadying assist 3 The helper provides less than half the effort to complete the activity 2 The helper provides more than half the effort to complete the activity 1 Dependent. The helper does all the effort to complete an activity 7 Patient refused to complete or attempt activity 9 The patient did not perform the activity before the current illness or injury 88 Not attempted due to Medical conditions or safety concerns Transfers (B, C, W/C) (FIM): 4 Scootin Rollin Supine to/from Sit: 4 Sit to/from Stand: 5 Bed to/from Chair: 5 Weight Bearing Right Lower Extremity: Right Full Weight Bearing Left Lower Extremity: Left Full Weight Bearing Gait Training Gait (FIM): 5 Distance: 150'x2 Gait Level of Assist: 5 Gait Persons Needed: 1 Gait Assistive Device: FWW Slow ambulation, moments of unsteadiness but no LOB or assistance needed from therapist. Patient tends to ambulate on her toes on the left side. Exercises Standing: Hamstring curls, Heel/toe raises, 3 way Ex=Flex, Abd, Ext, Marching, Mini squats Standing Reps: 15 NuStep Minutes: 15 NuStep Workload: 5 Treatments bed mobility and transfers, ambulation, functional strengthening Assessment Current Status: Fair Progress slowly improving general mobility PT Short Term Goals Short Term Goals Time Frame: Oct 27, 2018 Transfers (B,C,W/C) (FIM): 4 Gait (FIM): 2 Gait Distance Comment: 120' Gait Level of Assist: 4 Gait Assistive Device: FWW PT Chcf Goals Chcf Goals PT Chcf Goals Time Frame: Nov 10, 2018 Transfers (B,C,W/C) (FIM): 5 Sit to Lying (QC): 4 Lying-Sitting on Side/Bed(QC): 4 Sit to Stand (QC): 4 Rollin Roll Left to Right (QC): 4 Chair/Ezd-qq-Panks Xfer(QC): 4 Car Transfer (QC): 4 Gait (FIM): 5 Distance: 150' Walk 10 feet (QC): 4 Walk 10ft-Uneven Surface(QC): 4 Walk 50ft with 2 Turns (QC): 4 Walk 150 ft (QC): 4 Gait Level of Assist: 5 Gait Assistive Device: FWW Stairs (FIM): 2 # of Steps: 4 1 Step (curb) (QC): 4 4 Steps (QC): 4 Stairs Level Of Assist: 4 PT Plan Problem List Problem List: Activity Tolerance, Functional Strength, Safety, Balance, Gait, Transfer, Bed Mobility, ROM Treatment/Plan Treatment Plan: Continue Plan of Care Treatment Plan: Bed Mobility, Education, Functional Activity Ramila, Functional Strength, Group Therapy, Gait, Safety, Therapeutic Exercise, Transfers Treatment Duration: Nov 10, 2018 Frequency: At least 5 of 7 days/Wk (IRF) Estimated Hrs Per Day: 1.5 hours per day Patient and/or Family Agrees t: Yes Safety Risks/Education Patient Education: Gait Training, Transfer Techniques, Correct Positioning, Safety Issues Teaching Recipient: Patient Teaching Methods: Demonstration, Discussion Response to Teaching: Reinforcement Needed Time/GCodes Time In: 1010 Time Out: 1110 Total Billed Treatment Time: 60 Total Billed Treatment 1 visit EX 30' FA 10' GT 20' NITO CAMACHO PT Nov 06, 2018 11:09
[2018-11-06] MEDS ORDERED: LACTULOSE SYRUP 10GM/15ML (ENULOSE) 30ML UDC PO NR (12:45)
--- NOTE | 2018-11-06 13:39 | NUR ---
provided prayer and Communion.
--- NOTE | 2018-11-06 13:51 | Occupational Ther Daily Note ---
OT Current Status-Daily Note Subjective Pt sleeping in bed. Pt groggy with waking. Pt c/o sore throat, physician in room. Pt agrees to therapy. Mental Status/Objective Patient Orientation: Person, Place, Time, Situation Therapy Code Descriptions/Definitions Functional [place] Measure: 0=Not Assessed/NA 4=Minimal Assistance 1=Total Assistance 5=Supervision or Setup 2=Maximal Assistance 6=Modified [place] 3=Moderate Assistance 7=Complete [place] ADL-Treatment Supine to sitting EOB by self. Transfer using FWW with close SBA. Using w/c, grabbar and shower bench pt able to shower transfer with min A for safety. Pt able to complete most of bathing by self in sitting, assist to stand then close SBA when standing to cleanse buttocks. Pt taking increased time to complete tasks. Assist to don/doff lower body over feet, pt pulled up legs, assist to hike over hips due to decreased dynamic standing balance. Assist to don/doff footwear. Pt able to complete own grooming sitting in w/c. After therapy, pt sitting in w/c at sink with call light in reach. Nrsg notified. All needs met in room. Therapy Code Descriptions/Definitions Functional [place] Measure: 0=Not Assessed/NA 4=Minimal Assistance 1=Total Assistance 5=Supervision or Setup 2=Maximal Assistance 6=Modified [place] 3=Moderate Assistance 7=Complete [place] Therapy Quality Codes: 6 Independent with activity with or without an assistive device 5 Patient requires set up or clean up by helper. Patient completes activity by themselves 4 Supervision or touching assist (CGA). [place] provide cues , steadying assist 3 The helper provides less than half the effort to complete the activity 2 The helper provides more than half the effort to complete the activity 1 Dependent. The helper does all the effort to complete an activity 7 Patient refused to complete or attempt activity 9 The patient did not perform the activity before the current illness or injury 88 Not attempted due to Medical conditions or safety concerns Grooming (FIM): 6 Oral Hygiene (QC): 6 Bathing (FIM): 4 Bathing Location: L Arm, R Arm, L Upper Leg, R Upper Leg, L Lower Leg ( including foot), R Lower Leg (including foot), Chest, Abdomen, Buttocks, Perineal Area Shower/Bathe Self (QC): 3 Upper Body (FIM): 5 (Able to complete by self after set up.) Upper Body Dressing (QC): 5 Lower Body Dressing (FIM): 3 Lower Body Dressing (QC): 2 On/Off Footwear (QC): 3 Shower Transfer(FIM): 4 OT Short Term Goals Short Term Goals Time Frame: Oct 27, 2018 Bathing(FIM): 4 Upper Body Dressing(FIM): 5 Lower Body Dressing(FIM): 5 Toileting(FIM): 5 Transfers (B,C,W/C) (FIM): 4 Toilet/Commode Transfer(FIM): 5 1=Demonstrate adherence to instructed precautions during ADL tasks. 2=Patient will verbalize/demonstrate understanding of assistive devices/ modifications for ADL. 3=Patient will improve strength/tolerance for activity to enable patient to perform ADL's. OT New Product Trainer Goals Fpc Goals Time Frame: Nov 10, 2018 Eating (FIM): 6 Eating (QC): 6 Groomin Oral Hygiene (QC): 6 Bathing(FIM): 5 Shower/Bathe Self (QC): 5 Upper Body Dressing(FIM): 6 Upper Body Dressing (QC): 6 Lower Body Dressing(FIM): 6 Lower Body Dressing (QC): 6 On/Off Footwear (QC): 6 Toileting(FIM): 6 Toileting Hygiene (QC): 6 Toilet/Commode Transfer(FIM): 6 Toilet/Commode Transfer (QC): 6 Shower Transfer(FIM): 5 Additional Goals: 1-Demonstrate ADL Tasks, 2-Verbalize Understanding, 3- ImproveStrength/Ramila 1=Demonstrate adherence to instructed precautions during ADL tasks. 2=Patient will verbalize/demonstrate understanding of assistive devices/ modifications for ADL. 3=Patient will improve strength/tolerance for activity to enable patient to perform ADL's. OT Education/Plan Problem List/Assessment Pt demonstrates decreased ADL functioning, strength, transfers, and activity tolerance. Pt to benefit from skilled OT intervention for ADL training, transfers, strengthening, and safety education to increase functional independence and allow safe discharge plan. Discharge Recommendations Plan/Recommendations: Continue POC Treatment Plan/Plan of Care Patient would benefit from OT for education, treatment and training to promote independence in ADL's, mobility, safety and/or upper extremity function for ADL' s. Plan of Care: ADL Retraining, Functional Mobility, Group Exercise/Act as Ind, UE Funct Exercise/Act Treatment Duration: Nov 10, 2018 Frequency: At least 5 of 7 days/Wk (IRF) Estimated Hrs Per Day: 1.5 hours per day Agreement: Yes Rehab Potential: Fair Time/GCodes Start Time: 08:00 Stop Time: 09:00 Total Time Billed (hr/min): 60 Billed Treatment Time 1 visit-ADL 4 (60 min) MATILDA ABRAHAM Nov 06, 2018 13:51
--- NOTE | 2018-11-06 13:58 | Occupational Ther Daily Note ---
OT Current Status-Daily Note Subjective Pt alert, lying in bed. Pt agrees to therapy. No c/o pain at this time. Mental Status/Objective Patient Orientation: Person, Place, Time, Situation Therapy Code Descriptions/Definitions Functional [place] Measure: 0=Not Assessed/NA 4=Minimal Assistance 1=Total Assistance 5=Supervision or Setup 2=Maximal Assistance 6=Modified [place] 3=Moderate Assistance 7=Complete [place] ADL-Treatment Therapy Code Descriptions/Definitions Functional [place] Measure: 0=Not Assessed/NA 4=Minimal Assistance 1=Total Assistance 5=Supervision or Setup 2=Maximal Assistance 6=Modified [place] 3=Moderate Assistance 7=Complete [place] Therapy Quality Codes: 6 Independent with activity with or without an assistive device 5 Patient requires set up or clean up by helper. Patient completes activity by themselves 4 Supervision or touching assist (CGA). [place] provide cues , steadying assist 3 The helper provides less than half the effort to complete the activity 2 The helper provides more than half the effort to complete the activity 1 Dependent. The helper does all the effort to complete an activity 7 Patient refused to complete or attempt activity 9 The patient did not perform the activity before the current illness or injury 88 Not attempted due to Medical conditions or safety concerns Other Treatment Massage to L LE to increase ROM and decrease tightness to increase mobility to don shoe with increased independence. Pt then ambulated to [facility] with SBA using FWW. Completed fine motor tasks to increase pinch and handicapped teacher strength for daily functional tasks. PT took over care of pt. All needs met. OT Short Term Goals Short Term Goals Time Frame: Oct 27, 2018 Bathing(FIM): 4 Upper Body Dressing(FIM): 5 Lower Body Dressing(FIM): 5 Toileting(FIM): 5 Transfers (B,C,W/C) (FIM): 4 Toilet/Commode Transfer(FIM): 5 1=Demonstrate adherence to instructed precautions during ADL tasks. 2=Patient will verbalize/demonstrate understanding of assistive devices/ modifications for ADL. 3=Patient will improve strength/tolerance for activity to enable patient to perform ADL's. OT Certified Hand Therapist Goals [place] Goals Time Frame: Nov 10, 2018 Eating (FIM): 6 Eating (QC): 6 Groomin Oral Hygiene (QC): 6 Bathing(FIM): 5 Shower/Bathe Self (QC): 5 Upper Body Dressing(FIM): 6 Upper Body Dressing (QC): 6 Lower Body Dressing(FIM): 6 Lower Body Dressing (QC): 6 On/Off Footwear (QC): 6 Toileting(FIM): 6 Toileting Hygiene (QC): 6 Toilet/Commode Transfer(FIM): 6 Toilet/Commode Transfer (QC): 6 Shower Transfer(FIM): 5 Additional Goals: 1-Demonstrate ADL Tasks, 2-Verbalize Understanding, 3- ImproveStrength/Ramila 1=Demonstrate adherence to instructed precautions during ADL tasks. 2=Patient will verbalize/demonstrate understanding of assistive devices/ modifications for ADL. 3=Patient will improve strength/tolerance for activity to enable patient to perform ADL's. OT Education/Plan Problem List/Assessment Pt demonstrates decreased ADL functioning, strength, transfers, and activity tolerance. Pt to benefit from skilled OT intervention for ADL training, transfers, strengthening, and safety education to increase functional independence and allow safe discharge plan. Discharge Recommendations Plan/Recommendations: Continue POC Treatment Plan/Plan of Care Patient would benefit from OT for education, treatment and training to promote independence in ADL's, mobility, safety and/or upper extremity function for ADL' s. Plan of Care: ADL Retraining, Functional Mobility, Group Exercise/Act as Ind, UE Funct Exercise/Act Treatment Duration: Nov 10, 2018 Frequency: At least 5 of 7 days/Wk (IRF) Estimated Hrs Per Day: 1.5 hours per day Agreement: Yes Rehab Potential: Fair Time/GCodes Start Time: 12:30 Stop Time: 13:00 Total Time Billed (hr/min): 30 Billed Treatment Time 1 visit-FA 1 (15 min) EX 1 (15 min) MATILDA ABRAHAM Nov 06, 2018 13:58
--- NOTE | 2018-11-06 14:39 | Cardiology Progress Note ---
Cardiology SOAP Progress Note Subjective: No cardiac complaints. Objective: I&O/Vital Signs 11/06/18 11/06/18 11/06/18 05:45 09:00 09:05 Temp 99.5 Pulse 71 73 Resp 18 B/P (MAP) 147/62 (90) 113/61 (78) Pulse Ox 96 O2 Delivery Room Air Room Air 11/06/18 00:00 Intake Total 980 ml Balance 980 ml Weight (Pounds): 128 Weight (Ounces): 11.2 Weight (Calculated Kilograms): 58.871671 Constitutional: AAO x 3, well-developed, well-nourished Respiratory: No accessory muscle use, No respiratory distress, No chest tender ; chest expansion is symmetric, chest is bilaterally symmetric; No lungs clear to percussion; lungs clear to auscultation; No crackles, No rhonchi, No rales, No stridor, No wheezing, No pleural rub, No other Cardiovascular: regular rate-rhythm; No JVD; S1 and S2 Gastrointestional: No tender; soft, round; No distended, No pulsatile mass, No organomegaly, No guarding, No rebound, No tenderness, No hernia, No mass, No audible bowel sounds, No abnormal bowel sounds, No abdominal bruits, No spleenomegaly, No other Extremities: No normal range of motion, No non-tender, No normal inspection, No pedal edema, No calf tenderness, No normal capillary refill, No pelvis stable , No calf tenderness, No inflammation, No pedal edema, No slow capillary refill , No swelling, No other, No abrasion, No clubbing, No cyanosis, No ecchymosis, No laceration; no lower extremity edema bilateral; No significant edema, No tenderness, No wound Neurologic/Psychiatric: no motor/sensory deficits, alert, normal mood/affect, oriented x 3, grossly intact Skin: No normal color, No warm/dry, No cyanosis, No cool, No diaphoresis, No damp, No ecchymosis, No jaundice, No mottled, No pallor, No rash, No tattoos/ piercings, No ulcerations, No rash on exposed areas, No ulcerations on exposed areas, No other A/P: Assessment/Dx: Assessment: Recent CVA ( 10-17-) with h/o previous CVA x 2 (2013 and 2016) - [place] from [facility] [place]18 is reported to have shown an area of an old infarct and severe cerebral atrophy, but no acute process per dictated note by Dr. Montemayor on 10-18-18 Hypertension - improved Echocardiogram of 10-19-18 shows mod concentric LVH; LVEF approx 60%; trivial to mild MR and TR. PASP approx 25 mmHg; mod enlargement of the LA Seizure disorder following a previous CVA Pt reports h/o intracranial bleed bleed following a fall in 2012 - exact details unknown Pt reports h/o PAF, but was not deemed suitable for OAC, due to a h/o ic bleed - details unknown Reported h/o CAD with stent placement in the past at [facility] in [place], [place] - details unknown No evidence of carotid stenosis per u/s of 10-21-18 HLD - statin tx Hypothyroidism - replacement tx H/O colon resection Family h/o CAD - mother NC age 69, father NC age 66 H/O intolerance of Bystolic in the past d/t bradycardia Plan: Plan: Continue current regimen BP not well controlled following reduction in BB (d/t asymptomatic bradycardia) - Norvasc 10mg daily Given h/o ic bleed, we have not put her on OAC, but antiplatelet therapy is being continued Thank you for your consultation. Please call me if you have any questions. Magdalene De Souza MD, FACP, FACC, FSCAI, FHRS, CCDS Interventional Cardiology Cardiac Electrophysiology Vascular Medicine and Endovascular Interventions Yusuf DE SOUZA MD Nov 06, 2018 2:39 pm
--- NOTE | 2018-11-06 14:40 | Physical Therapy Daily Note ---
PT Daily Note-Current Subjective Agrees to PT. Reports she feels she is improving. Transfers Therapy Code Descriptions/Definitions Functional [place] Measure: 0=Not Assessed/NA 4=Minimal Assistance 1=Total Assistance 5=Supervision or Setup 2=Maximal Assistance 6=Modified [place] 3=Moderate Assistance 7=Complete [place] Therapy Quality Codes: 6 Independent with activity with or without an assistive device 5 Patient requires set up or clean up by helper. Patient completes activity by themselves 4 Supervision or touching assist (CGA). [place] provide cues , steadying assist 3 The helper provides less than half the effort to complete the activity 2 The helper provides more than half the effort to complete the activity 1 Dependent. The helper does all the effort to complete an activity 7 Patient refused to complete or attempt activity 9 The patient did not perform the activity before the current illness or injury 88 Not attempted due to Medical conditions or safety concerns Weight Bearing Right Lower Extremity: Right Full Weight Bearing Left Lower Extremity: Left Full Weight Bearing Treatments pt walked 150', 30' and 200 ft with FWW with SBA. Sit to stand x 5 reps with focus on hand placement and sequencing. Pt ambulated to the toilet and was able to perform clothing management with SBA. Pt on toilet post treatment with call light in reach. Assessment Current Status: Good Progress Tends to toe walk on the left; unsteady with sit to stand and requires reminders for sequencing. PT Short Term Goals Short Term Goals Time Frame: Oct 27, 2018 Transfers (B,C,W/C) (FIM): 4 (met) Gait (FIM): 2 Gait Distance Comment: 120' Gait Level of Assist: 4 Gait Assistive Device: FWW PT International Account Executive Goals Care Home Goals PT Care Home Goals Time Frame: Nov 10, 2018 Transfers (B,C,W/C) (FIM): 5 Sit to Lying (QC): 4 Lying-Sitting on Side/Bed(QC): 4 Sit to Stand (QC): 4 Rollin Roll Left to Right (QC): 4 Chair/Ymd-sr-Wfibf Xfer(QC): 4 Car Transfer (QC): 4 Gait (FIM): 5 Distance: 150' Walk 10 feet (QC): 4 Walk 10ft-Uneven Surface(QC): 4 Walk 50ft with 2 Turns (QC): 4 Walk 150 ft (QC): 4 Gait Level of Assist: 5 Gait Assistive Device: FWW Stairs (FIM): 2 # of Steps: 4 1 Step (curb) (QC): 4 4 Steps (QC): 4 Stairs Level Of Assist: 4 PT Plan Problem List Problem List: Activity Tolerance, Functional Strength, Safety, Balance, Gait, Transfer, Bed Mobility Treatment/Plan Treatment Plan: Continue Plan of Care Treatment Plan: Bed Mobility, Education, Functional Activity Ramila, Functional Strength, Group Therapy, Gait, Safety, Therapeutic Exercise, Transfers Treatment Duration: Nov 10, 2018 Frequency: At least 5 of 7 days/Wk (IRF) Estimated Hrs Per Day: 1.5 hours per day Patient and/or Family Agrees t: Yes Safety Risks/Education Patient Education: Transfer Techniques Teaching Recipient: Patient Teaching Methods: Demonstration, Discussion Response to Teaching: Return Demonstration, Reinforcement Needed Time/GCodes Time In: 1300 Time Out: 1330 Total Billed Treatment Time: 30 Total Billed Treatment visit GT 30 MATILDA VALENCIA PT Nov 06, 2018 14:40
[2018-11-06] MEDS: ACETAMINOPHEN 325 MG TABLET PO PRN (16:42)
[2018-11-06] MEDS: CHLORASEPTIC LOZENGE MM PRN (16:42)
[2018-11-06 17:12] VITALS: BP 119/63
[2018-11-06] MEDS: ASPIRIN E.C. 81 MG (ECOTRIN) TAB PO SCH (20:27)
[2018-11-06] MEDS: CLOPIDOGREL 75 MG (PLAVIX) TABLET PO SCH (20:28)
[2018-11-06] MEDS: MELATONIN 3 MG TABLET PO SCH (20:28)
[2018-11-06] MEDS: LEVOTHYROXINE 25 MCG (LEVOTHROID) TAB PO SCH (20:28)
[2018-11-06] MEDS: VITAMIN D3 1,000 UNITS (CHOLECALCIFEROL) TABLET PO SCH (20:28)
[2018-11-06] MEDS: lamoTRIgine 25 MG (LaMICtal) TAB PO SCH (20:28)
[2018-11-06] MEDS: LACTULOSE SYRUP 10GM/15ML (ENULOSE) 30ML UDC PO SCH (20:30)
[2018-11-07 05:20] VITALS: BP 137/66
--- NOTE | 2018-11-07 08:27 | PM&R Progress Note ---
Subjective HPI/CC On Admission Date Seen by Provider: Nov 07, 2018 Time Seen by Provider: 08:15 Subjective/Events-last exam Had a low grade fever so will check chest X-ray, influenza, Strep screen, and CBC CMP now She does have somatic complaints Assisted living will assess her to evaluate if they can maintain her needs at discharge for tomorrow but now update from therapies she will go to [place] for skilled then go to [place] Review of Systems General: Fatigue, Malaise HEENT: Sore Throat Pulmonary: Cough Objective Exam Vital Signs Vital Signs Date Time Temp Pulse Resp B/P (MAP) Pulse Ox O2 Delivery O2 Flow Rate FiO2 11/07/18 17:41 97.5 69 18 126/60 (82) 97 Room Air Capillary Refill : General Appearance: No Apparent Distress, WD/WN Respiratory: Chest Non Tender, Lungs Clear, Normal Breath Sounds, No Accessory Muscle Use, No Respiratory Distress Cardiovascular: Regular Rate, Rhythm, No Edema, No Gallop, No JVD, No Murmur, Normal Peripheral Pulses Neurologic/Psychiatric: Alert, Oriented x3, Normal Mood/Affect Skin: Normal Color, Warm/Dry Results/Procedures Lab Laboratory Tests 11/07/18 09:00 Patient resulted labs reviewed. 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 Paroxysmal atrial fibrillation Dementia Depression History of small bowel resection partial History of left hip fracture repair with subsequent nerve damage making ambulation difficult GERD Urge incontinence Muscle pain reported with normal CPK but hold statin now improved since stopping s/p Crackles in left lower lobe with subtle cough will initiate albuterol neb treatment twice a day and incentive spirometer now resolved Constipation Somatic complaints Cough without crackles on exam CXR revealed subtle ATX so will start Nebs again and IS Sore throat reported but normal exam and negative for Strep Low grade fever one time and influenza negative Plan: Continue current meds but add Miralax daily in addition to Senna today Stopped statin therapy due to muscle pain Maintained on Plavix Appreciate cardiology due to history of paroxysmal atrial fibrillation but possible bleeding side effect from anticoagulation Continue therapies per protocol Hold statin for muscle pain Albuterol neb treatment twice a day Incentive spirometer for crackles in the left lower lobe but resolved and will restart Nebs Somatic complaints Lozenges for sore throat VCV [facility] prior to [place] Patient requires close monitoring in inpatient rehab setting due to cognitive deficits from the stroke with difficulty communicating and a fall risk. Also will monitor for urinary and bowel function due to history of both organ systems ' dysfunction. Monitor blood pressure closely due to history of stroke subacute along with 2 prior strokes Close monitoring for recurrent seizure since history of seizure after her last stroke Cardiology consultation to decide if additional anticoagulation is needed to prevent subsequent strokes Diagnosis/Problems Diagnosis/Problems (1) CVA (cerebral vascular accident) Status: Acute Qualifiers: CVA mechanism: unspecified Qualified Codes: I63.9 - Cerebral infarction, unspecified (2) History of CVA (cerebrovascular accident) Status: Chronic (3) Seizure disorder Status: Chronic (4) CAD (coronary artery disease) Status: Chronic Qualifiers: Coronary Disease-Associated Artery/Lesion type: [place] artery [place] vs. transplanted heart: [place] heart Associated angina: without angina Qualified Codes: I25.10 - Atherosclerotic heart disease of [place] coronary artery without angina pectoris (5) Hypothyroidism Status: Chronic Qualifiers: Hypothyroidism type: acquired Qualified Codes: E03.9 - Hypothyroidism, unspecified (6) Paroxysmal atrial fibrillation Status: Chronic (7) History of coronary artery stent placement Status: Chronic (8) Hypertension Status: Chronic Qualifiers: Hypertension type: essential hypertension Qualified Codes: I10 - Essential (primary) hypertension (9) Hyperlipidemia Status: Chronic Qualifiers: Hyperlipidemia type: mixed hyperlipidemia Qualified Codes: E78.2 - Mixed hyperlipidemia (10) Urge incontinence Status: Chronic (11) History of hip fracture Status: Chronic (12) Depression Status: Chronic Qualifiers: Depression Type: unspecified Qualified Codes: F32.9 - Major depressive disorder, single episode, unspecified (13) Vascular dementia Status: Chronic Qualifiers: Dementia behavioral disturbance: without behavioral disturbance Qualified Codes: F01.50 - Vascular dementia without behavioral disturbance (14) Incontinence Status: Chronic Qualifiers: Incontinence type: urinary Urinary Incontinence type: unspecified incontinence Qualified Codes: R32 - Unspecified urinary incontinence (15) Myositis Status: Acute Qualifiers: Myositis type: unspecified type Myositis location: unspecified site Qualified Codes: M60.9 - Myositis, unspecified (16) Left knee pain Qualifiers: Chronicity: acute Qualified Codes: M25.562 - Pain in left knee (17) Cough Status: Acute (18) Lung crackles Status: Resolved Assessment & Plan: LLL Resolution Date/Time: 11/04/18 @ 14:49 (19) Constipation Status: Acute Assessment & Plan: 11/06: add Lactulose today Qualifiers: Constipation type: slow transit constipation Qualified Codes: K59.01 - Slow transit constipation (20) Acute sore throat Status: Acute (21) Somatic complaints, multiple Status: Acute (22) Atelectasis of right lung Status: Acute Clinical Quality Measures Admission Status Admission Dx Assessment: Seth infarct History of CVA with subsequent seizure disorder CAD previous stent placement Hypothyroidism Hypertension 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 Also will monitor for urinary and bowel function due to history of both organ systems ' dysfunction. Monitor blood pressure closely due to history of stroke subacute along with 2 prior strokes Close monitoring for recurrent seizure since history of seizure after her last stroke Cardiology consultation to decide if additional anticoagulation is needed to prevent subsequent strokes DVT/VTE Risk/Contraindication: Risk Factor Score Per Nursin RFS Level Per Nursing on Admit: 2=Moderate ERIC PORTILLO DO Nov 07, 2018 08:27
[2018-11-07 08:53] VITALS: BP 118/61
[2018-11-07] MEDS: ASCORBIC ACID (VIT C) 500 MG TABLET PO SCH (08:54)
[2018-11-07] MEDS: OXYBUTYNIN (DITROPAN) 5 MG TAB PO SCH (08:54)
[2018-11-07] MEDS: amLODIPine 10 MG (NORVASC) TAB PO SCH (08:54)
[2018-11-07] MEDS: MULTIVIT W/MINERALS TAB (THERAGRAN M) PO SCH (08:54)
[2018-11-07] MEDS: PANTOPRAZOLE 40 MG (PROTONIX) TAB PO SCH (08:54)
[2018-11-07] MEDS: CHLORASEPTIC LOZENGE MM PRN ×2 (08:55→20:13)
[2018-11-07] MEDS: SALINE NASAL SPRAY (OCEAN) 45 ML BTL SCH ×3 (08:57→20:11)
[2018-11-07] MEDS: POLYETHYLENE GLYCOL 17 GM (MIRALAX) PACK PO SCH (08:57)
[2018-11-07] MEDS: LACTULOSE SYRUP 10GM/15ML (ENULOSE) 30ML UDC PO SCH ×2 (08:57→20:20)
[2018-11-07 09:14] LABS: BASOPHILS % (AUTO) 0 % (0-10); EOSINOPHILS % (AUTO) 0 % (0-10); HEMATOCRIT 36 % (35-52); HEMOGLOBIN 11.6 G/DL (11.5-16.0); LYMPHOCYTES # (AUTO) 2.2 X 10^3 (1.0-4.0); LYMPHOCYTES % (AUTO) 29 % (12-44); MEAN CORPUSCULAR HEMOGLOBIN 29 PG (25-34); MEAN CORPUSCULAR HGB CONC 32 G/DL (32-36); MEAN CORPUSCULAR VOLUME 92 FL (80-99); MEAN PLATELET VOLUME 11.2 FL (7.4-10.4); MONOCYTES % (AUTO) 13 % (0-12); NEUTROPHILS # (AUTO) 4.5 X 10^3 (1.8-7.8); NEUTROPHILS % (AUTO) 58 % (42-75); PLATELET COUNT 214 10^3/uL (130-400); WHITE BLOOD COUNT 7.7 10^3/uL (4.3-11.0)
[2018-11-07 09:37] LABS: ALBUMIN 4.2 GM/DL (3.2-4.5); BILIRUBIN,TOTAL 0.5 MG/DL (0.1-1.0); CALCIUM 9.5 MG/DL (8.5-10.1); CREATININE SERUM 1.23 MG/DL (0.60-1.30); POTASSIUM 4.1 MMOL/L (3.6-5.0); TOTAL PROTEIN 7.9 GM/DL (6.4-8.2)
--- NOTE | 2018-11-07 09:59 | Physical Therapy Daily Note ---
PT Daily Note-Current Subjective Patient in wheelchair at bedside eating breakfast pre tx, agrees reluctantly to PT, no complaints of pain. Appearance Patient in wheelchair post tx at bedside to finish up breakfast, has nurse call , phone, tray, all needs met. Mental Status Patient Orientation: Person, Place, Situation Transfers Therapy Code Descriptions/Definitions Functional [place] Measure: 0=Not Assessed/NA 4=Minimal Assistance 1=Total Assistance 5=Supervision or Setup 2=Maximal Assistance 6=Modified [place] 3=Moderate Assistance 7=Complete [place] Therapy Quality Codes: 6 Independent with activity with or without an assistive device 5 Patient requires set up or clean up by helper. Patient completes activity by themselves 4 Supervision or touching assist (CGA). [place] provide cues , steadying assist 3 The helper provides less than half the effort to complete the activity 2 The helper provides more than half the effort to complete the activity 1 Dependent. The helper does all the effort to complete an activity 7 Patient refused to complete or attempt activity 9 The patient did not perform the activity before the current illness or injury 88 Not attempted due to Medical conditions or safety concerns Transfers (B, C, W/C) (FIM): 4 Sit to/from Stand: 4 Bed to/from Chair: 4 Min assist to stand from low surfaces, CGA for transfers, needs cues for safety and positioning during transfers, will often try to sit before turning completely Weight Bearing Right Lower Extremity: Right Full Weight Bearing Left Lower Extremity: Left Full Weight Bearing Gait Training Gait (FIM): 4 Distance: 150'x3 Gait Level of Assist: 4 Gait Persons Needed: 1 Gait Assistive Device: FWW Patient ambulates slowly, CGA, no heel strike on the left side. Exercises Seated Therapy Exercises: Ankle pumps, Long arc quads, Hip flexion, Hip abd/add Seated Reps: 20 NuStep Minutes: 10 NuStep Workload: 4 Treatments transfers, ambulation, functional strengthening, patient was also taken back to her room and toileted (she was able to get her pants up and down without assist) Assessment Current Status: Fair Progress Patient seemed to have a little more difficulty with safety with transfers, needed more cues to turn completely PT Short Term Goals Short Term Goals Time Frame: Oct 27, 2018 Transfers (B,C,W/C) (FIM): 4 (met) Gait (FIM): 2 Gait Distance Comment: 120' Gait Level of Assist: 4 Gait Assistive Device: FWW PT Film Touch Up Inspector Goals Detention Goals PT Detention Goals Time Frame: Nov 10, 2018 Transfers (B,C,W/C) (FIM): 5 Sit to Lying (QC): 4 Lying-Sitting on Side/Bed(QC): 4 Sit to Stand (QC): 4 Rollin Roll Left to Right (QC): 4 Chair/Zix-fh-Ngnhu Xfer(QC): 4 Car Transfer (QC): 4 Gait (FIM): 5 Distance: 150' Walk 10 feet (QC): 4 Walk 10ft-Uneven Surface(QC): 4 Walk 50ft with 2 Turns (QC): 4 Walk 150 ft (QC): 4 Gait Level of Assist: 5 Gait Assistive Device: FWW Stairs (FIM): 2 # of Steps: 4 1 Step (curb) (QC): 4 4 Steps (QC): 4 Stairs Level Of Assist: 4 PT Plan Problem List Problem List: Activity Tolerance, Functional Strength, Safety, Balance, Gait, Transfer, Bed Mobility, ROM Treatment/Plan Treatment Plan: Continue Plan of Care Treatment Plan: Bed Mobility, Education, Functional Activity Ramila, Functional Strength, Group Therapy, Gait, Safety, Therapeutic Exercise, Transfers Treatment Duration: Nov 10, 2018 Frequency: At least 5 of 7 days/Wk (IRF) Estimated Hrs Per Day: 1.5 hours per day Patient and/or Family Agrees t: Yes Safety Risks/Education Patient Education: Gait Training, Transfer Techniques, Correct Positioning, Safety Issues Teaching Recipient: Patient Teaching Methods: Demonstration, Discussion Response to Teaching: Reinforcement Needed Time/GCodes Time In: 0900 Time Out: 1000 Total Billed Treatment Time: 60 Total Billed Treatment 1 visit FA 15' EX 15' GT 30' NITO CAMACHO PT Nov 07, 2018 09:59
--- NOTE | 2018-11-07 11:21 | Diagnostic Imaging Report ---
PA and lateral chest at 1025. Indication: Fever There are no prior studies available for comparison. The heart size is at the upper limits of normal. The perihilar markings in the right suprahilar region are somewhat prominent. These findings could be chronic in nature. The possibility that there is an element of mild pneumonia/atelectasis there should be considered. If clinically indicated, follow up exam would be recommended for further study. Also if previous studies are available they would be helpful in comparison. The lungs are otherwise clear. There is no evidence for failure, pneumonia or pleural effusion. The mediastinum is not widened. The osseous structures are intact. There are post kyphoplasty changes involving two of the lowermost thoracic vertebra, probably T11-T12. Impression: 1. The prominence of the perihilar markings in the right suprahilar region does raise the question of mild acute pneumonia/atelectasis. Recommendations as above. 2. There is no acute cardiopulmonary abnormality noted otherwise. Dictated by: Dictated on workstation # [id number]
--- NOTE | 2018-11-07 11:36 | Progress Note-Cardiology ---
Cardiology SOAP Progress Note Subjective: Up with PT. No new c/o. Objective: I&O/Vital Signs 11/07/18 11/07/18 11/07/18 05:20 08:53 09:00 Temp 98.6 Pulse 64 70 Resp 18 B/P (MAP) 137/66 (89) 118/61 (80) Pulse Ox 96 O2 Delivery Room Air Room Air 11/07/18 00:00 Intake Total 750 ml Balance 750 ml Weight (Pounds): 126 Weight (Ounces): 11.2 Weight (Calculated Kilograms): 57.228327 Constitutional: AAO x 3, well-developed, well-nourished Respiratory: chest expansion is symmetric, chest is bilaterally symmetric, lungs clear to auscultation Cardiovascular: regular rate-rhythm, S1 and S2 Gastrointestional: soft, round, audible bowel sounds Extremities: no lower extremity edema bilateral Neurologic/Psychiatric: alert, normal mood/affect, oriented x 3, grossly intact Skin: No rash, No ulcerations Results/Procedures: Labs Laboratory Tests 11/07/18 09:00: White Blood Count 7.7, Red Blood Count 3.95L, Hemoglobin 11.6, Hematocrit 36, Mean Corpuscular Volume 92, Mean Corpuscular Hemoglobin 29, Mean Corpuscular Hemoglobin Concent 32, Red Cell Distribution Width 13.0, Platelet Count 214, Mean Platelet Volume 11.2H, Neutrophils (%) (Auto) 58, Lymphocytes (%) (Auto) 29 , Monocytes (%) (Auto) 13H, Eosinophils (%) (Auto) 0, Basophils (%) (Auto) 0, Neutrophils # (Auto) 4.5, Lymphocytes # (Auto) 2.2, Monocytes # (Auto) 1.0, Eosinophils # (Auto) 0.0, Basophils # (Auto) 0.0, Sodium Level 139, Potassium Level 4.1, Chloride Level 105, Carbon Dioxide Level 22, Anion Gap 12, Blood Urea Nitrogen 19H, Creatinine 1.23, Estimat Glomerular Filtration Rate 41, BUN/ Creatinine Ratio 15, Glucose Level 105, Calcium Level 9.5, Corrected Calcium 9.3 , Total Bilirubin 0.5, Aspartate Amino Transf (AST/SGOT) 28, Alanine Aminotransferase (ALT/SGPT) 19, Alkaline Phosphatase 69, Total Protein 7.9, Albumin 4.2 11/07/18 10:10: Group A Streptococcus Screen NEGATIVE Microbiology 11/07/18 Influenza Types A,B Antigen (PARTH) - Final, Complete A/P: Assessment: Recent CVA ( 10-17-18) with h/o previous CVA x 2 (2013 and 2016) - CT from [facility] 10-17-18 is reported to have shown an area of an old infarct and severe cerebral atrophy, but no acute process per dictated note by Dr. Montemayor on 10-18-18 Hypertension - improved Echocardiogram of 10-19-18 shows mod concentric LVH; LVEF approx 60%; trivial to mild MR and TR. PASP approx 25 mmHg; mod enlargement of the LA Seizure disorder following a previous CVA Pt reports h/o intracranial bleed bleed following a fall in 2012 Pt reports h/o PAF, but was not deemed suitable for OAC, due to a h/o ic bleed Reported h/o CAD with stent placement in the past at [facility] in [place], [place] - details unknown No evidence of carotid stenosis per u/s of 10-21-18 HLD - statin tx Hypothyroidism - replacement tx H/O colon resection Family h/o CAD - mother [place] age 69, father [place] age 66 H/O intolerance of Bystolic in the past d/t bradycardia Plan: Continue current regimen Given h/o ic bleed, we have not put her on OAC, but antiplatelet therapy is being continued Physician Assessment Physician Assessment No cp or palp or syncope or shortness of breath Her daughter (an RN) is by her bedside Lungs: clear Cor: reg Ext: no c/c/e A&R * As documented in our note above that I updated (italics) and as noted below * I had a long and detailed discussion with her daughter (an RN). We discussed the high probability of PAF being at the root of patient's multiple thromboembolic strokes. 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 It appears reasonable to initiate OAC for prophylaxis against thromboembolic stroke. Pt and family do understand that this would increase risk of intracranial bleed, joshua with falls. Nevertheless, under the circumstances (multiple thromboembolic CVAs) this appears reasonable to do. We will use the lower dose of apixaban, given patient's age and a h/o i.c. bleed with falls. To reduce risk of bleeding , we are simultaneously stopping ASA. We are continuing Plavix because a h/o CAD and cor stents. Pt and family concur with this BAIMA,SATHISH WARREN Nov 07, 2018 11:36 FITZ WINTER MD FACP FAC CCDS Nov 07, 2018 12:51
--- NOTE | 2018-11-07 12:46 | NUR ---
Discharge planning Records faxed to [facility] per patient's and patient's family request.
--- NOTE | 2018-11-07 13:35 | Occupational Ther Daily Note ---
OT Current Status-Daily Note Subjective Pt sleeping in bed, woke though groggy. Pt agrees to therapy. Voice weak and squeaky, c/o sore throat. Nrsg and physician is aware. Mental Status/Objective Patient Orientation: Person, Place, Time, Situation Therapy Code Descriptions/Definitions Functional [place] Measure: 0=Not Assessed/NA 4=Minimal Assistance 1=Total Assistance 5=Supervision or Setup 2=Maximal Assistance 6=Modified [place] 3=Moderate Assistance 7=Complete [place] ADL-Treatment Pt declines shower today. HOB slightly raised and using bed rails pt able to go from supine to EOB. Transferred to w/c then SPT to toilet with CGA. CGA to manipulate clothing for toileting, cleanses self. Assist to don pants over feet then CGA in standing to hike pants over hips. Assist to don shoes. After set up, pt able to don upper body clothing by self. Grooming by self in w/c at sink. Pt takes increased time to complete tasks. Pt able to open most containers/packages by self. After therapy, pt sitting in w/c with call light/ phone in reach. Nrsg present in room. Therapy Code Descriptions/Definitions Functional [place] Measure: 0=Not Assessed/NA 4=Minimal Assistance 1=Total Assistance 5=Supervision or Setup 2=Maximal Assistance 6=Modified [place] 3=Moderate Assistance 7=Complete [place] Therapy Quality Codes: 6 Independent with activity with or without an assistive device 5 Patient requires set up or clean up by helper. Patient completes activity by themselves 4 Supervision or touching assist (CGA). [place] provide cues , steadying assist 3 The helper provides less than half the effort to complete the activity 2 The helper provides more than half the effort to complete the activity 1 Dependent. The helper does all the effort to complete an activity 7 Patient refused to complete or attempt activity 9 The patient did not perform the activity before the current illness or injury 88 Not attempted due to Medical conditions or safety concerns Eating (FIM): 5 Eating (QC): 5 Grooming (FIM): 6 Oral Hygiene (QC): 6 Upper Body (FIM): 5 Upper Body Dressing (QC): 5 Lower Body Dressing (FIM): 3 Lower Body Dressing (QC): 3 Toileting (FIM): 4 Toileting Hygiene (QC): 4 Toilet/Commode Transfer (FIM): 4 Toilet Transfer (QC): 4 OT Short Term Goals Short Term Goals Time Frame: Oct 27, 2018 Bathing(FIM): 4 Upper Body Dressing(FIM): 5 Lower Body Dressing(FIM): 5 Toileting(FIM): 5 Transfers (B,C,W/C) (FIM): 4 (met) Toilet/Commode Transfer(FIM): 5 1=Demonstrate adherence to instructed precautions during ADL tasks. 2=Patient will verbalize/demonstrate understanding of assistive devices/ modifications for ADL. 3=Patient will improve strength/tolerance for activity to enable patient to perform ADL's. OT Fdc Goals Fdc Goals Time Frame: Nov 10, 2018 Eating (FIM): 6 Eating (QC): 6 Groomin Oral Hygiene (QC): 6 Bathing(FIM): 5 Shower/Bathe Self (QC): 5 Upper Body Dressing(FIM): 6 Upper Body Dressing (QC): 6 Lower Body Dressing(FIM): 6 Lower Body Dressing (QC): 6 On/Off Footwear (QC): 6 Toileting(FIM): 6 Toileting Hygiene (QC): 6 Toilet/Commode Transfer(FIM): 6 Toilet/Commode Transfer (QC): 6 Shower Transfer(FIM): 5 Additional Goals: 1-Demonstrate ADL Tasks, 2-Verbalize Understanding, 3- ImproveStrength/Ramila 1=Demonstrate adherence to instructed precautions during ADL tasks. 2=Patient will verbalize/demonstrate understanding of assistive devices/ modifications for ADL. 3=Patient will improve strength/tolerance for activity to enable patient to perform ADL's. OT Education/Plan Problem List/Assessment Pt demonstrates decreased ADL functioning, strength, transfers, and activity tolerance. Pt to benefit from skilled OT intervention for ADL training, transfers, strengthening, and safety education to increase functional independence and allow safe discharge plan. Discharge Recommendations Plan/Recommendations: Continue POC Treatment Plan/Plan of Care Patient would benefit from OT for education, treatment and training to promote independence in ADL's, mobility, safety and/or upper extremity function for ADL' s. Plan of Care: ADL Retraining, Functional Mobility, Group Exercise/Act as Ind, UE Funct Exercise/Act Treatment Duration: Nov 10, 2018 Frequency: At least 5 of 7 days/Wk (IRF) Estimated Hrs Per Day: 1.5 hours per day Agreement: Yes Rehab Potential: Fair Time/GCodes Start Time: 08:00 Stop Time: 09:00 Total Time Billed (hr/min): 60 Billed Treatment Time 1 visit-ADL 4 (60 min) MATILDA ABRAHAM Nov 07, 2018 13:35
--- NOTE | 2018-11-07 13:42 | Occupational Ther Daily Note ---
OT Current Status-Daily Note Subjective Pt alert, lying in bed. Pt agrees to therapy. No c/o pain. Family present in room. Mental Status/Objective Patient Orientation: Person, Place, Time, Situation Therapy Code Descriptions/Definitions Functional [place] Measure: 0=Not Assessed/NA 4=Minimal Assistance 1=Total Assistance 5=Supervision or Setup 2=Maximal Assistance 6=Modified [place] 3=Moderate Assistance 7=Complete [place] ADL-Treatment Therapy Code Descriptions/Definitions Functional [place] Measure: 0=Not Assessed/NA 4=Minimal Assistance 1=Total Assistance 5=Supervision or Setup 2=Maximal Assistance 6=Modified [place] 3=Moderate Assistance 7=Complete [place] Therapy Quality Codes: 6 Independent with activity with or without an assistive device 5 Patient requires set up or clean up by helper. Patient completes activity by themselves 4 Supervision or touching assist (CGA). [place] provide cues , steadying assist 3 The helper provides less than half the effort to complete the activity 2 The helper provides more than half the effort to complete the activity 1 Dependent. The helper does all the effort to complete an activity 7 Patient refused to complete or attempt activity 9 The patient did not perform the activity before the current illness or injury 88 Not attempted due to Medical conditions or safety concerns Other Treatment Pt able to don/doff foot wear by self. Pt then propelled self with B LE in w/c to therapy gym. Pt completed 8 min of arm bike beginning at 15 baptiste resistance then decreased to 10 due to decreased activity tolerance, working on increasing strength and activity tolerance for daily functional tasks. After therapy, pt lying in bed with call light/phone in reach. Family present in room. All needs met in room. OT Short Term Goals Short Term Goals Time Frame: Oct 27, 2018 Bathing(FIM): 4 Upper Body Dressing(FIM): 5 Lower Body Dressing(FIM): 5 Toileting(FIM): 5 Transfers (B,C,W/C) (FIM): 4 (met) Toilet/Commode Transfer(FIM): 5 1=Demonstrate adherence to instructed precautions during ADL tasks. 2=Patient will verbalize/demonstrate understanding of assistive devices/ modifications for ADL. 3=Patient will improve strength/tolerance for activity to enable patient to perform ADL's. OT Correction Goals Correction Goals Time Frame: Nov 10, 2018 Eating (FIM): 6 Eating (QC): 6 Groomin Oral Hygiene (QC): 6 Bathing(FIM): 5 Shower/Bathe Self (QC): 5 Upper Body Dressing(FIM): 6 Upper Body Dressing (QC): 6 Lower Body Dressing(FIM): 6 Lower Body Dressing (QC): 6 On/Off Footwear (QC): 6 Toileting(FIM): 6 Toileting Hygiene (QC): 6 Toilet/Commode Transfer(FIM): 6 Toilet/Commode Transfer (QC): 6 Shower Transfer(FIM): 5 Additional Goals: 1-Demonstrate ADL Tasks, 2-Verbalize Understanding, 3- ImproveStrength/Ramila 1=Demonstrate adherence to instructed precautions during ADL tasks. 2=Patient will verbalize/demonstrate understanding of assistive devices/ modifications for ADL. 3=Patient will improve strength/tolerance for activity to enable patient to perform ADL's. OT Education/Plan Problem List/Assessment Pt demonstrates decreased ADL functioning, strength, transfers, and activity tolerance. Pt to benefit from skilled OT intervention for ADL training, transfers, strengthening, and safety education to increase functional independence and allow safe discharge plan. Discharge Recommendations Plan/Recommendations: Continue POC Treatment Plan/Plan of Care Patient would benefit from OT for education, treatment and training to promote independence in ADL's, mobility, safety and/or upper extremity function for ADL' s. Plan of Care: ADL Retraining, Functional Mobility, Group Exercise/Act as Ind, UE Funct Exercise/Act Treatment Duration: Nov 10, 2018 Frequency: At least 5 of 7 days/Wk (IRF) Estimated Hrs Per Day: 1.5 hours per day Agreement: Yes Rehab Potential: Fair Time/GCodes Start Time: 11:30 Stop Time: 12:00 Total Time Billed (hr/min): 30 Billed Treatment Time 1 visit-FA 1 (20 min) EX 1 (10 min) MATILDA ABRAHAM Nov 07, 2018 13:42
--- NOTE | 2018-11-07 13:57 | Physical Therapy Daily Note ---
PT Daily Note-Current Subjective Patient in recliner pre tx, agrees to PT, has no complaints of pain. Appearance Patient in bed post tx with nurse call, phone, tray, all needs met. Mental Status Patient Orientation: Person, Place, Situation Transfers Therapy Code Descriptions/Definitions Functional [place] Measure: 0=Not Assessed/NA 4=Minimal Assistance 1=Total Assistance 5=Supervision or Setup 2=Maximal Assistance 6=Modified [place] 3=Moderate Assistance 7=Complete [place] Therapy Quality Codes: 6 Independent with activity with or without an assistive device 5 Patient requires set up or clean up by helper. Patient completes activity by themselves 4 Supervision or touching assist (CGA). [place] provide cues , steadying assist 3 The helper provides less than half the effort to complete the activity 2 The helper provides more than half the effort to complete the activity 1 Dependent. The helper does all the effort to complete an activity 7 Patient refused to complete or attempt activity 9 The patient did not perform the activity before the current illness or injury 88 Not attempted due to Medical conditions or safety concerns Transfers (B, C, W/C) (FIM): 4 Scootin Rollin Supine to/from Sit: 5 Sit to/from Stand: 4 Bed to/from Chair: 4 Weight Bearing Right Lower Extremity: Right Full Weight Bearing Left Lower Extremity: Left Full Weight Bearing Gait Training Gait (FIM): 4 Distance: 150'x2 Gait Level of Assist: 4 Gait Persons Needed: 1 Gait Assistive Device: FWW Treatments bed mobility and transfers, ambulation, patient was also toileted once and pulled pants up an down with out assist from therapist Assessment Current Status: Fair Progress improved sit to stand from low surfaces PT Short Term Goals Short Term Goals Time Frame: Oct 27, 2018 Transfers (B,C,W/C) (FIM): 4 (met) Gait (FIM): 2 Gait Distance Comment: 120' Gait Level of Assist: 4 Gait Assistive Device: FWW PT Curtain Cleaner Goals Senior Care Goals PT Curtain Cleaner Goals Time Frame: Nov 10, 2018 Transfers (B,C,W/C) (FIM): 5 Sit to Lying (QC): 4 Lying-Sitting on Side/Bed(QC): 4 Sit to Stand (QC): 4 Rollin Roll Left to Right (QC): 4 Chair/Oab-so-Drhlw Xfer(QC): 4 Car Transfer (QC): 4 Gait (FIM): 5 Distance: 150' Walk 10 feet (QC): 4 Walk 10ft-Uneven Surface(QC): 4 Walk 50ft with 2 Turns (QC): 4 Walk 150 ft (QC): 4 Gait Level of Assist: 5 Gait Assistive Device: FWW Stairs (FIM): 2 # of Steps: 4 1 Step (curb) (QC): 4 4 Steps (QC): 4 Stairs Level Of Assist: 4 PT Plan Problem List Problem List: Activity Tolerance, Functional Strength, Safety, Balance, Gait, Transfer, Bed Mobility, ROM Treatment/Plan Treatment Plan: Continue Plan of Care Treatment Plan: Bed Mobility, Education, Functional Activity Ramila, Functional Strength, Group Therapy, Gait, Safety, Therapeutic Exercise, Transfers Treatment Duration: Nov 10, 2018 Frequency: At least 5 of 7 days/Wk (IRF) Estimated Hrs Per Day: 1.5 hours per day Patient and/or Family Agrees t: Yes Safety Risks/Education Patient Education: Gait Training, Transfer Techniques, Correct Positioning, Safety Issues Teaching Recipient: Patient Teaching Methods: Demonstration, Discussion Response to Teaching: Reinforcement Needed Time/GCodes Time In: 1330 Time Out: 1400 Total Billed Treatment Time: 30 Total Billed Treatment 1 visit GT 20' FA 10' NITO CAMACHO PT Nov 07, 2018 13:57
--- NOTE | 2018-11-07 15:50 | NUR ---
Discharge planning Patient has been accepted to [facility]. Patient will discharge between 1330 and 1400 tomorrow, 11/08/18. Medicare Important Message signed this date. Patient and her daughter verbalize understanding and are in agreement with discharge plan.
[2018-11-07 17:41] VITALS: BP 126/60
[2018-11-07] MEDS: CLOPIDOGREL 75 MG (PLAVIX) TABLET PO SCH (20:13)
[2018-11-07] MEDS: VITAMIN D3 1,000 UNITS (CHOLECALCIFEROL) TABLET PO SCH (20:13)
[2018-11-07] MEDS: MELATONIN 3 MG TABLET PO SCH (20:13)
[2018-11-07] MEDS: LEVOTHYROXINE 25 MCG (LEVOTHROID) TAB PO SCH (20:13)
[2018-11-07] MEDS: guaiFENesin/DM (ROBITUSSIN DM) 10 ML UDC PO PRN (20:13)
[2018-11-07] MEDS: lamoTRIgine 25 MG (LaMICtal) TAB PO SCH (20:13)
[2018-11-07] MEDS: APIXABAN 2.5 MG (ELIQUIS) TABLET PO SCH (20:13)
[2018-11-07] MEDS ORDERED: RT-ALBUTEROL SULF 2.5 MG/3 ML PRE-MIX VIAL INH SCH (21:00)
[2018-11-08 05:06] VITALS: BP 134/65
[2018-11-08 08:00] VITALS: BP 141/60
[2018-11-08] MEDS ORDERED: APIX2.5T PO (08:17)
[2018-11-08] MEDS ORDERED: ALBU2.5V4 INH (08:17)
[2018-11-08] MEDS ORDERED: PHENOL MM (08:18)
[2018-11-08] MEDS ORDERED: METO-387 PO (08:18)
[2018-11-08] MEDS ORDERED: SODIUM PHENOLATE MM (08:18)
[2018-11-08] MEDS ORDERED: AMLO10TA7 PO (08:18)
[2018-11-08] MEDS ORDERED: CLOP75TA28 PO (08:18)
[2018-11-08] MEDS ORDERED: GUAI5SYR PO (08:18)
--- NOTE | 2018-11-08 08:21 | Discharge Inst-Skilled Nursing ---
Discharge Inst-Skilled NF Patient Instructions Patient Problems: CVA HTN PAF Dementia Goal: Return to Assisted Living Consult/Follow Up/Orders Follow Up Appt.: Dr Montemayor in 2 weeks Skilled NF Admit to: [facility] Certification (SNF) I certify that SNF services are required to be given on an inpatient basis because of the above named patient's need for half-way care on a continuing basis for the conditions(s) for which he/she was receiving inpatient hospital services prior to his/her transfer to the SNF. Residential Facility Order: Nursing Services, Sheet Folder-Evaluate & Treat, Physical Therapy-Evaluate & Treat, Speech Language-Evaluate & Treat Discharge Diet: Cardiac Diet Daily Activity as Tolerated: Yes New & Resume Previous Orders Mera Joseph Nov 08, 2018 08:19 MERA OJSEPH DO Nov 08, 2018 08:21
--- NOTE | 2018-11-08 08:22 | Discharge Summary ---
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 Paroxysmal atrial fibrillation Dementia Depression History of small bowel resection partial History of left hip fracture repair with subsequent nerve damage making ambulation difficult GERD Urge incontinence Muscle pain reported with normal CPK but hold statin now improved since stopping s/p Crackles in left lower lobe with subtle cough will initiate albuterol neb treatment twice a day and incentive spirometer now resolved Constipation Somatic complaints Cough without crackles on exam CXR revealed subtle ATX so will start Nebs again and IS Sore throat reported but normal exam and negative for Strep Low grade fever one time and influenza negative Plan: Continue current meds but add Miralax daily in addition to Senna today Stopped statin therapy due to muscle pain Maintained on Plavix Appreciate cardiology due to history of paroxysmal atrial fibrillation but possible bleeding side effect from anticoagulation Continue therapies per protocol Hold statin for muscle pain Albuterol neb treatment twice a day Incentive spirometer for crackles in the left lower lobe but resolved and will restart Nebs Somatic complaints Lozenges for sore throat [facility] prior to AL Reason Hospital Visit CC: Seth stroke HPI: This is an 87-year-old white female clinic patient of Dr. 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 Apparently she had originally presented to the ER the day before admission for weakness and daughter was concerned about her speech. CT scan showed an area of old infarct with cerebral atrophy but no acute process. She was complaining of cough so she was placed on antibiotics and discharged back to the assisted living facility. Patient continued to have speech problems and then began to have difficulty with ambulating with a walker and brought her back to the emergency room. MRI was obtained revealing a Seth infarct subacute as likely cause of her issues. She had previously stopped her Plavix for unknown reason so she has been placed back on Plavix and started on Zocor. Her carotid ultrasound was done in July 2018 and that study was normal. Hyperlipidemia noted it total cholesterol 262 so she was placed empirically on Zocor. Patient was found to meet criteria for aggressive inpatient rehabilitation prior to returning back to assisted living. She does have a history of an old stroke and history of left hip fracture with left leg nerve injury since that time. These issues will place additional stressors in order to participate in therapies to fully benefit from aggressive inpatient rehabilitation. Discharge Summary Discharge Physical Examination Allergies: Coded Allergies: morphine (Unverified Allergy, Unknown, 10/20/18) sulfamethoxazole (Unverified Allergy, Unknown, 10/20/18) trimethoprim (Unverified Allergy, Unknown, 10/20/18) Vitals & I&Os Vital Signs Date Time Temp Pulse Resp B/P (MAP) Pulse Ox O2 Delivery O2 Flow Rate FiO2 11/08/18 11:56 67 20 141/60 94 Room Air 11/08/18 08:00 99.4 Hospital Course Was the Problem List Reviewed?: Yes Hospital course: Patient had an uneventful hospital course. She was admitted from [facility] to inpatient rehabilitation for aggressive treatment following a stroke. She had generalized weakness with expressive aphasia and speech difficulties so PT, OT, speech therapy were consulted. Cognition improved. Incontinence was managed with bladder training. Still had incontinence moderate amount of discharge. She participated in all therapies as required. Cardiology was consulted and was placed on anticoagulation and maintained on Plavix. She is maintained on seizure medication on a chronic basis. Labs were monitored and statins were initiated due to myositis with normal CPK that medication was discontinued. She did have a cough with a low- grade fever and all labs including strep and influenza were negative chest x- ray revealed some atelectasis but nebulizer treatments and incentive spirometer resolved that issue at time of discharge. Overall she improved a great deal but required skilled therapy prior to returning to assisted living to work on fall risk prevention and strengthening. Labs (last 24 hrs) Laboratory Tests 10/21/18 04:00: Sodium Level 141, Potassium Level 3.7, Chloride Level 106, Carbon Dioxide Level 23, Anion Gap 12, Blood Urea Nitrogen 15, Creatinine 0.83, Estimat Glomerular Filtration Rate > 60, BUN/Creatinine Ratio 18, Glucose Level 85, Calcium Level 9.0, Corrected Calcium 9.1, Magnesium Level 1.9, Total Bilirubin 0.3, Aspartate Amino Transf (AST/SGOT) 20, Alanine Aminotransferase (ALT/SGPT) 9, Alkaline Phosphatase 60, Total Protein 7.1, Albumin 3.9, Triglycerides Level 256H, Cholesterol Level 282H, LDL Cholesterol Direct 176H, VLDL Cholesterol 51H, HDL Cholesterol 47, Thyroid Stimulating Hormone (TSH) 3.00 10/24/18 14:10: Sodium Level 137, Potassium Level 4.4, Chloride Level 103, Carbon Dioxide Level 23, Anion Gap 11, Blood Urea Nitrogen 25H, Creatinine 1.25, Estimat Glomerular Filtration Rate 41, BUN/Creatinine Ratio 20, Glucose Level 146H, Calcium Level 9.3, Corrected Calcium 9.2, Total Bilirubin 0.4, Aspartate Amino Transf (AST/ SGOT) 20, Alanine Aminotransferase (ALT/SGPT) 10, Alkaline Phosphatase 63, Total Protein 7.7, Albumin 4.1, White Blood Count 6.3, Red Blood Count 4.10L, Hemoglobin 12.2, Hematocrit 38, Mean Corpuscular Volume 92, Mean Corpuscular Hemoglobin 30, Mean Corpuscular Hemoglobin Concent 32, Red Cell Distribution Width 13.0, Platelet Count 207, Mean Platelet Volume 11.0H, Neutrophils (%) ( Auto) 43, Lymphocytes (%) (Auto) 43, Monocytes (%) (Auto) 13H, Eosinophils (%) ( Auto) 0, Basophils (%) (Auto) 1, Neutrophils # (Auto) 2.7, Lymphocytes # (Auto) 2.7, Monocytes # (Auto) 0.8, Eosinophils # (Auto) 0.0, Basophils # (Auto) 0.0, Total Creatine Kinase 63 11/01/18 04:30: Sodium Level 137, Potassium Level 4.3, Chloride Level 104, Carbon Dioxide Level 23, Anion Gap 10, Blood Urea Nitrogen 24H, Creatinine 1.15, Estimat Glomerular Filtration Rate 45, BUN/Creatinine Ratio 21, Glucose Level 89, Calcium Level 9.0 , Corrected Calcium 9.2, Total Bilirubin 0.3, Aspartate Amino Transf (AST/SGOT) 24, Alanine Aminotransferase (ALT/SGPT) 9, Alkaline Phosphatase 54, Total Protein 7.0, Albumin 3.7, White Blood Count 6.3, Red Blood Count 3.73L, Hemoglobin 10.9L, Hematocrit 35, Mean Corpuscular Volume 93, Mean Corpuscular Hemoglobin 29, Mean Corpuscular Hemoglobin Concent 32, Red Cell Distribution Width 13.0, Platelet Count 206, Mean Platelet Volume 11.1H, Neutrophils (%) ( Auto) 42, Lymphocytes (%) (Auto) 40, Monocytes (%) (Auto) 14H, Eosinophils (%) ( Auto) 3, Basophils (%) (Auto) 0, Neutrophils # (Auto) 2.7, Lymphocytes # (Auto) 2.5, Monocytes # (Auto) 0.9, Eosinophils # (Auto) 0.2, Basophils # (Auto) 0.0 11/07/18 09:00: Sodium Level 139, Potassium Level 4.1, Chloride Level 105, Carbon Dioxide Level 22, Anion Gap 12, Blood Urea Nitrogen 19H, Creatinine 1.23, Estimat Glomerular Filtration Rate 41, BUN/Creatinine Ratio 15, Glucose Level 105, Calcium Level 9.5, Corrected Calcium 9.3, Total Bilirubin 0.5, Aspartate Amino Transf (AST/ SGOT) 28, Alanine Aminotransferase (ALT/SGPT) 19, Alkaline Phosphatase 69, Total Protein 7.9, Albumin 4.2, White Blood Count 7.7, Red Blood Count 3.95L, Hemoglobin 11.6, Hematocrit 36, Mean Corpuscular Volume 92, Mean Corpuscular Hemoglobin 29, Mean Corpuscular Hemoglobin Concent 32, Red Cell Distribution Width 13.0, Platelet Count 214, Mean Platelet Volume 11.2H, Neutrophils (%) ( Auto) 58, Lymphocytes (%) (Auto) 29, Monocytes (%) (Auto) 13H, Eosinophils (%) ( Auto) 0, Basophils (%) (Auto) 0, Neutrophils # (Auto) 4.5, Lymphocytes # (Auto) 2.2, Monocytes # (Auto) 1.0, Eosinophils # (Auto) 0.0, Basophils # (Auto) 0.0 11/07/18 10:10: Group A Streptococcus Screen NEGATIVE Microbiology 11/07/18 Influenza Types A,B Antigen (PARTH) - Final, Complete Pending Labs Microbiology Date/Time Source Procedure Growth Status 11/07/18 10:10 Nasopharynx Influenza Types A,B Antigen (PARTH) - Final Complete Laboratory Tests 10/21/18 04:00: Sodium Level 141, Potassium Level 3.7, Chloride Level 106, Carbon Dioxide Level 23, Anion Gap 12, Blood Urea Nitrogen 15, Creatinine 0.83, Estimat Glomerular Filtration Rate > 60, BUN/Creatinine Ratio 18, Glucose Level 85, Calcium Level 9.0, Corrected Calcium 9.1, Magnesium Level 1.9, Total Bilirubin 0.3, Aspartate Amino Transf (AST/SGOT) 20, Alanine Aminotransferase (ALT/SGPT) 9, Alkaline Phosphatase 60, Total Protein 7.1, Albumin 3.9, Triglycerides Level 256, Cholesterol Level 282, LDL Cholesterol Direct 176, VLDL Cholesterol 51, HDL Cholesterol 47, Thyroid Stimulating Hormone (TSH) 3.00 10/24/18 14:10: Sodium Level 137, Potassium Level 4.4, Chloride Level 103, Carbon Dioxide Level 23, Anion Gap 11, Blood Urea Nitrogen 25, Creatinine 1.25, Estimat Glomerular Filtration Rate 41, BUN/Creatinine Ratio 20, Glucose Level 146, Calcium Level 9.3, Corrected Calcium 9.2, Total Bilirubin 0.4, Aspartate Amino Transf (AST/ SGOT) 20, Alanine Aminotransferase (ALT/SGPT) 10, Alkaline Phosphatase 63, Total Protein 7.7, Albumin 4.1, White Blood Count 6.3, Red Blood Count 4.10, Hemoglobin 12.2, Hematocrit 38, Mean Corpuscular Volume 92, Mean Corpuscular Hemoglobin 30, Mean Corpuscular Hemoglobin Concent 32, Red Cell Distribution Width 13.0, Platelet Count 207, Mean Platelet Volume 11.0, Neutrophils (%) (Auto ) 43, Lymphocytes (%) (Auto) 43, Monocytes (%) (Auto) 13, Eosinophils (%) (Auto ) 0, Basophils (%) (Auto) 1, Neutrophils # (Auto) 2.7, Lymphocytes # (Auto) 2.7 , Monocytes # (Auto) 0.8, Eosinophils # (Auto) 0.0, Basophils # (Auto) 0.0, Total Creatine Kinase 63 11/01/18 04:30: Sodium Level 137, Potassium Level 4.3, Chloride Level 104, Carbon Dioxide Level 23, Anion Gap 10, Blood Urea Nitrogen 24, Creatinine 1.15, Estimat Glomerular Filtration Rate 45, BUN/Creatinine Ratio 21, Glucose Level 89, Calcium Level 9.0 , Corrected Calcium 9.2, Total Bilirubin 0.3, Aspartate Amino Transf (AST/SGOT) 24, Alanine Aminotransferase (ALT/SGPT) 9, Alkaline Phosphatase 54, Total Protein 7.0, Albumin 3.7, White Blood Count 6.3, Red Blood Count 3.73, Hemoglobin 10.9, Hematocrit 35, Mean Corpuscular Volume 93, Mean Corpuscular Hemoglobin 29, Mean Corpuscular Hemoglobin Concent 32, Red Cell Distribution Width 13.0, Platelet Count 206, Mean Platelet Volume 11.1, Neutrophils (%) (Auto ) 42, Lymphocytes (%) (Auto) 40, Monocytes (%) (Auto) 14, Eosinophils (%) (Auto ) 3, Basophils (%) (Auto) 0, Neutrophils # (Auto) 2.7, Lymphocytes # (Auto) 2.5 , Monocytes # (Auto) 0.9, Eosinophils # (Auto) 0.2, Basophils # (Auto) 0.0 11/07/18 09:00: Sodium Level 139, Potassium Level 4.1, Chloride Level 105, Carbon Dioxide Level 22, Anion Gap 12, Blood Urea Nitrogen 19, Creatinine 1.23, Estimat Glomerular Filtration Rate 41, BUN/Creatinine Ratio 15, Glucose Level 105, Calcium Level 9.5, Corrected Calcium 9.3, Total Bilirubin 0.5, Aspartate Amino Transf (AST/ SGOT) 28, Alanine Aminotransferase (ALT/SGPT) 19, Alkaline Phosphatase 69, Total Protein 7.9, Albumin 4.2, White Blood Count 7.7, Red Blood Count 3.95, Hemoglobin 11.6, Hematocrit 36, Mean Corpuscular Volume 92, Mean Corpuscular Hemoglobin 29, Mean Corpuscular Hemoglobin Concent 32, Red Cell Distribution Width 13.0, Platelet Count 214, Mean Platelet Volume 11.2, Neutrophils (%) (Auto ) 58, Lymphocytes (%) (Auto) 29, Monocytes (%) (Auto) 13, Eosinophils (%) (Auto ) 0, Basophils (%) (Auto) 0, Neutrophils # (Auto) 4.5, Lymphocytes # (Auto) 2.2 , Monocytes # (Auto) 1.0, Eosinophils # (Auto) 0.0, Basophils # (Auto) 0.0 11/07/18 10:10: Group A Streptococcus Screen NEGATIVE Discharge Home Medications: Active Scripts Active [Phenol/Sodium Phenolate] 1 ANAIS Lozenge 1 Anais MM Q4H PRN 7 Days Guaifenesin Dm Syrup (Guaifenesin/Dextromethorphan) 5 Ml Syrup 5 Ml PO Q4H PRN 7 Days Amlodipine Besylate 10 Mg Tablet 10 Mg PO DAILY 365 Days Metoprolol Succinate 25 Mg Tab.er.24h 25 Mg PO DAILY 365 Days Clopidogrel (Clopidogrel Bisulfate) 75 Mg Tablet 75 Mg PO HS 365 Days Eliquis (Apixaban) 2.5 Mg Tablet 2.5 Mg PO BID 365 Days Albuterol Sulfate 2.5 Mg/3 Ml Vial.neb 2.5 Mg INH RTBID 14 Days Reported Melatonin 5 Mg Capsule 10 Mg PO HS Levothyroxine Sodium 25 Mcg Tablet 25 Mcg PO HS Lamotrigine 25 Mg Tablet 25 Mg PO HS Protonix (Pantoprazole Sodium) 40 Mg Tablet.dr 40 Mg PO DAILY Citalopram HBr (Citalopram Hydrobromide) 20 Mg Tablet 20 Mg PO DAILY Thera M Plus Tablet (Multivits,Ca,Minerals/Iron/FA) 1 Each Tablet 1 Tab PO DAILY Vitamin D3 (Cholecalciferol (Vitamin D3)) 1,000 Unit Capsule 1,000 Unit PO HS Vitamin C (Ascorbic Acid) 500 Mg Tablet 500 Mg PO DAILY Aspirin EC (Aspirin) 81 Mg Tablet.dr 81 Mg PO HS Oxybutynin Chloride 5 Mg Tablet 5 Mg PO DAILY Saline Nasal Mist (Sodium Chloride) 126 Ml Mist 2 Sprays NS TID Tylenol (Acetaminophen) 325 Mg Tablet 650 Mg PO QID PRN Miralax (Polyethylene Glycol 3350) 17 Gm Powd.pack 17 Gm PO Q48H Biofreeze (Menthol) 118 Ml Gel..ml. TP DAILY PRN Gold Parikh Med Anti-Itch Cream (Pramoxine HCl/Menthol) 28 Gm Cream..g. TP DAILY PRN Instructions to patient/family Please see electronic discharge instructions given to patient. Diagnosis/Problems Diagnosis/Problems (1) CVA (cerebral vascular accident) Status: Acute Qualifiers: Qualified Codes: I63.9 - Cerebral infarction, unspecified (2) History of CVA (cerebrovascular accident) Status: Chronic (3) Seizure disorder Status: Chronic (4) CAD (coronary artery disease) Status: Chronic Qualifiers: Qualified Codes: I25.10 - Atherosclerotic heart disease of [place] coronary artery without angina pectoris (5) Hypothyroidism Status: Chronic Qualifiers: Qualified Codes: E03.9 - Hypothyroidism, unspecified (6) Paroxysmal atrial fibrillation Status: Chronic (7) History of coronary artery stent placement Status: Chronic (8) Hypertension Status: Chronic Qualifiers: Qualified Codes: I10 - Essential (primary) hypertension (9) Hyperlipidemia Status: Chronic Qualifiers: Qualified Codes: E78.2 - Mixed hyperlipidemia (10) Urge incontinence Status: Chronic (11) History of hip fracture Status: Chronic (12) Depression Status: Chronic Qualifiers: Qualified Codes: F32.9 - Major depressive disorder, single episode, unspecified (13) Vascular dementia Status: Chronic Qualifiers: Qualified Codes: F01.50 - Vascular dementia without behavioral disturbance (14) Incontinence Status: Chronic Qualifiers: Qualified Codes: R32 - Unspecified urinary incontinence (15) Myositis Status: Acute Qualifiers: Qualified Codes: M60.9 - Myositis, unspecified (16) Left knee pain Qualifiers: Qualified Codes: M25.562 - Pain in left knee (17) Cough Status: Acute (18) Lung crackles Status: Resolved Assessment & Plan: LLL Resolution Date/Time: 11/04/18 @ 14:49 (19) Constipation Status: Acute Assessment & Plan: 11/06: add Lactulose today Qualifiers: Qualified Codes: K59.01 - Slow transit constipation (20) Acute sore throat Status: Acute (21) Somatic complaints, multiple Status: Acute (22) Atelectasis of right lung Status: Acute Clinical Quality Measures DVT/VTE Risk/Contraindication: Risk Factor Score Per Nursin RFS Level Per Nursing on Admit: 2=Moderate Copy Copies To 1: SAVI GORDON MD, MINDI DO Nov 08, 2018 08:22
[2018-11-08] MEDS: MULTIVIT W/MINERALS TAB (THERAGRAN M) PO SCH (08:29)
[2018-11-08] MEDS: PANTOPRAZOLE 40 MG (PROTONIX) TAB PO SCH (08:29)
[2018-11-08] MEDS: ASCORBIC ACID (VIT C) 500 MG TABLET PO SCH (08:29)
[2018-11-08] MEDS: APIXABAN 2.5 MG (ELIQUIS) TABLET PO SCH (08:29)
[2018-11-08] MEDS: OXYBUTYNIN (DITROPAN) 5 MG TAB PO SCH (08:29)
--- NOTE | 2018-11-08 09:18 | Occupational Ther Daily Note ---
OT Current Status-Daily Note Subjective Pt alert, sitting in recliner. Took over care from PT. Nrsg and social service worker coming in during OT for discharging. Pt to [facility] to [facility] today. Mental Status/Objective Patient Orientation: Person, Place, Time, Situation Therapy Code Descriptions/Definitions Functional [place] Measure: 0=Not Assessed/NA 4=Minimal Assistance 1=Total Assistance 5=Supervision or Setup 2=Maximal Assistance 6=Modified [place] 3=Moderate Assistance 7=Complete [place] ADL-Treatment Therapy Code Descriptions/Definitions Functional [place] Measure: 0=Not Assessed/NA 4=Minimal Assistance 1=Total Assistance 5=Supervision or Setup 2=Maximal Assistance 6=Modified [place] 3=Moderate Assistance 7=Complete [place] Therapy Quality Codes: 6 Independent with activity with or without an assistive device 5 Patient requires set up or clean up by helper. Patient completes activity by themselves 4 Supervision or touching assist (CGA). [place] provide cues , steadying assist 3 The helper provides less than half the effort to complete the activity 2 The helper provides more than half the effort to complete the activity 1 Dependent. The helper does all the effort to complete an activity 7 Patient refused to complete or attempt activity 9 The patient did not perform the activity before the current illness or injury 88 Not attempted due to Medical conditions or safety concerns Eating (FIM): 7 (Pt able to complete by self.) Eating (QC): 6 Regulator Inspector in to complete care assessment will continue treatment when finished. All needs met in room. OT Short Term Goals Short Term Goals Time Frame: Oct 27, 2018 Bathing(FIM): 4 Upper Body Dressing(FIM): 5 Lower Body Dressing(FIM): 5 Toileting(FIM): 5 Transfers (B,C,W/C) (FIM): 4 (met) Toilet/Commode Transfer(FIM): 5 1=Demonstrate adherence to instructed precautions during ADL tasks. 2=Patient will verbalize/demonstrate understanding of assistive devices/ modifications for ADL. 3=Patient will improve strength/tolerance for activity to enable patient to perform ADL's. OT Fci Goals Fci Goals Time Frame: Nov 10, 2018 Eating (FIM): 6 (met) Eating (QC): 6 (met) Groomin Oral Hygiene (QC): 6 Bathing(FIM): 5 Shower/Bathe Self (QC): 5 Upper Body Dressing(FIM): 6 Upper Body Dressing (QC): 6 Lower Body Dressing(FIM): 6 Lower Body Dressing (QC): 6 On/Off Footwear (QC): 6 Toileting(FIM): 6 Toileting Hygiene (QC): 6 Toilet/Commode Transfer(FIM): 6 Toilet/Commode Transfer (QC): 6 Shower Transfer(FIM): 5 Additional Goals: 1-Demonstrate ADL Tasks, 2-Verbalize Understanding, 3- ImproveStrength/Ramila 1=Demonstrate adherence to instructed precautions during ADL tasks. 2=Patient will verbalize/demonstrate understanding of assistive devices/ modifications for ADL. 3=Patient will improve strength/tolerance for activity to enable patient to perform ADL's. OT Education/Plan Problem List/Assessment Pt demonstrates decreased ADL functioning, strength, transfers, and activity tolerance. Pt to benefit from skilled OT intervention for ADL training, transfers, strengthening, and safety education to increase functional independence and allow safe discharge plan. Discharge Recommendations Plan/Recommendations: Continue POC Treatment Plan/Plan of Care Patient would benefit from OT for education, treatment and training to promote independence in ADL's, mobility, safety and/or upper extremity function for ADL' s. Plan of Care: ADL Retraining, Functional Mobility, Group Exercise/Act as Ind, UE Funct Exercise/Act Treatment Duration: Nov 10, 2018 Frequency: At least 5 of 7 days/Wk (IRF) Estimated Hrs Per Day: 1.5 hours per day Agreement: Yes Rehab Potential: Fair Time/GCodes Start Time: 09:05 Stop Time: 09:20 Total Time Billed (hr/min): 15 Billed Treatment Time 1 visit-ADL 1 (15 min) MATILDA ABRAHAM Nov 08, 2018 09:18
[2018-11-08] MEDS: LACTULOSE SYRUP 10GM/15ML (ENULOSE) 30ML UDC PO SCH (09:25)
[2018-11-08] MEDS: SALINE NASAL SPRAY (OCEAN) 45 ML BTL SCH (09:25)
[2018-11-08] MEDS: amLODIPine 10 MG (NORVASC) TAB PO SCH (09:28)
[2018-11-08] MEDS: POLYETHYLENE GLYCOL 17 GM (MIRALAX) PACK PO SCH (09:28)
--- NOTE | 2018-11-08 09:32 | Physical Therapy Daily Note ---
PT Daily Note-Current Subjective Agreeable to pT. Reports she is going to [facility] today. Pain Numeric Pain Scale: 0-No Pain Location: No Pain Reported Mental Status Patient Orientation: Person, Place, Time, Situation Transfers Therapy Code Descriptions/Definitions Functional [place] Measure: 0=Not Assessed/NA 4=Minimal Assistance 1=Total Assistance 5=Supervision or Setup 2=Maximal Assistance 6=Modified [place] 3=Moderate Assistance 7=Complete [place] Therapy Quality Codes: 6 Independent with activity with or without an assistive device 5 Patient requires set up or clean up by helper. Patient completes activity by themselves 4 Supervision or touching assist (CGA). [place] provide cues , steadying assist 3 The helper provides less than half the effort to complete the activity 2 The helper provides more than half the effort to complete the activity 1 Dependent. The helper does all the effort to complete an activity 7 Patient refused to complete or attempt activity 9 The patient did not perform the activity before the current illness or injury 88 Not attempted due to Medical conditions or safety concerns Transfers (B, C, W/C) (FIM): 6 (takes extra time to complete) Roll Left to Right (QC): 6 (uses bedrails) Supine to/from Sit: 6 Sit to/from Stand: 6 Sit to Lying (QC): 6 Sit to Stand (QC): 6 (slow and may take more than 1 attempt) Chair/Psw-vy-Egrtu Xfer(QC): 5 Car Transfer (QC): 5 (SBA for safety) slow with transfers but demonstrates correct sequencing. Weight Bearing Right Lower Extremity: Right Full Weight Bearing Left Lower Extremity: Left Full Weight Bearing Gait Training Does the Patient Walk?: Yes Gait (FIM): 5 Distance (FIM): 3=150 ft Distance: 150 ft x 2 Walk 10 feet (QC): 5 Walk 50 ft with 2 Turns(QC): 5 Walk 150 ft (QC): 5 (SBA for safety) Walking 10ft/uneven surface-QC: 5 Gait Assistive Device: FWW narrow PEDRITO, toe walks on the right; slightly unsteady but no osman LOB noted. Wheelchair Training Does the Pt Use a Wheelchair?: No Stair Training Stair Training: Handrails/: uses walker Stairs (FIM): 2 #of Steps: 1 1 Step (curb) (QC): 4 4 Steps (QC): 88 (unsafe to attempt and pt does not need to do stairs. ) 12 Steps (QC): 88 Stairs: Pattern: Step to Level of Assist: 4 Balance Picking up an Object (QC): 88 (fall risk; unsafe to attempt) Assessment Current Status: Good Progress Pt making functional gains towards established goals; however, would benefit from continued skilled intervention to progress her mobility to improve functional safety and return to a mod indep level. PT Short Term Goals Short Term Goals Time Frame: Oct 27, 2018 Transfers (B,C,W/C) (FIM): 4 (met) Gait (FIM): 2 Gait Distance Comment: 120' Gait Level of Assist: 4 Gait Assistive Device: FWW PT Prison Goals Special Education Case Manager Goals PT Special Education Case Manager Goals Time Frame: Nov 10, 2018 Transfers (B,C,W/C) (FIM): 5 (met) Sit to Lying (QC): 4 (met) Lying-Sitting on Side/Bed(QC): 4 (met) Sit to Stand (QC): 4 (met) Rollin Roll Left to Right (QC): 4 (met) Chair/Nqm-hy-Pfasc Xfer(QC): 4 (met) Car Transfer (QC): 4 (met) Gait (FIM): 5 (met) Distance: 150' Walk 10 feet (QC): 4 (met) Walk 10ft-Uneven Surface(QC): 4 (met) Walk 50ft with 2 Turns (QC): 4 (met) Walk 150 ft (QC): 4 (met) Gait Level of Assist: 5 Gait Assistive Device: FWW Stairs (FIM): 2 (met) # of Steps: 4 1 Step (curb) (QC): 4 4 Steps (QC): 4 Stairs Level Of Assist: 4 (unmet) goals met to a satisfactory level. PT Plan Problem List Problem List: Activity Tolerance, Functional Strength, Safety, Balance, Gait, Transfer, Bed Mobility Treatment/Plan Treatment Plan: Discontinue PT (pt to discharge to SNF) Treatment Plan: Bed Mobility, Education, Functional Activity Ramila, Functional Strength, Group Therapy, Gait, Safety, Therapeutic Exercise, Transfers Treatment Duration: Nov 10, 2018 Frequency: At least 5 of 7 days/Wk (IRF) Estimated Hrs Per Day: 1.5 hours per day Patient and/or Family Agrees t: Yes Safety Risks/Education Patient Education: Safety Issues Teaching Recipient: Patient Teaching Methods: Discussion Response to Teaching: Reinforcement Needed Discharge Recommendations Therapy D/C Recommendations: Assisted (TCU/NH) (PT) Time/GCodes Time In: 830 Time Out: 905 Total Billed Treatment Time: 35 Total Billed Treatment visit FA 15 GT 20 MATILDA VALENCIA PT Nov 08, 2018 09:32
--- NOTE | 2018-11-08 09:37 | Therapy Team Discharge Summary ---
Therapy Discharge Summary Discharge Recommendations Date of Discharge Therapy D/C Recommendations: [facility] (TCU/[facility]) (PT) Physical Therapy This patient was seen on ARU post acute hospital stay due to a CVA. Her PLOF was living at an [facility] at a mod indep level. Upon admit to this unit, she was min assist with transfers and walked short distances with asssit. Treatment has consisted of functional strengthening, balance, transfers, gait and safety training. She has made good progress and has achieved all goals to a satisfactory level; although she still requires some assist. She is mod indep with transfer but SBA with gait and needs assist with stairs. She would benefit from continued skilled therapy intervention to work on safety and mobility to allow her to return to her P[facility]F at the [facility]. Will DC from PT on this unit at this time as she is discharging to a SNF this date. Occupational Therapy Decreased Activ Tolerance, Decreased UE Strength, Dependent Transfers, Impaired Funct Balance, Impaired Self-Care Skills PT Retail Director Goals Long-Term Goals PT Long-Term Goals Time Frame: Nov 10, 2018 Transfers (B,C,W/C) (FIM): 5 (met) Roll Left to Right (QC): 4 (met) Sit to Lying (QC): 4 (met) Lying-Sitting on Side/Bed(QC): 4 (met) Sit to Stand (QC): 4 (met) Chair/Qgn-ua-Fxgxm Xfer(QC): 4 (met) Car Transfer (QC): 4 (met) Gait (FIM): 5 (met) Distance: 150' Walk 10 feet (QC): 4 (met) Walk 10ft-Uneven Surface(QC): 4 (met) Walk 50ft with 2 Turns (QC): 4 (met) Walk 150 ft (QC): 4 (met) Gait Level of Assist: 5 Gait Assistive Device: FWW Stairs (FIM): 2 (met) # of Steps: 4 1 Step (curb) (QC): 4 4 Steps (QC): 4 Stairs Level Of Assist: 4 (unmet) Gaols met to a satisfactory level but pt is not mod indep OT Retail Director Goals Long-Term Goals Time Frame: Nov 10, 2018 Eating (FIM): 6 Eating (QC): 6 Oral Hygiene (QC): 6 Grooming(FIM): 6 Bathing(FIM): 5 Shower/Bathe Self (QC): 5 Upper Body Dressing(FIM): 6 Upper Body Dressing (QC): 6 Lower Body Dressing(FIM): 6 Lower Body Dressing (QC): 6 On/Off Footwear (QC): 6 Toileting(FIM): 6 Toileting Hygiene (QC): 6 Toilet/Commode Transfer(FIM): 6 Toilet/Commode Transfer (QC): 6 Shower Transfer(FIM): 5 Additional Goals: 1-Demonstrate ADL Tasks, 2-Verbalize Understanding, 3- ImproveStrength/Ramila 1=Demonstrate adherence to instructed precautions during ADL tasks. 2=Patient will verbalize/demonstrate understanding of assistive devices/ modifications for ADL. 3=Patient will improve strength/tolerance for activity to enable patient to perform ADL's. Speech Retail Director Goals Long-Term Goals Patient will be able to maintain adequate nutrition/hydration via safe effective swallow function. MATILDA VALENCIA PT Nov 08, 2018 09:37
--- NOTE | 2018-11-08 10:44 | Occupational Ther Daily Note ---
OT Current Status-Daily Note Subjective Pt finished up with social worker psychiatric. Agrees to therapy. Mental Status/Objective Patient Orientation: Person, Place, Time, Situation Therapy Code Descriptions/Definitions Functional [place] Measure: 0=Not Assessed/NA 4=Minimal Assistance 1=Total Assistance 5=Supervision or Setup 2=Maximal Assistance 6=Modified [place] 3=Moderate Assistance 7=Complete [place] ADL-Treatment Therapy Code Descriptions/Definitions Functional [place] Measure: 0=Not Assessed/NA 4=Minimal Assistance 1=Total Assistance 5=Supervision or Setup 2=Maximal Assistance 6=Modified [place] 3=Moderate Assistance 7=Complete [place] Therapy Quality Codes: 6 Independent with activity with or without an assistive device 5 Patient requires set up or clean up by helper. Patient completes activity by themselves 4 Supervision or touching assist (CGA). [place] provide cues , steadying assist 3 The helper provides less than half the effort to complete the activity 2 The helper provides more than half the effort to complete the activity 1 Dependent. The helper does all the effort to complete an activity 7 Patient refused to complete or attempt activity 9 The patient did not perform the activity before the current illness or injury 88 Not attempted due to Medical conditions or safety concerns Grooming (FIM): 6 (Sitting at sink, pt able to complete by self.) Oral Hygiene (QC): 6 Bathing (FIM): 5 (Supervision in standing to cleanse buttocks/jerome area. Pt uses grabbar, hand held shower and shower bench to complete shower.) Bathing Location: L Arm, R Arm, L Upper Leg, R Upper Leg, L Lower Leg ( including foot), R Lower Leg (including foot), Chest, Abdomen, Buttocks, Perineal Area Shower/Bathe Self (QC): 4 Upper Body (FIM): 4 (Assist to hook bra. Is able to retrieve clothing at w/c level. Dons/doffs shirt by self.) Upper Body Dressing (QC): 3 Lower Body Dressing (FIM): 3 (Pt is inconsistent with donning/doffing pants/ briefs over feet and hips by self. Pt fatigues quickly which hinders self help skills. ) Lower Body Dressing (QC): 3 On/Off Footwear (QC): 6 Toileting (FIM): 4 (Inconsistent with manipulating clothing over hips in standing due to fatigue and standing balance. Is able to cleanse by self.) Toileting Hygiene (QC): 3 Transfers (B, C, W/C) (FIM): 4 (CGA to min A due to fatigue using w/c and FWW.) Toilet/Commode Transfer (FIM): 4 (FWW, BSC and grabbars used to complete transfer with CGA.) Toilet Transfer (QC): 4 Shower Transfer(FIM): 3 (Mod A for sit to stand. Min A for rest of transfer using w/c, shower bench and grabbar.) Pt takes increased time to complete due to decreased activity tolerance and slow movements. After therapy, nrsg in room with pt. Call light/phone in reach. All needs met in room. OT Short Term Goals Short Term Goals Time Frame: Oct 27, 2018 Bathing(FIM): 4 Upper Body Dressing(FIM): 5 Lower Body Dressing(FIM): 5 Toileting(FIM): 5 Transfers (B,C,W/C) (FIM): 4 (met) Toilet/Commode Transfer(FIM): 5 1=Demonstrate adherence to instructed precautions during ADL tasks. 2=Patient will verbalize/demonstrate understanding of assistive devices/ modifications for ADL. 3=Patient will improve strength/tolerance for activity to enable patient to perform ADL's. OT Exchange Operator Goals Snf Goals Time Frame: Nov 10, 2018 Eating (FIM): 6 (met) Eating (QC): 6 (met) Groomin (met) Oral Hygiene (QC): 6 (met) Bathing(FIM): 5 (not met) Shower/Bathe Self (QC): 5 (not et) Upper Body Dressing(FIM): 6 (not met) Upper Body Dressing (QC): 6 (not met) Lower Body Dressing(FIM): 6 (not mt) Lower Body Dressing (QC): 6 (not met) On/Off Footwear (QC): 6 (not met) Toileting(FIM): 6 (not met) Toileting Hygiene (QC): 6 (not met) Toilet/Commode Transfer(FIM): 6 (not met) Toilet/Commode Transfer (QC): 6 (not met) Shower Transfer(FIM): 5 (not met) Additional Goals: 1-Demonstrate ADL Tasks, 2-Verbalize Understanding, 3- ImproveStrength/Ramila 1=Demonstrate adherence to instructed precautions during ADL tasks. 2=Patient will verbalize/demonstrate understanding of assistive devices/ modifications for ADL. 3=Patient will improve strength/tolerance for activity to enable patient to perform ADL's. OT Education/Plan Problem List/Assessment Pt demonstrates decreased ADL functioning, strength, transfers, and activity tolerance. Pt to benefit from skilled OT intervention for ADL training, transfers, strengthening, and safety education to increase functional independence and allow safe discharge plan. Discharge Recommendations Plan/Recommendations: Discharge/Goals Met (D/C to skilled care) Therapy D/C Recommendations: Group Home (TCU/NH) Treatment Plan/Plan of Care Patient would benefit from OT for education, treatment and training to promote independence in ADL's, mobility, safety and/or upper extremity function for ADL' s. Plan of Care: ADL Retraining, Functional Mobility, Group Exercise/Act as Ind, UE Funct Exercise/Act Treatment Duration: Nov 10, 2018 Frequency: At least 5 of 7 days/Wk (IRF) Estimated Hrs Per Day: 1.5 hours per day Agreement: Yes Rehab Potential: Fair Time/GCodes Start Time: 09:45 Stop Time: 10:30 Total Time Billed (hr/min): 45 Billed Treatment Time 1 visit-ADL 3 (45 min) MATILDA ABRAHAM Nov 08, 2018 10:44
--- NOTE | 2018-11-08 10:45 | NUR ---
CHECKED WITH Zhang MCDONALD TO SEE IF PATIENT SHOULD CONTINUE ON BOTH PLAVIX AND ELIQUIS. STATES TO CONTINUE ON BOTH FOR NOW AND FOLLOW UP VISIT SCHEDULED FOR NEXT WEEK.
[2018-11-08 11:56] VITALS: BP 141/60
--- NOTE | 2018-11-08 17:39 | NUR ---
Arrangements completed for pt's discharge to [facility] for short-term skilled care. Pt is a resident of [facility] in [place] where her sister also resides. Pt is hoping her stay at the Skilled Unit at [facility] will be short-term. All physician orders, CARE assessment, recent progress notes and evaluations were given to [facility] staff.
--- NOTE | 2018-11-10 14:32 | Therapy Team Discharge Summary ---
Therapy Discharge Summary Discharge Recommendations Date of Discharge Nov 08, 2018 at 11:15 Therapy D/C Recommendations: [facility] (TCU/NH) Occupational Therapy Pt admitted to ARU following CVA. On admission pt required mod assist for bathing, LE dressing, and toileting, and minimal assistance for transfers. Skilled OT intervention focused on ADL training, transfers, strengthening, and safety. Pt progressed with therapy and by discharge is completing eating independently, grooming with modified independence, bathing with SBA, UE dressing and toileting with minimal assistance, and toilet transfer with CGA. Mod assist is required for LE dressing and shower transfer. Pt met goals for eating and grooming, but did not meet other LTG. Pt discharged to SNF for continued care. D/C ARU OT Decreased Activ Tolerance, Decreased UE Strength, Dependent Transfers, Impaired Funct Balance, Impaired Self-Care Skills PT Insurance Account Executive Goals Insurance Account Executive Goals PT Insurance Account Executive Goals Time Frame: Nov 10, 2018 Transfers (B,C,W/C) (FIM): 5 (met) Roll Left to Right (QC): 4 (met) Sit to Lying (QC): 4 (met) Lying-Sitting on Side/Bed(QC): 4 (met) Sit to Stand (QC): 4 (met) Chair/Eek-wv-Hzdgt Xfer(QC): 4 (met) Car Transfer (QC): 4 (met) Gait (FIM): 5 (met) Distance: 150' Walk 10 feet (QC): 4 (met) Walk 10ft-Uneven Surface(QC): 4 (met) Walk 50ft with 2 Turns (QC): 4 (met) Walk 150 ft (QC): 4 (met) Gait Level of Assist: 5 Gait Assistive Device: FWW Stairs (FIM): 2 (met) # of Steps: 4 1 Step (curb) (QC): 4 4 Steps (QC): 4 Stairs Level Of Assist: 4 (unmet) OT [facility] Goals Insurance Account Executive Goals Time Frame: Nov 10, 2018 Eating (FIM): 6 (met) Eating (QC): 6 (met) Oral Hygiene (QC): 6 (met) Grooming(FIM): 6 (met) Bathing(FIM): 5 (not met) Shower/Bathe Self (QC): 5 (not et) Upper Body Dressing(FIM): 6 (not met) Upper Body Dressing (QC): 6 (not met) Lower Body Dressing(FIM): 6 (not mt) Lower Body Dressing (QC): 6 (not met) On/Off Footwear (QC): 6 (not met) Toileting(FIM): 6 (not met) Toileting Hygiene (QC): 6 (not met) Toilet/Commode Transfer(FIM): 6 (not met) Toilet/Commode Transfer (QC): 6 (not met) Shower Transfer(FIM): 5 (not met) Additional Goals: 1-Demonstrate ADL Tasks, 2-Verbalize Understanding, 3- ImproveStrength/Ramila 1=Demonstrate adherence to instructed precautions during ADL tasks. 2=Patient will verbalize/demonstrate understanding of assistive devices/ modifications for ADL. 3=Patient will improve strength/tolerance for activity to enable patient to perform ADL's. Speech Insurance Account Executive Goals Insurance Account Executive Goals Patient will be able to maintain adequate nutrition/hydration via safe effective swallow function. EDGARD DAVILA OT Nov 10, 2018 14:32
== END 2018-11-08 11:15 | disposition home health service (06) | DRG 57 ==
PROVIDERS: ADMIT Internal Medicine; ATTEND Internal Medicine
DX: I69.320 Aphasia following cerebral infarction (principal); I69.344 Monoplegia of lower limb following cerebral infarction affecting left non-dominant side; I69.311 Memory deficit following cerebral infarction; I69.392 Facial weakness following cerebral infarction; Z91.81 History of falling; I69.398 Other sequelae of cerebral infarction; G40.909 Epilepsy, unspecified, not intractable, without status epilepticus; M60.9 Myositis, unspecified; G62.9 Polyneuropathy, unspecified; R00.1 Bradycardia, unspecified; N39.41 Urge incontinence; F01.50 Vascular dementia, unspecified severity, without behavioral disturbance, psychotic disturbance, mood disturbance, and anxiety; E78.2 Mixed hyperlipidemia; I48.0 Paroxysmal atrial fibrillation; I25.10 Atherosclerotic heart disease of native coronary artery without angina pectoris; I10 Essential (primary) hypertension; K21.9 Gastro-esophageal reflux disease without esophagitis; M47.20 Other spondylosis with radiculopathy, site unspecified; E03.9 Hypothyroidism, unspecified; F32.9 Major depressive disorder, single episode, unspecified; F41.9 Anxiety disorder, unspecified; Z95.5 Presence of coronary angioplasty implant and graft; T44.7X5A Adverse effect of beta-adrenoreceptor antagonists, initial encounter; M25.562 Pain in left knee; J98.11 Atelectasis; K59.01 Slow transit constipation; J02.9 Acute pharyngitis, unspecified; R50.9 Fever, unspecified
CPT/HCPCS: 36415; 71046; 80053; 80061; 82550; 83735; 84443; 85025; 87430; 87804; 93880; 94640; 94664; 94760

== ENCOUNTER 2018-11-11 12:12 | Emergency (ER) | payer MEDICARE, BC ==
[~2018-11-11] VITALS: Ht 154.9 cm; Wt 55.3 kg
[~2018-11-11 12:12] MED LIST: ACET325T38 PO; ALBU2.5V4 INH; AMLO10TA7 PO; APIX2.5T PO; ASCO500T6 PO; ASPI-983 PO; CEFU250T80 PO; CHOL10007 PO; CITA20TA9 PO; CLOP75TA28 PO; GUAI5SYR PO; LAMO25TA PO; LEVO25TA5 PO; MELA3TAB PO; MELA5CAP PO; MENT118G TP; METO-387 PO; MULT-1009 PO; OXYB5TAB9 PO; PANT40TA2 PO; PHENOL MM; POLY17PO6 PO; SODI126M NS; SODIUM PHENOLATE MM; [UNRECOGNIZED DRUG - CODE] TP
[2018-11-11] MEDS ORDERED: NS IV 500 ML 500 ML IV ONE (12:54)
[2018-11-11 12:59] LABS: BASOPHILS % (AUTO) 0 % (0-10); EOSINOPHILS % (AUTO) 0 % (0-10); HEMATOCRIT 34 % (35-52); LYMPHOCYTES # (AUTO) 2.2 X 10^3 (1.0-4.0); LYMPHOCYTES % (AUTO) 20 % (12-44); MEAN CORPUSCULAR HEMOGLOBIN 30 PG (25-34); MEAN CORPUSCULAR HGB CONC 32 G/DL (32-36); MEAN CORPUSCULAR VOLUME 92 FL (80-99); MONOCYTES # (AUTO) 1.9 X 10^3 (0.0-1.0); MONOCYTES % (AUTO) 18 % (0-12); NEUTROPHILS # (AUTO) 6.7 X 10^3 (1.8-7.8); NEUTROPHILS % (AUTO) 62 % (42-75); PLATELET COUNT 217 10^3/uL (130-400); RED CELL DISTRIBUTION WIDTH 13.4 % (10.0-14.5); WHITE BLOOD COUNT 10.8 10^3/uL (4.3-11.0)
[2018-11-11 13:19] LABS: BILIRUBIN,TOTAL 0.5 MG/DL (0.1-1.0); CALCIUM 9.3 MG/DL (8.5-10.1); CREATININE SERUM 1.11 MG/DL (0.60-1.30); POTASSIUM 4.4 MMOL/L (3.6-5.0); TOTAL PROTEIN 7.8 GM/DL (6.4-8.2)
--- NOTE | 2018-11-11 13:20 | Diagnostic Imaging Report ---
Indication: Cough Comparison: 11/07/2018 Technique: Single frontal radiograph of the chest dated 11/11/2018. Findings: The cardiac silhouette is mildly enlarged, stable from prior examination. No significant pulmonary vascular congestion. Previously noted right suprahilar opacities appear improved from the prior examination. Stable elevation of the right hemidiaphragm. The lungs are clear of focal pulmonary opacity. No pleural effusion. No pneumothorax. 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 Scattered vascular calcifications. No acute osseous abnormality. Impression: Improved opacities within the right suprahilar region. These are essentially resolved at this time. Stable borderline cardiomegaly without overt congestive heart failure. Additional stable findings as above. Dictated by: Dictated on workstation # [id number]
[2018-11-11] MEDS ORDERED: RT-ALBUTEROL/IPRATROPIUM 3 ML (DUONEB) VIAL INH ONE (13:30)
--- NOTE | 2018-11-11 13:32 | ED General ---
General Chief Complaint: General Problems/Pain Stated Complaint: SOA/POSS DEHYDRATION Nursing Triage Note: PTS DAUGHTER BROUGHT PT TO ER FROM [facility] IN [place] FOR COMPLAINT OF DEHYDRATION AND PERSISTENT COUGH. DAUGHTER STATES THAT SHE HAS CALLED HER 5 TIMES SINCE LAST NIGHT STATING SHE DOESNT FEEL WELL. PT WAS RELEASED FROM ACUTE REHAB ON TUESDAY. Nursing Sepsis Screen: No Definite Risk Source of Information: Patient, Family Exam Limitations: No Limitations History of Present Illness Date Seen by Provider: Nov 11, 2018 Time Seen by Provider: 13:02 Initial Comments Here from long term unit with report of increasing cough and some confusion. She was discharged from rehabilitation a few days ago to the long term unit via [facility] [place]. Daughter has noted that she's had increasing difficulty with breathing and has had increasing cough. She apparently had some atelectasis noted on x-ray a few days ago and she was worried about that. Admits that this may be just viral but wanted to get it checked out given patient's increasing weakness. Patient admits to shortness of breath and increasing cough as a concern. No reported fevers. No vomiting or diarrhea. Patient has been eating less due to not feeling well. Timing/Duration: 2-3 Days Severity: Moderate Modifying Factors: improves with Rest Associated Systoms: No Chest Pain; Cough; No Fever/Chills, No Nausea/Vomiting; Shortness of Air, Weakness Allergies and Home Medications Allergies Coded Allergies: sulfamethoxazole (Unverified Allergy, Severe, HIVES, 11/11/18) trimethoprim (Unverified Allergy, Severe, HIVES, 11/11/18) morphine (Unverified Adverse Reaction, Mild, ANXIOUS, 11/11/18) Home Medications Acetaminophen 325 Mg Tablet, 650 MG PO QID PRN for PAIN-MILD OR TEMPATURE, ( Reported) Albuterol Sulfate 2.5 Mg/3 Ml Vial.neb, 2.5 MG INH RTBID Prescribed by: ERIC PORTILLO on 11/08/18816 Amlodipine Besylate 10 Mg Tablet, 10 MG PO DAILY Prescribed by: ERIC PORTILLO on 11/08/18817 Apixaban 2.5 Mg Tablet, 2.5 MG PO BID Prescribed by: ERIC PORTILLO on 11/08/18816 Ascorbic Acid 500 Mg Tablet, 500 MG PO DAILY, (Reported) Aspirin 81 Mg Tablet.dr, 81 MG PO HS, (Reported) Cholecalciferol (Vitamin D3) 1,000 Unit Capsule, 1,000 UNIT PO HS, (Reported) Citalopram Hydrobromide 20 Mg Tablet, 20 MG PO DAILY, (Reported) Clopidogrel Bisulfate 75 Mg Tablet, 75 MG PO HS Prescribed by: ERIC PORTILLO on 11/08/18817 Guaifenesin/Dextromethorphan 5 Ml Syrup, 5 ML PO Q4H PRN for COUGH Prescribed by: ERIC PORTILLO on 11/08/18817 Lamotrigine 25 Mg Tablet, 25 MG PO HS, (Reported) Levothyroxine Sodium 25 Mcg Tablet, 25 MCG PO HS, (Reported) Melatonin 5 Mg Capsule, 10 MG PO HS, (Reported) Menthol 118 Ml Gel..ml., TP DAILY PRN for MUSCLE PAIN, (Reported) Metoprolol Succinate 25 Mg Tab.er.24h, 25 MG PO DAILY Prescribed by: ERIC PORTILLO on 11/08/18817 Multivits,Ca,Minerals/Iron/FA 1 Each Tablet, 1 TAB PO DAILY, (Reported) Oxybutynin Chloride 5 Mg Tablet, 5 MG PO DAILY, (Reported) Pantoprazole Sodium 40 Mg Tablet.dr, 40 MG PO DAILY, (Reported) Polyethylene Glycol 3350 17 Gm Powd.pack, 17 GM PO Q48H, (Reported) Pramoxine HCl/Menthol 28 Gm Cream..g., TP DAILY PRN for ITCHING, (Reported) Sodium Chloride 126 Ml Mist, 2 SPRAYS NS TID, (Reported) [Phenol/Sodium Phenolate] 1 ALETHA LOZENGE, 1 ALETHA MM Q4H PRN for THROAT PAIN Prescribed by: ERIC PORTILLO on 11/08/18817 Patient Home Medication List Home Medication List Reviewed: Yes Review of Systems Review of Systems Constitutional: see HPI; No chills, No fever; weakness EENTM: no symptoms reported Respiratory: see HPI, cough, short of breath Cardiovascular: No chest pain, No edema Gastrointestinal: No diarrhea, No vomiting Genitourinary: no symptoms reported Musculoskeletal: No muscle pain; muscle weakness Skin: no symptoms reported Psychiatric/Neurological: See HPI; Denies Headache; Weakness Hematologic/Lymphatic: No Symptoms Reported All Other Systems Reviewed Negative Unless Noted: Yes Past Lvzzgvb-Nbhzue-Uwiduf Hx Past Med/Social Hx: Reviewed Nursing Past Med/Soc Hx Patient Social History Alcohol Use: Denies Use Recreational Drug Use: No Smoking Status: Never a Smoker Recent Foreign Travel: No Contact w/Someone Who Travel: No Recent Infectious Disease Expo: No Recent Hopitalizations: Yes (11/08/18) Physical Abuse: No Sexual Abuse: No Immunizations Up To Date PED Vaccines UTD: No Date of Pneumonia Vaccine: Apr 09, 2018 Date of Influenza Vaccine: Jul 20, 2018 Seasonal Allergies Seasonal Allergies: No Past Medical History Surgeries: Yes Abdominal, Bladder Surgery, Cardiac, Orthopedic Respiratory: No Cardiac: Yes Atrial Fibrillation, Coronary Artery Disease, High Cholesterol, Hypertension Neurological: Yes Dementia, Neuropathy, Seizure Disorder, Stroke, TIA Genitourinary: Yes Bladder Infection Gastrointestinal: Yes (Bowel Resection.) Gastroesophageal Reflux, Chronic Constipation Musculoskeletal: Yes Arthritis, Spasms Endocrine: No Hypothyroidsim HEENT: Yes Cataract Loss of Vision: Denies Hearing Impairment: Hard of Hearing Cancer: No Psychosocial: No Integumentary: No Blood Disorders: No Family Medical History Reviewed Nursing Family Hx FH: CVA (cerebrovascular accident) G8 SISTER FH: pancreatic cancer G8 SISTER Myocardial infarction 19 FATHER 19 MOTHER G8 BROTHER G8 SISTER Physical Exam Vital Signs Vital Signs - First Documented 11/11/18 11/11/18 12:29 14:01 Temp 96.5 Pulse 73 Resp 15 B/P (MAP) 134/67 (89) Pulse Ox 97 O2 Delivery Room Air Capillary Refill : Less Than 3 Seconds Height, Weight, BMI Height: 5'1.00" Weight: 122lbs. 11.2oz. [id number]; 22.9 BMI Method:Stated General Appearance: No Apparent Distress, WD/WN HEENT: PERRL/EOMI, Pharynx Normal Neck: Non Tender, Supple Respiratory: No Respiratory Distress, Rhonci, Other (coarse cough noted and few rhonchi noted with deep breathing bilateral) Cardiovascular: Regular Rate, Rhythm, No Murmur Gastrointestinal: Non Tender, Soft Back: Normal Inspection, No CVA Tenderness, No Vertebral Tenderness Extremity: Normal Range of Motion, Non Tender Neurologic/Psychiatric: Alert, Oriented x3 Skin: Normal Color, Warm/Dry Progress/Results/Core Measures Suspected Sepsis Recent Fever Within 48 Hours: No Infection Criteria Present: None New/Unexplained Altered Menta: No Sepsis Screen: No Definite Risk SIRS Temperature:96.5 Pulse: 73 Respiratory Rate: 15 Laboratory Tests 11/11/18 12:50: White Blood Count 10.8 Blood Pressure 134 /67 Mean: 89 Laboratory Tests 11/11/18 12:50: Creatinine 1.11, Platelet Count 217, Total Bilirubin 0.5 Results/Orders Lab Results Laboratory Tests Test 11/11/18 12:50 11/11/18 13:32 Range/Units White Blood Count 10.8 4.3-11.0 10^3/uL Red Blood Count 3.72 L 4.35-5.85 10^6/uL Hemoglobin 11.0 L 11.5-16.0 G/DL Hematocrit 34 L 35-52 % Mean Corpuscular Volume 92 80-99 FL Mean Corpuscular Hemoglobin 30 25-34 PG Mean Corpuscular Hemoglobin Concent 32 32-36 G/DL Red Cell Distribution Width 13.4 10.0-14.5 % Platelet Count 217 130-400 10^3/uL Mean Platelet Volume 11.0 H 7.4-10.4 FL Neutrophils (%) (Auto) 62 42-75 % Lymphocytes (%) (Auto) 20 12-44 % Monocytes (%) (Auto) 18 H 0-12 % Eosinophils (%) (Auto) 0 0-10 % Basophils (%) (Auto) 0 0-10 % Neutrophils # (Auto) 6.7 1.8-7.8 X 10^3 Lymphocytes # (Auto) 2.2 1.0-4.0 X 10^3 Monocytes # (Auto) 1.9 H 0.0-1.0 X 10^3 Eosinophils # (Auto) 0.0 0.0-0.3 10^3/uL Basophils # (Auto) 0.0 0.0-0.1 10^3/uL Sodium Level 136 135-145 MMOL/L Potassium Level 4.4 3.6-5.0 MMOL/L Chloride Level 102 98-107 MMOL/L Carbon Dioxide Level 23 21-32 MMOL/L Anion Gap 11 5-14 MMOL/L Blood Urea Nitrogen 16 7-18 MG/DL Creatinine 1.11 0.60-1.30 MG/DL Estimat Glomerular Filtration Rate 47 BUN/Creatinine Ratio 14 Glucose Level 101 70-105 MG/DL Calcium Level 9.3 8.5-10.1 MG/DL Corrected Calcium 9.3 8.5-10.1 MG/DL Total Bilirubin 0.5 0.1-1.0 MG/DL Aspartate Amino Transf (AST/SGOT) 21 5-34 U/L Alanine Aminotransferase (ALT/SGPT) 12 0-55 U/L Alkaline Phosphatase 60 40-136 U/L C-Reactive Protein High Sensitivity 11.52 H 0.00-0.50 MG/DL Total Protein 7.8 6.4-8.2 GM/DL Albumin 4.0 3.2-4.5 GM/DL Urine Color YELLOW Urine Clarity VERY CLOUDY H Urine pH 6 5-9 Urine Specific Imperial 1.010 L 1.016-1.022 Urine Protein NEGATIVE NEGATIVE Urine Glucose (UA) NEGATIVE NEGATIVE Urine Ketones NEGATIVE NEGATIVE Urine Nitrite NEGATIVE NEGATIVE Urine Bilirubin NEGATIVE NEGATIVE Urine Urobilinogen NORMAL NORMAL MG/DL Urine Leukocyte Esterase 1+ H NEGATIVE Urine RBC (Auto) 1+ H NEGATIVE Urine RBC NONE /HPF Urine WBC 2-5 /HPF Urine Squamous Epithelial Cells NONE /HPF Urine Crystals NONE /LPF Urine Bacteria LARGE H /HPF Urine Casts NONE /LPF Urine Mucus NEGATIVE /LPF Urine Culture Indicated YES My Orders Orders - VICKY PURCELL MD Cbc With Automated Diff (11/11/18 12:54) Comprehensive Metabolic Panel (11/11/18 12:54) Hs C Reactive Protein (11/11/18 12:54) Chest 1 View, Ap/Pa Only (11/11/18 12:54) Saline Lock/Iv-Start (11/11/18 12:54) Ns Iv 500 Ml (Sodium Chloride 0.9%) (11/11/18 12:54) Ua Culture If Indicated (11/11/18 13:21) Albuterol/Ipra Inhalation Soln (Duoneb I (11/11/18 13:30) Svn Small Volume Nebulizer (11/11/18 13:21) Urine Culture (11/11/18 13:32) Rocephin 1g/Ns Iv (11/11/18 14:15) Dexamethasone Injection (Decadron Inject (11/11/18 14:15) Medications Given in ED Current Medications Medications Dose Ordered Sig/Karuna Route Start Time Stop Time Status Last Admin Dose Admin Albuterol/ Ipratropium 3 ml ONCE ONCE INH 11/11/18 13:30 11/11/18 13:31 DC 11/11/18 13:49 3 ML Sodium Chloride 500 ml @ 0 mls/hr Q0M ONCE IV 11/11/18 12:54 11/11/18 12:55 DC 11/11/18 13:13 500 MLS/HR Vital Signs/I&O 11/11/18 11/11/18 12:29 14:01 Temp 96.5 Pulse 73 Resp 15 B/P (MAP) 134/67 (89) Pulse Ox 97 94 O2 Delivery Room Air Capillary Refill : Less Than 3 Seconds Blood Pressure Mean: 89 Progress Note : Progress Note Seen and evaluated. IV, labs, UA, chest x-ray, normal saline 1 L bolus and IV ordered. Duo neb ordered. Monitor patient. 1400: UTI noted. Chest x-rays actually better than previous. Rocephin 1 g IV. We will also give Decadron 10 mg IV for the bronchitis that she is exhibiting. She is better after the DuoNeb. We will continue breathing treatments at long term facility. Patient and the daughter and agree. Discharged home with return precautions. Patient and daughter verbalized understanding instructions and agreement with plan. Diagnostic Imaging Diagonstic Imaging: Xray Plain Films/CT/US/NM/MRI: chest Comments NAME: CHRISTIANO FOSS [facility] REC#: [id number] PT STATUS: REG ER : [id number] PHYSICIAN: VICKY PURCELL MD ADMIT DATE: 11/11/18/ER Draft Date of Exam:11/11/18 CHEST 1 VIEW, AP/PA ONLY Indication: Cough Comparison: 11/07/2018 Technique: Single frontal radiograph of the chest dated 11/11/2018. Findings: The cardiac silhouette is mildly enlarged, stable from prior examination. No significant pulmonary vascular congestion. Previously noted right suprahilar opacities appear improved from the prior examination. Stable elevation of the right hemidiaphragm. The lungs are clear of focal pulmonary opacity. No pleural effusion. No pneumothorax. 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 Scattered vascular calcifications. No acute osseous abnormality. Impression: Improved opacities within the right suprahilar region. These are essentially resolved at this time. Stable borderline cardiomegaly without overt congestive heart failure. Additional stable findings as above. Dictated on workstation # [id number] Dict: 11/11/18 1314 Trans: 11/11/18 1319 [facility] [id number] Interpreted by: FLOR OLSON MD Electronically signed by: Departure Impression Primary Impression: Urinary tract infection Qualified Codes: N30.00 - Acute cystitis without hematuria Additional Impression: Acute bronchitis Qualified Codes: J20.9 - Acute bronchitis, unspecified Disposition: HOME, SELF-CARE Condition: Improved Departure-Patient Inst. Referrals: LONNIE EPPS MD (PCP/Family) Primary Care Physician Patient Instructions: Acute Bronchitis, Adult (DC), Urinary Tract Infection, Adult (DC) Add. Discharge Instructions: All discharge instructions reviewed with patient and/or family. Voiced understanding. Take medications as directed. Follow-up with your Dr. in a few days for recheck. Return for worse pain, fever, vomiting, weakness, breathing problems or other concerns as needed. Scripts Cefdinir (Cefdinir) 300 Mg Capsule 300 MG PO BID, #14 CAP 0 Refills Prov: VICKY PURCELL MD 11/11/18 VICKY PURCELL MD Nov 11, 2018 13:32
[2018-11-11 13:38] LABS: BILIRUBIN,URINE NEGATIVE (NEGATIVE); CLARITY,URINE VERY CLOUDY; COLOR,URINE YELLOW; GLUCOSE, URINE (UA) NEGATIVE (NEGATIVE); KETONES,URINE NEGATIVE (NEGATIVE); LEUKOCYTE ESTERASE ,URINE 1+ (NEGATIVE); NITRITE,URINE NEGATIVE (NEGATIVE); PH,URINE 6 (5-9); PROTEIN,URINE NEGATIVE (NEGATIVE); UROBILINOGEN,URINE NORMAL (NORMAL)
[2018-11-11 13:48] LABS: BACTERIA,URINE LARGE /HPF
[2018-11-11] MEDS ORDERED: cefTRIAXone 1,000 MG IV (ROCEPHIN) VIAL ONE (14:04)
[2018-11-11] MEDS ORDERED: NS (IVPB) 50 ML ONE (14:04)
[2018-11-11] MEDS ORDERED: CEFD300C3 PO (14:07)
[2018-11-11] MEDS ORDERED: cefTRIAXone FOR IV USE 1,000 MG in WATER (STERILE) FOR INJECTION 50 ML IV ONE (14:15)
[2018-11-11] MEDS ORDERED: DEXAMETHASONE 10 MG/ML (DECADRON) 1 ML VIAL IV ONE (14:15)
[2018-11-11 15:06] VITALS: BP 118/59
== END 2018-11-11 15:06 | disposition home or self-care (01) ==
LOC: EDUNIT# 12:12 → ER 12:13
DX: N39.0 Urinary tract infection, site not specified (principal); J20.9 Acute bronchitis, unspecified; I48.91 Unspecified atrial fibrillation; I25.10 Atherosclerotic heart disease of native coronary artery without angina pectoris; E78.00 Pure hypercholesterolemia, unspecified; I10 Essential (primary) hypertension; F03.90 Unspecified dementia, unspecified severity, without behavioral disturbance, psychotic disturbance, mood disturbance, and anxiety; K21.9 Gastro-esophageal reflux disease without esophagitis; E03.9 Hypothyroidism, unspecified; G40.909 Epilepsy, unspecified, not intractable, without status epilepticus; Z82.49 Family history of ischemic heart disease and other diseases of the circulatory system; Z80.0 Family history of malignant neoplasm of digestive organs; Z87.448 Personal history of other diseases of urinary system; Z87.19 Personal history of other diseases of the digestive system; Z86.73 Personal history of transient ischemic attack (TIA), and cerebral infarction without residual deficits; Z88.2 Allergy status to sulfonamides; Z88.5 Allergy status to narcotic agent; Z88.6 Allergy status to analgesic agent; Z79.51 Long term (current) use of inhaled steroids; Z79.01 Long term (current) use of anticoagulants; Z79.82 Long term (current) use of aspirin; Z79.02 Long term (current) use of antithrombotics/antiplatelets; Z98.890 Other specified postprocedural states
CPT/HCPCS: 36415; 71045; 80053; 81000; 85025; 86141; 87077; 87088; 94640

== ENCOUNTER 2020-10-29 08:47 | Emergency (ER) | payer MEDICARE, BC ==
[~2020-10-29] VITALS: Ht 165.1 cm; Wt 53.9 kg
[~2020-10-29 08:47] MED LIST changes: +AMLO-251 PO; -AMLO10TA7 PO; +ASCO500T17 PO; -ASCO500T6 PO; +ASPI-1238 PO; -ASPI-983 PO; +CEFD300C3 PO; -LAMO25TA PO; +LAMO25TA8 PO; -MELA3TAB PO; +MELA3TAB39 PO; -METO-387 PO; +MTP25TSR PO; +OXYB5TAB13 PO; -OXYB5TAB9 PO
[2020-10-29] MEDS ORDERED: METOCLOPRAMIDE INJ 10 MG/2 ML (REGLAN) IVP ONE (09:15)
[2020-10-29] MEDS ORDERED: diphenhydrAMINE 50 MG/ML INJ (BENADRYL) IM ONE (09:15)
--- NOTE | 2020-10-29 09:17 | ED Headache ---
General Chief Complaint: Head/Cervical Problems Stated Complaint: MANCIA,N/V Nursing Triage Note: PT BROUGHT IN BY [facility] FROM [facility] WITH COMPLAINT OF HEADACHE AND N/V. PT STATES HER HEADACHE STARTED LAST TUESDAY. STATES WENT TO [facility] YESTERDAY AND WAS GIVEN DEMEROL FOR PAIN. STATES TRIED TO TAKE PO DEMEROL THIS MORNING, BUT VOMITED THE MEDICATION UP. PT WAS GIVEN 4MG PO ZOFRAN BY NM STAFF. PT DID RECIEVE COVID VACCINE LAST TUESDAY. WAS COVID SWABBED AT [facility] YESTERDAY. Nursing Sepsis Screen: No Definite Risk Source: patient Exam Limitations: no limitations History of Present Illness Date Seen by Provider: Oct 29, 2020 Time Seen by Provider: 09:05 Initial Comments Patient is an 89 year old who presents to the ER with a chief complaint of headache. I started approximately 1 week ago on tuesday. Right sided and patient reports it as "severe". She has a history of migraines and similar headches in the past for which she has sought emergency department care. Patient states she received her COVID vaccine the day following the onset of the headache. No medications have made her pain better. Light tends to increase the severity. SHe denies any neurological complaints. SHe tells me she went to [facility] last evening and had a CT scan done. She was given demerol by report of half-way. PAtient states head continues to hurt. she denies n/v. No recent fevers, chills, cough or shortness of breath. No GI or complaints. No vision changes. no unilateral numbness, weakness or tinglng. Per review of the half-way records the patient has fiorinal on her medication list. I am unsure if she has taken this for this headache or not. All other ROS reviewed and negative except as stated above. Timing/Duration: 1 week Severity/Quality: constant, pressure Location: temporal Prior Headaches/Recent Trauma: occasional headaches Associated Symptoms: nausea/vomiting Allergies and Home Medications Allergies Coded Allergies: sulfamethoxazole (Unverified Allergy, Severe, HIVES, 11/11/18) trimethoprim (Unverified Allergy, Severe, HIVES, 11/11/18) morphine (Unverified Adverse Reaction, Mild, ANXIOUS, 11/11/18) Home Medications Acetaminophen 325 Mg Tablet, 650 MG PO QID PRN for PAIN-MILD OR TEMPATURE, (Reported) Albuterol Sulfate 2.5 Mg/3 Ml Vial.neb, 2.5 MG INH RTBID Prescribed by: ERIC PORTILLO on 11/08/18816 Amlodipine Besylate 10 Mg Tablet, 10 MG PO DAILY Prescribed by: ERIC PORTILLO on 11/08/18817 Apixaban 2.5 Mg Tablet, 2.5 MG PO BID Prescribed by: ERIC PORTILLO on 11/08/18816 Ascorbic Acid 500 Mg Tablet, 500 MG PO DAILY, (Reported) Aspirin 81 Mg Tablet.dr, 81 MG PO HS, (Reported) Cefdinir 300 Mg Capsule, 300 MG PO BID Prescribed by: VICKY PURCELL on 11/11/181406 Cholecalciferol (Vitamin D3) 1,000 Unit Capsule, 1,000 UNIT PO HS, (Reported) Citalopram Hydrobromide 20 Mg Tablet, 20 MG PO DAILY, (Reported) Clopidogrel Bisulfate 75 Mg Tablet, 75 MG PO HS Prescribed by: ERIC PORTILLO on 11/08/18817 Guaifenesin/Dextromethorphan 5 Ml Syrup, 5 ML PO Q4H PRN for COUGH Prescribed by: ERIC PORTILLO on 11/08/18817 Lamotrigine 25 Mg Tablet, 25 MG PO HS, (Reported) Levothyroxine Sodium 25 Mcg Tablet, 25 MCG PO HS, (Reported) Melatonin 5 Mg Capsule, 10 MG PO HS, (Reported) Menthol 118 Ml Gel..ml., TP DAILY PRN for MUSCLE PAIN, (Reported) Metoprolol Succinate 25 Mg Tab.er.24h, 25 MG PO DAILY Prescribed by: ERIC PORTILLO on 11/08/18817 Multivits,Ca,Minerals/Iron/FA 1 Each Tablet, 1 TAB PO DAILY, (Reported) Oxybutynin Chloride 5 Mg Tablet, 5 MG PO DAILY, (Reported) Pantoprazole Sodium 40 Mg Tablet.dr, 40 MG PO DAILY, (Reported) Polyethylene Glycol 3350 17 Gm Powd.pack, 17 GM PO Q48H, (Reported) Pramoxine HCl/Menthol 28 Gm Cream..g., TP DAILY PRN for ITCHING, (Reported) Sodium Chloride 126 Ml Mist, 2 SPRAYS NS TID, (Reported) [Phenol/Sodium Phenolate] 1 ALETHA LOZENGE, 1 ALETHA MM Q4H PRN for THROAT PAIN Prescribed by: ERIC PORTILLO on 11/08/18 0818 Patient Home Medication List Home Medication List Reviewed: Yes Review of Systems Review of Systems Constitutional: see HPI Eyes: No Symptoms Reported Ears, Nose, Mouth, Throat: no symptoms reported Respiratory: no symptoms reported Cardiovascular: no symptoms reported Gastrointestinal: nausea, vomiting Genitourinary: other (Chronic UTI for which the patient states she is currently on antibiotics) Musculoskeletal: no symptoms reported Skin: no symptoms reported All Other Systems Reviewed Negative Unless Noted: Yes Past Ofbjqdk-Updmcy-Jqhear Hx Patient Social History Alcohol Use: Denies Use Smoking Status: Never a Smoker Recent Infectious Disease Expo: No Recent Hopitalizations: Yes (11/08/18) Immunizations Up To Date PED Vaccines UTD: No Date of Pneumonia Vaccine: Apr 09, 2018 Date of Influenza Vaccine: Jul 20, 2018 Seasonal Allergies Seasonal Allergies: No Past Medical History Surgeries: Yes Abdominal, Bladder Surgery, Cardiac, Hysterectomy, Orthopedic, Tonsillectomy Respiratory: No Cardiac: Yes Atrial Fibrillation, Coronary Artery Disease, Heart Attack, High Cholesterol, Hypertension Neurological: Yes Dementia, Neuropathy, Seizure Disorder, Stroke, TIA Genitourinary: Yes Bladder Infection Gastrointestinal: Yes (Bowel Resection.) Gastroesophageal Reflux, Chronic Constipation Musculoskeletal: Yes Arthritis, Spasms Endocrine: No Hypothyroidsim HEENT: Yes Cataract Loss of Vision: Denies Hearing Impairment: Hard of Hearing Cancer: No Psychosocial: No Integumentary: No Blood Disorders: No Family Medical History FH: CVA (cerebrovascular accident) G8 SISTER FH: pancreatic cancer G8 SISTER Myocardial infarction 19 FATHER 19 MOTHER G8 BROTHER G8 SISTER Physical Exam Vital Signs Vital Signs - First Documented 10/29/20 08:48 Temp 36.2 Pulse 85 Resp 11 B/P (MAP) 189/87 (121) Pulse Ox 93 O2 Delivery Room Air Capillary Refill : Less Than 3 Seconds Height, Weight, BMI Height: 5'1.00" Weight: 122lbs. 11.2oz. 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) Neck: full range of motion, supple, other (no meningismus) Cardiovascular: regular rate, rhythm Respiratory: lungs clear Gastrointestinal: normal bowel sounds, non tender, soft Extremities: normal range of motion, non-tender, normal inspection, no pedal edema Psychiatric: alert, oriented x 3, depressed affect Crainal Nerves: normal hearing, normal speech, PERRL, abnormal eye position (Right eye pre-existing) Coordination/Gait: normal finger to nose Motor/Sensory: no motor deficit, no sensory deficit Skin: normal color, warm/dry Progress/Results/Core Measures Results/Orders Lab Results Laboratory Tests Test 10/29/20 08:52 Range/Units White Blood Count 12.7 H 4.3-11.0 10^3/uL Red Blood Count 4.20 3.80-5.11 10^6/uL Hemoglobin 12.9 11.5-16.0 g/dL Hematocrit 40 35-52 % Mean Corpuscular Volume 94 80-99 fL Mean Corpuscular Hemoglobin 31 25-34 pg Mean Corpuscular Hemoglobin Concent 33 32-36 g/dL Red Cell Distribution Width 12.4 10.0-14.5 % Platelet Count 247 130-400 10^3/uL Mean Platelet Volume 11.4 9.0-12.2 fL Immature Granulocyte % (Auto) 0 % Neutrophils (%) (Auto) 78 H 42-75 % Lymphocytes (%) (Auto) 15 12-44 % Monocytes (%) (Auto) 6 0-12 % Eosinophils (%) (Auto) 0 0-10 % Basophils (%) (Auto) 0 0-10 % Neutrophils # (Auto) 9.9 H 1.8-7.8 10^3/uL Lymphocytes # (Auto) 1.9 1.0-4.0 10^3/uL Monocytes # (Auto) 0.8 0.0-1.0 10^3/uL Eosinophils # (Auto) 0.0 0.0-0.3 10^3/uL Basophils # (Auto) 0.0 0.0-0.1 10^3/uL Immature Granulocyte # (Auto) 0.1 0.0-0.1 10^3/uL Sodium Level 137 135-145 MMOL/L Potassium Level 4.3 3.6-5.0 MMOL/L Chloride Level 100 98-107 MMOL/L Carbon Dioxide Level 26 21-32 MMOL/L Anion Gap 11 5-14 MMOL/L Blood Urea Nitrogen 17 7-18 MG/DL Creatinine 1.05 0.60-1.30 MG/DL Estimat Glomerular Filtration Rate 50 BUN/Creatinine Ratio 16 Glucose Level 153 H 70-105 MG/DL Calcium Level 9.6 8.5-10.1 MG/DL My Orders Orders - PALLAVI العلي MD Ed Iv/Invasive Line Start (10/29/20 09:12) Cbc With Automated Diff (10/29/20 09:12) Basic Metabolic Panel (10/29/20 09:12) Metoclopramide Injection (Reglan Injecti (10/29/20 09:15) Diphenhydramine Injection (Benadryl Inje (10/29/20 09:45) Fentanyl Injection (Sublimaze Injection (10/29/20 10:45) Medications Given in ED Vital Signs/I&O 10/29/20 10/29/20 08:48 12:47 Temp 36.2 36.6 Pulse 85 84 Resp 11 14 B/P (MAP) 189/87 (121) 163/83 Pulse Ox 93 95 O2 Delivery Room Air Room Air Blood Pressure Mean: 121 Progress Progress Note : Time: 11:10 Progress Note Reevaluated patient, she states she is feeling a little bit better but still has a mild headache. We will give her 25 of fentanyl IV. Patient is comfortable with discharge. All questions have been sought and answered. Patient is going to be discharged home Departure Impression Primary Impression: Headache Qualified Codes: R51.9 - Headache, unspecified; G89.29 - Other chronic pain Disposition: 01 HOME, SELF-CARE Condition: Stable Departure-Patient Inst. Decision time for Depature: 11:11 Referrals: LONNIE EPPS MD (PCP/Family) Primary Care Physician Patient Instructions: Migraines (DC) Add. Discharge Instructions: Drink plenty of fluids to stay well-hydrated. Continue your daily medications as prescribed by the half-way. Return to the emergency room for any worsening symptoms, headache, vomiting, fever or other emergent concerns. PALLAVI العلي MD Oct 29, 2020 09:17
[2020-10-29 09:18] LABS: BASOPHILS % (AUTO) 0 % (0-10); EOSINOPHILS % (AUTO) 0 % (0-10); HEMATOCRIT 40 % (35-52); HEMOGLOBIN 12.9 g/dL (11.5-16.0); LYMPHOCYTES # (AUTO) 1.9 10^3/uL (1.0-4.0); LYMPHOCYTES % (AUTO) 15 % (12-44); MEAN CORPUSCULAR HEMOGLOBIN 31 pg (25-34); MEAN CORPUSCULAR HGB CONC 33 g/dL (32-36); MEAN CORPUSCULAR VOLUME 94 fL (80-99); MEAN PLATELET VOLUME 11.4 fL (9.0-12.2); MONOCYTES # (AUTO) 0.8 10^3/uL (0.0-1.0); MONOCYTES % (AUTO) 6 % (0-12); NEUTROPHILS # (AUTO) 9.9 10^3/uL (1.8-7.8); NEUTROPHILS % (AUTO) 78 % (42-75); PLATELET COUNT 247 10^3/uL (130-400); WHITE BLOOD COUNT 12.7 10^3/uL (4.3-11.0)
[2020-10-29 09:22] LABS: POTASSIUM 4.3 MMOL/L (3.6-5.0)
[2020-10-29 09:23] LABS: CALCIUM 9.6 MG/DL (8.5-10.1)
[2020-10-29 09:28] LABS: CREATININE SERUM 1.05 MG/DL (0.60-1.30)
[2020-10-29] MEDS ORDERED: diphenhydrAMINE 50 MG/ML INJ (BENADRYL) IVP ONE (09:45)
[2020-10-29] MEDS ORDERED: fentaNYL INJECTION 100 MCG/2 ML AMP IVP PRN (10:45)
--- NOTE | 2020-10-29 12:05 | NUR ---
Report called to Zahra Salcedo at [facility] in [place]. They will send someone to pick her up.
[2020-10-29 12:47] VITALS: BP 163/83
== END 2020-10-29 12:49 | disposition home or self-care (01) ==
LOC: EDUNIT# 08:47 → ER 08:48
DX: R51.9 Headache, unspecified (principal); I25.2 Old myocardial infarction; E03.9 Hypothyroidism, unspecified; K21.9 Gastro-esophageal reflux disease without esophagitis; I48.91 Unspecified atrial fibrillation; I25.10 Atherosclerotic heart disease of native coronary artery without angina pectoris; I10 Essential (primary) hypertension; Z88.2 Allergy status to sulfonamides; Z88.5 Allergy status to narcotic agent; Z88.1 Allergy status to other antibiotic agents; Z86.73 Personal history of transient ischemic attack (TIA), and cerebral infarction without residual deficits; Z82.49 Family history of ischemic heart disease and other diseases of the circulatory system; Z79.890 Hormone replacement therapy; Z79.82 Long term (current) use of aspirin; Z79.01 Long term (current) use of anticoagulants
CPT/HCPCS: 36415; 80048; 85025